=== PATIENT | female | born 1955 | race Caucasian/White ===

== ENCOUNTER 2021-06-30 18:59 | Inpatient (IN) | payer MEDICARE ==
--- NOTE | 2021-06-30 19:53 | ERPHSYRPT ---
- History of Present Illness Time Seen by Provider: 06/30/21 19:33 Source: patient Exam Limitations: no limitations Patient Subjective Stated Complaint: Patient states " The doctors's office called and told me I needed to come to ED because my HBG levels were to low." Triage Nursing Assessment: Patient arrived to ED and ambulated back to room wit hout difficulty with slow and steady gait. Patient A/O times 4. Patient able to follow instructions without difficulty. Patient stated she had just relocated in [place] and does not have a primary PCP. Patient however did see Dr. Frazier and had labs drawn this past Tuesday06/26/21. Patient stated they had called and left her a voice message that she didn't get until today that she needed to go to ED R/T abnormal HGB levels. Patient also stated that she wouldn't have been able to come in Tuesday because she had to wait on her daughter to be able to get a ride. Patient central color pale. Patient states she has been more tired than normal. Lungs very diminished throughout all lung lopes A/P. Physician History: 66 years old female with history of alcoholic cirrhosis, tobacco abuse, alcohol abuse, coronary artery disease status post stenting, hypertension, chronic pain, hypothyroidism is sent in ER by cardiology after routine work-up showed low hemoglobin. Patient reports feeling weak and tired but no more than normal shortness of breath or abdominal pain. Denies any dark-colored stool, hematochezia or hemoptysis/hematemesis. Has had similar episodes last year with hospitalization needing multiple transfusions. Denies being on any blood thinners. Timing/Duration: day(s), constant, gradual onset, worse Severity: moderate Associated Symptoms: malaise, weakness Allergies/Adverse Reactions: Penicillins Allergy (Intermediate, Verified 06/30/21 19:16) Hives Home Medications: Aspirin EC 81 mg [Ecotrin 81 mg] 81 mg PO DAILY 06/30/21 [History] Furosemide 20 mg [Lasix 20 mg] 20 mg PO DAILY 06/30/21 [History] Gabapentin 100 mg [Neurontin 100 MG] 100 mg PO TID 06/30/21 [History] Levothyroxine Sodium 25 mcg PO DAILY 06/30/21 [History] Potassium Chloride 10 Meq Tab* [Klor Con 10 MEQ] 20 meq PO DAILY 06/30/21 [History] Hx Tetanus, Diphtheria Vaccination/Date Given: Yes Hx Influenza Vaccination/Date Given: No Hx Pneumococcal Vaccination/Date Given: No Immunizations Up to Date: Yes Travel Risk - International Travel Have you traveled outside of the country in past 3 weeks: No - Coronavirus Screening Are you exhibiting any of the following symptoms?: No Close contact with a COVID-19 positive Pt in past 14-21 Days: No - Vaccine Status Have you recieved a Covid-19 vaccination: No - Review of Systems Constitutional: Fatigue, Weakness Eyes: No Symptoms Ears, Nose, & Throat: No Symptoms Respiratory: Dyspnea, Dyspnea on Exertion (PÉREZ), Wheezing Cardiac: No Symptoms Abdominal/Gastrointestinal: Abdominal Pain, No Hematochezia Genitourinary Symptoms: No Symptoms Musculoskeletal: Arthralgias Neurological: No Symptoms Psychological: No Symptoms Endocrine: No Symptoms Hematologic/Lymphatic: No Symptoms Immunological/Allergic: No Symptoms - Past Medical History Pertinent Past Medical History: Yes Neurological History: Seizures ENT History: No Pertinent History Cardiac History: Myocardial Infarction ([place]) Respiratory History: No Pertinent History Endocrine Medical History: Hypothyroidism Musculoskeletal History: Fractures, Osteoarthritis GI Medical History: Hernia, Pancreatitis History: No Pertinent History Psycho-Social History: Anxiety, Depression Female Reproductive Disorders: No Pertinent History Other Medical History: FX Bilateral Feet - Past Surgical History Past Surgical History: Yes Neuro Surgical History: No Pertinent History Cardiac: Cardiac Catheterization, Cardiac Stent Respiratory: No Pertinent History Gastrointestinal: No Pertinent History Genitourinary: No Pertinent History Musculoskeletal: Orthopedic Surgery Female Surgical History: Tubal Ligation Other Surgical History: HX Orthopedic Surgery on Bilateral arms from going through glass doors - Social History Smoking Status: Current every day smoker How long have you smoked: 40 years Exposure to second hand smoke: Yes Drug Use: none Patient Lives Alone: Yes - Female History Hx Last Menstrual Period: Tubal Hx Now: No - Nursing Vital Signs Nursing Vital Signs: Initial Vital Signs Temperature 98.8 F 06/30/21 19:01 Pulse Rate 106 H 06/30/21 19:01 Respiratory Rate 22 06/30/21 19:01 Blood Pressure 134/93 06/30/21 19:01 O2 Sat by Pulse Oximetry 98 06/30/21 19:01 Pain Scale Pain Intensity 0 - Physical Exam General Appearance: no apparent distress, alert Eye Exam: PERRL/EOMI, eyes nml inspection Ears, Nose, Throat Exam: normal ENT inspection, pharynx normal Neck Exam: normal inspection, supple, full range of motion Respiratory Exam: normal breath sounds, lungs clear Cardiovascular Exam: regular rate/rhythm, normal heart sounds Gastrointestinal/Abdomen Exam: soft, normal bowel sounds, tenderness (Minimal generalized. Distention), distention, No guarding Extremity Exam: normal inspection, pedal edema (Bilateral), swelling Neurologic Exam: alert, oriented x 3, cooperative Skin Exam: normal color SpO2 Interpretation: normal SpO2: 98 O2 Delivery: Room Air Ordered Tests: Active Orders 24 hr Category Date Time Status EKG-ER Only STAT Care 06/30/21 19:52 Active IV Insertion STAT Care 06/30/21 19:52 Active IV Insertion-2nd Peripheral STAT Care 06/30/21 20:39 Active CHEST 1 VIEW (PORTABLE) Stat Exams 06/30/21 20:32 Taken CBC W DIFF Stat Lab 06/30/21 19:54 Completed CMP Stat Lab 06/30/21 19:54 Completed ETHYL ALCOHOL Stat Lab 06/30/21 20:30 Completed FECAL OCCULT BLOOD - SCREENING Stat Lab 06/30/21 19:52 Ordered PROTIME WITH INR Stat Lab 06/30/21 20:08 Completed PTT Stat Lab 06/30/21 20:08 Completed UA W/RFX UR CULTURE Stat Lab 06/30/21 19:52 Ordered Transfer Order Routine Transfer 06/30/21 Ordered Medication Summary Discontinued Medications Generic Name Dose Route Start Last Admin Trade Name Sera PRN Reason Stop Dose Admin Lorazepam 1 mg 06/30/21 21:07 06/30/21 21:44 Lorazepam 2 Mg/1 Ml 2 Mg Vial IV 06/30/21 21:08 1 mg STAT ONE Administration Lorazepam Confirm 06/30/21 21:19 Lorazepam 2 Mg/1 Ml 2 Mg Vial Administered 06/30/21 21:20 Dose 2 mg .ROUTE .STK-MED ONE Pantoprazole Sodium 40 mg 06/30/21 20:02 06/30/21 20:07 Pantoprazole 40 Mg Vial IV 06/30/21 20:03 40 mg STAT ONE Administration Pantoprazole Sodium Confirm 06/30/21 20:05 Pantoprazole 40 Mg Vial Administered 06/30/21 20:06 Dose 40 mg IV .STK-MED ONE Lab/Rad Data: Laboratory Result Diagrams 06/30/21 19:54 06/30/21 19:54 Laboratory Results 06/30/21 06/30/21 06/30/21 Range/Units 20:40 20:30 20:08 WBC (4.0-10.5) K/mm3 RBC (4.1-5.4) M/mm3 Hgb (12.0-16.0) gm/dl Hct (35-47) % MCV (78-100) fl MCH (26-32) pg MCHC (32-36) g/dl RDW (11.5-14.0) % Plt Count (150-450) K/mm3 MPV (7.5-11.0) fl Gran % (36.0-66.0) % Eos # (Auto) (0-0.5) Absolute Lymphs (auto) (1.0-4.6) Absolute Monos (auto) (0.0-1.3) Lymphocytes % (24.0-44.0) % Monocytes % (0.0-12.0) % Eosinophils % (0.00-5.0) % Basophils % (0.0-0.4) % Absolute Granulocytes (1.4-6.9) Basophils # (0-0.4) PT 13.0 H (9.4-12.5) SECONDS INR 1.10 (0.8-3.0) APTT 29.7 (25.1-36.5) SECONDS Sodium (137-145) mmol/L Potassium (3.5-5.1) mmol/L Chloride (98-107) mmol/L Carbon Dioxide (22-30) mmol/L Anion Gap (5-15) MEQ/L BUN (7-17) mg/dL Creatinine (0.52-1.04) mg/dL Estimated GFR ML/MIN Glucose (74-106) mg/dL Calcium (8.4-10.2) mg/dL Total Bilirubin (0.2-1.3) mg/dL AST (14-36) U/L ALT (0-35) U/L Alkaline Phosphatase (38-126) U/L Serum Total Protein (6.3-8.2) g/dL Albumin (3.5-5.0) g/dL Ethyl Alcohol 44 H (0-10) mg/dL Slides for Path Review ABO Group Pending Rh Factor Pending Antibody Screen Pending 06/30/21 06/30/21 Range/Units 19:54 19:54 WBC 6.1 (4.0-10.5) K/mm3 RBC 4.04 L (4.1-5.4) M/mm3 Hgb 7.3 L (12.0-16.0) gm/dl Hct 26.4 L (35-47) % MCV 65.3 L (78-100) fl MCH 18.1 L (26-32) pg MCHC 27.7 L (32-36) g/dl RDW 20.7 H (11.5-14.0) % Plt Count 250 (150-450) K/mm3 MPV 9.5 (7.5-11.0) fl Gran % 46.4 (36.0-66.0) % Eos # (Auto) 0.13 (0-0.5) Absolute Lymphs (auto) 2.19 (1.0-4.6) Absolute Monos (auto) 0.92 (0.0-1.3) Lymphocytes % 35.9 (24.0-44.0) % Monocytes % 15.1 H (0.0-12.0) % Eosinophils % 2.1 (0.00-5.0) % Basophils % 0.5 (0.0-0.4) % Absolute Granulocytes 2.83 (1.4-6.9) Basophils # 0.03 (0-0.4) PT (9.4-12.5) SECONDS INR (0.8-3.0) APTT (25.1-36.5) SECONDS Sodium 142 (137-145) mmol/L Potassium 3.3 L (3.5-5.1) mmol/L Chloride 103 (98-107) mmol/L Carbon Dioxide 25 (22-30) mmol/L Anion Gap 18.0 H (5-15) MEQ/L BUN 10 (7-17) mg/dL Creatinine 0.59 (0.52-1.04) mg/dL Estimated GFR > 60.0 ML/MIN Glucose 93 (74-106) mg/dL Calcium 8.9 (8.4-10.2) mg/dL Total Bilirubin 0.60 (0.2-1.3) mg/dL AST 34 (14-36) U/L ALT 16 (0-35) U/L Alkaline Phosphatase 80 (38-126) U/L Serum Total Protein 7.4 (6.3-8.2) g/dL Albumin 4.0 (3.5-5.0) g/dL Ethyl Alcohol (0-10) mg/dL Slides for Path Review YES ABO Group Rh Factor Antibody Screen - Progress Progress: unchanged Progress Note: 06/30/21 21:16 66 years old is evaluated for symptomatic anemia with hemoglobin around 7.5 checked outpatient. Patient denies any history of hematochezia but does have history of transfusions and anemia in the past. Patient does drink heavily and was anxious, given Ativan. Work-up showed hemoglobin of 7.3 and hematocrit of 26 with normal platelets. Normal PT APTT/INR. Mildly low potassium. Went over risk and benefits of transfusion in detail with patient and she wants to proceed with transfusion. Ordered 2 units and will do 20 mg IV Lasix in between units. Will place patient on Ativan per protocol. Discussed with Dr. Truong, reviewed history, work-up and agreed with admission with above plan. Discussed with .: Anna Will see patient in: hospital (observation) Counseled pt/family regarding: lab results, diagnosis, rad results - Departure Departure Disposition: Observation Clinical Impression: Symptomatic anemia, Alcohol abuse Cirrhosis of liver with ascites Qualifiers: Hepatic cirrhosis type: alcoholic cirrhosis Qualified Code(s): K70.31 - Alcoholic cirrhosis of liver with ascites Condition: Stable Critical Care Time: No Referrals: DOCTOR,NO FAMILY [Primary Care Provider] -
[2021-06-30 19:59] LABS: Absolute Neutrophil Ct (ANC) 2.83 (1.4-6.9); BASOPHIL % 0.5 % (0.0-0.4); Basophil (Absolute #) 0.03 (0-0.4); Eosinophil % 2.1 % (0.00-5.0); Eosinophil (Absolute #) 0.13 (0-0.5); Hematocrit 26.4 % (35-47); Hemoglobin 7.3 gm/dl (12.0-16.0); Lymphocyte (Absolute #) 2.19 (1.0-4.6); Lymphocytes % 35.9 % (24.0-44.0); Mean Cell Volume 65.3 fl (78-100); Mean Corpuscular Hemoglobin 18.1 pg (26-32); Mean Corpuscular Hgb Concent. 27.7 g/dl (32-36); Mean Platelet Volume 9.5 fl (7.5-11.0); Monocyte (Absolute #) 0.92 (0.0-1.3); Monocytes % 15.1 % (0.0-12.0); Neutrophil % 46.4 % (36.0-66.0); Platelet Count 250 K/mm3 (150-450); Red Blood Count 4.04 M/mm3 (4.1-5.4); Red Cell Distribution Width 20.7 % (11.5-14.0); White Blood Count 6.1 K/mm3 (4.0-10.5)
[2021-06-30] MEDS ORDERED: PROTONIX 40 MG IV IV ONE ×2 (20:02→20:05)
[2021-06-30 20:13] LABS: ALKALINE PHOSPHATASE 80 U/L (38-126); BLOOD UREA NITROGEN 10 mg/dL (7-17); CHLORIDE 103 mmol/L (98-107); Calcium 8.9 mg/dL (8.4-10.2); Carbon Dioxide 25 mmol/L (22-30); Creatinine 1 0.59 mg/dL (0.52-1.04); EST GLOMERULAR FILTRATION RATE > 60.0 ML/MIN; Glucose 93 mg/dL (74-106); Potassium 3.3 mmol/L (3.5-5.1); SGOT/AST 34 U/L (14-36); SGPT/ALT 16 U/L (0-35); SODIUM 142 mmol/L (137-145); Total Protein 7.4 g/dL (6.3-8.2)
[2021-06-30 20:17] LABS: INR 1.1 (0.8-3.0)
[2021-06-30 20:20] LABS: PTT 29.7 SECONDS (25.1-36.5)
[2021-06-30] MEDS ORDERED: Ativan 2 MG/1 ML VIAL IV ONE (21:07)
[2021-06-30 21:18] LABS: Slide Review 1 YES
[2021-06-30] MEDS ORDERED: Ativan 2 MG/1 ML VIAL ONE (21:19)
[2021-06-30 23:31] LABS: ABO TYPING B; Antibody Screen NEGATIVE (NEGATIVE); RH TYPING POSITIVE
[2021-06-30] MEDS ORDERED: DUONEB 0.5-3 MG/3 ml Neb IH PRN (23:55)
[2021-07-01] MEDS ORDERED: Sodium Chloride 0.9% 1000 ML 1,000 ML ONE (00:01)
[2021-07-01] MEDS ORDERED: Sodium Chloride 0.9% 1000 ML 1,000 ML IV SCH (00:15)
[2021-07-01] MEDS: Sodium Chloride 0.9% W/ 20 mEq KCl/LITER 1,000 ML IV SCH ×2 (04:03→09:40)
[2021-07-01] MEDS: Ativan 2 MG/1 ML VIAL IV PRN ×6 (04:08→22:15)
[2021-07-01] MEDS ORDERED: TRANDATE 20 MG/4 ML SYRINGE IV ONE (07:30)
[2021-07-01 07:48] LABS: Hematocrit 31.5 % (35-47); Hemoglobin 9.4 gm/dl (12.0-16.0)
[2021-07-01] MEDS ORDERED: Lasix 20 MG/2 ML IV ONE ×2 (08:00→08:51)
--- NOTE | 2021-07-01 08:47 | XRAY ---
Indication: Weakness. Comparison: None Portable apical lordotic chest demonstrates borderline cardiomegaly, moderate left base pleural effusion with adjacent infiltrate/atelectasis, and mild right base infiltrate/atelectasis. Bony thorax intact with mild osteopenia and degenerative changes.
--- NOTE | 2021-07-01 08:52 | PCM.HP ---
History of Present Illness - Chief Complaint Chief Complaint: symptomatic anemia History of Present Illness: is a 66 year old female pt with no local MD who has alcoholic cirrhosis of the liver, CAD with stents, HTN, chronic abd pain, hypothyroidism, Hep C, alcohol use disorder, and tobacco use disorder who was admitted through ER with symptomatic anemia. She saw Dr. Frazier for the first time last week and had routine labs drawn; his office called and let her know her Hgb was low and she needed to come to ER. She had been feeling a little weak; hgb was 7.3 in ER. Two units of PRBC were ordered (last unit went in this morning). Her K was 3.3. EtOH 44. CXR read is pending. Pt has had anemia before; she was living in [place] in December 2020 and had an admission at [facility] near [place] in which she had an EGD and colonoscopy with no findings, per pt. She denies any history of esophageal varices. Pt drinks 1 L vodka daily. Apparently, per RN, she was off of alcohol entirely for 9 years, then when her passed this year she relapsed. She smoked 3/4 PPD and does not want a nicotine patch. Overnight, she had ativan at 4am as her BP and HR slowly increased. Then in the morning nanny she had a BP 156/97 and HR went to the 160s briefly (about 30 seconds) before returning to 113. She was asleep at the time. Later in the morning, approx 7-7:30, she was given ativan again and has been sleeping ever since. She was given 10mg Labetalol IV and her HR decreased to the 80s and BP decreased as well. She had not urinated since admission; was given 20 units of lasix with her last unit of blood. She did soak the bed then go to the restroom and urinate about 450 cc at that time. RN notes she has edema posteriorly to approx thoracic spine. - Review of Systems Constitutional: Fatigue Cardiac: Edema (LE chronic) Abdominal/Gastrointestinal: Abdominal Pain (chronic, pt states due to her liver) Psychological: Alcohol Abuse, Anxiety, No Suicidal Ideations, No Homicidal Ideations All Other Systems: Reviewed and Negative Medications & Allergies Home Medications: Home Medication List Aspirin EC 81 mg [Ecotrin 81 mg] 81 mg PO DAILY 06/30/21 [History Confirmed 07/01/21] Furosemide 20 mg [Lasix 20 mg] 20 mg PO DAILY 06/30/21 [History Confirmed 07/01/21] Gabapentin 100 mg [Neurontin 100 MG] 100 mg PO TID 06/30/21 [History Confirmed 07/01/21] Levothyroxine Sodium 25 mcg PO DAILY 06/30/21 [History Confirmed 07/01/21] Potassium Chloride 10 Meq Tab* [Klor Con 10 MEQ] 20 meq PO DAILY 06/30/21 [History Confirmed 07/01/21] Allergies/Adverse Reactions: Allergies Allergy/AdvReac Type Severity Reaction Status Date / Time Penicillins Allergy Intermediate Hives Verified 07/01/21 00:12 adhesive tape Allergy Mild Rash Verified 07/01/21 00:12 - Past Medical History Past Medical History: Yes Neurological History: Peripheral Neuropathy, Seizures ENT History: No Pertinent History Cardiac History: Coronary Artery Disease, High Cholesterol, Hypertension, Myocardial Infarction ([place]) Respiratory History: COPD Endocrine Medical History: Hypothyroidism, Liver Disease Musculoskelatal History: Osteoarthritis GI Medical History: Cirrhosis, Hernia, Pancreatitis History: No Pertinent History Pyscho-Social History: Anxiety, Bipolar, Depression, Panic Disorder Reproductive Disorders: No Pertinent History Comment: Hx of one seizure when not drinking alcohol. Patient reportedly drinks 0.75 of a one liter bottle of vodka daily. Hx of hepatitis C. - Female History Hx Last Menstrual Period: Tubal Are you now?: No - Past Surgical History Past Surgical History: Yes Neuro Surgical History: No Pertinent History Cardiac History: Cardiac Catheterization, Cardiac Stent Respiratory Surgery: No Pertinent History GI Surgical History: No Pertinent History Genitourinary Surgical Hx: No Pertinent History Musculskeletal Surgical Hx: Orthopedic Surgery Female Surgical History: Tubal Ligation Other Surgical History: HX Orthopedic Surgery on Bilateral arms from going through glass doors. - Social History Smoking Status: Current every day smoker How long have you smoked: 40 years Exposure to second hand smoke: Yes Alcohol: Heavy, Daily Drug Use: none - Physical Exam Vital Signs: Vital Signs - 24 hr Temp Pulse Resp BP BP Pulse Ox 07/01/21 08:00 83 125/79 07/01/21 07:49 107 H 18 100 07/01/21 07:37 156/97 105 H 07/01/21 07:19 98.2 F 107 H 18 156/97 100 07/01/21 04:08 112 H 22 07/01/21 04:00 98.6 F 112 H 22 138/79 98 07/01/21 01:26 99.5 F 104 H 18 148/70 99 07/01/21 00:29 101 H 18 96 06/30/21 23:00 104 H 16 149/98 93 L 06/30/21 22:00 100 H 16 142/108 92 L 06/30/21 21:50 98 06/30/21 21:00 96 H 24 134/79 94 L 06/30/21 20:00 100 H 20 141/68 97 06/30/21 19:01 98.8 F 106 H 22 134/93 98 General Appearance: no apparent distress, other (somnolent, but wakes to voice and/or touch and briefly answers questions.) Neurologic Exam: oriented x 3, cooperative Eye Exam: eyes nml inspection Ears, Nose, Throat Exam: moist mucous membranes Neck Exam: normal inspection, non-tender, No lymphadenopathy Respiratory Exam: normal breath sounds, chest tenderness, No lungs clear, No crackles/rales, No rhonchi, No wheezing Cardiovascular Exam: regular rate/rhythm, normal heart sounds, No murmur Gastrointestinal/Abdomen Exam: soft, normal bowel sounds, tenderness (RUQ; liver palpable), hepatomegaly, other (no ascites), No guarding, No rebound Back Exam: normal inspection, No rash Extremity Exam: normal inspection, No pedal edema, No swelling Skin Exam: normal color, warm, dry, No rash Results - Labs Lab/Micro Results: Lab Results-Last 24 Hours 06/30/21 06/30/21 06/30/21 Range/Units 19:54 19:54 20:08 WBC 6.1 (4.0-10.5) K/mm3 RBC 4.04 L (4.1-5.4) M/mm3 Hgb 7.3 L (12.0-16.0) gm/dl Hct 26.4 L (35-47) % MCV 65.3 L (78-100) fl MCH 18.1 L (26-32) pg MCHC 27.7 L (32-36) g/dl RDW 20.7 H (11.5-14.0) % Plt Count 250 (150-450) K/mm3 MPV 9.5 (7.5-11.0) fl Gran % 46.4 (36.0-66.0) % Eos # (Auto) 0.13 (0-0.5) Absolute Lymphs (auto) 2.19 (1.0-4.6) Absolute Monos (auto) 0.92 (0.0-1.3) Lymphocytes % 35.9 (24.0-44.0) % Monocytes % 15.1 H (0.0-12.0) % Eosinophils % 2.1 (0.00-5.0) % Basophils % 0.5 (0.0-0.4) % Absolute Granulocytes 2.83 (1.4-6.9) Basophils # 0.03 (0-0.4) PT 13.0 H (9.4-12.5) SECONDS INR 1.10 (0.8-3.0) APTT 29.7 (25.1-36.5) SECONDS Sodium 142 (137-145) mmol/L Potassium 3.3 L (3.5-5.1) mmol/L Chloride 103 (98-107) mmol/L Carbon Dioxide 25 (22-30) mmol/L Anion Gap 18.0 H (5-15) MEQ/L BUN 10 (7-17) mg/dL Creatinine 0.59 (0.52-1.04) mg/dL Estimated GFR > 60.0 ML/MIN Glucose 93 (74-106) mg/dL Calcium 8.9 (8.4-10.2) mg/dL Total Bilirubin 0.60 (0.2-1.3) mg/dL AST 34 (14-36) U/L ALT 16 (0-35) U/L Alkaline Phosphatase 80 (38-126) U/L Serum Total Protein 7.4 (6.3-8.2) g/dL Albumin 4.0 (3.5-5.0) g/dL Ethyl Alcohol (0-10) mg/dL SARS-CoV-2 (PCR) (NEGATIVE) Slides for Path Review YES ABO Group Rh Factor Antibody Screen (NEGATIVE) Crossmatch (COMPATIBLE) 06/30/21 06/30/21 06/30/21 Range/Units 20:30 20:40 21:09 WBC (4.0-10.5) K/mm3 RBC (4.1-5.4) M/mm3 Hgb (12.0-16.0) gm/dl Hct (35-47) % MCV (78-100) fl MCH (26-32) pg MCHC (32-36) g/dl RDW (11.5-14.0) % Plt Count (150-450) K/mm3 MPV (7.5-11.0) fl Gran % (36.0-66.0) % Eos # (Auto) (0-0.5) Absolute Lymphs (auto) (1.0-4.6) Absolute Monos (auto) (0.0-1.3) Lymphocytes % (24.0-44.0) % Monocytes % (0.0-12.0) % Eosinophils % (0.00-5.0) % Basophils % (0.0-0.4) % Absolute Granulocytes (1.4-6.9) Basophils # (0-0.4) PT (9.4-12.5) SECONDS INR (0.8-3.0) APTT (25.1-36.5) SECONDS Sodium (137-145) mmol/L Potassium (3.5-5.1) mmol/L Chloride (98-107) mmol/L Carbon Dioxide (22-30) mmol/L Anion Gap (5-15) MEQ/L BUN (7-17) mg/dL Creatinine (0.52-1.04) mg/dL Estimated GFR ML/MIN Glucose (74-106) mg/dL Calcium (8.4-10.2) mg/dL Total Bilirubin (0.2-1.3) mg/dL AST (14-36) U/L ALT (0-35) U/L Alkaline Phosphatase (38-126) U/L Serum Total Protein (6.3-8.2) g/dL Albumin (3.5-5.0) g/dL Ethyl Alcohol 44 H (0-10) mg/dL SARS-CoV-2 (PCR) (NEGATIVE) Slides for Path Review ABO Group B Rh Factor POSITIVE Antibody Screen NEGATIVE (NEGATIVE) Crossmatch COMPATIBLE (COMPATIBLE) 06/30/21 06/30/21 07/01/21 Range/Units 21:09 21:48 07:40 WBC (4.0-10.5) K/mm3 RBC (4.1-5.4) M/mm3 Hgb 9.4 L D (12.0-16.0) gm/dl Hct 31.5 L (35-47) % MCV (78-100) fl MCH (26-32) pg MCHC (32-36) g/dl RDW (11.5-14.0) % Plt Count (150-450) K/mm3 MPV (7.5-11.0) fl Gran % (36.0-66.0) % Eos # (Auto) (0-0.5) Absolute Lymphs (auto) (1.0-4.6) Absolute Monos (auto) (0.0-1.3) Lymphocytes % (24.0-44.0) % Monocytes % (0.0-12.0) % Eosinophils % (0.00-5.0) % Basophils % (0.0-0.4) % Absolute Granulocytes (1.4-6.9) Basophils # (0-0.4) PT (9.4-12.5) SECONDS INR (0.8-3.0) APTT (25.1-36.5) SECONDS Sodium (137-145) mmol/L Potassium (3.5-5.1) mmol/L Chloride (98-107) mmol/L Carbon Dioxide (22-30) mmol/L Anion Gap (5-15) MEQ/L BUN (7-17) mg/dL Creatinine (0.52-1.04) mg/dL Estimated GFR ML/MIN Glucose (74-106) mg/dL Calcium (8.4-10.2) mg/dL Total Bilirubin (0.2-1.3) mg/dL AST (14-36) U/L ALT (0-35) U/L Alkaline Phosphatase (38-126) U/L Serum Total Protein (6.3-8.2) g/dL Albumin (3.5-5.0) g/dL Ethyl Alcohol (0-10) mg/dL SARS-CoV-2 (PCR) NEGATIVE (NEGATIVE) Slides for Path Review ABO Group Rh Factor Antibody Screen (NEGATIVE) Crossmatch COMPATIBLE (COMPATIBLE) Accuchecks Date 07/01/21 Time 07:18 - Radiology Impressions Radiology Exams & Impressions: Radiology Procedures Category Date Time Status CHEST 1 VIEW (PORTABLE) Stat Exams 06/30/21 20:32 Taken Ultrasound Bladder [BLADDER] [US] Routine Exams 07/01/21 Ordered - Other Procedures and Tests Respiratory Therapy 07/01/21 00:29 Respiratory Therapy Assessment DAILY 07/01/21 01:43 Smoking Cessation Education ONCE Assessment/Plan (1) Symptomatic anemia Current Visit: Yes Status: Chronic Assessment & Plan: 2 units PRBC in, will check post CBC. WIll get records from [facility]. May need to consult surgery after that. Code(s): D64.9 - ANEMIA, UNSPECIFIED (2) HTN (hypertension) Current Visit: Yes Status: Acute Qualifiers: Hypertension type: primary hypertension Qualified Code(s): I10 - Essential (primary) hypertension Code(s): I10 - ESSENTIAL (PRIMARY) HYPERTENSION (3) Tachycardia Current Visit: Yes Status: Acute Assessment & Plan: Will consult Dr. Frazier as he recently saw the pt. Code(s): R00.0 - TACHYCARDIA, UNSPECIFIED (4) CAD (coronary artery disease) Current Visit: Yes Status: Chronic Qualifiers: Coronary Disease-Associated Artery/Lesion type: nikolai artery [place] vs. transplanted heart: n[place] heart Associated angina: without angina Qualified Code(s): I25.10 - Atherosclerotic heart disease of [place] coronary artery without angina pectoris Code(s): I25.10 - ATHSCL HEART DISEASE OF [place] CORONARY ARTERY W/O ANG PCTRS (5) Hepatitis C Current Visit: Yes Status: Acute Qualifiers: Viral hepatitis chronicity: chronic Hepatic coma status: without hepatic coma Qualified Code(s): B18.2 - Chronic viral hepatitis C (6) Hypothyroid Current Visit: Yes Status: Acute Qualifiers: Hypothyroidism type: unspecified Qualified Code(s): E03.9 - Hypothyroidism, unspecified Code(s): E03.9 - HYPOTHYROIDISM, UNSPECIFIED (7) Alcohol abuse Current Visit: Yes Status: Chronic Assessment & Plan: [facility] consult Code(s): F10.10 - ALCOHOL ABUSE, UNCOMPLICATED (8) Cirrhosis of liver with ascites Current Visit: Yes Status: Chronic Qualifiers: Hepatic cirrhosis type: alcoholic cirrhosis Qualified Code(s): K70.31 - Alcoholic cirrhosis of liver with ascites Code(s): K74.60 - UNSPECIFIED CIRRHOSIS OF LIVER; R18.8 - OTHER ASCITES
[2021-07-01 09:27] LABS: ANION GAP 14.3 MEQ/L (5-15); BLOOD UREA NITROGEN 12 mg/dL (7-17); CHLORIDE 105 mmol/L (98-107); Calcium 8.6 mg/dL (8.4-10.2); Carbon Dioxide 25 mmol/L (22-30); Creatinine 1 0.58 mg/dL (0.52-1.04); EST GLOMERULAR FILTRATION RATE > 60.0 ML/MIN; Glucose 90 mg/dL (74-106); MAGNESIUM 1.3 mg/dL (1.6-2.3); Potassium 3.7 mmol/L (3.5-5.1); SODIUM 141 mmol/L (137-145)
[2021-07-01] MEDS: VITAMIN B-1 100 MG PO SCH (09:39)
[2021-07-01] MEDS: PROTONIX 40 MG IV IV SCH (09:39)
[2021-07-01] MEDS: THERAGRAN MULTIVITAMIN PO SCH (09:39)
[2021-07-01] MEDS: FOLATE 1 MG PO SCH (09:39)
--- NOTE | 2021-07-01 10:29 | XRAY ---
Indication: Incontinence. Trouble urinating. Limited urinary bladder sonogram obtained post void demonstrates bladder volume 149 cc. No focal bladder mass/abnormality. Incidental small free fluid superior to bladder possibly ascites.
[2021-07-01 10:42] LABS: Hyaline Casts 0-2 /LPF (0-2)
[2021-07-01 10:45] LABS: Amphetamine,Urine POSITIVE (NEGATIVE); Barbiturate,Urine NEGATIVE (NEGATIVE); Benzodiazepine,Urine NEGATIVE (NEGATIVE); Cocaine,Urine NEGATIVE (NEGATIVE); Methadone,Urine NEGATIVE (NEGATIVE); Opiate,Urine NEGATIVE (NEGATIVE); PCP,Urine NEGATIVE (NEGATIVE); THC,Urine NEGATIVE (NEGATIVE)
[2021-07-01 10:54] LABS: Appearance CLEAR (CLEAR); Bilirubin NEGATIVE (NEGATIVE); Glucose NEGATIVE (NEGATIVE); Ketones NEGATIVE (NEGATIVE); Leukocyte Esterase NEGATIVE (NEGATIVE); Nitrite NEGATIVE (NEGATIVE); Ph 6.5 (5-6); Protein,Urine Dip NEGATIVE (Negative); Urobilinogen 0.2 mg/dL (0-1)
[2021-07-01 10:55] LABS: Blood NEGATIVE Ery/ul (0-5)
[2021-07-01] MEDS: TYLENOL 325 MG PO PRN (12:07)
[2021-07-01] MEDS: MAG-OX 400 PO SCH (12:07)
[2021-07-02] MEDS: Ativan 2 MG/1 ML VIAL IV PRN ×8 (01:33→19:45)
[2021-07-02] MEDS: Sodium Chloride 0.9% W/ 20 mEq KCl/LITER 1,000 ML IV SCH ×2 (01:36→19:47)
[2021-07-02 07:25] LABS: Hematocrit 31.7 % (35-47); Hemoglobin 9.4 gm/dl (12.0-16.0); Mean Cell Volume 69.2 fl (78-100); Mean Corpuscular Hemoglobin 20.5 pg (26-32); Mean Corpuscular Hgb Concent. 29.7 g/dl (32-36); Mean Platelet Volume 9.8 fl (7.5-11.0); Platelet Count 226 K/mm3 (150-450); Red Blood Count 4.58 M/mm3 (4.1-5.4); Red Cell Distribution Width 24.4 % (11.5-14.0); White Blood Count 5.8 K/mm3 (4.0-10.5)
[2021-07-02 07:34] LABS: ANION GAP 15.8 MEQ/L (5-15); BLOOD UREA NITROGEN 13 mg/dL (7-17); CHLORIDE 102 mmol/L (98-107); Calcium 8.2 mg/dL (8.4-10.2); Carbon Dioxide 25 mmol/L (22-30); Creatinine 1 0.62 mg/dL (0.52-1.04); EST GLOMERULAR FILTRATION RATE > 60.0 ML/MIN; Glucose 93 mg/dL (74-106); MAGNESIUM 1.3 mg/dL (1.6-2.3); Potassium 3.8 mmol/L (3.5-5.1); SODIUM 139 mmol/L (137-145)
[2021-07-02 08:16] LABS: Slide Review YES
--- NOTE | 2021-07-02 08:45 | PCM.NOTE ---
Date and Time: 07/02/21838 Subjective Assessment: Today pt tells me her legs hurt. Answers some questions briefly when I ask her multiple times. Yesterday pt was disoriented most of the day. Found by RN with her head at the foot of the bed. UDS + for amphetamines. Found mid day by RN with contents of her purse on her lap and on the floor; there was a pill bottle which appeared to have powder in it and was taken by RN. [facility] was called and tested the contents and they were + for methamphetamine. Pt thinks her daughter took her "dope" and is going to sell it. - Review of Systems Constitutional: No Fever Abdominal/Gastrointestinal: No Vomiting Objective Exam General Appearance: no apparent distress, other (wakes to touch. lying in the bed with sheets askew; her legs are partially off the bed) Neurologic Exam: other (pt sits up with minimal assistance. she says, "Who are you?" to me. oriented to place, "[facility] [place]" and knows it is Jun 2021.) OBJECTIVE DATA Vital Signs: Vital Signs - 24 hr Temp Pulse Resp BP Pulse Ox 07/02/21 08:00 97.8 F 97 H 18 135/81 90 L 07/02/21 07:31 79 16 07/02/21 04:00 20 07/02/21 00:10 97.9 F 07/01/21 20:00 97.8 F 84 18 135/86 93 L 07/01/21 17:06 83 07/01/21 16:00 97.8 F 07/01/21 12:07 85 07/01/21 11:32 98.0 F 83 16 146/74 92 L 07/01/21 10:00 83 16 Pain Assessment - Last Documented Pain Intensity 0 Pain Scale Used FLACC Intake and Output: Intake & Output 06/29/21 06/30/21 07/01/21 07/02/21 11:59 11:59 11:59 11:59 Intake Total 871 478 Balance 871 478 Weight 66.6 kg Lab Results: Lab Results-Last 24 Hours 06/30/21 07/01/21 07/01/21 Range/Units 10:54 05:00 06:34 WBC (4.0-10.5) K/mm3 RBC (4.1-5.4) M/mm3 Hgb (12.0-16.0) gm/dl Hct (35-47) % MCV (78-100) fl MCH (26-32) pg MCHC (32-36) g/dl RDW (11.5-14.0) % Plt Count (150-450) K/mm3 MPV (7.5-11.0) fl Sodium (137-145) mmol/L Potassium (3.5-5.1) mmol/L Chloride (98-107) mmol/L Carbon Dioxide (22-30) mmol/L Anion Gap (5-15) MEQ/L BUN (7-17) mg/dL Creatinine (0.52-1.04) mg/dL Estimated GFR ML/MIN Glucose (74-106) mg/dL POC Glucometer 99 (74 to 106) mg/dL Calcium (8.4-10.2) mg/dL Magnesium (1.6-2.3) mg/dL TSH 3rd Generation 7.710 H (0.47-4.68) mIU/L Urine Color YELLOW (YELLOW) Urine Appearance CLEAR (CLEAR) Urine pH 6.5 (5-6) Ur Specific [place] 1.020 (1.005-1.025) Urine Protein NEGATIVE (Negative) Urine Ketones NEGATIVE (NEGATIVE) Urine Blood NEGATIVE (0-5) Scott/ul Urine Nitrite NEGATIVE (NEGATIVE) Urine Bilirubin NEGATIVE (NEGATIVE) Urine Urobilinogen 0.2 (0-1) mg/dL Ur Leukocyte Esterase NEGATIVE (NEGATIVE) Urine WBC (Auto) NONE (0-5) /HPF Urine RBC (Auto) NONE (0-2) /HPF U Hyaline Cast (Auto) 0-2 (0-2) /LPF U Epithel Cells (Auto) NONE (FEW) /HPF Urine Bacteria (Auto) NONE (NEGATIVE) /HPF Urine Culture Reflexed NO (NO) Urine Glucose NEGATIVE (NEGATIVE) mg/dL Urine Opiates Level (NEGATIVE) Ur Methadone (NEGATIVE) Urine Barbiturates (NEGATIVE) Ur Phencyclidine (PCP) (NEGATIVE) Urine Amphetamine (NEGATIVE) U Benzodiazepine Level (NEGATIVE) Urine Cocaine (NEGATIVE) Urine Marijuana (THC) (NEGATIVE) Slides for Path Review 07/01/21 07/01/21 07/01/21 Range/Units 07:40 19:52 21:15 WBC (4.0-10.5) K/mm3 RBC (4.1-5.4) M/mm3 Hgb (12.0-16.0) gm/dl Hct (35-47) % MCV (78-100) fl MCH (26-32) pg MCHC (32-36) g/dl RDW (11.5-14.0) % Plt Count (150-450) K/mm3 MPV (7.5-11.0) fl Sodium 141 (137-145) mmol/L Potassium 3.7 (3.5-5.1) mmol/L Chloride 105 (98-107) mmol/L Carbon Dioxide 25 (22-30) mmol/L Anion Gap 14.3 (5-15) MEQ/L BUN 12 (7-17) mg/dL Creatinine 0.58 (0.52-1.04) mg/dL Estimated GFR > 60.0 ML/MIN Glucose 90 (74-106) mg/dL POC Glucometer 101 (74 to 106) mg/dL Calcium 8.6 (8.4-10.2) mg/dL Magnesium 1.3 L (1.6-2.3) mg/dL TSH 3rd Generation (0.47-4.68) mIU/L Urine Color (YELLOW) Urine Appearance (CLEAR) Urine pH (5-6) Ur Specific [place] (1.005-1.025) Urine Protein (Negative) Urine Ketones (NEGATIVE) Urine Blood (0-5) Scott/ul Urine Nitrite (NEGATIVE) Urine Bilirubin (NEGATIVE) Urine Urobilinogen (0-1) mg/dL Ur Leukocyte Esterase (NEGATIVE) Urine WBC (Auto) (0-5) /HPF Urine RBC (Auto) (0-2) /HPF U Hyaline Cast (Auto) (0-2) /LPF U Epithel Cells (Auto) (FEW) /HPF Urine Bacteria (Auto) (NEGATIVE) /HPF Urine Culture Reflexed (NO) Urine Glucose (NEGATIVE) mg/dL Urine Opiates Level NEGATIVE (NEGATIVE) Ur Methadone NEGATIVE (NEGATIVE) Urine Barbiturates NEGATIVE (NEGATIVE) Ur Phencyclidine (PCP) NEGATIVE (NEGATIVE) Urine Amphetamine POSITIVE (NEGATIVE) U Benzodiazepine Level NEGATIVE (NEGATIVE) Urine Cocaine NEGATIVE (NEGATIVE) Urine Marijuana (THC) NEGATIVE (NEGATIVE) Slides for Path Review 07/02/21 07/02/21 Range/Units 07:13 07:13 WBC 5.8 (4.0-10.5) K/mm3 RBC 4.58 (4.1-5.4) M/mm3 Hgb 9.4 L (12.0-16.0) gm/dl Hct 31.7 L (35-47) % MCV 69.2 L (78-100) fl MCH 20.5 L (26-32) pg MCHC 29.7 L (32-36) g/dl RDW 24.4 H (11.5-14.0) % Plt Count 226 (150-450) K/mm3 MPV 9.8 (7.5-11.0) fl Sodium 139 (137-145) mmol/L Potassium 3.8 (3.5-5.1) mmol/L Chloride 102 (98-107) mmol/L Carbon Dioxide 25 (22-30) mmol/L Anion Gap 15.8 H (5-15) MEQ/L BUN 13 (7-17) mg/dL Creatinine 0.62 (0.52-1.04) mg/dL Estimated GFR > 60.0 ML/MIN Glucose 93 (74-106) mg/dL POC Glucometer (74 to 106) mg/dL Calcium 8.2 L (8.4-10.2) mg/dL Magnesium 1.3 L (1.6-2.3) mg/dL TSH 3rd Generation (0.47-4.68) mIU/L Urine Color (YELLOW) Urine Appearance (CLEAR) Urine pH (5-6) Ur Specific [place] (1.005-1.025) Urine Protein (Negative) Urine Ketones (NEGATIVE) Urine Blood (0-5) Scott/ul Urine Nitrite (NEGATIVE) Urine Bilirubin (NEGATIVE) Urine Urobilinogen (0-1) mg/dL Ur Leukocyte Esterase (NEGATIVE) Urine WBC (Auto) (0-5) /HPF Urine RBC (Auto) (0-2) /HPF U Hyaline Cast (Auto) (0-2) /LPF U Epithel Cells (Auto) (FEW) /HPF Urine Bacteria (Auto) (NEGATIVE) /HPF Urine Culture Reflexed (NO) Urine Glucose (NEGATIVE) mg/dL Urine Opiates Level (NEGATIVE) Ur Methadone (NEGATIVE) Urine Barbiturates (NEGATIVE) Ur Phencyclidine (PCP) (NEGATIVE) Urine Amphetamine (NEGATIVE) U Benzodiazepine Level (NEGATIVE) Urine Cocaine (NEGATIVE) Urine Marijuana (THC) (NEGATIVE) Slides for Path Review YES Radiology Exams: Radiology Procedures Category Date Time Status CHEST 1 VIEW (PORTABLE) Stat Exams 06/30/21 20:32 Completed Ultrasound Bladder [BLADDER] [US] Routine Exams 07/01/21 Completed Assessment/Plan (1) Alcohol withdrawal delirium Current Visit: Yes Status: Acute Assessment & Plan: Pt is receiving ativan per [facility] protocol. Code(s): F10.231 - ALCOHOL DEPENDENCE WITH WITHDRAWAL DELIRIUM (2) Symptomatic anemia Current Visit: Yes Status: Chronic Assessment & Plan: hgb stable this morning at 9.4. I did ask surgery to consult; however I don't think we have records from her most recent EGD/colonoscopy which may have been in the spring in [place]. Code(s): D64.9 - ANEMIA, UNSPECIFIED (3) Methamphetamine abuse Current Visit: Yes Status: Chronic Assessment & Plan: Pt is not aware as yet that her drugs have been confiscated. Code(s): F15.10 - OTHER STIMULANT ABUSE, UNCOMPLICATED (4) HTN (hypertension) Current Visit: Yes Status: Chronic Qualifiers: Hypertension type: primary hypertension Qualified Code(s): I10 - Essential (primary) hypertension Code(s): I10 - ESSENTIAL (PRIMARY) HYPERTENSION (5) Tachycardia Current Visit: Yes Status: Resolved Code(s): R00.0 - TACHYCARDIA, UNSPECIFIED (6) CAD (coronary artery disease) Current Visit: Yes Status: Chronic Qualifiers: Coronary Disease-Associated Artery/Lesion type: [place] artery [place] vs. transplanted heart: [place] heart Associated angina: without angina Qualified Code(s): I25.10 - Atherosclerotic heart disease of [place] coronary artery without angina pectoris Code(s): I25.10 - ATHSCL HEART DISEASE OF [place] CORONARY ARTERY W/O ANG PCTRS (7) Hepatitis C Current Visit: Yes Status: Chronic Qualifiers: Viral hepatitis chronicity: chronic Hepatic coma status: without hepatic coma Qualified Code(s): B18.2 - Chronic viral hepatitis C (8) Hypothyroid Current Visit: Yes Status: Chronic Qualifiers: Hypothyroidism type: unspecified Qualified Code(s): E03.9 - Hypothyroidism, unspecified Code(s): E03.9 - HYPOTHYROIDISM, UNSPECIFIED (9) Alcohol abuse Current Visit: Yes Status: Chronic Code(s): F10.10 - ALCOHOL ABUSE, UNCOMPLICATED (10) Cirrhosis of liver with ascites Current Visit: Yes Status: Chronic Qualifiers: Hepatic cirrhosis type: alcoholic cirrhosis Qualified Code(s): K70.31 - Alcoholic cirrhosis of liver with ascites Code(s): K74.60 - UNSPECIFIED CIRRHOSIS OF LIVER; R18.8 - OTHER ASCITES
[2021-07-02] MEDS: VITAMIN B-1 100 MG PO SCH (09:28)
[2021-07-02] MEDS: MAG-OX 400 PO SCH (09:28)
[2021-07-02] MEDS: FOLATE 1 MG PO SCH (09:28)
[2021-07-02] MEDS: THERAGRAN MULTIVITAMIN PO SCH (09:28)
[2021-07-02] MEDS: PROTONIX 40 MG IV IV SCH (09:28)
[2021-07-02] MEDS ORDERED: Dextrose 5% -0.45 NaCl 1000 ML 1,000 ML IV SCH (21:15)
[2021-07-03] MEDS: Ativan 2 MG/1 ML VIAL IV PRN ×5 (00:23→23:40)
--- NOTE | 2021-07-03 08:37 | PCM.NOTE ---
Date and Time: 07/03/21833 Subjective Assessment: patient is very drowsy but receiving IV ativan every 3 hours per nursing for [facility] protocol, she does answer some questions, admits to drinking heavily and states she did use drugs. she is able to roll over in bed and moves all of her extremities. Objective Exam General Appearance: no apparent distress Neurologic Exam: No alert (drowsy), No cooperative Respiratory Exam: normal breath sounds, lungs clear, No respiratory distress Cardiovascular Exam: regular rate/rhythm, normal heart sounds Gastrointestinal/Abdomen Exam: soft, No tenderness, No mass Extremity Exam: normal inspection, normal range of motion OBJECTIVE DATA Vital Signs: Vital Signs - 24 hr Temp Pulse Resp BP Pulse Ox 07/03/21 07:34 97.0 F 93 H 18 141/106 96 07/03/21 06:58 20 07/02/21 16:00 97.7 F 80 18 159/89 94 L 07/02/21 15:12 95 H 20 07/02/21 12:23 84 14 07/02/21 12:00 98.2 F 07/02/21 10:22 84 16 Pain Assessment - Last Documented Pain Intensity 0 Pain Scale [facility] Intake and Output: Intake & Output 06/30/21 07/01/21 07/02/21 07/03/21 11:59 11:59 11:59 11:59 Intake Total 564 481 5911 Balance 863 808 3644 Weight 66.6 kg Lab Results: Lab Results-Last 24 Hours 07/01/21 Range/Units 05:00 Hepatitis C Antibody >11.0 H (0.0-0.9) s/co ratio Multi-Disciplinary Progress Notes: Multi-Disciplinary Progress Notes 07/02/21 11:33 Case Management Note by Lara Durant WILL DEFER ANY FURTHER CASE MANAGEMENT ASSESS UNTIL PATIENT MORE ALERT AND COOPERATIVE- ONCE PHYSICIAN HAS BETTER PLAN FOR DC Initialized on 07/02/21 11:33 - END OF NOTE Assessment/Plan (1) Symptomatic anemia Current Visit: Yes Status: Chronic Assessment & Plan: suspect alcoholic gastritis on IV protonix, will start regular diet as she has no current signs of bleeding, will monitor labs Code(s): D64.9 - ANEMIA, UNSPECIFIED (2) Alcohol withdrawal delirium Current Visit: Yes Status: Acute Assessment & Plan: ativan protocol continued Code(s): F10.231 - ALCOHOL DEPENDENCE WITH WITHDRAWAL DELIRIUM (3) CAD (coronary artery disease) Current Visit: Yes Status: Chronic Qualifiers: Coronary Disease-Associated Artery/Lesion type: [place] artery [place] vs. transplanted heart: [place] heart Associated angina: without angina Qualified Code(s): I25.10 - Atherosclerotic heart disease of [place] coronary artery without angina pectoris Code(s): I25.10 - ATHSCL HEART DISEASE OF [place] CORONARY ARTERY W/O ANG PCTRS (4) Cirrhosis of liver with ascites Current Visit: Yes Status: Chronic Qualifiers: Hepatic cirrhosis type: alcoholic cirrhosis Qualified Code(s): K70.31 - Alcoholic cirrhosis of liver with ascites Code(s): K74.60 - UNSPECIFIED CIRRHOSIS OF LIVER; R18.8 - OTHER ASCITES (5) Methamphetamine abuse Current Visit: Yes Status: Chronic Code(s): F15.10 - OTHER STIMULANT ABUSE, UNCOMPLICATED
[2021-07-03] MEDS: VITAMIN B-1 100 MG PO SCH (10:06)
[2021-07-03] MEDS: MAG-OX 400 PO SCH (10:06)
[2021-07-03] MEDS: THERAGRAN MULTIVITAMIN PO SCH (10:06)
[2021-07-03] MEDS: FOLATE 1 MG PO SCH (10:06)
[2021-07-03] MEDS: PROTONIX 40 MG IV IV SCH (10:08)
[2021-07-03] MEDS: Sodium Chloride 0.9% W/ 20 mEq KCl/LITER 1,000 ML IV SCH (15:54)
[2021-07-03] MEDS: TYLENOL 325 MG PO PRN (23:40)
[2021-07-04 06:56] LABS: Absolute Neutrophil Ct (ANC) 2.83 (1.4-6.9); BASOPHIL % 0.5 % (0.0-0.4); Basophil (Absolute #) 0.03 (0-0.4); Eosinophil % 2.7 % (0.00-5.0); Eosinophil (Absolute #) 0.15 (0-0.5); Hematocrit 33.3 % (35-47); Hemoglobin 9.6 gm/dl (12.0-16.0); Lymphocyte (Absolute #) 1.77 (1.0-4.6); Lymphocytes % 31.7 % (24.0-44.0); Mean Cell Volume 70.1 fl (78-100); Mean Corpuscular Hemoglobin 20.2 pg (26-32); Mean Corpuscular Hgb Concent. 28.8 g/dl (32-36); Mean Platelet Volume 9.5 fl (7.5-11.0); Monocytes % 14.3 % (0.0-12.0); Neutrophil % 50.8 % (36.0-66.0); Platelet Count 215 K/mm3 (150-450); Red Blood Count 4.75 M/mm3 (4.1-5.4); Red Cell Distribution Width 26.4 % (11.5-14.0); White Blood Count 5.6 K/mm3 (4.0-10.5)
[2021-07-04 07:08] VITALS: BP 167/96
[2021-07-04 07:17] LABS: ALBUMIN 3.6 g/dL (3.5-5.0); ALKALINE PHOSPHATASE 84 U/L (38-126); ANION GAP 14.8 MEQ/L (5-15); BLOOD UREA NITROGEN 12 mg/dL (7-17); CHLORIDE 105 mmol/L (98-107); Calcium 8.2 mg/dL (8.4-10.2); Carbon Dioxide 22 mmol/L (22-30); Creatinine 1 0.62 mg/dL (0.52-1.04); EST GLOMERULAR FILTRATION RATE > 60.0 ML/MIN; Glucose 77 mg/dL (74-106); MAGNESIUM 1.6 mg/dL (1.6-2.3); SGOT/AST 49 U/L (14-36); SGPT/ALT 14 U/L (0-35); SODIUM 138 mmol/L (137-145); Total Protein 6.9 g/dL (6.3-8.2)
--- NOTE | 2021-07-04 08:08 | PCM.DS ---
Discharge Summary Date of Admission: 07/02/21 08:39 Admitting Physician: RODRIGO RAZO Consults: Consults on Case 07/01/21 08:52 Consult Tele-Health [Tele-Health Consult] ROUTINE 07/02/21 06:35 Consult Surgery ROUTINE Primary Care Provider: NO FAMILY DOCTOR Allergies Allergies Penicillins Allergy (Intermediate, Verified 07/02/21 09:27) Hives adhesive tape Allergy (Mild, Verified 07/02/21 09:27) Rash Hospital Summary - Hospital Course Hospital Course: patient was admitted for altered mental status, alcohol abuse and meth abuse. she was treated with detox protocol, had [facility] consult and they r ecommend outpatient followup. patient is alert and able to make her own decisions and would like to go home. she understands the danger of alcohol use and states drug use is not a regular problem for her. in any event her h/h is stable, she is hemodynamically stable and tolerating regular po intake with no evidence of bleeding, can continue workup as an outpatient. - Vitals & Intake/Output Vital Signs: Vital Signs Temperature 97.3 F 07/04/21 07:07 Pulse Rate 89 07/04/21 07:07 Respiratory Rate 22 07/04/21 07:07 Blood Pressure 167/96 07/04/21 07:07 O2 Sat by Pulse Oximetry 91 L 07/04/21 07:07 Intake & Output: Intake & Output 07/01/21 07/02/21 07/03/21 07/04/21 11:59 11:59 11:59 11:59 Intake Total 028 733 9631 1407 Output Total 250 Balance 706 888 6250 1157 Weight 66.6 kg 66.9 kg - Lab Result Diagrams: 07/04/21 05:33 07/04/21 05:33 Lab Results-Last 24 Hrs: Lab Results-Last 24 Hours 07/04/21 07/04/21 Range/Units 05:33 05:33 WBC 5.6 (4.0-10.5) K/mm3 RBC 4.75 (4.1-5.4) M/mm3 Hgb 9.6 L (12.0-16.0) gm/dl Hct 33.3 L (35-47) % MCV 70.1 L (78-100) fl MCH 20.2 L (26-32) pg MCHC 28.8 L (32-36) g/dl RDW 26.4 H (11.5-14.0) % Plt Count 215 (150-450) K/mm3 MPV 9.5 (7.5-11.0) fl Gran % 50.8 (36.0-66.0) % Eos # (Auto) 0.15 (0-0.5) Absolute Lymphs (auto) 1.77 (1.0-4.6) Absolute Monos (auto) 0.80 (0.0-1.3) Lymphocytes % 31.7 (24.0-44.0) % Monocytes % 14.3 H (0.0-12.0) % Eosinophils % 2.7 (0.00-5.0) % Basophils % 0.5 (0.0-0.4) % Absolute Granulocytes 2.83 (1.4-6.9) Basophils # 0.03 (0-0.4) Sodium 138 (137-145) mmol/L Potassium 4.0 (3.5-5.1) mmol/L Chloride 105 (98-107) mmol/L Carbon Dioxide 22 (22-30) mmol/L Anion Gap 14.8 (5-15) MEQ/L BUN 12 (7-17) mg/dL Creatinine 0.62 (0.52-1.04) mg/dL Estimated GFR > 60.0 ML/MIN Glucose 77 (74-106) mg/dL Calcium 8.2 L (8.4-10.2) mg/dL Magnesium 1.6 (1.6-2.3) mg/dL Total Bilirubin 1.20 (0.2-1.3) mg/dL AST 49 H (14-36) U/L ALT 14 (0-35) U/L Alkaline Phosphatase 84 (38-126) U/L Serum Total Protein 6.9 (6.3-8.2) g/dL Albumin 3.6 (3.5-5.0) g/dL - Procedures and Test Procedures and Tests throughout Hospitalization: Therapy Orders & Screens 07/01/21 00:29 Respiratory Therapy Assessment DAILY Comment: Diagnosis: Symptomatic anemia 07/01/21 01:43 Smoking Cessation Education ONCE Comment: Diagnosis: symptomatic anemia Smoking Status: Current every day smoker How long have you smoked: 40 years Have you smoked in the past 12 months: Yes Approximately how many cigarettes per day: 10 Do you dip or chew tobacco: No 07/03/21 08:34 PT Eval & Treat ( Order) ONCE Reason for Eval:: weakness, alcohol withdrawal, fall risk Diagnosis: symptomatic anemia 07/04/21 04:19 Oxygen Nasal Cannula 2 lpm Comment: Diagnosis: ALCOHOL WITHDRAWAL DELERIUM, SYMPTOMATIC ANEMIA Discharge Exam General Appearance: no apparent distress, alert Neurologic Exam: alert, oriented x 3 Respiratory Exam: normal breath sounds, lungs clear, No respiratory distress Cardiovascular Exam: regular rate/rhythm, normal heart sounds Gastrointestinal/Abdomen Exam: soft, No tenderness, No mass Final Diagnosis/Problem List - Final Discharge Diagnosis/Problem (1) Alcohol withdrawal delirium Current Visit: Yes Status: Acute Assessment & Plan: resolved, outpatient f/u Code(s): F10.231 - ALCOHOL DEPENDENCE WITH WITHDRAWAL DELIRIUM (2) Methamphetamine abuse Current Visit: Yes Status: Chronic Code(s): F15.10 - OTHER STIMULANT ABUSE, UNCOMPLICATED (3) Symptomatic anemia Current Visit: Yes Status: Chronic Assessment & Plan: h/h stable, continue ppi at home, suspect alcoholic gastritis Code(s): D64.9 - ANEMIA, UNSPECIFIED (4) CAD (coronary artery disease) Current Visit: Yes Status: Chronic Code(s): I25.10 - ATHSCL HEART DISEASE OF [place] CORONARY ARTERY W/O ANG PCTRS (5) Cirrhosis of liver with ascites Current Visit: Yes Status: Chronic Code(s): K74.60 - UNSPECIFIED CIRRHOSIS OF LIVER; R18.8 - OTHER ASCITES - Discharge Disposition: Home, Self-Care Condition: Stable Prescriptions: New PANTOPRAZOLE 40 mg Tablet [Protonix 40MG Tablet] 40 mg PO QPM #30 tab Multivitamins,Therapeutic Tab* [Theragran Multivitamin] 1 tab PO QAM #30 tab Thiamine HCl 100 mg [Vitamin B-1 100 mg] 100 mg PO DAILY #30 tablet Continue Levothyroxine Sodium 25 mcg PO DAILY Gabapentin 100 mg [Neurontin 100 MG] 100 mg PO TID Furosemide 20 mg [Lasix 20 mg] 20 mg PO DAILY Potassium Chloride 10 Meq Tab* [Klor Con 10 MEQ] 20 meq PO DAILY Discontinued Aspirin EC 81 mg [Ecotrin 81 mg] 81 mg PO DAILY Additional Instructions: Call [facility] upon discharge to set up outpatient therapy. [phone] Ext #[phone] Follow up with: RODRIGO RAZO [ACTIVE STAFF] - 1 Week
[2021-07-04] MEDS: PROTONIX 40 MG IV IV SCH (08:39)
[2021-07-04] MEDS: VITAMIN B-1 100 MG PO SCH (08:44)
[2021-07-04] MEDS: THERAGRAN MULTIVITAMIN PO SCH (08:44)
[2021-07-04] MEDS: MAG-OX 400 PO SCH (08:44)
[2021-07-04] MEDS: FOLATE 1 MG PO SCH (08:44)
[2021-07-04 11:44] LABS: Slide Review 1 YES
[2021-07-04 12:01] VITALS: PULSE 90; O2SAT 93
== END 2021-07-04 12:09 | disposition home or self-care (01) | DRG 897 ==
LOC: ED 18:59 → MED SURG 23:45 → MERGE 23:45 → OBSVTOIN 07-02 08:39
PROVIDERS: ADMIT Family Medicine; ATTEND Family Medicine
DX: F10.231 Alcohol dependence with withdrawal delirium (principal); F15.10 Other stimulant abuse, uncomplicated; K70.31 Alcoholic cirrhosis of liver with ascites; D64.9 Anemia, unspecified; I10 Essential (primary) hypertension; E03.9 Hypothyroidism, unspecified; B18.2 Chronic viral hepatitis C; I25.10 Atherosclerotic heart disease of native coronary artery without angina pectoris; R10.9 Unspecified abdominal pain; R53.1 Weakness; R00.0 Tachycardia, unspecified; Z79.899 Other long term (current) drug therapy; Z20.822 Contact with and (suspected) exposure to COVID-19
CPT/HCPCS: 36000; 36415; 36430; 71045; 76705; 80048; 80053; 80307; 81001; 82947; 83735; 84443; 85014; 85018; 85025; 85027; 85610; 85730; 86803; 86850; 86900; 86901; 86922; 93005; 93268; 94760; 96374; 96375; 99285; G0378; G0480; P9016; U0003; 90791; J1940; J2060; Q3014; A9270-GY; G0472

== ENCOUNTER 2022-07-05 13:43 | Emergency (ER) | payer MEDICARE ==
--- NOTE | 2022-07-05 13:47 | ERPHSYRPT ---
- History of Present Illness Time Seen by Provider: 07/05/22 13:46 Source: patient Exam Limitations: no limitations Physician History: This is a 67-year-old white female patient of Dr. Ta He who has chronic neck pain and twisted her neck a few weeks ago and felt a popping cracking sensation and since that time her symptoms have been worsening. She did not fall. Patient is a current daily smoker of cigarettes. She has a history of gastroesophageal reflux disease and hypothyroidism. Patient was able to undress herself in the emergency department room. Occurred: other (Worsening symptoms over the last 3 weeks) Method of Injury: unknown Quality: constant, aching Severity of Pain-Max: mild (To moderate) Severity of Pain-Current: mild (To moderate) Extremities Pain Location: other: bilateral (Cervical spine) Modifying Factors: Improves With: movement (Of neck worsens) Associated Symptoms: neck pain Allergies/Adverse Reactions: Penicillins Allergy (Intermediate, Verified 07/05/22 13:50) Hives adhesive tape Allergy (Mild, Verified 07/05/22 13:50) Rash Home Medications: Furosemide 20 mg [Lasix 20 mg] 20 mg PO DAILY 06/30/21 [History] Gabapentin [Neurontin ] 100 mg PO TID 06/30/21 [History] Levothyroxine Sodium 25 mcg PO DAILY 06/30/21 [History] Potassium Chloride Tab* [Klor Con] 20 meq PO DAILY 06/30/21 [History] Hx Tetanus, Diphtheria Vaccination/Date Given: Yes Hx Influenza Vaccination/Date Given: No Hx Pneumococcal Vaccination/Date Given: No Travel Risk - International Travel Have you traveled outside of the country in past 3 weeks: No - Coronavirus Screening Are you exhibiting any of the following symptoms?: No Close contact with a COVID-19 positive Pt in past 14-21 Days: No - Vaccine Status Have you recieved a Covid-19 vaccination: No - Review of Systems Constitutional: No Symptoms Eyes: No Symptoms Ears, Nose, & Throat: No Symptoms Respiratory: No Symptoms Cardiac: No Symptoms Abdominal/Gastrointestinal: No Symptoms Genitourinary Symptoms: No Symptoms Musculoskeletal: Neck Pain (Cervical spine) Skin: No Symptoms Neurological: Irritability Psychological: No Symptoms Endocrine: No Symptoms Hematologic/Lymphatic: No Symptoms Immunological/Allergic: No Symptoms All Other Systems: Reviewed and Negative - Past Medical History Pertinent Past Medical History: Yes Neurological History: Seizures, Peripheral Neuropathy ENT History: No Pertinent History Cardiac History: Coronary Artery Disease, Myocardial Infarction (ME), High Cholesterol, Hypertension Respiratory History: COPD Endocrine Medical History: Hypothyroidism, Liver Disease Musculoskeletal History: Osteoarthritis GI Medical History: Hernia, Cirrhosis, Pancreatitis History: No Pertinent History Psycho-Social History: Bipolar, Depression, Anxiety, Panic Disorder Female Reproductive Disorders: No Pertinent History Other Medical History: Hx of one seizure when not drinking alcohol. Patient reportedly drinks 0.75 of a one liter bottle of vodka daily. Hx of hepatitis C. - Past Surgical History Past Surgical History: Yes Neuro Surgical History: No Pertinent History Cardiac: Cardiac Stent, Cardiac Catheterization Respiratory: No Pertinent History Gastrointestinal: No Pertinent History Genitourinary: No Pertinent History Musculoskeletal: Orthopedic Surgery Female Surgical History: Tubal Ligation Other Surgical History: HX Orthopedic Surgery on Bilateral arms from going through glass doors. - Social History Smoking Status: Current every day smoker How long have you smoked: 40 years Exposure to second hand smoke: Yes Drug Use: none Patient Lives Alone: Yes - Nursing Vital Signs Nursing Vital Signs: Initial Vital Signs Temperature 97.2 F 07/05/22 13:52 Pulse Rate 92 H 07/05/22 13:52 Respiratory Rate 18 07/05/22 13:52 Blood Pressure 122/94 07/05/22 13:52 O2 Sat by Pulse Oximetry 95 07/05/22 13:52 Pain Scale Pain Intensity 10 - Physical Exam General Appearance: no apparent distress, alert, anxiety, thin Eyes, Ears, Nose, Throat Exam: normal ENT inspection, moist mucous membranes Neck Exam: normal inspection, supple Cardiovascular/Respiratory Exam: chest non-tender, no respiratory distress Abdominal Exam: non-tender Back Exam: normal inspection, normal range of motion, No CVA tenderness, No vertebral tenderness Shoulder Exam: normal inspection, non-tender, no evidence of injury, normal ROM Elbow/Forearm Exam: normal inspection, non-tender, no evidence of injury, normal ROM Wrist Exam: normal inspection, non-tender, no evidence of injury, normal ROM Hand Exam: normal inspection, non-tender, no evidence of injury, normal ROM Neuro/Tendon Exam: normal sensation, normal motor functions, normal tendon functions, no evidence tendon injury Mental Status Exam: alert, oriented x 3, cooperative Skin Exam: normal color, warm, dry SpO2 Interpretation: normal O2 Delivery: Room Air - Course Nursing assessment & vital signs reviewed: Yes Ordered Tests: Active Orders 24 hr Category Date Time Status CERVICAL SPINE WO CONTRAST [CT] Stat Exams 07/05/22 13:58 Completed - Progress Progress: unchanged Progress Note: 07/05/22 14:44 CAT scan without contrast cervical spine shows bilateral carotid calcifications, multilevel degenerative changes in the cervical spine region as well as paraspinous muscle spasm Counseled pt/family regarding: diagnosis, need for follow-up, rad results - Departure Departure Disposition: Home Clinical Impression: Calcification of both carotid arteries, Cervical spine arthritis, Cervical paraspinous muscle spasm Condition: Stable Critical Care Time: No Referrals: RODRIGO RAZO [Primary Care Provider] - Follow up/PCP as directed Additional Instructions: Take your medication as prescribed. Follow-up with your primary care physician for further evaluation and management. Prescriptions: Prednisone 10 mg [Deltasone 10 mg] 10 mg PO TID #12 tablet Orphenadrine Citrate 100 mg [Norflex 100 MG Tablet] 100 mg PO BID #10 tab
[2022-07-05 13:55] VITALS: BP 122/94; PULSE 92; O2SAT 95
--- NOTE | 2022-07-05 14:29 | XRAY ---
Indication: Pain and "pop" 2.5 weeks. Multiple contiguous axial images obtained through the cervical spine. Sagittal and coronal reformatted images obtained. Comparison: None Osseous structures demineralized consistent with patient's age. No acute fracture or suspicious bony lesions. There is moderate/advanced C3-T1 degenerative endplate spurring. Greatest extent seen at C6-C7 level where there is spinal canal narrowing. Also mild/moderate multilevel bilateral degenerative facet hypertrophy and moderate atlantoaxial degenerative changes. Sagittal and coronal reformatted images demonstrates lordotic reversal centered at C4. 2-3 mm anterolisthesis of C2 on C3 on C4. C3-T1 degenerative disc space loss. No acute compression fracture or jumped facet. Normal appearing craniocervical junction. Visualized noncontrasted soft tissues demonstrates extensive bilateral carotid calcifications. Base of brain and lung apices unremarkable. Impression: 1. Cervical lordotic reversal, positional versus paraspinal spasm. 2. Osteopenia and multilevel degenerative changes greatest at C6-C7 level. 3. Extensive bilateral carotid calcifications.
== END 2022-07-05 15:32 | disposition home or self-care (01) ==
LOC: ED 13:43
DX: I65.23 Occlusion and stenosis of bilateral carotid arteries (principal); M47.812 Spondylosis without myelopathy or radiculopathy, cervical region; M62.838 Other muscle spasm; E78.5 Hyperlipidemia, unspecified; I10 Essential (primary) hypertension; J44.9 Chronic obstructive pulmonary disease, unspecified; Z72.0 Tobacco use; Z79.899 Other long term (current) drug therapy; Z79.52 Long term (current) use of systemic steroids
CPT/HCPCS: 72125; 99283

== ENCOUNTER 2023-11-08 16:30 | Emergency (ER) | payer MEDICARE ==
[2023-11-08 17:17] VITALS: RESP 18; TEMP 98.4
--- NOTE | 2023-11-08 17:24 | ERPHSYRPT ---
- History of Present Illness Time Seen by Provider: 11/08/23 17:20 Source: patient Exam Limitations: no limitations Patient Subjective Stated Complaint: pt states she has pain to her rt great toe Triage Nursing Assessment: pt came into the er via wheelchair; pt transferred to bed per self; c/o rt toe pain; pt states 9/10 pain to rt great toe; cyanotic to rt great toe; absent pedal pulse; rt great toe cool to the touch; no respiratory distress present; hypertensive Physician History: 68-year-old female presents to our ED for evaluation of pain to her right great toe. Symptoms started approximately 2 days ago. Patient describes progressive pain to her right great toe. No trauma no fever. Patient states that she has circulatory problems of both lower extremities. She is still a smoker. Patient symptoms are progressive. No other complaints. No chest pain or shortness of breath. No nausea vomiting diaphoresis. Patient voices no other complaints or concerns at this time. Portions of this note were created with voice recognition technology. There may be grammatical, spelling, punctuation or sound alike errors Timing/Duration: day(s) (2 days ago) Severity: moderate Modifying Factors: Improves With: nothing Associated Symptoms: denies symptoms Allergies/Adverse Reactions: Penicillins Allergy (Intermediate, Verified 07/05/22 13:50) Hives adhesive tape Allergy (Mild, Verified 07/05/22 13:50) Rash lorazepam [From Ativan] Allergy (Verified 11/08/23 16:57) Home Medications: Furosemide 20 mg [Lasix 20 mg] 20 mg PO DAILY 06/30/21 [History] Gabapentin [Neurontin ] 100 mg PO TID 06/30/21 [History] Levothyroxine Sodium 25 mcg PO DAILY 06/30/21 [History] Potassium Chloride Tab* [Klor Con] 20 meq PO DAILY 06/30/21 [History] Losartan Potassium [Cozaar] 25 mg PO DAILY 11/08/23 [History] Rosuvastatin Calcium 20 mg PO DAILY 11/08/23 [History] Hx Tetanus, Diphtheria Vaccination/Date Given: No Hx Influenza Vaccination/Date Given: No Hx Pneumococcal Vaccination/Date Given: No Travel Risk - International Travel Have you traveled outside of the country in past 3 weeks: No - Coronavirus Screening Are you exhibiting any of the following symptoms?: No Close contact with a COVID-19 positive Pt in past 14-21 Days: No - Vaccine Status Have you recieved a Covid-19 vaccination: No - Review of Systems Constitutional: No Symptoms, No Fever, No Chills Eyes: No Symptoms Ears, Nose, & Throat: No Symptoms Respiratory: No Symptoms, No Cough, No Dyspnea Cardiac: No Symptoms, No Chest Pain, No Edema, No Syncope Abdominal/Gastrointestinal: No Symptoms, No Abdominal Pain, No Nausea, No Vomiting, No Diarrhea Genitourinary Symptoms: No Symptoms, No Dysuria Musculoskeletal: No Symptoms, No Back Pain, No Neck Pain Skin: No Symptoms, No Rash Neurological: No Symptoms, No Dizziness, No Focal Weakness, No Sensory Changes Psychological: No Symptoms Endocrine: No Symptoms Hematologic/Lymphatic: No Symptoms Immunological/Allergic: No Symptoms All Other Systems: Reviewed and Negative - Past Medical History Pertinent Past Medical History: Yes Neurological History: Seizures, Peripheral Neuropathy ENT History: No Pertinent History Cardiac History: Coronary Artery Disease, Myocardial Infarction (SD), High Cholesterol, Hypertension Respiratory History: COPD Endocrine Medical History: Hypothyroidism, Liver Disease Musculoskeletal History: Osteoarthritis GI Medical History: Hernia, Cirrhosis, Pancreatitis History: No Pertinent History Psycho-Social History: Bipolar, Depression, Anxiety, Panic Disorder Female Reproductive Disorders: No Pertinent History Other Medical History: Hx of one seizure when not drinking alcohol. Patient reportedly drinks 0.75 of a one liter bottle of vodka daily. Hx of hepatitis C. - Past Surgical History Past Surgical History: Yes Neuro Surgical History: No Pertinent History Cardiac: Cardiac Stent, Cardiac Catheterization Respiratory: No Pertinent History Gastrointestinal: No Pertinent History Genitourinary: No Pertinent History Musculoskeletal: Orthopedic Surgery Female Surgical History: Tubal Ligation Other Surgical History: HX Orthopedic Surgery on Bilateral arms from going through glass doors. - Social History Smoking Status: Current every day smoker How long have you smoked: 40 years Exposure to second hand smoke: Yes Drug Use: none Patient Lives Alone: Yes - Nursing Vital Signs Nursing Vital Signs: Initial Vital Signs Temperature 98.4 F 11/08/23 17:02 Pulse Rate 86 11/08/23 17:02 Respiratory Rate 18 11/08/23 17:02 Blood Pressure 156/76 11/08/23 17:02 O2 Sat by Pulse Oximetry 97 11/08/23 17:02 Pain Scale Pain Intensity [Right Distal 9 Toe] Pain Intensity 9 - Physical Exam General Appearance: no apparent distress, alert Eye Exam: PERRL/EOMI, eyes nml inspection Ears, Nose, Throat Exam: normal ENT inspection, TMs normal, pharynx normal, moist mucous membranes Neck Exam: normal inspection, non-tender, supple, full range of motion Respiratory Exam: normal breath sounds, lungs clear, No respiratory distress Cardiovascular Exam: regular rate/rhythm, normal heart sounds, normal peripheral pulses Gastrointestinal/Abdomen Exam: soft, normal bowel sounds, No tenderness, No mass Back Exam: normal inspection, normal range of motion, No CVA tenderness, No vertebral tenderness Extremity Exam: normal inspection, normal range of motion, pelvis stable, other (Right foot cap refill 2 seconds. Diminished PT DP pulse. Right great toe ischemic) Neurologic Exam: alert, oriented x 3, cooperative, normal mood/affect, nml cerebellar function, nml station & gait, sensation nml, No motor deficits Skin Exam: normal color, warm, dry, No rash Lymphatic Exam: No adenopathy SpO2 Interpretation: normal SpO2: 97 O2 Delivery: Room Air - Course Nursing assessment & vital signs reviewed: Yes Ordered Tests: Active Orders 24 hr Category Date Time Status AMA [Release AMA] OM.NOW Care 11/08/23 18:53 Active Extractor Operator STAT Care 11/08/23 17:19 Active Pulse Oximetry (ED) STAT Care 11/08/23 17:18 Active CBC W DIFF Stat Lab 11/08/23 18:00 Completed CMP Stat Lab 11/08/23 18:00 Completed Lab/Rad Data: Laboratory Result Diagrams 11/08/23 18:00 11/08/23 18:00 Laboratory Results 11/08/23 11/08/23 Range/Units 18:00 18:00 WBC 6.2 (4.0-10.5) x10^3/uL RBC 4.59 (4.1-5.4) x10^6/uL Hgb 8.4 L (12.0-16.0) g/dL Hct 30.6 L (35-47) % MCV 66.7 L (78-100) fL MCH 18.3 L (26-32) pg MCHC 27.5 L (32-36) g/dL RDW 20.4 H (11.5-14.0) % Plt Count 270 (150-450) x10^3/uL MPV 9.7 (7.5-11.0) fL Gran % 57.0 (36.0-66.0) % Immature Gran % (Auto) 0.3 (0.00-0.4) % Nucleat RBC Rel Count 0.0 (0.00-0.1) % Eos # (Auto) 0.12 (0-0.5) x10^3/uL Immature Gran # (Auto) 0.02 (0.00-0.03) x10^3u/L Absolute Lymphs (auto) 1.70 (1.0-4.6) x10^3/uL Absolute Monos (auto) 0.82 (0.0-1.3) x10^3/uL Absolute Nucleated RBC 0.00 (0.00-0.01) x10^3u/L Lymphocytes % 27.2 (24.0-44.0) % Monocytes % 13.1 H (0.0-12.0) % Eosinophils % 1.9 (0.00-5.0) % Basophils % 0.5 (0.0-0.4) % Absolute Granulocytes 3.55 (1.4-6.9) x10^3/uL Basophils # 0.03 (0-0.4) x10^3/uL Sodium 139 (137-145) mmol/L Potassium 3.3 L (3.5-5.1) mmol/L Chloride 102 (98-107) mmol/L Carbon Dioxide 25 (22-30) mmol/L Anion Gap 14.9 (5-15) MEQ/L BUN 7 (7-17) mg/dL Creatinine 0.49 L (0.52-1.04) mg/dL Estimated GFR 103.2 ML/MIN Glucose 87 (74-106) mg/dL Calcium 9.0 (8.4-10.2) mg/dL Total Bilirubin 0.70 (0.2-1.3) mg/dL AST 26 (14-36) U/L ALT 14 (0-35) U/L Alkaline Phosphatase 79 (38-126) U/L Serum Total Protein 7.6 (6.3-8.2) g/dL Albumin 4.3 (3.5-5.0) g/dL - Progress Progress: unchanged Progress Note: 68-year-old female presents to our ED with pain and ischemia to the right great toe. Symptoms have been ongoing for 2 days. Patient has a vascular surgeon who we called. Patient did not want to wait for return call and left AGAINST MEDICAL ADVICE. Patient actually left the ER prior to speaking to Dr. Thomas. I was informed that patient had left after the fact. Patient reportedly had homework to complete. The RN informed patient of the significant irreversible injury that may occur to her lower extremity. In spite of patient decided to leave AGAINST MEDICAL ADVICE. Complexity of problem addressed is moderate acute complicated No critical care time Complexity of data reviewed and analyzed is moderate. Test ordered test reviewed. Results analyzed and correlated clinically with history and physical exam. Risk complication and or risk of morbidity/mortality of patient management is high. Patient requires transfer to higher level of care but decided to leave AGAINST MEDICAL ADVICE Vital stable. Patient absconded Portions of this note were created with voice recognition technology. There may be grammatical, spelling, punctuation or sound alike errors 11/08/23 18:59 Counseled pt/family regarding: lab results, diagnosis - Departure Departure Disposition: AMA Clinical Impression: Hypokalemia, Ischemic toe, Diminished pulses in lower extremity Condition: Stable Critical Care Time: No Referrals: SKY MATTHEW MD [Primary Care Provider] - Follow up/PCP as directed
[2023-11-08 18:21] LABS: Absolute Neutrophil Ct (ANC) 3.55 x10^3/uL (1.4-6.9); BASOPHIL % 0.5 % (0.0-0.4); Basophil (Absolute #) 0.03 x10^3/uL (0-0.4); Eosinophil % 1.9 % (0.00-5.0); Eosinophil (Absolute #) 0.12 x10^3/uL (0-0.5); Hematocrit 30.6 % (35-47); Hemoglobin 8.4 g/dL (12.0-16.0); IMMATURE GRAN # 0.02 x10^3u/L (0.00-0.03); IMMATURE GRAN % 0.3 % (0.00-0.4); Lymphocytes % 27.2 % (24.0-44.0); Mean Cell Volume 66.7 fL (78-100); Mean Corpuscular Hemoglobin 18.3 pg (26-32); Mean Corpuscular Hgb Concent. 27.5 g/dL (32-36); Mean Platelet Volume 9.7 fL (7.5-11.0); Monocyte (Absolute #) 0.82 x10^3/uL (0.0-1.3); Monocytes % 13.1 % (0.0-12.0); Platelet Count 270 x10^3/uL (150-450); Red Blood Count 4.59 x10^6/uL (4.1-5.4); Red Cell Distribution Width 20.4 % (11.5-14.0); White Blood Count 6.2 x10^3/uL (4.0-10.5)
[2023-11-08 18:37] LABS: ALBUMIN 4.3 g/dL (3.5-5.0); ANION GAP 14.9 MEQ/L (5-15); BILIRUBIN,TOTAL 0.7 mg/dL (0.2-1.3); Creatinine 1 0.49 mg/dL (0.52-1.04); EST GLOMERULAR FILTRATION RATE 103.2 ML/MIN; Potassium 3.3 mmol/L (3.5-5.1); Total Protein 7.6 g/dL (6.3-8.2)
[2023-11-08 18:53] VITALS: BP 150/106; PULSE 84
[2023-11-08 19:04] VITALS: O2SAT 97
[2023-11-09 01:03] LABS: Slide Review 1 YES
== END 2023-11-08 18:53 | disposition left against medical advice (07) ==
LOC: ED 16:30
DX: I70.228 Atherosclerosis of native arteries of extremities with rest pain, other extremity (principal); E87.6 Hypokalemia; R09.89 Other specified symptoms and signs involving the circulatory and respiratory systems; M79.674 Pain in right toe(s); E78.5 Hyperlipidemia, unspecified; I10 Essential (primary) hypertension; Z79.899 Other long term (current) drug therapy; Z28.310 Unvaccinated for COVID-19; Z72.0 Tobacco use
CPT/HCPCS: 36415; 80053; 85025; 93041; 94760; 99283

== ENCOUNTER 2023-11-16 23:23 | Emergency (ER) | payer MEDICARE ==
[2023-11-16 23:44] VITALS: TEMP 98.5
[2023-11-17 00:23] LABS: Absolute Neutrophil Ct (ANC) 6.83 x10^3/uL (1.4-6.9); BASOPHIL % 0.4 % (0.0-0.4); Basophil (Absolute #) 0.04 x10^3/uL (0-0.4); Eosinophil % 0.3 % (0.00-5.0); Eosinophil (Absolute #) 0.03 x10^3/uL (0-0.5); Hematocrit 26.8 % (35-47); Hemoglobin 7.4 g/dL (12.0-16.0); IMMATURE GRAN # 0.07 x10^3u/L (0.00-0.03); IMMATURE GRAN % 0.7 % (0.00-0.4); Lymphocyte (Absolute #) 1.52 x10^3/uL (1.0-4.6); Lymphocytes % 15.7 % (24.0-44.0); Mean Cell Volume 69.1 fL (78-100); Mean Corpuscular Hemoglobin 19.1 pg (26-32); Mean Corpuscular Hgb Concent. 27.6 g/dL (32-36); Mean Platelet Volume 9.7 fL (7.5-11.0); Monocytes % 12.4 % (0.0-12.0); Neutrophil % 70.5 % (36.0-66.0); Platelet Count 251 x10^3/uL (150-450); Red Blood Count 3.88 x10^6/uL (4.1-5.4); Red Cell Distribution Width 23.7 % (11.5-14.0); White Blood Count 9.7 x10^3/uL (4.0-10.5)
[2023-11-17 00:37] LABS: ALBUMIN 3.9 g/dL (3.5-5.0); ANION GAP 11.5 MEQ/L (5-15); BILIRUBIN,TOTAL 0.5 mg/dL (0.2-1.3); Calcium 8.7 mg/dL (8.4-10.2); Creatinine 1 0.72 mg/dL (0.52-1.04); EST GLOMERULAR FILTRATION RATE 91.6 ML/MIN; Potassium 3.8 mmol/L (3.5-5.1)
--- NOTE | 2023-11-17 00:37 | ERPHSYRPT ---
- History of Present Illness Time Seen by Provider: 11/16/23 23:40 Historian: patient Exam Limitations: no limitations Patient Subjective Stated Complaint: pt states she has been having abd pain since this morning. describes as pressure and cramping. states she has not hada bm in 3 days Triage Nursing Assessment: pt alert and oriented, answers questions approp. pt arrive per ambulance and transfers to stretcher per self. respirations nonlabore d. skin warm and dry. abd soft, bowel sounds hypo x4 quads. Physician History: 68-year-old female history of alcoholism, liver disease presents to our ED for evaluation of periumbilical abdominal pain that started today. Patient reports that she has not had a bowel movement in 3 days. Pain described pain as a crampy sensation with increased pressure at the suprapubic region.. No associated nausea vomiting or diaphoresis. No trauma. No fever. Symptoms are mild to moderate in intensity. No specific worsening or improving factors. Patient voices no other concerns at this time. Patient voices no other complaints or concerns at this time. Timing/Duration: today Activities at Onset: none Quality: aching Abdominal Pain Onset Location: epigastric Pain Radiation: no radiation Severity of Pain-Max: moderate Severity of Pain-Current: mild Modifying Factors: Improves With: nothing Associated Symptoms: denies symptoms Previous symptoms: no prior history Allergies/Adverse Reactions: Penicillins Allergy (Intermediate, Verified 11/16/23 23:30) Hives adhesive tape Allergy (Mild, Verified 11/16/23 23:30) Rash lorazepam [From Ativan] Adverse Reaction (Intermediate, Verified 11/16/23 23:30) "goes crazy" Home Medications: Furosemide 20 mg [Lasix 20 mg] 20 mg PO DAILY 06/30/21 [History] Gabapentin [Neurontin ] 100 mg PO TID 06/30/21 [History] Levothyroxine Sodium 25 mcg PO DAILY 06/30/21 [History] Potassium Chloride Tab* [Klor Con] 20 meq PO DAILY 06/30/21 [History] Losartan Potassium [Cozaar] 25 mg PO DAILY 11/08/23 [History] Rosuvastatin Calcium 20 mg PO DAILY 11/08/23 [History] Hx Tetanus, Diphtheria Vaccination/Date Given: No Hx Influenza Vaccination/Date Given: No Hx Pneumococcal Vaccination/Date Given: No Travel Risk - International Travel Have you traveled outside of the country in past 3 weeks: No - Coronavirus Screening Are you exhibiting any of the following symptoms?: No Close contact with a COVID-19 positive Pt in past 14-21 Days: No - Vaccine Status Have you recieved a Covid-19 vaccination: No - Review of Systems Constitutional: No Symptoms, No Fever, No Chills Eyes: No Symptoms Ears, Nose, & Throat: No Symptoms Respiratory: No Symptoms, No Cough, No Dyspnea Cardiac: No Symptoms, No Chest Pain, No Edema, No Syncope Abdominal/Gastrointestinal: No Symptoms, No Abdominal Pain, No Nausea, No Vomiting, No Diarrhea Genitourinary Symptoms: No Symptoms, No Dysuria Musculoskeletal: No Symptoms, No Back Pain, No Neck Pain Skin: No Symptoms, No Rash Neurological: No Symptoms, No Dizziness, No Focal Weakness, No Sensory Changes Psychological: No Symptoms Endocrine: No Symptoms Hematologic/Lymphatic: No Symptoms Immunological/Allergic: No Symptoms All Other Systems: Reviewed and Negative - Past Medical History Pertinent Past Medical History: Yes Neurological History: Seizures, Peripheral Neuropathy ENT History: No Pertinent History Cardiac History: Coronary Artery Disease, High Cholesterol, Hypertension, Myocardial Infarction (HI), Peripheral Vascular Disease Respiratory History: COPD Endocrine Medical History: Hypothyroidism, Liver Disease Musculoskeletal History: Osteoarthritis GI Medical History: Hernia, Cirrhosis, Pancreatitis History: No Pertinent History Psycho-Social History: Bipolar, Depression, Anxiety, Panic Disorder Female Reproductive Disorders: No Pertinent History Other Medical History: Hx of one seizure when not drinking alcohol. Patient reportedly hd been drinking 0.75 of a one liter bottle of vodka daily- no etoh since hospitalized 10 days ago. Hx of hepatitis C. - Past Surgical History Past Surgical History: Yes Neuro Surgical History: No Pertinent History Cardiac: Cardiac Stent, Cardiac Catheterization Respiratory: No Pertinent History Gastrointestinal: No Pertinent History Genitourinary: No Pertinent History Musculoskeletal: Orthopedic Surgery Female Surgical History: Tubal Ligation Other Surgical History: HX Orthopedic Surgery on Bilateral arms from going through glass doors. - Social History Smoking Status: Former smoker How long have you smoked: 50+ Exposure to second hand smoke: Yes Drug Use: none Patient Lives Alone: Yes - Nursing Vital Signs Nursing Vital Signs: Initial Vital Signs Temperature 98.5 F 11/16/23 23:30 Pulse Rate 71 11/16/23 23:30 Respiratory Rate 16 11/16/23 23:30 Blood Pressure 125/53 11/16/23 23:30 O2 Sat by Pulse Oximetry 100 11/16/23 23:30 Pain Scale Pain Intensity 3 - Physical Exam General Appearance: no apparent distress, alert Eye Exam: PERRL/EOMI, eyes nml inspection Ears, Nose, Throat Exam: normal ENT inspection, pharynx normal, moist mucous membranes Neck Exam: normal inspection, non-tender, supple, full range of motion Respiratory Exam: normal breath sounds, lungs clear, airway intact, No respiratory distress Cardiovascular Exam: regular rate/rhythm, normal heart sounds, normal peripheral pulses Gastrointestinal/Abdomen Exam: soft, No tenderness, No mass Back Exam: normal inspection, normal range of motion, No CVA tenderness, No vertebral tenderness Extremity Exam: normal inspection, normal range of motion, pelvis stable Neurologic Exam: alert, oriented x 3, cooperative, normal mood/affect, nml cerebellar function, sensation nml, No motor deficits Skin Exam: normal color, warm, dry Lymphatic Exam: No adenopathy SpO2 Interpretation: normal SpO2: 100 O2 Delivery: Room Air - Course Nursing assessment & vital signs reviewed: Yes - CT Exams Abdomen/Pelvis CT Interpretation: Tele-radiologist Report Ordered Tests: Active Orders 24 hr Category Date Time Status IV Insertion STAT Care 11/16/23 23:52 Active ABDOMEN AND PELVIS W CONTRAST [CT] Stat Exams 11/16/23 23:53 Completed CBC W DIFF Stat Lab 11/16/23 23:52 Completed CMP Stat Lab 11/16/23 23:52 Completed CULTURE,URINE Stat Lab 11/17/23 01:50 Received TROPONIN Q4H Lab 11/16/23 23:53 Completed TROPONIN Q4H Lab 11/17/23 03:53 Ordered TROPONIN Q4H Lab 11/17/23 07:53 Ordered UA W/RFX UR CULTURE Stat Lab 11/17/23 01:50 Completed Medication Summary Generic Name Dose Route Start Last Admin Trade Name Freq PRN Reason Stop Dose Admin Sodium Chloride 1,000 mls @ 100 mls/hr 11/16/23 23:45 11/17/23 01:51 Sodium Chloride 0.9% 1000 Ml IV 12/16/23 23:44 100 mls/hr .Q10H TERE Administration Discontinued Medications Generic Name Dose Route Start Last Admin Trade Name Freq PRN Reason Stop Dose Admin Morphine Sulfate 2 mg 11/17/23 00:38 11/17/23 01:50 Morphine Sulfate 2 Mg/Ml Inj IV 11/17/23 00:39 2 mg STAT ONE Administration Morphine Sulfate Confirm 11/17/23 01:44 Morphine Sulfate 2 Mg/Ml Inj Administered 11/17/23 01:45 Dose 2 mg .ROUTE .STK-MED ONE Nitrofurantoin Macrocrystals 100 mg 11/17/23 03:53 11/17/23 04:12 Nitrofurantoin Macro 100 Mg Capsule PO 11/17/23 03:54 100 mg STAT ONE Administration Nitrofurantoin Macrocrystals Confirm 11/17/23 04:12 Nitrofurantoin Macro 100 Mg Capsule Administered 11/17/23 04:13 Dose 100 mg .ROUTE .STK-MED ONE Lab/Rad Data: Laboratory Result Diagrams 11/17/23 00:01 11/17/23 00:01 Laboratory Results 11/17/23 11/17/23 11/17/23 Range/Units 01:50 00:01 00:01 WBC (4.0-10.5) x10^3/uL RBC (4.1-5.4) x10^6/uL Hgb (12.0-16.0) g/dL Hct (35-47) % MCV (78-100) fL MCH (26-32) pg MCHC (32-36) g/dL RDW (11.5-14.0) % Plt Count (150-450) x10^3/uL MPV (7.5-11.0) fL Gran % (36.0-66.0) % Immature Gran % (Auto) (0.00-0.4) % Nucleat RBC Rel Count (0.00-0.1) % Eos # (Auto) (0-0.5) x10^3/uL Immature Gran # (Auto) (0.00-0.03) x10^3u/L Absolute Lymphs (auto) (1.0-4.6) x10^3/uL Absolute Monos (auto) (0.0-1.3) x10^3/uL Absolute Nucleated RBC (0.00-0.01) x10^3u/L Lymphocytes % (24.0-44.0) % Monocytes % (0.0-12.0) % Eosinophils % (0.00-5.0) % Basophils % (0.0-0.4) % Absolute Granulocytes (1.4-6.9) x10^3/uL Basophils # (0-0.4) x10^3/uL Sodium 136 (135-145) mmol/L Potassium 3.8 (3.5-5.1) mmol/L Chloride 96 L (98-107) mmol/L Carbon Dioxide 32 H (22-30) mmol/L Anion Gap 11.5 (5-15) MEQ/L BUN 24 H (7-17) mg/dL Creatinine 0.72 (0.52-1.04) mg/dL Estimated GFR 91.6 ML/MIN Glucose 110 H (74-106) mg/dL Calcium 8.7 (8.4-10.2) mg/dL Total Bilirubin 0.50 (0.2-1.3) mg/dL AST 67 H (14-36) U/L ALT 19 (0-35) U/L Alkaline Phosphatase 57 (38-126) U/L Troponin I 0.032 (0.000-0.034) ng/mL Serum Total Protein 7.0 (6.3-8.2) g/dL Albumin 3.9 (3.5-5.0) g/dL Urine Color Yellow (Yellow) Urine Appearance Cloudy A (Clear) Urine pH 5.5 (4.6-8.0) Ur Specific [place] >=1.030 A (1.005-1.030) Urine Protein Negative (Negative) Urine Glucose (UA) Negative (Negative) mg/dL Urine Ketones Negative (Negative) Urine Blood Negative (Negative) Urine Nitrite Positive A (Negative) Urine Bilirubin Negative (Negative) Urine Urobilinogen 1.0 A (0.2) mg/dL Ur Leukocyte Esterase Moderate A (Negative) U Hyaline Cast (Auto) 0-2 (0-2) /LPF Urine Microscopic RBC 0-2 (0-5) /HPF Urine Microscopic WBC 51-100 A (0-5) /HPF Ur Epithelial Cells None Seen (None Seen) /HPF Urine Bacteria Many A (None Seen) /HPF Urine Culture Reflexed YES (NO) Slides for Path Review 11/17/23 Range/Units 00:01 WBC 9.7 (4.0-10.5) x10^3/uL RBC 3.88 L (4.1-5.4) x10^6/uL Hgb 7.4 L (12.0-16.0) g/dL Hct 26.8 L (35-47) % MCV 69.1 L (78-100) fL MCH 19.1 L (26-32) pg MCHC 27.6 L (32-36) g/dL RDW 23.7 H (11.5-14.0) % Plt Count 251 (150-450) x10^3/uL MPV 9.7 (7.5-11.0) fL Gran % 70.5 H (36.0-66.0) % Immature Gran % (Auto) 0.7 H (0.00-0.4) % Nucleat RBC Rel Count 0.0 (0.00-0.1) % Eos # (Auto) 0.03 (0-0.5) x10^3/uL Immature Gran # (Auto) 0.07 H (0.00-0.03) x10^3u/L Absolute Lymphs (auto) 1.52 (1.0-4.6) x10^3/uL Absolute Monos (auto) 1.20 (0.0-1.3) x10^3/uL Absolute Nucleated RBC 0.00 (0.00-0.01) x10^3u/L Lymphocytes % 15.7 L (24.0-44.0) % Monocytes % 12.4 H (0.0-12.0) % Eosinophils % 0.3 (0.00-5.0) % Basophils % 0.4 (0.0-0.4) % Absolute Granulocytes 6.83 (1.4-6.9) x10^3/uL Basophils # 0.04 (0-0.4) x10^3/uL Sodium (135-145) mmol/L Potassium (3.5-5.1) mmol/L Chloride (98-107) mmol/L Carbon Dioxide (22-30) mmol/L Anion Gap (5-15) MEQ/L BUN (7-17) mg/dL Creatinine (0.52-1.04) mg/dL Estimated GFR ML/MIN Glucose (74-106) mg/dL Calcium (8.4-10.2) mg/dL Total Bilirubin (0.2-1.3) mg/dL AST (14-36) U/L ALT (0-35) U/L Alkaline Phosphatase (38-126) U/L Troponin I (0.000-0.034) ng/mL Serum Total Protein (6.3-8.2) g/dL Albumin (3.5-5.0) g/dL Urine Color (Yellow) Urine Appearance (Clear) Urine pH (4.6-8.0) Ur Specific [place] (1.005-1.030) Urine Protein (Negative) Urine Glucose (UA) (Negative) mg/dL Urine Ketones (Negative) Urine Blood (Negative) Urine Nitrite (Negative) Urine Bilirubin (Negative) Urine Urobilinogen (0.2) mg/dL Ur Leukocyte Esterase (Negative) U Hyaline Cast (Auto) (0-2) /LPF Urine Microscopic RBC (0-5) /HPF Urine Microscopic WBC (0-5) /HPF Ur Epithelial Cells (None Seen) /HPF Urine Bacteria (None Seen) /HPF Urine Culture Reflexed (NO) Slides for Path Review YES - Progress Progress: improved Progress Note: 68-year-old female presents to our ED for evaluation of abdominal pain. Pain described as an ache that is mostly lower abdomen. Workup reveals dehydration. Patient received a liter of fluids. Patient is allergic to penicillin. A urinary tract infection was also identified. Patient received a dose of Macrobid. Prescription for the same forwarded to patient's pharmacy. Patient currently sleeping. She is pain-free. Patient is anemic at 7.4. I spoke to Dr. Chen time checker at [facility]. Patient was just discharged from [facility] 3 days ago. We compared our current laboratory values to discharge laboratory values. Patient's hemoglobin at that time was 7.9. It is currently 7.4. Per Dr. Chen there is no significant change in the imaging studies performed today versus the imaging studies performed at [facility]. He does not feel there is any indication for transfer. Patient reassessed. She feels well. Patient is ready for discharge. No indication for further workup at this time. Portions of this note were created with voice recognition technology. There may be grammatical, spelling, punctuation or sound alike errors Complexity problem addressed is moderate acute complicated No critical care time Complexity of data reviewed and analyzed is extensive. Test ordered test reviewed. Results analyzed and correlated clinically with history and physical exam. Has been discussed with Dr. Chen time checker from [facility] in [place]. I spoke to Dr. Chen at 3:50 AM Risk of complication and or risk of morbidity/mortality of patient management is moderate prescription for Macrobid forwarded to patient's pharmacy. Vital stable. Time spent to discharge patient is approximately 30 minutes. Plan of care established for shared decision making. No social determinants of health present impede follow-up. Portions of this note were created with voice recognition technology. There may be grammatical, spelling, punctuation or sound alike errors 11/17/23 04:30 Counseled pt/family regarding: lab results, diagnosis - Departure Departure Disposition: Observation Clinical Impression: Microcytic anemia, Generalized weakness, Bilateral pleural effusion, Dehydration Condition: Stable Critical Care Time: No Referrals: SKY MATTHEW MD [Primary Care Provider] - Follow up/PCP as directed Additional Instructions: Discharge/Care Plan RYLEESHADI BENAVIDES was seen on 11/17/23 in the Emergency Room. The patient was counseled regarding Diagnosis,Lab results, Imaging studies, need for follow up and when to return to the Emergency Room. Prescriptions given: Discharge Note I have spoken with the patient and/or caregivers. I have explained the patient's condition, diagnosis and treatment plan based on the information available to me at this time. I have answered the patient's and/or caregiver's questions and addressed any concerns. The patient and/or caregivers have as good understanding of the patient's diagnosis, condition and treatment plan as can be expected at this point. The vital signs have been stable. The patient's condition is stable and appropriate for discharge from the emergency department. The patient will pursue further outpatient evaluation with the primary care physician or other designated or consulting physician as outlined in the discharge instructions. The patient and/or caregivers are agreeable to this plan of care and follow-up instructions have been explained in detail. The patient and/or caregivers have received these instruction. The patient/and or caregivers are aware that any significant change in condition or worsening of symptoms should prompt an immediate return to this or the closest emergency department or call 911. Prescriptions: Nitrofurantoin Macro 100 mg [Macrobid 100MG Capsule] 100 mg PO BID 7 Days #14 cap
[2023-11-17 00:54] LABS: Slide Review 1 YES
[2023-11-17] MEDS ORDERED: Sodium Chloride 0.9% 1000 ML 1,000 ML ONE (00:55)
[2023-11-17] MEDS ORDERED: MORPHINE SULFATE 2 MG INJ ONE (01:44)
[2023-11-17] MEDS: MORPHINE SULFATE 2 MG INJ IV ONE (01:50)
[2023-11-17] MEDS: Sodium Chloride 0.9% 1000 ML 1,000 ML IV SCH (01:51)
[2023-11-17 02:11] LABS: Appearance Cloudy (Clear); Bacteria Many /HPF (None Seen); Bilirubin Negative (Negative); Blood Negative (Negative); Epithelial Cells None Seen /HPF (None Seen); Glucose, Urine Negative (Negative); Ketones Negative (Negative); Leukocyte Esterase Moderate (Negative); Nitrite Positive (Negative); Ph 5.5 (4.6-8.0); Protein,Urine Dip Negative (Negative); Specific Gravity >=1.030 (1.005-1.030); WBC 51-100 /HPF (0-5)
[2023-11-17 02:12] LABS: ADD URINE CULTURE? YES (NO); Hyaline Casts 0-2 /LPF (0-2); RBC 0-2 /HPF (0-5)
--- NOTE | 2023-11-17 02:25 | XRAY ---
CLINICAL HISTORY: pain TECHNIQUE: CT scan of the abdomen and pelvis was performed with IV contrast, 80 cc [id number]. Coronal and sagittal reconstructive images were also obtained. CTDI: 4.02 mGy, DLP: 430.41 mGy-cm. COMPARISON: None. FINDINGS: Extensive atherosclerotic disease and calcified plaques are seen in the abdominal aorta and its branches. There is almost complete occlusion of the superior mesenteric artery at its origin, however, the distal segments are opacified with contrast. There is no CT evidence of bowel wall ischemia currently, however, further evaluation with CT mesenteric angiogram is recommended following gastroenterology and VIR opinion. There is also complete occlusion of the left common iliac artery. Femoro-femoral bypass grafting is noted with opacification of the distal left femoral artery, however, the patency of the bypass graft is questionable with a filling defect completely filling it throughout its course. The liver has lobulated irregular margins. No suspicious focal hepatic lesion is identified. The portal vein, intrahepatic biliary radicals and the bile ducts are normal. The gallbladder is normal. No pericholecystic collection or radio dense calculi in the gall bladder. Unremarkable appearing pancreas. No pancreatic mass or ductal dilatation is seen. The spleen & adrenal glands are unremarkable. The kidneys are unremarkable. They are normal in size and shape. No calculi or hydronephrosis. Few calcifications in the renal sinus are probably vascular in origin. The stomach appears unremarkable. Unremarkable appearing duodenum. Unprepared small bowel and colon are non-distended with no gross abnormality. Appendix appears unremarkable. No ascites. No free intraperitoneal air is seen. There is no evidence of significant enlargement of the mesenteric or retroperitoneal lymph nodes. The urinary bladder is unremarkable. The pelvic viscerae are unremarkable. No evidence of pelvic lymphadenopathy. Scanned sections through the lower thorax demonstrate mild bilateral pleural effusions and enlarged cardiac size. Degenerative changes are seen in the spine. IMPRESSION: 1. Extensive atherosclerotic disease and calcified plaques are seen in the abdominal aorta and its branches. 2. There is almost complete occlusion of the superior mesenteric artery at its origin, however, the distal segments are opacified with contrast. There is no CT evidence of bowel wall ischemia currently, however, further evaluation with CT mesenteric angiogram is recommended following gastroenterology and VIR opinion. 3. There is also complete occlusion of the left common iliac artery. Femoro-femoral bypass grafting is noted with opacification of the distal left femoral artery, however, the patency of the bypass graft is questionable with a filling defect completely filling it throughout its course. 4. The liver has lobulated irregular margins (cirrhotic morphology). No suspicious focal hepatic lesion is identified. Needs further relevant workup [if not done already]. [facility] ER was called at [phone] at 2:18 AM EST, 11/17/2023 and results were verbally communicated to Aggie Electronically Signed by: Alee Cunningham MD. (11/17/2023 02:20:42 EST)
[2023-11-17] MEDS: Macrobid 100MG Capsule PO ONE (04:12)
[2023-11-17] MEDS ORDERED: Macrobid 100MG Capsule ONE (04:12)
[2023-11-17 05:46] LABS: ABO TYPING B; Antibody Screen NEGATIVE (NEGATIVE); RH TYPING POSITIVE
[2023-11-17 06:17] VITALS: O2SAT 97
[2023-11-17] MEDS ORDERED: BABY ASPIRIN 81 MG CHEW ONE (07:04)
[2023-11-17] MEDS: BABY ASPIRIN 81 MG CHEW PO ONE (07:05)
[2023-11-17 07:44] VITALS: BP 130/71; PULSE 88; RESP 16
== END 2023-11-17 08:10 | disposition critical access hospital (66) ==
LOC: ED 23:23
DX: D64.9 Anemia, unspecified (principal); I25.10 Atherosclerotic heart disease of native coronary artery without angina pectoris; E78.5 Hyperlipidemia, unspecified; I10 Essential (primary) hypertension; I25.2 Old myocardial infarction; R53.1 Weakness; J90 Pleural effusion, not elsewhere classified; E86.0 Dehydration; F10.21 Alcohol dependence, in remission; Z20.828 Contact with and (suspected) exposure to other viral communicable diseases; Z79.899 Other long term (current) drug therapy
CPT/HCPCS: 36000; 36415; 74177; 80053; 81001; 84484; 85025; 86850; 86900; 86901; 87077; 87086; 87186; 93005; 96374; 99285; J2270; A9270-GY

== ENCOUNTER 2023-12-08 18:56 | Emergency (ER) | payer MEDICARE ==
[2023-12-08] MEDS ORDERED: PROTONIX 40 MG IV IV ONE (19:33)
[2023-12-08] MEDS ORDERED: Sodium Chloride 0.9% 500 ML 500 ML IV ONE (19:34)
[2023-12-08] MEDS: PROTONIX 40 MG IV IV ONE (19:42)
[2023-12-08] MEDS: PROTONIX 40 MG IV*** 80 MG in Sodium Chloride 0.9% 500 ML 500 ML IV SCH (19:42)
[2023-12-08 19:46] LABS: Absolute Neutrophil Ct (ANC) 4.27 x10^3/uL (1.4-6.9); BASOPHIL % 0.4 % (0.0-0.4); Basophil (Absolute #) 0.03 x10^3/uL (0-0.4); Eosinophil % 1.8 % (0.00-5.0); Eosinophil (Absolute #) 0.13 x10^3/uL (0-0.5); Hematocrit 16.2 % (35-47); IMMATURE GRAN # 0.04 x10^3u/L (0.00-0.03); IMMATURE GRAN % 0.6 % (0.00-0.4); Lymphocyte (Absolute #) 1.75 x10^3/uL (1.0-4.6); Lymphocytes % 24.3 % (24.0-44.0); Mean Cell Volume 82.7 fL (78-100); Mean Corpuscular Hgb Concent. 27.8 g/dL (32-36); Mean Platelet Volume 9.9 fL (7.5-11.0); Monocyte (Absolute #) 0.97 x10^3/uL (0.0-1.3); Monocytes % 13.5 % (0.0-12.0); Neutrophil % 59.4 % (36.0-66.0); Platelet Count 299 x10^3/uL (150-450); Red Blood Count 1.96 x10^6/uL (4.1-5.4); Red Cell Distribution Width 26.9 % (11.5-14.0); White Blood Count 7.2 x10^3/uL (4.0-10.5)
[2023-12-08 19:58] LABS: Hemoglobin 4.5 g/dL (12.0-16.0)
[2023-12-08] MEDS ORDERED: Zofran 4 MG/2 ML VIAL ONE (20:00)
[2023-12-08] MEDS ORDERED: Sodium Chloride 0.9% 1000 ML 1,000 ML ONE ×2 (20:00→21:15)
[2023-12-08 20:03] LABS: ALBUMIN 3.2 g/dL (3.5-5.0); ANION GAP 11.1 MEQ/L (5-15); BILIRUBIN,TOTAL 0.2 mg/dL (0.2-1.3); Calcium 8.3 mg/dL (8.4-10.2); Creatinine 1 0.7 mg/dL (0.52-1.04); EST GLOMERULAR FILTRATION RATE 94.7 ML/MIN; MAGNESIUM 1.7 mg/dL (1.6-2.3); Potassium 4.3 mmol/L (3.5-5.1)
[2023-12-08] MEDS: Zofran 4 MG/2 ML VIAL IV ONE (20:08)
[2023-12-08] MEDS: Sodium Chloride 0.9% 1000 ML 1,000 ML IV SCH ×2 (20:09→21:45)
[2023-12-08] MEDS ORDERED: SUBLIMAZE 100 MCG/2 ML ONE (20:12)
[2023-12-08] MEDS: SUBLIMAZE 100 MCG/2 ML IV ONE (20:14)
[2023-12-08 21:08] LABS: ABO TYPING B; Antibody Screen NEGATIVE (NEGATIVE); RH TYPING POSITIVE
[2023-12-08 21:13] LABS: CROSS MATCH (PRBC) COMPATIBLE (COMPATIBLE)
[2023-12-08 21:54] LABS: INR 1.4 (0.8-3.0); PROTIME 14.9 SECONDS (9.4-12.5)
[2023-12-08 22:28] LABS: Slide Review 1 YES
--- NOTE | 2023-12-08 22:36 | ERPHSYRPT ---
- History of Present Illness Time Seen by Provider: 12/08/23 19:38 Source: patient, family, EMS Exam Limitations: no limitations Patient Subjective Stated Complaint: pt had been on the floor for the past 2 days until her daughter found her, pt is weak and states that she has black stools Triage Nursing Assessment: Pt was brought to the ER by EMS, vitals wnl, rates toe pain on her right foot as 8/10, pt has blood on her buttocks and states that her stools have been black, pt states taht she was on the floor for 2 days and was able to crawl to the restroom and had some bottled water by the couch, pt is pale and sallow in color, pulses normal, pt wears 2.5 L oxygen at home and was really short of breath and so we placed her on 5L NC, pt gets dizzy when she sits up Physician History: 68-year-old female with multiple medical problems including history of cirrhosis, alcohol abuse in the past, substance abuse in the past, sober for almost 1 month, pulmonary embolism on Xarelto, hypertension, coronary artery disease presented in the ER with complains of generalized weakness fatigue and tiredness. Patient reports she was feeling weak dizzy and lightheaded, slowly sat down on the floor and was not able to get up for almost 2 days. She was able to have some water during this 2 days. Today her daughter found her. Patient reports aches and pains all over with some abdominal pain and dark stool. Reports having shortness of breath at her baseline needing 2.5 L oxygen which is is a little worse than usual. No fever or chills reported. Patient on presentation wanted to have a bowel movement and dark tarry stool was noticed. Patient is not tachycardic or tachypneic and blood pressure in 120s. Allergies/Adverse Reactions: Penicillins Allergy (Intermediate, Verified 12/08/23 19:21) Hives adhesive tape Allergy (Mild, Verified 12/08/23 19:21) Rash lorazepam [From Ativan] Adverse Reaction (Intermediate, Verified 12/08/23 19:21) "goes crazy" Home Medications: Furosemide 20 mg [Lasix 20 mg] 40 mg PO DAILY 06/30/21 [History] Gabapentin [Neurontin ] 300 mg PO TID 06/30/21 [History] Potassium Chloride Tab* [Klor Con] 20 meq PO DAILY 06/30/21 [History] Losartan Potassium [Cozaar] 25 mg PO DAILY 11/08/23 [History] Rosuvastatin Calcium 20 mg PO DAILY 11/08/23 [History] Carvedilol 3.125 mg [Coreg 3.125 MG] 3.125 mg PO BID 11/17/23 [History] Oxycodone HCl 5 mg Ir [Oxy-IR 5 MG] 5 mg PO Q6H PRN PRN 11/17/23 [History] Rivaroxaban [Xarelto] 20 mg PO HS 11/17/23 [History] Hx Tetanus, Diphtheria Vaccination/Date Given: No Hx Influenza Vaccination/Date Given: No Hx Pneumococcal Vaccination/Date Given: No Travel Risk - International Travel Have you traveled outside of the country in past 3 weeks: No - Emerging Infectious Disease Are you exhibiting symptoms associated with any current EIDs: No - Review of Systems Constitutional: Fatigue, Weakness Eyes: No Symptoms Ears, Nose, & Throat: No Symptoms Respiratory: Dyspnea Cardiac: No Symptoms Abdominal/Gastrointestinal: Abdominal Pain, Nausea, Melena Genitourinary Symptoms: No Symptoms Musculoskeletal: Arthralgias, Back Pain Skin: No Symptoms Neurological: No Symptoms Hematologic/Lymphatic: Anemia Immunological/Allergic: No Symptoms - Past Medical History Pertinent Past Medical History: Yes Neurological History: Seizures, Peripheral Neuropathy ENT History: No Pertinent History Cardiac History: Coronary Artery Disease, High Cholesterol, Hypertension, Myocardial Infarction ([place]), Peripheral Vascular Disease Respiratory History: COPD Endocrine Medical History: Hypothyroidism, Liver Disease Musculoskeletal History: Osteoarthritis GI Medical History: Hernia, Cirrhosis, Pancreatitis History: No Pertinent History Psycho-Social History: Bipolar, Depression, Anxiety, Panic Disorder Female Reproductive Disorders: No Pertinent History Other Medical History: Hx of one seizure when not drinking alcohol. Patient reportedly hd been drinking 0.75 of a one liter bottle of vodka. pt has stopped drugs/drinking/and smoking recently, Hx of hepatitis C. - Past Surgical History Past Surgical History: Yes Neuro Surgical History: No Pertinent History Cardiac: Cardiac Stent, Cardiac Catheterization Respiratory: No Pertinent History Gastrointestinal: No Pertinent History Genitourinary: No Pertinent History Musculoskeletal: Orthopedic Surgery Female Surgical History: Tubal Ligation Other Surgical History: HX Orthopedic Surgery on Bilateral arms from going through glass doors. - Social History Smoking Status: Former smoker How long have you smoked: 50+ Exposure to second hand smoke: No Drug Use: none Patient Lives Alone: Yes - Nursing Vital Signs Nursing Vital Signs: Initial Vital Signs Temperature 98.3 F 12/08/23 19:00 Pulse Rate 73 12/08/23 19:00 Respiratory Rate 16 12/08/23 19:00 Blood Pressure 124/51 12/08/23 19:00 O2 Sat by Pulse Oximetry 100 12/08/23 19:00 Pain Scale Pain Intensity 8 - Physical Exam General Appearance: no apparent distress, alert Eye Exam: PERRL/EOMI Ears, Nose, Throat Exam: normal ENT inspection Neck Exam: normal inspection, supple, full range of motion Respiratory Exam: normal breath sounds, lungs clear Cardiovascular Exam: regular rate/rhythm, normal heart sounds Gastrointestinal/Abdomen Exam: soft, normal bowel sounds, tenderness (Mild generalized) Extremity Exam: normal inspection, normal range of motion Neurologic Exam: alert, oriented x 3, cooperative Skin Exam: pale SpO2 Interpretation: O2 applied SpO2: 99 O2 Delivery: Nasal Cannula (3) - Course EKG Interpreted by Me: RATE (67), Sinus Rhythm, NORMAL AXIS, NORMAL INTERVALS, Other (ST depression in lateral leads with some T wave inversions) Ordered Tests: Active Orders 24 hr Category Date Time Status EKG-ER Only STAT Care 12/08/23 19:38 Completed IV Insertion STAT Care 12/08/23 19:23 Completed IV Insertion-2nd Peripheral STAT Care 12/08/23 19:23 Completed NPO (ED) STAT Care 12/08/23 19:38 Completed ABDOMEN AND PELVIS W CONTRAST [CT] Stat Exams 12/08/23 20:50 Taken CHEST 1 VIEW (PORTABLE) Stat Exams 12/08/23 19:52 Taken CHEST WITH CONTRAST [CT] Stat Exams 12/08/23 20:50 Taken BLOOD CULTURE Stat Lab 12/08/23 19:57 Received CBC W DIFF Stat Lab 12/08/23 19:18 Completed CK-Creatinine Phosphokinase Stat Lab 12/08/23 19:18 Completed CMP Stat Lab 12/08/23 19:18 Completed LIPASE Stat Lab 12/08/23 19:18 Completed Lactic Acid Stat Lab 12/08/23 19:48 Completed MAGNESIUM Stat Lab 12/08/23 19:18 Completed NT PRO BNPII Stat Lab 12/08/23 19:18 Completed PROTIME WITH INR Stat Lab 12/08/23 19:18 Completed TROPONIN Q4H Lab 12/08/23 19:18 Completed TROPONIN Q4H Lab 12/08/23 23:45 Completed Medication Summary Discontinued Medications Generic Name Dose Route Start Last Admin Trade Name Victor Manuelq PRN Reason Stop Dose Admin Fentanyl Citrate 50 mcg 12/08/23 20:10 12/08/23 20:14 Fentanyl Citrate 100 Mcg/2 Ml* Vial IV 12/08/23 20:11 50 mcg STAT ONE Administration Fentanyl Citrate Confirm 12/08/23 20:12 Fentanyl Citrate 100 Mcg/2 Ml* Vial Administered 12/08/23 20:13 Dose 100 mcg .ROUTE .STK-MED ONE Fentanyl Citrate 50 mcg 12/09/23 01:39 12/09/23 01:55 Fentanyl Citrate 100 Mcg/2 Ml* Vial IV 12/09/23 01:40 50 mcg STAT ONE Administration Fentanyl Citrate Confirm 12/09/23 01:54 Fentanyl Citrate 100 Mcg/2 Ml* Vial Administered 12/09/23 01:55 Dose 100 mcg .ROUTE .STK-MED ONE Pantoprazole Sodium 80 mg/ 500 mls @ 50 mls/hr 12/08/23 19:45 12/08/23 19:42 Sodium Chloride IV 01/07/24 19:44 50 ml/hr .Q10H TERE 50 mls/hr Administration Sodium Chloride Confirm 12/08/23 19:34 Sodium Chloride 0.9% 500 Ml Administered 12/08/23 19:35 Dose 500 mls @ ud IV .STK-MED ONE Sodium Chloride 1,000 mls @ 125 mls/hr 12/08/23 19:45 12/08/23 21:44 Sodium Chloride 0.9% 1000 Ml IV 01/07/24 19:44 125 mls/hr .Q8H TERE Administration Sodium Chloride 1,000 mls @ 50 mls/hr 12/08/23 21:30 12/08/23 21:45 Sodium Chloride 0.9% 1000 Ml IV 01/07/24 21:29 50 mls/hr .Q20H TERE Administration Ceftriaxone Sodium/Dextrose 2 g in 50 mls @ 100 mls/hr 12/08/23 22:38 4 22:49 Rocephin 2 Gm-D5w 50ml Bag IV 12/08/23 23:07 100 ml/hr STAT STA 100 mls/hr Administration Ceftriaxone Sodium/Dextrose Confirm 12/08/23 22:46 Rocephin 2 Gm-D5w 50ml Bag Administered 12/08/23 22:47 Dose 2 g in 50 mls @ ud IV .STK-MED ONE Sodium Chloride Confirm 12/08/23 20:00 Sodium Chloride 0.9% 1000 Ml Administered 12/08/23 20:01 Dose 1,000 mls @ ud .ROUTE .STK-MED ONE Sodium Chloride Confirm 12/08/23 21:15 Sodium Chloride 0.9% 1000 Ml Administered 12/08/23 21:16 Dose 1,000 mls @ ud .ROUTE .STK-MED ONE Ondansetron HCl 4 mg 12/08/23 19:38 12/08/23 20:08 Ondansetron Hcl 4 Mg/2 Ml Vial IV 12/08/23 19:39 4 mg STAT ONE Administration Ondansetron HCl Confirm 12/08/23 20:00 Ondansetron Hcl 4 Mg/2 Ml Vial Administered 12/08/23 20:01 Dose 4 mg .ROUTE .STK-MED ONE Pantoprazole Sodium 80 mg 12/08/23 19:24 12/08/23 19:42 Pantoprazole 40 Mg Vial IV 12/08/23 19:25 80 mg STAT ONE Administration Pantoprazole Sodium Confirm 12/08/23 19:33 Pantoprazole 40 Mg Vial Administered 12/08/23 19:34 Dose 160 mg IV .STK-MED ONE Lab/Rad Data: Laboratory Result Diagrams 12/08/23 19:18 12/08/23 19:18 Laboratory Results 12/08/23 12/08/23 12/08/23 Range/Units 23:45 19:48 19:18 WBC (4.0-10.5) x10^3/uL RBC (4.1-5.4) x10^6/uL Hgb (12.0-16.0) g/dL Hct (35-47) % MCV (78-100) fL MCH (26-32) pg MCHC (32-36) g/dL RDW (11.5-14.0) % Plt Count (150-450) x10^3/uL MPV (7.5-11.0) fL Gran % (36.0-66.0) % Immature Gran % (Auto) (0.00-0.4) % Nucleat RBC Rel Count (0.00-0.1) % Eos # (Auto) (0-0.5) x10^3/uL Immature Gran # (Auto) (0.00-0.03) x10^3u/L Absolute Lymphs (auto) (1.0-4.6) x10^3/uL Absolute Monos (auto) (0.0-1.3) x10^3/uL Absolute Nucleated RBC (0.00-0.01) x10^3u/L Lymphocytes % (24.0-44.0) % Monocytes % (0.0-12.0) % Eosinophils % (0.00-5.0) % Basophils % (0.0-0.4) % Absolute Granulocytes (1.4-6.9) x10^3/uL Basophils # (0-0.4) x10^3/uL PT 14.9 H (9.4-12.5) SECONDS INR 1.40 (0.8-3.0) Sodium (135-145) mmol/L Potassium (3.5-5.1) mmol/L Chloride (98-107) mmol/L Carbon Dioxide (22-30) mmol/L Anion Gap (5-15) MEQ/L BUN (7-17) mg/dL Creatinine (0.52-1.04) mg/dL Estimated GFR ML/MIN Glucose (74-106) mg/dL Lactic Acid 2.0 (0.4-2.0) Calcium (8.4-10.2) mg/dL Magnesium (1.6-2.3) mg/dL Total Bilirubin (0.2-1.3) mg/dL AST (14-36) U/L ALT (0-35) U/L Alkaline Phosphatase (38-126) U/L Creatine Kinase (30-135) U/L Troponin I 0.015 (0.000-0.034) ng/mL NT-Pro-B Natriuret Pep (<300) pg/mL Serum Total Protein (6.3-8.2) g/dL Albumin (3.5-5.0) g/dL Lipase (23-300) U/L Slides for Path Review ABO Group Rh Factor Antibody Screen (NEGATIVE) Crossmatch (COMPATIBLE) 12/08/23 12/08/23 12/08/23 Range/Units 19:18 19:18 19:18 WBC (4.0-10.5) x10^3/uL RBC (4.1-5.4) x10^6/uL Hgb (12.0-16.0) g/dL Hct (35-47) % MCV (78-100) fL MCH (26-32) pg MCHC (32-36) g/dL RDW (11.5-14.0) % Plt Count (150-450) x10^3/uL MPV (7.5-11.0) fL Gran % (36.0-66.0) % Immature Gran % (Auto) (0.00-0.4) % Nucleat RBC Rel Count (0.00-0.1) % Eos # (Auto) (0-0.5) x10^3/uL Immature Gran # (Auto) (0.00-0.03) x10^3u/L Absolute Lymphs (auto) (1.0-4.6) x10^3/uL Absolute Monos (auto) (0.0-1.3) x10^3/uL Absolute Nucleated RBC (0.00-0.01) x10^3u/L Lymphocytes % (24.0-44.0) % Monocytes % (0.0-12.0) % Eosinophils % (0.00-5.0) % Basophils % (0.0-0.4) % Absolute Granulocytes (1.4-6.9) x10^3/uL Basophils # (0-0.4) x10^3/uL PT (9.4-12.5) SECONDS INR (0.8-3.0) Sodium (135-145) mmol/L Potassium (3.5-5.1) mmol/L Chloride (98-107) mmol/L Carbon Dioxide (22-30) mmol/L Anion Gap (5-15) MEQ/L BUN (7-17) mg/dL Creatinine (0.52-1.04) mg/dL Estimated GFR ML/MIN Glucose (74-106) mg/dL Lactic Acid (0.4-2.0) Calcium (8.4-10.2) mg/dL Magnesium (1.6-2.3) mg/dL Total Bilirubin (0.2-1.3) mg/dL AST (14-36) U/L ALT (0-35) U/L Alkaline Phosphatase (38-126) U/L Creatine Kinase (30-135) U/L Troponin I < 0.012 (0.000-0.034) ng/mL NT-Pro-B Natriuret Pep (<300) pg/mL Serum Total Protein (6.3-8.2) g/dL Albumin (3.5-5.0) g/dL Lipase (23-300) U/L Slides for Path Review ABO Group B Rh Factor POSITIVE Antibody Screen NEGATIVE (NEGATIVE) Crossmatch COMPATIBLE COMPATIBLE (COMPATIBLE) 12/08/23 12/08/23 Range/Units 19:18 19:18 WBC 7.2 (4.0-10.5) x10^3/uL RBC 1.96 L (4.1-5.4) x10^6/uL Hgb 4.5 L* (12.0-16.0) g/dL Hct 16.2 L (35-47) % MCV 82.7 (78-100) fL MCH 23.0 L (26-32) pg MCHC 27.8 L (32-36) g/dL RDW 26.9 H (11.5-14.0) % Plt Count 299 (150-450) x10^3/uL MPV 9.9 (7.5-11.0) fL Gran % 59.4 (36.0-66.0) % Immature Gran % (Auto) 0.6 H (0.00-0.4) % Nucleat RBC Rel Count 0.0 (0.00-0.1) % Eos # (Auto) 0.13 (0-0.5) x10^3/uL Immature Gran # (Auto) 0.04 H (0.00-0.03) x10^3u/L Absolute Lymphs (auto) 1.75 (1.0-4.6) x10^3/uL Absolute Monos (auto) 0.97 (0.0-1.3) x10^3/uL Absolute Nucleated RBC 0.00 (0.00-0.01) x10^3u/L Lymphocytes % 24.3 (24.0-44.0) % Monocytes % 13.5 H (0.0-12.0) % Eosinophils % 1.8 (0.00-5.0) % Basophils % 0.4 (0.0-0.4) % Absolute Granulocytes 4.27 (1.4-6.9) x10^3/uL Basophils # 0.03 (0-0.4) x10^3/uL PT (9.4-12.5) SECONDS INR (0.8-3.0) Sodium 137 (135-145) mmol/L Potassium 4.3 (3.5-5.1) mmol/L Chloride 104 (98-107) mmol/L Carbon Dioxide 25 (22-30) mmol/L Anion Gap 11.1 (5-15) MEQ/L BUN 23 H (7-17) mg/dL Creatinine 0.70 (0.52-1.04) mg/dL Estimated GFR 94.7 ML/MIN Glucose 91 (74-106) mg/dL Lactic Acid (0.4-2.0) Calcium 8.3 L (8.4-10.2) mg/dL Magnesium 1.7 (1.6-2.3) mg/dL Total Bilirubin 0.20 (0.2-1.3) mg/dL AST 41 H (14-36) U/L ALT 26 (0-35) U/L Alkaline Phosphatase 53 (38-126) U/L Creatine Kinase 50 (30-135) U/L Troponin I (0.000-0.034) ng/mL NT-Pro-B Natriuret Pep 401 (<300) pg/mL Serum Total Protein 6.0 L (6.3-8.2) g/dL Albumin 3.2 L (3.5-5.0) g/dL Lipase 129 (23-300) U/L Slides for Path Review YES ABO Group Rh Factor Antibody Screen (NEGATIVE) Crossmatch (COMPATIBLE) - Progress Progress: improved, re-examined Progress Note: 12/08/23 22:35 68-year-old is evaluated in the ER for generalized weakness fatigue and tiredness and inability to get up from lying position. Patient is feeling weak all over, no focal weakness. She is placed on 3 L oxygen with saturation in upper 90s. Mild generalized abdominal tenderness. Patient had a bowel movement with black tarry stool. She is given fluid bolus, also symptomatic treatment for pain and on reevaluation feeling much better. Patient workup showed drop in hemoglobin from 7.4-4.5, type crossmatch, went over risk and benefits and patient agrees to go ahead with transfusion. She is currently receiving first unit. Chemistries fairly unremarkable with normal CK level and troponins. EKG is normal sinus rhythm with no acute ST elevation but some mild depression in the lateral leads with T wave inversions which could be demand related ischemia. Lactate of 2.0. Patient is also given bolus of Protonix and is on Protonix d rip. Hemodynamically patient is stable. She is given a dose of Rocephin with her history of cirrhosis or SBP. Blood cultures are pending. X-ray chest is negative for any acute cardiopulmonary findings reviewed by me, official report is pending. CT abdomen pelvis with contrast and CTA chest are negative for any acute intra-abdominal/intrathoracic findings. I have discussed with Dr. Marychuy abdullahi, recommended general surgery/GI on board. Discussed with Dr. Kevin Lindsey and recommended transfer to facility for higher level of care. No GI services are available at [facility]. No availability in [facility], have called [facility]. 12/08/23 22:[address] Pete abdullahi at [facility], reviewed history, workup and agreed with transfer. I have shared the results of workup with patient and plan of care including transfer which she understands and agrees. 12/09/23 00:58 Patient and family later on decided not to go to [facility] but go to [facility]. We have called [facility], d/w DR. Memo abdullahi, reviewed history, workup and agreed with transfer. Discussed with DrRobb: Other Counseled pt/family regarding: lab results, diagnosis, rad results Medical Desision Making - Independent Historian Additional History obtained from: Molding Cutter/EMT - Discussion of managment Care discussed with:: hospitalist (Dr. Perrin at [facility], Dr. Kevin Lindsey general surgery at [facility], Dr. Pete abdullahi [facility]) Reviewed:: Test results Agreed on:: Treatment plan Will see patient: in hospital - Diagnostic Testing Diagnostic test were ordered, analyzed, and reviewed by me: Yes Radiological Interpretation: Interpreted by me, Reviewed by me, Teleradiologist Report - Risk of complications The pt has a high risk of morbidity or mortality based on: Decision regarding hospitilization or escalation of hosp level of care - Departure Departure Disposition: Transfer Clinical Impression: Symptomatic anemia, Generalized weakness, GI bleed Condition: Fair Critical Care Time: Yes Critical Care Time(excluding separately billable procedures): Critical 30-74 mins Referrals: SKY MATTHEW MD [Primary Care Provider] - Follow up/PCP as directed
[2023-12-08] MEDS ORDERED: ROCEPHIN 2 Gm-D5w 50ML BAG** 2 G/50 ML IVPB IV ONE (22:46)
[2023-12-08] MEDS: ROCEPHIN 2 Gm-D5w 50ML BAG** 2 G/50 ML IVPB IV STA (22:49)
[2023-12-09 01:17] VITALS: TEMP 98.9
[2023-12-09] MEDS ORDERED: SUBLIMAZE 100 MCG/2 ML ONE (01:54)
[2023-12-09] MEDS: SUBLIMAZE 100 MCG/2 ML IV ONE (01:55)
[2023-12-09 02:38] VITALS: BP 128/65; PULSE 70; RESP 20
[2023-12-09 05:46] VITALS: O2SAT 99
--- NOTE | 2023-12-09 09:10 | XRAY ---
Indication: Abdominal pain. Short of breath. Pulmonary embolus. Multiple contiguous axial images obtained through the chest using 80 cc Isovue 370 contrast and pulmonary embolus protocol. Comparison: None Good opacification of the pulmonary arteries including lobar and segmental branches. No pulmonary embolus. Heart enlarged with scattered coronary calcifications. Aorta moderately arteriosclerotic without aneurysm/dissection. No pathologic mediastinal/hilar lymphadenopathy. Lungs demonstrates mild bilateral dependent atelectasis and mild pulmonary emphysema. No suspicious pulmonary mass/nodule, infiltrate, effusion, or pneumothorax. Bony thorax intact with osteopenia and minimal/mild generative changes throughout spine. CT abdomen/pelvis reported separately. Impression: 1. Negative pulmonary embolus. No acute cardiopulmonary abnormalities. 2. Chronic findings including cardiomegaly without CHF, arteriosclerotic disease, pulmonary emphysema, and chronic bony findings.
--- NOTE | 2023-12-09 09:12 | XRAY ---
Indication: Abdominal pain and short of breath. Multiple contiguous axial images obtained through the abdomen and pelvis using 80 cc Isovue 370 contrast. Comparison: November 17, 2023 CT chest reported separately. Noncontrasted stomach and bowel loops nonobstructed. Again cirrhotic appearing liver without ascites. No free air. Remaining liver, gallbladder, pancreas, spleen, adrenal glands, kidneys, ureters, bladder, and uterus are unremarkable. Grossly stable extensive scattered arteriosclerotic disease including both intrarenal arteries and incidental femoral-femoral bypass stent graft. Impression: No change. Again chronic findings including cirrhotic liver and extensive arteriosclerotic disease. No new/acute findings.
--- NOTE | 2023-12-09 09:25 | XRAY ---
Indication: Weakness and short of breath. Comparison: None Portable apical lordotic chest demonstrates borderline cardiomegaly. Lungs inflated and clear. Bony thorax intact with osteopenia and minimal degenerative changes. Impression: Borderline cardiomegaly. No acute cardiopulmonary abnormalities.
== END 2023-12-09 02:32 | disposition short-term general hospital (02) ==
LOC: ED 18:56
DX: K92.2 Gastrointestinal hemorrhage, unspecified (principal); D64.9 Anemia, unspecified; R53.1 Weakness; R53.83 Other fatigue; R10.9 Unspecified abdominal pain; K92.1 Melena; I10 Essential (primary) hypertension; E78.5 Hyperlipidemia, unspecified; Z79.01 Long term (current) use of anticoagulants; Z79.899 Other long term (current) drug therapy
CPT/HCPCS: 36000; 36415; 36430; 71045; 71260; 74177; 80053; 82550; 83605; 83690; 83735; 83880; 84484; 85025; 85610; 86850; 86900; 86901; 86922; 87040; 93005; 96374; 96375; 99285; 99291; P9016; J0696; J2405; J3010

== ENCOUNTER 2024-09-10 14:03 | Emergency (ER) | payer MEDICARE ==
[2024-09-10 15:37] VITALS: TEMP 98.1
--- NOTE | 2024-09-10 15:53 | ERPHSYRPT ---
- History of Present Illness Time Seen by Provider: 09/10/24 15:53 Source: patient Exam Limitations: no limitations Patient Subjective Stated Complaint: pt had a femoral bypass 2 weeks ago and has severe swelling to her right foot and upper leg Triage Nursing Assessment: Pt brought to the ER by her daughter, sharron shah, rates pain as 8/10, has a wound drain from the right thigh, right foot swollen, no pulse felt or heard with the doppler, incision to the right groin that is red and inflamed Physician History: This is a 69-year-old white female patient who presents with right lower extremity swelling. Patient was discharged from [facility] 3 days ago. According to the patient, patient underwent a right femoral the popliteal bypass graft 2 months ago. She returned to that facility for a r evision 1 month ago and again 2 weeks ago. Patient was told to stop her Xarelto but she continues the Plavix. Patient states that she was discharged to home approximately 3 days ago. The subcutaneous bulb suction drain is in place and draining thin serosanguineous fluid. She is concerned that there may not be flow through that graft again. She has no chest pain. She has no shortness of breath. Patient is on 3 times a day intravenous antibiotics as an outpatient at her home. She does not recall the name of them. Method of Injury: other (No new injury but has right lower extremity swelling) Occurred: other (Swelling over the last few days) Quality: aching Severity of Pain-Max: moderate Severity of Pain-Current: moderate Lower Extremities Pain: leg: right, thigh: right, foot: right, ankle: right Associated Symptoms: none Allergies/Adverse Reactions: Penicillins Allergy (Intermediate, Verified 09/10/24 15:36) Hives adhesive tape Allergy (Mild, Verified 09/10/24 15:36) Rash lorazepam [From Ativan] Adverse Reaction (Intermediate, Verified 09/10/24 15:36) "goes crazy" Home Medications: Gabapentin [Neurontin ] 300 mg PO TID 06/30/21 [History] Losartan Potassium [Cozaar] 25 mg PO DAILY 11/08/23 [History] Rosuvastatin Calcium 20 mg PO DAILY 11/08/23 [History] Carvedilol 3.125 mg [Coreg 3.125 MG] 3.125 mg PO BID 11/17/23 [History] Rivaroxaban [Xarelto] 20 mg PO HS 11/17/23 [History] Acetaminophen 325 mg [Tylenol 325 mg] 650 mg PO Q4H 09/10/24 [History] Aspirin 81 mg PO DAILY 09/10/24 [History] Clopidogrel Bisulfate [Clopidogrel] 75 mg PO DAILY 09/10/24 [History] Empagliflozin [Jardiance] 10 mg PO DAILY 09/10/24 [History] Hydroxyzine HCl 25 mg [Atarax 25 mg] 25 mg PO QID 09/10/24 [History] Levothyroxine Sodium 25 mcg PO DAILY 09/10/24 [History] PANTOPRAZOLE 40 mg Tablet [Protonix 40MG Tablet] 40 mg PO BID 09/10/24 [History] Sacubitril/Valsartan [Entresto 24 mg-26 mg Tablet] 1 each PO BID 09/10/24 [Hist ory] Spironolactone 25 mg [Aldactone 25 MG] 25 mg PO DAILY 09/10/24 [History] Tizanidine HCl 4 mg [Zanaflex 4 MG] 4 mg PO TID 09/10/24 [History] Hx Tetanus, Diphtheria Vaccination/Date Given: No Hx Influenza Vaccination/Date Given: No Hx Pneumococcal Vaccination/Date Given: No Travel Risk - International Travel Have you traveled outside of the country in past 3 weeks: No - Emerging Infectious Disease Are you exhibiting symptoms associated with any current EIDs: No - Review of Systems Constitutional: No Symptoms Eyes: No Symptoms Ears, Nose, & Throat: No Symptoms Respiratory: No Symptoms Cardiac: No Symptoms Abdominal/Gastrointestinal: No Symptoms Genitourinary Symptoms: No Symptoms Musculoskeletal: No Symptoms Skin: Other (Significant swelling right lower extremity including foot and ankle) Neurological: No Symptoms Psychological: No Symptoms Endocrine: No Symptoms Hematologic/Lymphatic: No Symptoms Immunological/Allergic: No Symptoms All Other Systems: Reviewed and Negative - Past Medical History Pertinent Past Medical History: Yes Neurological History: Seizures, Peripheral Neuropathy ENT History: No Pertinent History Cardiac History: Coronary Artery Disease, High Cholesterol, Hypertension, Myocardial Infarction ([place]), Peripheral Vascular Disease Respiratory History: COPD Endocrine Medical History: Hypothyroidism, Liver Disease Musculoskeletal History: Osteoarthritis GI Medical History: Hernia, Cirrhosis, Pancreatitis History: No Pertinent History Psycho-Social History: Bipolar, Depression, Anxiety, Panic Disorder Female Reproductive Disorders: No Pertinent History Other Medical History: Hx of one seizure when not drinking alcohol. pt has stopped drugs/drinking/and smoking recently, Hx of hepatitis C. - Past Surgical History Past Surgical History: Yes Neuro Surgical History: No Pertinent History Cardiac: Cardiac Stent, Cardiac Catheterization Respiratory: No Pertinent History Gastrointestinal: No Pertinent History Genitourinary: No Pertinent History Musculoskeletal: Orthopedic Surgery Female Surgical History: Tubal Ligation Other Surgical History: HX Orthopedic Surgery on Bilateral arms from going through glass doors. - Social History Smoking Status: Former smoker How long have you smoked: 50+ Exposure to second hand smoke: No Drug Use: none Patient Lives Alone: Yes - Social Determinants of Health Will the patient participate in the screening: Yes Do you worry about a steady place to live?: No Do you have any problems with any of the following?: No known problems In the past 12 months,have you had to go without utilities?: No Transportation Issues: No Has anyone in your support network made you feel unsafe?: No Have you or anyone in your house had to go without enough: No - Nursing Vital Signs Nursing Vital Signs: Initial Vital Signs Temperature 98.1 F 09/10/24 15:19 Pulse Rate 84 09/10/24 15:19 Blood Pressure 134/61 09/10/24 15:19 O2 Sat by Pulse Oximetry 97 09/10/24 15:19 Pain Scale Pain Intensity 5 - Physical Exam General Appearance: no apparent distress, alert, anxiety, cachetic Eyes, Ears, Nose, Throat Exam: normal ENT inspection, moist mucous membranes Neck Exam: normal inspection, non-tender, supple, full range of motion Cardiovascular/Respiratory Exam: chest non-tender, normal breath sounds, regular rate/rhythm, no respiratory distress Gastrointestinal/Abdominal Exam: non-tender Back Exam: normal inspection, normal range of motion, No CVA tenderness, No vertebral tenderness Hips Exam: bilateral: non-tender, normal inspection, normal range of motion, no evidence of injury Legs Exam: right leg: soft tissue tenderness, swelling, other (Subcutaneous bulb suction drain in place with slight serosanguineous tissue fluid present in it) Knees Exam: right knee: swelling Ankle Exam: right ankle: soft tissue tenderness, swelling Foot Exam: right foot: soft tissue tenderness, swelling, other (Difficult to assess pedal pulses secondary to significant swelling.) Neuro/Tendon Exam: normal sensation, normal motor functions, normal tendon functions Mental Status Exam: alert, oriented x 3, cooperative Skin Exam: other (Right lower extremity swelling and edema with dry skin of the right foot) SpO2 Interpretation: normal SpO2: 97 - Course Nursing assessment & vital signs reviewed: Yes Ordered Tests: Active Orders 24 hr Category Date Time Status IV Insertion STAT Care 09/10/24 19:01 Active ARTERIAL UNILAT/LTD LOWER EXT [US] Stat Exams 09/10/24 15:57 Taken LOWER EXTREMITY WO CONTRAST [CT] Stat Exams 09/10/24 19:36 Taken BLOOD CULTURE Stat Lab 09/10/24 19:21 Received CBC W DIFF Stat Lab 09/10/24 19:15 Completed CMP Stat Lab 09/10/24 19:15 Completed Lactic Acid Stat Lab 09/10/24 19:20 Completed Lab/Rad Data: Laboratory Result Diagrams 09/10/24 19:15 09/10/24 19:15 Laboratory Results 09/10/24 09/10/24 09/10/24 Range/Units 19:20 19:15 19:15 WBC 8.3 (3.98-10.04) x10^3/uL RBC 3.42 L (3.93-5.22) x10^6/uL Hgb 8.1 L (11.2-15.7) g/dL Hct 27.6 L (34.1-44.9) % MCV 80.7 (79.4-94.8) fL MCH 23.7 L (25.6-32.2) pg MCHC 29.3 L (32.2-35.5) g/dL RDW 22.3 H (11.7-14.4) % Plt Count 317 (182-369) x10^3/uL MPV 9.3 L (9.4-12.3) fL Gran % 71.4 H (34.0-71.1) % Immature Gran % (Auto) 0.6 H (0.001-0.429) % Nucleat RBC Rel Count 0.0 (0.00-0.2) % Eos # (Auto) 0.19 (0.04-0.36) x10^3/uL Immature Gran # (Auto) 0.05 H (0.001-0.031) x10^3u/L Absolute Lymphs (auto) 1.16 L (1.18-3.74) x10^3/uL Absolute Monos (auto) 0.95 H (0.24-0.86) x10^3/uL Absolute Nucleated RBC 0.00 (0.00-0.012) x10^3u/L Lymphocytes % 13.9 L (19.3-51.7) % Monocytes % 11.4 (4.7-12.5) % Eosinophils % 2.3 (0.7-5.8) % Basophils % 0.4 (0.1-1.2) % Absolute Granulocytes 5.95 (1.56-6.13) x10^3/uL Basophils # 0.03 (0.01-0.08) x10^3/uL Sodium 133 L (135-145) mmol/L Potassium 3.9 (3.5-5.1) mmol/L Chloride 101 (98-107) mmol/L Carbon Dioxide 24 (22-30) mmol/L Anion Gap 11.7 (5-15) MEQ/L BUN 13 (7-17) mg/dL Creatinine 0.56 (0.52-1.04) mg/dL Estimated GFR 99.4 ML/MIN Glucose 90 (74-106) mg/dL Lactic Acid 0.7 (0.4-2.0) Calcium 8.4 (8.4-10.2) mg/dL Total Bilirubin 0.60 (0.2-1.3) mg/dL AST 69 H (14-36) U/L ALT 12 (0-35) U/L Alkaline Phosphatase 124 (38-126) U/L Serum Total Protein 7.5 (6.3-8.2) g/dL Albumin 3.7 (3.5-5.0) g/dL Slides for Path Review YES - Progress Progress: unchanged Progress Note: 09/10/24 16:40 My medical decision making and the assignment of low to moderate complexity of this patient's medical issue today is based on review of the patient's past medical history, review the patient's medication list, reviewed patient drug allergy list, history present illness and physical findings on examination. The workup in this patient includes a arterial Doppler of the right lower extremity. Differential diagnosis includes but is not limited to postoperative swelling and edema, occluded right femoral to popliteal bypass graft 09/10/24 21:29 I interpreted the patient's laboratory data results. Patient does have chronic anemia and her hemoglobin is in similar range over the last several readings in the past. Her lactic acid is normal. Patient is afebrile. Patient is wanting to leave AGAINST MEDICAL ADVICE. We do not have the radiologist reports of the CT scan and final arterial ultrasound vascular study results. She is aware that there is risks of worsening infection, as well as possible decrease or loss of blood flow through the currently patent grafts as reported to me by the trasound technologist/investment representative. She provided me with the preliminary result. The patient is aware I am not yet got a hold of her vascular surgeon at [facility]. She understands the benefits of being transferred to her place of surgery and to her vascular surgeons and [facility] in [place]. She wants to sign out AGAINST MEDICAL ADVICE. Counseled pt/family regarding: diagnosis Medical Desision Making - Independent Historian Additional History obtained from: Family - Diagnostic Testing Diagnostic test were ordered, analyzed, and reviewed by me: Yes - Risk of complications The pt has a high risk of morbidity or mortality based on: Decision regarding hospitilization or escalation of hosp level of care - Departure Departure Disposition: AMA Clinical Impression: Right leg swelling, Cellulitis of right groin Condition: Fair Critical Care Time: No Referrals: SKY MATTHEW MD [Primary Care Provider] - Follow up/PCP as directed Additional Instructions: Return to the emergency department if symptoms worsen. Call your primary vascular surgeon for further instructions and management.
[2024-09-10 19:34] LABS: Absolute Neutrophil Ct (ANC) 5.95 x10^3/uL (1.56-6.13); BASOPHIL % 0.4 % (0.1-1.2); Basophil (Absolute #) 0.03 x10^3/uL (0.01-0.08); Eosinophil % 2.3 % (0.7-5.8); Eosinophil (Absolute #) 0.19 x10^3/uL (0.04-0.36); Hematocrit 27.6 % (34.1-44.9); Hemoglobin 8.1 g/dL (11.2-15.7); IMMATURE GRAN # 0.05 x10^3u/L (0.001-0.031); IMMATURE GRAN % 0.6 % (0.001-0.429); Lymphocyte (Absolute #) 1.16 x10^3/uL (1.18-3.74); Lymphocytes % 13.9 % (19.3-51.7); Mean Cell Volume 80.7 fL (79.4-94.8); Mean Corpuscular Hemoglobin 23.7 pg (25.6-32.2); Mean Corpuscular Hgb Concent. 29.3 g/dL (32.2-35.5); Mean Platelet Volume 9.3 fL (9.4-12.3); Monocyte (Absolute #) 0.95 x10^3/uL (0.24-0.86); Monocytes % 11.4 % (4.7-12.5); Neutrophil % 71.4 % (34.0-71.1); Platelet Count 317 x10^3/uL (182-369); Red Blood Count 3.42 x10^6/uL (3.93-5.22); Red Cell Distribution Width 22.3 % (11.7-14.4); White Blood Count 8.3 x10^3/uL (3.98-10.04)
[2024-09-10 19:51] LABS: ALBUMIN 3.7 g/dL (3.5-5.0); ANION GAP 11.7 MEQ/L (5-15); BILIRUBIN,TOTAL 0.6 mg/dL (0.2-1.3); Calcium 8.4 mg/dL (8.4-10.2); Creatinine 1 0.56 mg/dL (0.52-1.04); EST GLOMERULAR FILTRATION RATE 99.4 ML/MIN; Potassium 3.9 mmol/L (3.5-5.1); Total Protein 7.5 g/dL (6.3-8.2)
[2024-09-10 20:02] LABS: Slide Review 1 YES
[2024-09-10 20:18] VITALS: RESP 16
[2024-09-10 21:02] VITALS: O2SAT 97
[2024-09-10 21:52] VITALS: BP 137/97; PULSE 82
--- NOTE | 2024-09-11 08:45 | XRAY ---
Indication: Right leg pain and swelling. Status post femoral popliteal bypass. Two-dimensional sonogram and color Doppler imaging right leg femoral popliteal bypass graft performed. Bypass graft including proximal/distal anastomosis appears patent throughout. Comment: Preliminary report was given.
--- NOTE | 2024-09-11 08:59 | XRAY ---
Indication: Right inguinal fluid collection. Status post right femoral popliteal bypass. Multiple contiguous axial images obtained through the pelvis and both femurs without contrast as ordered. Comparison: CT abdomen/pelvis December 08, 2023. Right lateral abdominal wall demonstrates new incompletely visualized bypass stent graft with anastomosis of previous femoral-femoral bypass graft. Right groin demonstrates new subcutaneous fluid collection measuring at least 3.2 x 8.3 x 11.0 cm. Lack of IV contrast precludes further characterization of above stent grafts and fluid collection. Visualized right upper leg also demonstrates new diffuse cutaneous and subcutaneous soft tissue swelling/edema with smaller pockets of subcutaneous fluid collection throughout. Medial leg also demonstrates new vascular clips with percutaneous drainage tubing in situ. Visualized pelvis again demonstrates cirrhotic appearing liver, nonobstructing right renal punctate calculus, and extensive scattered arteriosclerotic disease. Visualized bowel loops appear nonobstructed. Urinary bladder is distended and grossly unremarkable. Visualized osseous structures intact again with osteopenia, lower lumbar degenerative spondylosis with grade 1 L4 listhesis, and mild degenerative changes both hips. Impression: 1. New incompletely visualized right abdominal wall bypass stent. Stent patency cannot be evaluated on this noncontrast exam. 2. New right groin subcutaneous fluid collection, adjacent to new bypass stent anastomosis. Lack of IV contrast precludes further characterization. Findings may represent postoperative hematoma/seroma. Hemorrhage or inflammatory/infectious process not completely excluded in right clinical setting. 3. New right upper leg soft tissue swelling/edema with small pockets of subcutaneous fluid collection and percutaneous drainage tubing in situ. Findings presumed postoperative. 4. Chronic findings including cirrhotic liver, nonobstructing right renal punctate calculus, extensive arteriosclerotic disease, and chronic bony findings.
== END 2024-09-10 21:35 | disposition left against medical advice (07) ==
LOC: ED 14:03
DX: M79.89 Other specified soft tissue disorders (principal); L03.314 Cellulitis of groin; E78.5 Hyperlipidemia, unspecified; I10 Essential (primary) hypertension; I73.9 Peripheral vascular disease, unspecified; Z79.01 Long term (current) use of anticoagulants; Z79.02 Long term (current) use of antithrombotics/antiplatelets; Z79.84 Long term (current) use of oral hypoglycemic drugs; Z79.899 Other long term (current) drug therapy
CPT/HCPCS: 36415; 73700; 80053; 83605; 85025; 87040; 93926; 99284; 99285

== ENCOUNTER 2025-08-26 19:31 | Inpatient (IN) | payer MEDICARE ==
[2025-08-26] MEDS: Cardizem IV 50 MG/10 ML IV ONE (19:52)
[2025-08-26] MEDS ORDERED: Cardizem IV 50 MG/10 ML IV ONE (19:52)
--- NOTE | 2025-08-26 20:00 | ERPHSYRPT ---
- History of Present Illness Time Seen by Provider: 08/26/25 19:35 Source: patient, EMS Exam Limitations: clinical condition Patient Subjective Stated Complaint: C/O shortness of breath Triage Nursing Assessment: patient brought to ED witg c/o SOB. patient has a history of COPD, states she has had a dry cough for the past 2 days, rates chest pain 8/10 upon arrivsl, tachycardic, skin w/n/d, wheezeing heard throughout, afebrile, patient states she is a some day smoker, wears 1 liter NC occasionally Physician History: This is a 70-year-old white female patient who arrives to the emergency department byparamedic service with the complaint of worsening shortness of breath for 2 days. She has not used nebulizer treatments. She does not have access to them. She has some mild substernal central nonradiating chest discomfort because of the shortness of breath. She has not had a fever. She does have a mild cough. Patient unable to provide much information at this time as she is extremely shortness of breath. She normally wears oxygen at home. She arrives to the emergency department with a room air oxygen saturation level of. 86% on room air. This has increased to 92% with oxygen. Respiratory therapy is in the emergency department room on arrival. Activities at Onset: none Severity of Dyspnea-Max: moderate Severity of Dyspnea-Current: moderate Possible Cause: frequent episodes Modifying Factors: Improves With: activity, coughing Associated Symptoms: cough, chest pain/discomfort (Mild), weakness Allergies/Adverse Reactions: Penicillins Allergy (Intermediate, Verified 02/28/25 08:17) Hives adhesive tape Allergy (Mild, Verified 02/28/25 08:17) Rash lorazepam [From Ativan] Adverse Reaction (Intermediate, Verified 02/28/25 08:17) "goes crazy" Home Medications: Gabapentin [Neurontin ] 300 mg PO TID 06/30/21 [History] Losartan Potassium [Cozaar] 25 mg PO DAILY 11/08/23 [History] Rosuvastatin Calcium 20 mg PO DAILY 11/08/23 [History] Carvedilol 3.125 mg [Coreg 3.125 MG] 3.125 mg PO BID 11/17/23 [History] Rivaroxaban [Xarelto] 20 mg PO HS 11/17/23 [History] Acetaminophen 325 mg [Tylenol 325 mg] 650 mg PO Q4H 09/10/24 [History] Hydroxyzine HCl 25 mg [Atarax 25 mg] 25 mg PO QID 09/10/24 [History] Levothyroxine Sodium 25 mcg PO DAILY 09/10/24 [History] PANTOPRAZOLE 40 mg Tablet [Protonix 40MG Tablet] 40 mg PO BID 09/10/24 [History] Sacubitril/Valsartan [Entresto 24 mg-26 mg Tablet] 1 each PO BID 09/10/24 [History] Tizanidine HCl 4 mg [Zanaflex 4 MG] 4 mg PO TID 09/10/24 [History] Hx Tetanus, Diphtheria Vaccination/Date Given: No Hx Influenza Vaccination/Date Given: No Hx Pneumococcal Vaccination/Date Given: No Travel Risk - International Travel Have you traveled outside of the country in past 3 weeks: No - Emerging Infectious Disease Are you exhibiting symptoms associated with any current EIDs: Yes Symptoms: Shortness of Breath - Review of Systems Constitutional: No Symptoms Eyes: No Symptoms Ears, Nose, & Throat: No Symptoms Respiratory: Cough, Dyspnea, Wheezing Cardiac: Chest Pain (Mild secondary to shortness of breath and rapid breathing) Abdominal/Gastrointestinal: No Symptoms Genitourinary Symptoms: No Symptoms Musculoskeletal: No Symptoms Skin: No Symptoms Neurological: No Symptoms Psychological: No Symptoms Endocrine: No Symptoms Hematologic/Lymphatic: No Symptoms Immunological/Allergic: No Symptoms All Other Systems: Reviewed and Negative - Past Medical History Pertinent Past Medical History: Yes Neurological History: Seizures, Peripheral Neuropathy ENT History: No Pertinent History Cardiac History: Coronary Artery Disease, High Cholesterol, Hypertension, Myocardial Infarction (MA), Peripheral Vascular Disease Respiratory History: COPD Endocrine Medical History: Hypothyroidism, Liver Disease Musculoskeletal History: Osteoarthritis GI Medical History: Hernia, Cirrhosis, Pancreatitis History: No Pertinent History Psycho-Social History: Bipolar, Depression, Anxiety, Panic Disorder Female Reproductive Disorders: No Pertinent History Other Medical History: Hx of one seizure when not drinking alcohol. pt has stopped drugs/drinking/and smoking recently, Hx of hepatitis C. - Past Surgical History Past Surgical History: Yes Neuro Surgical History: No Pertinent History Cardiac: Cardiac Stent, Cardiac Catheterization Respiratory: No Pertinent History Gastrointestinal: No Pertinent History Genitourinary: No Pertinent History Musculoskeletal: Orthopedic Surgery Female Surgical History: Tubal Ligation Other Surgical History: HX Orthopedic Surgery on Bilateral arms from going through glass doors. - Social History Smoking Status: Current some day smoker Exposure to second hand smoke: No Drug Use: none - Social Determinants of Health Will the patient participate in the screening: Declined to provide - Nursing Vital Signs Nursing Vital Signs: Initial Vital Signs Pulse Rate 155 H 08/26/25 19:33 Respiratory Rate 21 08/26/25 19:33 Blood Pressure 137/80 08/26/25 19:33 O2 Sat by Pulse Oximetry 91 L 08/26/25 19:33 Pain Scale Pain Intensity 10 - Physical Exam General Appearance: no apparent distress, alert, anxiety, thin Eye Exam: PERRL/EOMI, eyes nml inspection Ears, Nose, Throat Exam: hearing grossly normal, normal ENT inspection, normal pharynx Neck Exam: normal inspection, non-tender, supple, full range of motion Respiratory Exam: chest tenderness, respiratory distress, airway intact, wheezing (Right side) Cardiovascular/Chest Exam: tachycardia, irregular Abdominal/Gastrointestinal Exam: soft, normal bowel sounds, No tenderness Rectal Exam: not done Extremity Exam: non-tender, normal range of motion, normal inspection Neurologic Exam: alert, oriented x 3, cooperative, 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 No acute ischemia) Ordered Tests: Active Orders 24 hr Category Date Time Status Cath for Specimen-Straight STAT Care 08/26/25 19:50 Active EKG-ER Only STAT Care 08/26/25 19:50 Completed EKG-ER Only STAT Care 08/26/25 20:03 Completed IV Insertion STAT Care 08/26/25 19:50 Active Pulse Oximetry (ED) STAT Care 08/26/25 19:50 Active CHEST WITH CONTRAST [CT] Stat Exams 08/26/25 20:40 Completed ABG [ARTERIAL BLOOD GASES] Stat Lab 08/26/25 20:04 Completed ABG [ARTERIAL BLOOD GASES] Stat Lab 08/26/25 21:57 Results BLOOD CULTURE Stat Lab 08/26/25 20:11 Received CBC W DIFF Stat Lab 08/26/25 20:04 Completed CMP Stat Lab 08/26/25 20:04 Completed CULTURE,URINE Stat Lab 08/26/25 20:00 Received D-DIMER QUANTITATIVE Stat Lab 08/26/25 20:04 Completed Lactic Acid Stat Lab 08/26/25 19:50 Completed MAGNESIUM Stat Lab 08/26/25 20:04 Completed NT PRO BNPII Stat Lab 08/26/25 20:04 Completed PROTIME WITH INR Stat Lab 08/26/25 20:04 Completed TROPONIN Q4H Lab 08/26/25 20:04 Completed TROPONIN Q4H Lab 08/27/25 00:00 Ordered TROPONIN Q4H Lab 08/27/25 04:00 Ordered TSH [TSH, 3RD Generation] Stat Lab 08/26/25 20:04 Completed UA W/RFX UR CULTURE Stat Lab 08/26/25 20:00 Completed BiPap/CPAP STAT RT 08/26/25 21:02 Active Medication Summary Generic Name Dose Route Start Last Admin Trade Name Freq PRN Reason Stop Dose Admin Sodium Chloride 1,000 mls @ 100 mls/hr 08/26/25 20:00 08/26/25 19:54 Sodium Chloride 0.9% 1000 Ml IV 09/25/25 19:59 100 mls/hr .Q10H TERE Administration Diltiazem HCl 100 mls @ 5 mls/hr 08/26/25 20:03 08/26/25 20:53 Cardizem Drip 100 Mg/100 Ml D5w IV 09/25/25 20:02 5 mg/hr .Q20H PRN 5 mls/hr HEART RATE/ A-FIB Administration Protocol 5 MG/HR Discontinued Medications Generic Name Dose Route Start Last Admin Trade Name Freq PRN Reason Stop Dose Admin Diltiazem HCl 25 mg 08/26/25 19:51 08/26/25 19:52 Diltiazem Hcl Iv 5 Mg/Ml Vial IV 08/26/25 19:52 25 mg STAT ONE Administration Diltiazem HCl Confirm 08/26/25 19:52 Diltiazem Hcl Iv 5 Mg/Ml Vial Administered 08/26/25 19:53 Dose 50 mg IV .STK-MED ONE Enoxaparin Sodium 60 mg 08/26/25 23:18 08/26/25 23:33 Enoxaparin Sodium 80 Mg/0.8 Ml Syringe SQ 08/26/25 23:19 60 mg STAT ONE Administration Enoxaparin Sodium Confirm 08/26/25 23:32 Enoxaparin Sodium 80 Mg/0.8 Ml Syringe Administered 08/26/25 23:33 Dose 80 mg SQ .STK-MED ONE Furosemide 40 mg 08/26/25 23:17 08/26/25 23:33 Furosemide 40 Mg/4 Ml Vial IV 08/26/25 23:18 40 mg STAT ONE Administration Furosemide Confirm 08/26/25 23:32 Furosemide 40 Mg/4 Ml Vial Administered 08/26/25 23:33 Dose 40 mg .ROUTE .STK-MED ONE Magnesium Sulfate/Dextrose 100 mls @ 200 mls/hr 08/26/25 20:32 08/26/25 21:41 Magnesium 1 Gm / 100 Ml D5w IV 08/26/25 21:01 Infused STAT ONE Infusion Magnesium Sulfate/Dextrose Confirm 08/26/25 20:55 Magnesium 1 Gm / 100 Ml D5w Administered 08/26/25 20:56 Dose 100 mls @ ud IV .STK-MED ONE Ceftriaxone Sodium 1 gm in 100 mls @ 200 mls/hr 08/26/25 22:24 08/26/25 23:12 Rocephin 1 Gm / 100 Ml Nacl IV 08/26/25 22:53 Infused STAT ONE Infusion Ceftriaxone Sodium Confirm 08/26/25 22:36 Rocephin 1 Gm / 100 Ml Nacl Administered 08/26/25 22:37 Dose 1 gm in 100 mls @ ud IV .STK-MED ONE Metoprolol Tartrate 5 mg 08/26/25 21:54 08/26/25 22:41 Metoprolol Tartrate 5 Mg/5 Ml Vial IV 08/26/25 21:55 5 mg STAT ONE Administration Metoprolol Tartrate Confirm 08/26/25 22:36 Metoprolol Tartrate 5 Mg/5 Ml Vial Administered 08/26/25 22:37 Dose 5 mg IV .STK-MED ONE Morphine Sulfate 4 mg 08/26/25 22:56 08/26/25 23:10 Morphine Sulfate 4 Mg/Ml Injection IV 08/26/25 22:57 4 mg STAT ONE Administration Morphine Sulfate Confirm 08/26/25 23:09 Morphine Sulfate 4 Mg/Ml Injection Administered 08/26/25 23:10 Dose 4 mg .ROUTE .STK-MED ONE Ondansetron HCl 4 mg 08/26/25 22:56 08/26/25 23:10 Ondansetron Hcl 4 Mg/2 Ml Vial IV 08/26/25 22:57 4 mg STAT ONE Administration Ondansetron HCl Confirm 08/26/25 23:09 Ondansetron Hcl 4 Mg/2 Ml Vial Administered 08/26/25 23:10 Dose 4 mg .ROUTE .STK-MED ONE Lab/Rad Data: Laboratory Result Diagrams 08/26/25 20:04 08/26/25 20:04 Laboratory Results 08/26/25 08/26/25 08/26/25 Range/Units 21:57 20:09 20:04 WBC (3.98-10.04) x10^3/uL RBC (3.93-5.22) x10^6/uL Hgb (11.2-15.7) g/dL Hct (34.1-44.9) % MCV (79.4-94.8) fL MCH (25.6-32.2) pg MCHC (32.2-35.5) g/dL RDW (11.7-14.4) % Plt Count (182-369) x10^3/uL Gran % (34.0-71.1) % Immature Gran % (Auto) (0.001-0.429) % Nucleat RBC Rel Count (0.00-0.2) % Eos # (Auto) (0.04-0.36) x10^3/uL Immature Gran # (Auto) (0.001-0.031) x10^3u/L Absolute Lymphs (auto) (1.18-3.74) x10^3/uL Absolute Monos (auto) (0.24-0.86) x10^3/uL Absolute Nucleated RBC (0.00-0.012) x10^3u/L Lymphocytes % (19.3-51.7) % Monocytes % (4.7-12.5) % Eosinophils % (0.7-5.8) % Basophils % (0.1-1.2) % Absolute Granulocytes (1.56-6.13) x10^3/uL Basophils # (0.01-0.08) x10^3/uL PT (9.4-12.5) SECONDS INR (0.8-3.0) D-Dimer (0.0-0.50) mg/L Puncture Site Pending pCO2 31 L (35-45) mmHg pO2 296 H* (75-100) mmHg Base Excess -6.1 L (-2.0-2.0) O2 Saturation 97.6 (94-100) g/dF ABG pH 7.38 (7.35-7.45) ABG HCO3 18.3 L (22-28) ABG O2 Sat (Measured) 99.7 (95-100) % [place] Test Pending A-a Gradient 378 a/A Ratio 0.44 Hemoglobin 8.0 Carboxyhemoglobin 0.9 (0.0-6.9) % THgb Methemoglobin 1.2 L (1.4-1.5) % Potassium 4.4 (3.5-5.1) Temperature 37.0 C POC O2 Flow Rate 100 % Sodium (135-145) mmol/L Chloride (98-107) mmol/L Carbon Dioxide (22-30) mmol/L Anion Gap (5-15) MEQ/L BUN (7-17) mg/dL Creatinine (0.52-1.04) mg/dL Estimated GFR ML/MIN Glucose (74-106) mg/dL Lactic Acid (0.4-2.0) Calcium (8.4-10.2) mg/dL Magnesium (1.6-2.3) mg/dL Total Bilirubin (0.2-1.3) mg/dL AST (14-36) U/L ALT (0-35) U/L Alkaline Phosphatase (38-126) U/L Troponin I (0.000-0.033) ng/mL NT-Pro-B Natriuret Pep (<300) pg/mL Serum Total Protein (6.3-8.2) g/dL Albumin (3.5-5.0) g/dL Free T4 1.58 (0.78-2.19) ng/dL TSH 3rd Generation (0.470-4.680) mIU/L Urine Color (Yellow) Urine Appearance (Clear) Urine pH (4.6-8.0) Ur Specific [place] (1.005-1.030) Urine Protein (Negative) Urine Glucose (UA) (Negative) mg/dL Urine Ketones (Negative) Urine Blood (Negative) Urine Nitrite (Negative) Urine Bilirubin (Negative) Urine Urobilinogen (0.2) mg/dL Ur Leukocyte Esterase (Negative) U Hyaline Cast (Auto) (0-2) /LPF Urine Microscopic RBC (0-5) /HPF Urine Microscopic WBC (0-5) /HPF Ur Epithelial Cells (None Seen) /HPF Urine Bacteria (None Seen) /HPF Urine Culture Reflexed (NO) Influenza Type A Ag NEGATIVE (NEGATIVE) Influenza Type B Ag NEGATIVE (NEGATIVE) RSV (PCR) NEGATIVE (NEGATIVE) SARS-CoV-2 (PCR) NEGATIVE (NEGATIVE) Slides for Path Review 08/26/25 08/26/25 08/26/25 Range/Units 20:04 20:04 20:04 WBC (3.98-10.04) x10^3/uL RBC (3.93-5.22) x10^6/uL Hgb (11.2-15.7) g/dL Hct (34.1-44.9) % MCV (79.4-94.8) fL MCH (25.6-32.2) pg MCHC (32.2-35.5) g/dL RDW (11.7-14.4) % Plt Count (182-369) x10^3/uL Gran % (34.0-71.1) % Immature Gran % (Auto) (0.001-0.429) % Nucleat RBC Rel Count (0.00-0.2) % Eos # (Auto) (0.04-0.36) x10^3/uL Immature Gran # (Auto) (0.001-0.031) x10^3u/L Absolute Lymphs (auto) (1.18-3.74) x10^3/uL Absolute Monos (auto) (0.24-0.86) x10^3/uL Absolute Nucleated RBC (0.00-0.012) x10^3u/L Lymphocytes % (19.3-51.7) % Monocytes % (4.7-12.5) % Eosinophils % (0.7-5.8) % Basophils % (0.1-1.2) % Absolute Granulocytes (1.56-6.13) x10^3/uL Basophils # (0.01-0.08) x10^3/uL PT (9.4-12.5) SECONDS INR (0.8-3.0) D-Dimer (0.0-0.50) mg/L Puncture Site LEFT RADIAL pCO2 30 L (35-45) mmHg pO2 164 H* (75-100) mmHg Base Excess -4.9 L (-2.0-2.0) O2 Saturation 97.2 (94-100) g/dF ABG pH 7.41 (7.35-7.45) ABG HCO3 19.0 L (22-28) ABG O2 Sat (Measured) 99.8 (95-100) % [place] Test yes A-a Gradient 512 a/A Ratio 0.24 Hemoglobin 8.6 Carboxyhemoglobin 1.6 (0.0-6.9) % THgb Methemoglobin 0.9 L (1.4-1.5) % Potassium 4.5 (3.5-5.1) Temperature 37.0 C POC O2 Flow Rate 100 % Sodium (135-145) mmol/L Chloride (98-107) mmol/L Carbon Dioxide (22-30) mmol/L Anion Gap (5-15) MEQ/L BUN (7-17) mg/dL Creatinine (0.52-1.04) mg/dL Estimated GFR ML/MIN Glucose (74-106) mg/dL Lactic Acid (0.4-2.0) Calcium (8.4-10.2) mg/dL Magnesium (1.6-2.3) mg/dL Total Bilirubin (0.2-1.3) mg/dL AST (14-36) U/L ALT (0-35) U/L Alkaline Phosphatase (38-126) U/L Troponin I 0.033 (0.000-0.033) ng/mL NT-Pro-B Natriuret Pep 5010 (<300) pg/mL Serum Total Protein (6.3-8.2) g/dL Albumin (3.5-5.0) g/dL Free T4 (0.78-2.19) ng/dL TSH 3rd Generation 8.674 H (0.470-4.680) mIU/L Urine Color (Yellow) Urine Appearance (Clear) Urine pH (4.6-8.0) Ur Specific [place] (1.005-1.030) Urine Protein (Negative) Urine Glucose (UA) (Negative) mg/dL Urine Ketones (Negative) Urine Blood (Negative) Urine Nitrite (Negative) Urine Bilirubin (Negative) Urine Urobilinogen (0.2) mg/dL Ur Leukocyte Esterase (Negative) U Hyaline Cast (Auto) (0-2) /LPF Urine Microscopic RBC (0-5) /HPF Urine Microscopic WBC (0-5) /HPF Ur Epithelial Cells (None Seen) /HPF Urine Bacteria (None Seen) /HPF Urine Culture Reflexed (NO) Influenza Type A Ag (NEGATIVE) Influenza Type B Ag (NEGATIVE) RSV (PCR) (NEGATIVE) SARS-CoV-2 (PCR) (NEGATIVE) Slides for Path Review 08/26/25 08/26/25 08/26/25 Range/Units 20:04 20:04 20:04 WBC 10.7 H (3.98-10.04) x10^3/uL RBC 4.21 (3.93-5.22) x10^6/uL Hgb 8.3 L (11.2-15.7) g/dL Hct 29.0 L (34.1-44.9) % MCV 68.9 L (79.4-94.8) fL MCH 19.7 L (25.6-32.2) pg MCHC 28.6 L (32.2-35.5) g/dL RDW 20.4 H (11.7-14.4) % Plt Count 255 (182-369) x10^3/uL Gran % 59.2 (34.0-71.1) % Immature Gran % (Auto) 0.5 H (0.001-0.429) % Nucleat RBC Rel Count 0.8 H (0.00-0.2) % Eos # (Auto) 0.09 (0.04-0.36) x10^3/uL Immature Gran # (Auto) 0.05 H (0.001-0.031) x10^3u/L Absolute Lymphs (auto) 2.41 (1.18-3.74) x10^3/uL Absolute Monos (auto) 1.74 H (0.24-0.86) x10^3/uL Absolute Nucleated RBC 0.09 H (0.00-0.012) x10^3u/L Lymphocytes % 22.6 (19.3-51.7) % Monocytes % 16.3 H (4.7-12.5) % Eosinophils % 0.8 (0.7-5.8) % Basophils % 0.6 (0.1-1.2) % Absolute Granulocytes 6.32 H (1.56-6.13) x10^3/uL Basophils # 0.06 (0.01-0.08) x10^3/uL PT 13.4 H (9.4-12.5) SECONDS INR 1.21 (0.8-3.0) D-Dimer 4.94 H* (0.0-0.50) mg/L Puncture Site pCO2 (35-45) mmHg pO2 (75-100) mmHg Base Excess (-2.0-2.0) O2 Saturation (94-100) g/dF ABG pH (7.35-7.45) ABG HCO3 (22-28) ABG O2 Sat (Measured) (95-100) % [place] Test A-a Gradient a/A Ratio Hemoglobin Carboxyhemoglobin (0.0-6.9) % THgb Methemoglobin (1.4-1.5) % Potassium 4.4 (3.5-5.1) Temperature C POC O2 Flow Rate % Sodium 138 (135-145) mmol/L Chloride 106 (98-107) mmol/L Carbon Dioxide 19 L (22-30) mmol/L Anion Gap 16.8 H (5-15) MEQ/L BUN 24 H (7-17) mg/dL Creatinine 1.10 H (0.52-1.04) mg/dL Estimated GFR 54.4 ML/MIN Glucose 115 H (74-106) mg/dL Lactic Acid (0.4-2.0) Calcium 9.0 (8.4-10.2) mg/dL Magnesium 1.5 L (1.6-2.3) mg/dL Total Bilirubin 1.20 (0.2-1.3) mg/dL AST 262 H (14-36) U/L ALT 200 H (0-35) U/L Alkaline Phosphatase 105 (38-126) U/L Troponin I (0.000-0.033) ng/mL NT-Pro-B Natriuret Pep (<300) pg/mL Serum Total Protein 7.5 (6.3-8.2) g/dL Albumin 4.1 (3.5-5.0) g/dL Free T4 (0.78-2.19) ng/dL TSH 3rd Generation (0.470-4.680) mIU/L Urine Color (Yellow) Urine Appearance (Clear) Urine pH (4.6-8.0) Ur Specific [place] (1.005-1.030) Urine Protein (Negative) Urine Glucose (UA) (Negative) mg/dL Urine Ketones (Negative) Urine Blood (Negative) Urine Nitrite (Negative) Urine Bilirubin (Negative) Urine Urobilinogen (0.2) mg/dL Ur Leukocyte Esterase (Negative) U Hyaline Cast (Auto) (0-2) /LPF Urine Microscopic RBC (0-5) /HPF Urine Microscopic WBC (0-5) /HPF Ur Epithelial Cells (None Seen) /HPF Urine Bacteria (None Seen) /HPF Urine Culture Reflexed (NO) Influenza Type A Ag (NEGATIVE) Influenza Type B Ag (NEGATIVE) RSV (PCR) (NEGATIVE) SARS-CoV-2 (PCR) (NEGATIVE) Slides for Path Review YES 08/26/25 08/26/25 Range/Units 20:00 19:50 WBC (3.98-10.04) x10^3/uL RBC (3.93-5.22) x10^6/uL Hgb (11.2-15.7) g/dL Hct (34.1-44.9) % MCV (79.4-94.8) fL MCH (25.6-32.2) pg MCHC (32.2-35.5) g/dL RDW (11.7-14.4) % Plt Count (182-369) x10^3/uL Gran % (34.0-71.1) % Immature Gran % (Auto) (0.001-0.429) % Nucleat RBC Rel Count (0.00-0.2) % Eos # (Auto) (0.04-0.36) x10^3/uL Immature Gran # (Auto) (0.001-0.031) x10^3u/L Absolute Lymphs (auto) (1.18-3.74) x10^3/uL Absolute Monos (auto) (0.24-0.86) x10^3/uL Absolute Nucleated RBC (0.00-0.012) x10^3u/L Lymphocytes % (19.3-51.7) % Monocytes % (4.7-12.5) % Eosinophils % (0.7-5.8) % Basophils % (0.1-1.2) % Absolute Granulocytes (1.56-6.13) x10^3/uL Basophils # (0.01-0.08) x10^3/uL PT (9.4-12.5) SECONDS INR (0.8-3.0) D-Dimer (0.0-0.50) mg/L Puncture Site pCO2 (35-45) mmHg pO2 (75-100) mmHg Base Excess (-2.0-2.0) O2 Saturation (94-100) g/dF ABG pH (7.35-7.45) ABG HCO3 (22-28) ABG O2 Sat (Measured) (95-100) % [place] Test A-a Gradient a/A Ratio Hemoglobin Carboxyhemoglobin (0.0-6.9) % THgb Methemoglobin (1.4-1.5) % Potassium (3.5-5.1) Temperature C POC O2 Flow Rate % Sodium (135-145) mmol/L Chloride (98-107) mmol/L Carbon Dioxide (22-30) mmol/L Anion Gap (5-15) MEQ/L BUN (7-17) mg/dL Creatinine (0.52-1.04) mg/dL Estimated GFR ML/MIN Glucose (74-106) mg/dL Lactic Acid 1.6 (0.4-2.0) Calcium (8.4-10.2) mg/dL Magnesium (1.6-2.3) mg/dL Total Bilirubin (0.2-1.3) mg/dL AST (14-36) U/L ALT (0-35) U/L Alkaline Phosphatase (38-126) U/L Troponin I (0.000-0.033) ng/mL NT-Pro-B Natriuret Pep (<300) pg/mL Serum Total Protein (6.3-8.2) g/dL Albumin (3.5-5.0) g/dL Free T4 (0.78-2.19) ng/dL TSH 3rd Generation (0.470-4.680) mIU/L Urine Color Dark Yellow A (Yellow) Urine Appearance Cloudy A (Clear) Urine pH 5.5 (4.6-8.0) Ur Specific [place] 1.025 (1.005-1.030) Urine Protein 100 A (Negative) Urine Glucose (UA) Negative (Negative) mg/dL Urine Ketones Negative (Negative) Urine Blood Negative (Negative) Urine Nitrite Positive A (Negative) Urine Bilirubin Small A (Negative) Urine Urobilinogen 1.0 A (0.2) mg/dL Ur Leukocyte Esterase Trace A (Negative) U Hyaline Cast (Auto) 11-20 (0-2) /LPF Urine Microscopic RBC 0-2 (0-5) /HPF Urine Microscopic WBC 21-50 A (0-5) /HPF Ur Epithelial Cells Few (None Seen) /HPF Urine Bacteria Many A (None Seen) /HPF Urine Culture Reflexed ORDERED SEPARATELY (NO) Influenza Type A Ag (NEGATIVE) Influenza Type B Ag (NEGATIVE) RSV (PCR) (NEGATIVE) SARS-CoV-2 (PCR) (NEGATIVE) Slides for Path Review - Progress Progress: improved Air Movement: fair Progress Note: 08/26/25 20:00 Medical decision making and assignment of high complexity of this patient's medical issue today is based on review of the patient's past medical history, reviewed patient medication list, reviewed patient drug allergy list, history present illness and physical findings on examination. The workup in this patient includes placement of intravenous line, respiratory therapy evaluation and treatment with nebulizer albuterol medication, placement of oxygen on this patient, twelve-lead EKG, troponin level, magnesium level, BNP, D-dimer level, intravenous Cardizem bolus followed by Cardizem drip, blood culture, PT/INR Differential diagnosis includes was not limited to atrial fibrillation with RVR, arrhythmia, electrolyte abnormalities, myocardial infarction, CHF, pulmonary embolus, pulmonary infiltrate 08/26/25 23:41 I interpreted the patient's laboratory data results. Based on laboratory data results, the patient's troponin is in the normal range. Patient's BNP is elevated at 5010. Patient has evidence of a urinary tract infection. Her magnesium is slightly low at 1.5. Hemoglobin is 8.3 which is within the range she usually runs. She has a D-dimer of 4.94. The CT scan of the chest with contrast was interpreted by the radiologist and I reviewed the impression the impression states no convincing evidence of pulmonary embolus. Mildly dilated pulmonary trunk suggestive of pulmonary arterial hypertension. Moderate cardiomegaly with right side severe pleural effusion and left side moderate pleural effusion 08/26/25 23:[address] Levin, the telehospitalist on at this time. I reviewed the patient's presenting complaint, physical findings on examination and workup results with him. We will place her in the ICU setting as she will need to be on a Cardizem drip. We will also be providing her with supplemental oxygen and diuresis while in the hospital setting. Blood Culture(s) Obtained: Yes Antibiotics given: Yes Counseled pt/family regarding: lab results, diagnosis, rad results Medical Desision Making - Independent Historian Additional History obtained from: Production Generalist/EMT - Discussion of managment Care discussed with:: hospitalist Reviewed:: Test results, Need for additional workup Agreed on:: place in obs Will see patient: in hospital - Diagnostic Testing Diagnostic test were ordered, analyzed, and reviewed by me: Yes Radiological Interpretation: Reviewed by me, Teleradiologist Report - Risk of complications The pt has a high risk of morbidity or mortality based on: Decision regarding hospitilization or escalation of hosp level of care - Departure Departure Disposition: Observation Clinical Impression: Chronic anemia, Hypoxia, Atrial fibrillation with RVR, Hypomagnesemia, CHF (congestive heart failure), Bilateral pleural effusion, UTI (urinary tract infection) Condition: Fair Critical Care Time: Yes Critical Care Time(excluding separately billable procedures): Critical 30-74 mins (60) Referrals: SKY MATTHEW MD [Primary Care Provider, [facility]] - Follow up/PCP as directed Instructions: Heart Failure
[2025-08-26 20:05] LABS: A-aADO2 512; ABG HEMOGLOBIN 8.6; ABG POTASSIUM 4.5 (3.5-5.1); ARTERIAL BLD GAS O2 SATURATION 99.8 % (95-100); ARTERIAL BLOOD GAS BASE EXCESS -4.9 (-2.0-2.0); ARTERIAL BLOOD GAS FIO2 100 %; ARTERIAL BLOOD GAS PCO2 30 mmHg (35-45); ARTERIAL BLOOD GAS PO2 164 mmHg (75-100); ARTERIAL BLOOD GAS TEMPERATURE 37.0 C; HCO3- 19.0 (22-28); HGB O2 SAT 97.2 g/dF (94-100); Methhemoglobin 0.9 % (1.4-1.5); paO2 pAO1 0.24
[2025-08-26 20:06] LABS: ABG SITE LEFT RADIAL; ALLEN TEST OK? yes
[2025-08-26 20:17] LABS: BASOPHIL % 0.6 % (0.1-1.2); Basophil (Absolute #) 0.06 x10^3/uL (0.01-0.08); Eosinophil (Absolute #) 0.09 x10^3/uL (0.04-0.36); Hematocrit 29.0 % (34.1-44.9); Hemoglobin 8.3 g/dL (11.2-15.7); IMMATURE GRAN # 0.05 x10^3u/L (0.001-0.031); IMMATURE GRAN % 0.5 % (0.001-0.429); Lymphocyte (Absolute #) 2.41 x10^3/uL (1.18-3.74); Mean Corpuscular Hemoglobin 19.7 pg (25.6-32.2); Mean Corpuscular Hgb Concent. 28.6 g/dL (32.2-35.5); Monocyte (Absolute #) 1.74 x10^3/uL (0.24-0.86); NUCLEATED RBC # 0.09 x10^3u/L (0.00-0.012); NUCLEATED RBC % 0.8 % (0.00-0.2); Platelet Count 255 x10^3/uL (182-369); Red Blood Count 4.21 x10^6/uL (3.93-5.22); White Blood Count 10.7 x10^3/uL (3.98-10.04)
[2025-08-26 20:29] LABS: Calcium 9.0 mg/dL (8.4-10.2); Carbon Dioxide 19.0 mmol/L (22-30); Creatinine 1 1.1 mg/dL (0.52-1.04); EST GLOMERULAR FILTRATION RATE 54.4 ML/MIN; Glucose 115.0 mg/dL (74-106); Potassium 4.4 mmol/L (3.5-5.1); SGOT/AST 262.0 U/L (14-36); SGPT/ALT 200.0 U/L (0-35); Total Protein 7.5 g/dL (6.3-8.2)
[2025-08-26 20:37] LABS: INR 1.21 (0.8-3.0); PROTIME 13.4 SECONDS (9.4-12.5)
[2025-08-26] MEDS: CARDIZEM DRIP 100 MG/100 ML D5W 100 ML IV PRN (20:53)
[2025-08-26 20:55] LABS: INFLUENZA A NEGATIVE (NEGATIVE); INFLUENZA B NEGATIVE (NEGATIVE); RESPIRATORY SYNCTIAL VIRUS NEGATIVE (NEGATIVE); SARS-CoV-2 Xpert Express NEGATIVE (NEGATIVE)
[2025-08-26] MEDS ORDERED: Magnesium 1 Gm / 100 Ml D5W*** 100 ML IV ONE (20:55)
[2025-08-26 20:59] LABS: TROPONIN 0.033 ng/mL (0.000-0.033)
[2025-08-26] MEDS: Magnesium 1 Gm / 100 Ml D5W*** 100 ML IV ONE (21:11)
[2025-08-26 21:31] LABS: Glucose, Urine Negative (Negative); Protein,Urine Dip 100 (Negative); RBC 0-2 /HPF (0-5); WBC 21-50 /HPF (0-5)
[2025-08-26 21:58] LABS: A-aADO2 378; ABG HEMOGLOBIN 8.0; ABG POTASSIUM 4.4 (3.5-5.1); ARTERIAL BLD GAS O2 SATURATION 99.7 % (95-100); ARTERIAL BLOOD GAS BASE EXCESS -6.1 (-2.0-2.0); ARTERIAL BLOOD GAS FIO2 100 %; ARTERIAL BLOOD GAS PCO2 31 mmHg (35-45); ARTERIAL BLOOD GAS PO2 296 mmHg (75-100); ARTERIAL BLOOD GAS TEMPERATURE 37.0 C; HCO3- 18.3 (22-28); HGB O2 SAT 97.6 g/dF (94-100); Methhemoglobin 1.2 % (1.4-1.5); paO2 pAO1 0.44
[2025-08-26] MEDS ORDERED: ROCEPHIN 1 GM / 100 ML NaCl 1 GM/100 ML IVPB IV ONE (22:36)
[2025-08-26] MEDS ORDERED: LOPRESSOR INJECTION IV ONE (22:36)
[2025-08-26] MEDS: LOPRESSOR INJECTION IV ONE (22:41)
[2025-08-26] MEDS: ROCEPHIN 1 GM / 100 ML NaCl 1 GM/100 ML IVPB IV ONE (22:42)
[2025-08-26] MEDS ORDERED: MORPHINE SULFATE 4 MG INJ ONE (23:09)
[2025-08-26] MEDS ORDERED: Zofran 4 MG/2 ML VIAL ONE (23:09)
[2025-08-26] MEDS: MORPHINE SULFATE 4 MG INJ IV ONE (23:10)
[2025-08-26] MEDS: Zofran 4 MG/2 ML VIAL IV ONE (23:10)
--- NOTE | 2025-08-26 23:19 | XRAY ---
CLINICAL HISTORY: hypoxia; elevated d-dimer COMPARISON: 12/08/2023 CT TECHNIQUE: Contiguous axial CT angiographic images of the chest were acquired with the administration of intravenous contrast. Coronal and sagittal reconstructions were obtained. One of these 3D techniques was utilized: Maximum Intensity Pixel (MIP), 3D Reconstructed Images, Volume Rendered Images, Surface Shaded Rendering. One of the following dose reduction techniques were utilized for this exam: Automated exposure control, adjustment of the mA and/or kV according to patient size, and use of iterative reconstruction. FINDINGS: Aorta: The thoracic aorta is normal in caliber. Atherosclerotic calcifications are identified in the visualized aorta. No evidence of aneurysm or dissection. Calcified and mixed plaques are identified in the descending thoracic aorta, with an eccentric partially visualized mixed plaque in the distal thoracic aort, resulting in mi,ld approximately 30% luminal stenosis. Calcifications are noted in the coronary arteries. Pulmonary Arteries: Pulmonary trunk appears dilated, measuring 35 mm in diameter on axial section. It otherwise shows normal opacification. No evidence of pulmonary embolism. No stenosis or filling defects. Superior Vena Cava (SVC) and Inferior Vena Cava (IVC): Normal opacification and caliber. No evidence of thrombus or obstruction. A vascular bypass is noted with its proximal and along the right subclavian artery, traversing along the right lateral chest wall. It is distal end not visualized. New finding. Mediastinum: Few prominent mediastinal lymph nodes are identified. One of the subcarinal lymph node measures 14 mm in short axis. Heart: Normal size appears moderately enlarged. Trace pericardial effusion is noted. Lungs: Severe right-sided and moderate left-sided pleural effusion is identified with underlying consolidation/collapse. Patchy ground glass opacification is identified in the right middle lung lobe. Bilateral hilar vascular congestion is noted Bones: Mild degenerative changes are identified in the visualized spine. Soft Tissues: Generalized body wall edema is noted. Subcentimeteric axillary lymph nodes are identified bilaterally. Upper abdomen: Redemonstration of the lobulated contour of the liver, suggestive of chronic liver parenchymal disease. Recanalization of the periumbilical vein is noted. IMPRESSION: 1. No convincing evidence of pulmonary embolism on current examination. 2. Mildly dilated pulmonary trunk measuring 35 mm in diameter, suggestive of pulmonary arterial hypertension. New finding. 3. Moderate cardiomegaly with interval increase in cardiac size. 4. Interval evidence of severe right-sided and moderate left-sided pleural effusion with underlying consolidation/collapse. Appearances are likely secondary to congestive changes with possibility of superadded pulmonary infection. Clinical and laboratory correlation is advised. 5. Generalized body wall edema. New finding. 6. The rest of the findings are as stated above. Electronically Signed by: Sunil Alicia MD. (08/26/2025 23:18:20 EST)
[2025-08-26 23:20] LABS: Slide Review 1 YES
[2025-08-26] MEDS ORDERED: Lasix 40 MG/4 ML ONE (23:32)
[2025-08-26] MEDS ORDERED: ENOXAPARIN SODIUM SQ ONE (23:32)
[2025-08-26] MEDS: ENOXAPARIN SODIUM SQ ONE (23:33)
[2025-08-26] MEDS: Lasix 40 MG/4 ML IV ONE (23:33)
[2025-08-27] MEDS ORDERED: DUONEB 0.5-3 MG/3 ml Neb IH ONE (00:25)
[2025-08-27] MEDS: DUONEB 0.5-3 MG/3 ml Neb IH ONE (00:29)
[2025-08-27] MEDS: Lasix 40 MG/4 ML IV SCH ×2 (02:47→08:04)
--- NOTE | 2025-08-27 03:17 | PCM.HP ---
History of Present Illness - Chief Complaint Chief Complaint: afib RVR, bilateral pleural effusion, UTI Date: 08/26/25 History of Present Illness: is a 70 year old female with a history of multiple conditions including COPD (had been on 1-2 LPM O2 at home), atrial fibrillation on Xarelto (previously seen by Dr. Frazier about 6 months ago), HTN, hyperlipidemia, neuropathy, hypothyroidism, anemia, hepatitis C, methamphetamine abuse, and alcohol dependence (with a history of withdrawals) who presented to the ED with dyspnea, dry cough, wheezing, and chest discomfort. The patient lives alone in an apartment. She states that due to difficulty managing her medications at home, she completely stopped all of her home medications and home oxygen about 2 months ago. The patient was noted to be in atrial fibrillation with RVR. The patient initially received IV diltiazem push, and then had to be placed on a diltiazem infusion. In the ED, the patient was also noted to have a positive D dimer but no evidence of PE. However, the patient had significant volume overload with bilateral pleural effusions. Additionally the patient had elevated LFTs and evidence of a UTI. The patient received IV Lasix and IV Rocephin in the ED. Initially the patient required BIPAP but then was placed on O2 by [place]. The patient is DNR. The patient typically drinks 4 liquor servings daily and her last drink was yesterday. - Review of Systems Constitutional: Fatigue, Malaise, Weakness, No Fever, No Chills, No Lethargy, No Night Sweats, No Weight Loss Eyes: No Symptoms Ears, Nose, & Throat: No Symptoms Respiratory: Cough, Short Of Breath, Wheezing, No Orthopnea, No Stridor Cardiac: Chest Pain, Palpitations, No Edema, No Syncope, No Orthopnea, No PND Abdominal/Gastrointestinal: No Symptoms Genitourinary Symptoms: No Symptoms Musculoskeletal: No Symptoms Skin: No Symptoms Neurological: No Symptoms Psychological: Alcohol Abuse, No Drug Abuse, No Anxiety, No Depression, No Suici shruti Ideations, No Homicidal Ideations, No Emotional Lability, No Hallucinations, No Memory Loss, No Mood Changes Endocrine: No Symptoms Hematologic/Lymphatic: No Symptoms Immunological/Allergic: No Symptoms All Other Systems: Reviewed and Negative Medications & Allergies Home Medications: Home Medication List Albuterol Sulfate [Proair Respiclick] 1 puff IH DAILY PRN PRN 08/27/25 [History Confirmed 08/27/25] Allergies/Adverse Reactions: Allergies Allergy/AdvReac Type Severity Reaction Status Date / Time Penicillins Allergy Intermediate Hives Verified 02/28/25 08:17 adhesive tape Allergy Mild Rash Verified 02/28/25 08:17 lorazepam [From Ativan] AdvReac Intermediate Verified 02/28/25 08:17 - Past Medical History Past Medical History: Yes Neurological History: Seizures, Peripheral Neuropathy ENT History: No Pertinent History Cardiac History: Coronary Artery Disease, High Cholesterol, Hypertension, Myocardial Infarction (AR), Peripheral Vascular Disease Respiratory History: COPD Endocrine Medical History: Hypothyroidism, Liver Disease Musculoskelatal History: Osteoarthritis GI Medical History: Hernia, Cirrhosis, Pancreatitis History: No Pertinent History Pyscho-Social History: Bipolar, Depression, Anxiety, Panic Disorder Reproductive Disorders: No Pertinent History Comment: Hx of one seizure when not drinking alcohol. pt has stopped drugs/drinking/and smoking recently, Hx of hepatitis C. - Past Surgical History Past Surgical History: Yes Neuro Surgical History: No Pertinent History Cardiac History: Cardiac Stent, Cardiac Catheterization Respiratory Surgery: No Pertinent History GI Surgical History: No Pertinent History Genitourinary Surgical Hx: No Pertinent History Musculskeletal Surgical Hx: Orthopedic Surgery Female Surgical History: Tubal Ligation Other Surgical History: HX Orthopedic Surgery on Bilateral arms from going through glass doors. Significant Family History: no pertinent family hx - Social History Smoking Status: Current some day smoker How long have you smoked: 50+ Exposure to second hand smoke: No Alcohol: Daily Drug Use: none - Social Determinants of Health Will the patient participate in the screening: Yes Do you worry about a steady place to live?: No Do you have any problems with any of the following?: No known problems In the past 12 months,have you had to go without utilities?: No Have you or anyone in your house had to go without enough: Yes Transportation Issues: Yes Has anyone in your support network made you feel unsafe?: No Does the patient want assistance with any of the above?: No Comment: not enough money for food, no reliable car - Physical Exam Vital Signs: Vital Signs - 24 hr Temp Pulse Resp BP BP Pulse Ox 08/27/25 02:15 103 H 12 123/83 08/27/25 02:00 113 H 16 117/92 08/27/25 01:42 97.2 F 122 H 22 121/89 97 08/27/25 01:39 97 08/27/25 01:03 115/72 08/27/25 01:01 119 H 24 115/72 98 08/27/25 00:31 120 H 14 141/93 97 08/27/25 00:30 123 H 20 95 08/27/25 00:01 108 H 15 103/74 96 08/27/25 00:00 121 H 25 H 97 08/26/25 23:52 91 L 08/26/25 23:50 102 H 24 96 08/26/25 23:40 109 H 17 98 08/26/25 23:33 112 H 18 96 08/26/25 23:01 130 H 18 126/81 96 08/26/25 22:45 97 H 21 147/78 96 08/26/25 22:44 136 H 13 87 L 08/26/25 22:41 94 L 08/26/25 22:00 142/93 08/26/25 21:31 119 H 31 H 141/75 100 08/26/25 21:02 120 H 22 146/102 100 08/26/25 20:53 142 H 24 125/103 08/26/25 20:31 116 H 23 125/103 100 08/26/25 20:04 122 H 31 H 129/79 91 L 08/26/25 20:00 98 08/26/25 19:37 106 H 32 H 137/80 89 L 08/26/25 19:33 155 H 21 137/80 91 L General Appearance: no apparent distress, alert Neurologic Exam: alert, oriented x 3, cooperative, rn hyperbaric II-XII nml as tested, normal mood/affect, nml cerebellar function, sensation nml, No motor deficits, No sensory deficit, No disoriented, No confusion, No agitation Eye Exam: PERRL/EOMI, eyes nml inspection, No scleral icterus Ears, Nose, Throat Exam: normal ENT inspection Neck Exam: normal inspection, non-tender, supple, full range of motion, No meningismus, No mass Respiratory Exam: diminished breath sounds (bilateral bases), prolonged expirations, crackles/rales, wheezing, No accessory muscle use, No rhonchi Cardiovascular Exam: tachycardia, irregular, No murmur, No friction rub, No gallop Gastrointestinal/Abdomen Exam: soft, normal bowel sounds, No tenderness, No distention, No mass, No guarding Back Exam: normal range of motion Extremity Exam: normal range of motion, No limited range of motion, No pedal edema, No swelling Skin Exam: normal color, No rash, No petechiae, No jaundice, No abrasion, No cyanosis Results - Labs Lab/Micro Results: Lab Results-Last 24 Hours 08/26/25 08/26/25 08/26/25 Range/Units 19:50 20:00 20:04 WBC 10.7 H (3.98-10.04) x10^3/uL RBC 4.21 (3.93-5.22) x10^6/uL Hgb 8.3 L (11.2-15.7) g/dL Hct 29.0 L (34.1-44.9) % MCV 68.9 L (79.4-94.8) fL MCH 19.7 L (25.6-32.2) pg MCHC 28.6 L (32.2-35.5) g/dL RDW 20.4 H (11.7-14.4) % Plt Count 255 (182-369) x10^3/uL Gran % 59.2 (34.0-71.1) % Immature Gran % (Auto) 0.5 H (0.001-0.429) % Nucleat RBC Rel Count 0.8 H (0.00-0.2) % Eos # (Auto) 0.09 (0.04-0.36) x10^3/uL Immature Gran # (Auto) 0.05 H (0.001-0.031) x10^3u/L Absolute Lymphs (auto) 2.41 (1.18-3.74) x10^3/uL Absolute Monos (auto) 1.74 H (0.24-0.86) x10^3/uL Absolute Nucleated RBC 0.09 H (0.00-0.012) x10^3u/L Lymphocytes % 22.6 (19.3-51.7) % Monocytes % 16.3 H (4.7-12.5) % Eosinophils % 0.8 (0.7-5.8) % Basophils % 0.6 (0.1-1.2) % Absolute Granulocytes 6.32 H (1.56-6.13) x10^3/uL Basophils # 0.06 (0.01-0.08) x10^3/uL PT (9.4-12.5) SECONDS INR (0.8-3.0) D-Dimer (0.0-0.50) mg/L Puncture Site pCO2 (35-45) mmHg pO2 (75-100) mmHg Base Excess (-2.0-2.0) O2 Saturation (94-100) g/dF ABG pH (7.35-7.45) ABG HCO3 (22-28) ABG O2 Sat (Measured) (95-100) % [place] Test A-a Gradient a/A Ratio Hemoglobin Carboxyhemoglobin (0.0-6.9) % THgb Methemoglobin (1.4-1.5) % Potassium (3.5-5.1) Temperature C POC O2 Flow Rate % Sodium (135-145) mmol/L Chloride (98-107) mmol/L Carbon Dioxide (22-30) mmol/L Anion Gap (5-15) MEQ/L BUN (7-17) mg/dL Creatinine (0.52-1.04) mg/dL Estimated GFR ML/MIN Glucose (74-106) mg/dL Lactic Acid 1.6 (0.4-2.0) Calcium (8.4-10.2) mg/dL Magnesium (1.6-2.3) mg/dL Total Bilirubin (0.2-1.3) mg/dL AST (14-36) U/L ALT (0-35) U/L Alkaline Phosphatase (38-126) U/L Troponin I (0.000-0.033) ng/mL NT-Pro-B Natriuret Pep (<300) pg/mL Serum Total Protein (6.3-8.2) g/dL Albumin (3.5-5.0) g/dL Free T4 (0.78-2.19) ng/dL TSH 3rd Generation (0.470-4.680) mIU/L Urine Color Dark Yellow A (Yellow) Urine Appearance Cloudy A (Clear) Urine pH 5.5 (4.6-8.0) Ur Specific [place] 1.025 (1.005-1.030) Urine Protein 100 A (Negative) Urine Glucose (UA) Negative (Negative) mg/dL Urine Ketones Negative (Negative) Urine Blood Negative (Negative) Urine Nitrite Positive A (Negative) Urine Bilirubin Small A (Negative) Urine Urobilinogen 1.0 A (0.2) mg/dL Ur Leukocyte Esterase Trace A (Negative) U Hyaline Cast (Auto) 11-20 (0-2) /LPF Urine Microscopic RBC 0-2 (0-5) /HPF Urine Microscopic WBC 21-50 A (0-5) /HPF Ur Epithelial Cells Few (None Seen) /HPF Urine Bacteria Many A (None Seen) /HPF Urine Culture Reflexed ORDERED SEPARATELY (NO) Influenza Type A Ag (NEGATIVE) Influenza Type B Ag (NEGATIVE) RSV (PCR) (NEGATIVE) SARS-CoV-2 (PCR) (NEGATIVE) Slides for Path Review YES 08/26/25 08/26/25 08/26/25 Range/Units 20:04 20:04 20:04 WBC (3.98-10.04) x10^3/uL RBC (3.93-5.22) x10^6/uL Hgb (11.2-15.7) g/dL Hct (34.1-44.9) % MCV (79.4-94.8) fL MCH (25.6-32.2) pg MCHC (32.2-35.5) g/dL RDW (11.7-14.4) % Plt Count (182-369) x10^3/uL Gran % (34.0-71.1) % Immature Gran % (Auto) (0.001-0.429) % Nucleat RBC Rel Count (0.00-0.2) % Eos # (Auto) (0.04-0.36) x10^3/uL Immature Gran # (Auto) (0.001-0.031) x10^3u/L Absolute Lymphs (auto) (1.18-3.74) x10^3/uL Absolute Monos (auto) (0.24-0.86) x10^3/uL Absolute Nucleated RBC (0.00-0.012) x10^3u/L Lymphocytes % (19.3-51.7) % Monocytes % (4.7-12.5) % Eosinophils % (0.7-5.8) % Basophils % (0.1-1.2) % Absolute Granulocytes (1.56-6.13) x10^3/uL Basophils # (0.01-0.08) x10^3/uL PT 13.4 H (9.4-12.5) SECONDS INR 1.21 (0.8-3.0) D-Dimer 4.94 H* (0.0-0.50) mg/L Puncture Site pCO2 (35-45) mmHg pO2 (75-100) mmHg Base Excess (-2.0-2.0) O2 Saturation (94-100) g/dF ABG pH (7.35-7.45) ABG HCO3 (22-28) ABG O2 Sat (Measured) (95-100) % [place] Test A-a Gradient a/A Ratio Hemoglobin Carboxyhemoglobin (0.0-6.9) % THgb Methemoglobin (1.4-1.5) % Potassium 4.4 (3.5-5.1) Temperature C POC O2 Flow Rate % Sodium 138 (135-145) mmol/L Chloride 106 (98-107) mmol/L Carbon Dioxide 19 L (22-30) mmol/L Anion Gap 16.8 H (5-15) MEQ/L BUN 24 H (7-17) mg/dL Creatinine 1.10 H (0.52-1.04) mg/dL Estimated GFR 54.4 ML/MIN Glucose 115 H (74-106) mg/dL Lactic Acid (0.4-2.0) Calcium 9.0 (8.4-10.2) mg/dL Magnesium 1.5 L (1.6-2.3) mg/dL Total Bilirubin 1.20 (0.2-1.3) mg/dL AST 262 H (14-36) U/L ALT 200 H (0-35) U/L Alkaline Phosphatase 105 (38-126) U/L Troponin I 0.033 (0.000-0.033) ng/mL NT-Pro-B Natriuret Pep 5010 (<300) pg/mL Serum Total Protein 7.5 (6.3-8.2) g/dL Albumin 4.1 (3.5-5.0) g/dL Free T4 (0.78-2.19) ng/dL TSH 3rd Generation (0.470-4.680) mIU/L Urine Color (Yellow) Urine Appearance (Clear) Urine pH (4.6-8.0) Ur Specific [place] (1.005-1.030) Urine Protein (Negative) Urine Glucose (UA) (Negative) mg/dL Urine Ketones (Negative) Urine Blood (Negative) Urine Nitrite (Negative) Urine Bilirubin (Negative) Urine Urobilinogen (0.2) mg/dL Ur Leukocyte Esterase (Negative) U Hyaline Cast (Auto) (0-2) /LPF Urine Microscopic RBC (0-5) /HPF Urine Microscopic WBC (0-5) /HPF Ur Epithelial Cells (None Seen) /HPF Urine Bacteria (None Seen) /HPF Urine Culture Reflexed (NO) Influenza Type A Ag (NEGATIVE) Influenza Type B Ag (NEGATIVE) RSV (PCR) (NEGATIVE) SARS-CoV-2 (PCR) (NEGATIVE) Slides for Path Review 08/26/25 08/26/25 08/26/25 Range/Units 20:04 20:04 20:04 WBC (3.98-10.04) x10^3/uL RBC (3.93-5.22) x10^6/uL Hgb (11.2-15.7) g/dL Hct (34.1-44.9) % MCV (79.4-94.8) fL MCH (25.6-32.2) pg MCHC (32.2-35.5) g/dL RDW (11.7-14.4) % Plt Count (182-369) x10^3/uL Gran % (34.0-71.1) % Immature Gran % (Auto) (0.001-0.429) % Nucleat RBC Rel Count (0.00-0.2) % Eos # (Auto) (0.04-0.36) x10^3/uL Immature Gran # (Auto) (0.001-0.031) x10^3u/L Absolute Lymphs (auto) (1.18-3.74) x10^3/uL Absolute Monos (auto) (0.24-0.86) x10^3/uL Absolute Nucleated RBC (0.00-0.012) x10^3u/L Lymphocytes % (19.3-51.7) % Monocytes % (4.7-12.5) % Eosinophils % (0.7-5.8) % Basophils % (0.1-1.2) % Absolute Granulocytes (1.56-6.13) x10^3/uL Basophils # (0.01-0.08) x10^3/uL PT (9.4-12.5) SECONDS INR (0.8-3.0) D-Dimer (0.0-0.50) mg/L Puncture Site LEFT RADIAL pCO2 30 L (35-45) mmHg pO2 164 H* (75-100) mmHg Base Excess -4.9 L (-2.0-2.0) O2 Saturation 97.2 (94-100) g/dF ABG pH 7.41 (7.35-7.45) ABG HCO3 19.0 L (22-28) ABG O2 Sat (Measured) 99.8 (95-100) % [place] Test yes A-a Gradient 512 a/A Ratio 0.24 Hemoglobin 8.6 Carboxyhemoglobin 1.6 (0.0-6.9) % THgb Methemoglobin 0.9 L (1.4-1.5) % Potassium 4.5 (3.5-5.1) Temperature 37.0 C POC O2 Flow Rate 100 % Sodium (135-145) mmol/L Chloride (98-107) mmol/L Carbon Dioxide (22-30) mmol/L Anion Gap (5-15) MEQ/L BUN (7-17) mg/dL Creatinine (0.52-1.04) mg/dL Estimated GFR ML/MIN Glucose (74-106) mg/dL Lactic Acid (0.4-2.0) Calcium (8.4-10.2) mg/dL Magnesium (1.6-2.3) mg/dL Total Bilirubin (0.2-1.3) mg/dL AST (14-36) U/L ALT (0-35) U/L Alkaline Phosphatase (38-126) U/L Troponin I (0.000-0.033) ng/mL NT-Pro-B Natriuret Pep (<300) pg/mL Serum Total Protein (6.3-8.2) g/dL Albumin (3.5-5.0) g/dL Free T4 1.58 (0.78-2.19) ng/dL TSH 3rd Generation 8.674 H (0.470-4.680) mIU/L Urine Color (Yellow) Urine Appearance (Clear) Urine pH (4.6-8.0) Ur Specific [place] (1.005-1.030) Urine Protein (Negative) Urine Glucose (UA) (Negative) mg/dL Urine Ketones (Negative) Urine Blood (Negative) Urine Nitrite (Negative) Urine Bilirubin (Negative) Urine Urobilinogen (0.2) mg/dL Ur Leukocyte Esterase (Negative) U Hyaline Cast (Auto) (0-2) /LPF Urine Microscopic RBC (0-5) /HPF Urine Microscopic WBC (0-5) /HPF Ur Epithelial Cells (None Seen) /HPF Urine Bacteria (None Seen) /HPF Urine Culture Reflexed (NO) Influenza Type A Ag (NEGATIVE) Influenza Type B Ag (NEGATIVE) RSV (PCR) (NEGATIVE) SARS-CoV-2 (PCR) (NEGATIVE) Slides for Path Review 08/26/25 08/26/25 08/27/25 Range/Units 20:09 21:57 00:25 WBC (3.98-10.04) x10^3/uL RBC (3.93-5.22) x10^6/uL Hgb (11.2-15.7) g/dL Hct (34.1-44.9) % MCV (79.4-94.8) fL MCH (25.6-32.2) pg MCHC (32.2-35.5) g/dL RDW (11.7-14.4) % Plt Count (182-369) x10^3/uL Gran % (34.0-71.1) % Immature Gran % (Auto) (0.001-0.429) % Nucleat RBC Rel Count (0.00-0.2) % Eos # (Auto) (0.04-0.36) x10^3/uL Immature Gran # (Auto) (0.001-0.031) x10^3u/L Absolute Lymphs (auto) (1.18-3.74) x10^3/uL Absolute Monos (auto) (0.24-0.86) x10^3/uL Absolute Nucleated RBC (0.00-0.012) x10^3u/L Lymphocytes % (19.3-51.7) % Monocytes % (4.7-12.5) % Eosinophils % (0.7-5.8) % Basophils % (0.1-1.2) % Absolute Granulocytes (1.56-6.13) x10^3/uL Basophils # (0.01-0.08) x10^3/uL PT (9.4-12.5) SECONDS INR (0.8-3.0) D-Dimer (0.0-0.50) mg/L Puncture Site Pending pCO2 31 L (35-45) mmHg pO2 296 H* (75-100) mmHg Base Excess -6.1 L (-2.0-2.0) O2 Saturation 97.6 (94-100) g/dF ABG pH 7.38 (7.35-7.45) ABG HCO3 18.3 L (22-28) ABG O2 Sat (Measured) 99.7 (95-100) % [place] Test Pending A-a Gradient 378 a/A Ratio 0.44 Hemoglobin 8.0 Carboxyhemoglobin 0.9 (0.0-6.9) % THgb Methemoglobin 1.2 L (1.4-1.5) % Potassium 4.4 (3.5-5.1) Temperature 37.0 C POC O2 Flow Rate 100 % Sodium (135-145) mmol/L Chloride (98-107) mmol/L Carbon Dioxide (22-30) mmol/L Anion Gap (5-15) MEQ/L BUN (7-17) mg/dL Creatinine (0.52-1.04) mg/dL Estimated GFR ML/MIN Glucose (74-106) mg/dL Lactic Acid (0.4-2.0) Calcium (8.4-10.2) mg/dL Magnesium (1.6-2.3) mg/dL Total Bilirubin (0.2-1.3) mg/dL AST (14-36) U/L ALT (0-35) U/L Alkaline Phosphatase (38-126) U/L Troponin I 0.028 (0.000-0.033) ng/mL NT-Pro-B Natriuret Pep (<300) pg/mL Serum Total Protein (6.3-8.2) g/dL Albumin (3.5-5.0) g/dL Free T4 (0.78-2.19) ng/dL TSH 3rd Generation (0.470-4.680) mIU/L Urine Color (Yellow) Urine Appearance (Clear) Urine pH (4.6-8.0) Ur Specific [place] (1.005-1.030) Urine Protein (Negative) Urine Glucose (UA) (Negative) mg/dL Urine Ketones (Negative) Urine Blood (Negative) Urine Nitrite (Negative) Urine Bilirubin (Negative) Urine Urobilinogen (0.2) mg/dL Ur Leukocyte Esterase (Negative) U Hyaline Cast (Auto) (0-2) /LPF Urine Microscopic RBC (0-5) /HPF Urine Microscopic WBC (0-5) /HPF Ur Epithelial Cells (None Seen) /HPF Urine Bacteria (None Seen) /HPF Urine Culture Reflexed (NO) Influenza Type A Ag NEGATIVE (NEGATIVE) Influenza Type B Ag NEGATIVE (NEGATIVE) RSV (PCR) NEGATIVE (NEGATIVE) SARS-CoV-2 (PCR) NEGATIVE (NEGATIVE) Slides for Path Review - Radiology Impressions Radiology Exams & Impressions: Radiology Procedures Category Date Time Status CHEST WITH CONTRAST [CT] Stat Exams 08/26/25 20:40 Completed ECHO W/2D AND DOPPLER [US] Routine Exams 08/27/25 02:44 Ordered US ABDOMEN LIMITED [ABDOMINAL-LIMITED] [US] Routine Exams 08/27/25 03:09 Ordered - Other Procedures and Tests Respiratory Therapy 08/27/25 01:39 EKG REPEAT IN AM Oxygen Nasal Cannula 2 lpm Respiratory Therapy Consult ONCE 08/27/25 09:00 Smoking Cessation Education ONCE Assessment/Plan (1) Atrial fibrillation with RVR Current Visit: Yes Status: Acute Assessment & Plan: Wean off IV diltiazem. Telemetry. AM EKG. Replete magnesium. Restart Coreg. ECHO ordered. Cardiology consult in AM. Lovenox for now but may need to resume Xarelto after consideration of thoracentesis, if needed. Monitor in ICU. Code(s): I48.91 - UNSPECIFIED ATRIAL FIBRILLATION (2) UTI (urinary tract infection) Current Visit: Yes Status: Acute Assessment & Plan: IV antibiotics. Follow up culture. Code(s): N39.0 - URINARY TRACT INFECTION, SITE NOT SPECIFIED (3) CHF exacerbation Current Visit: Yes Status: Acute Assessment & Plan: IV Lasix. Trend BNP. May need thoracentesis by IR (would require suspension of Lovenox). Cardiology consult in AM. ECHO ordered. Code(s): I50.9 - HEART FAILURE, UNSPECIFIED (4) Pleural effusion Current Visit: Yes Status: Acute Assessment & Plan: As above, may need to consider thoracentesis with interruption of Lovenox. IV Lasix for now. Code(s): J90 - PLEURAL EFFUSION, NOT ELSEWHERE CLASSIFIED (5) Alcohol abuse Current Visit: Yes Status: Acute Assessment & Plan: Folate, thiamine and multivitamin. CIWA protocol with prn Valium (cannot tolerate Ativan). Code(s): F10.10 - ALCOHOL ABUSE, UNCOMPLICATED (6) Hypoxia Current Visit: Yes Status: Acute Assessment & Plan: Resume O2. Xopenex prn. Code(s): R09.02 - HYPOXEMIA (7) Hypomagnesemia Current Visit: Yes Status: Acute Assessment & Plan: Replete and monitor level. Code(s): E83.42 - HYPOMAGNESEMIA (8) Cirrhosis of liver with ascites Current Visit: No Status: Chronic Qualifiers: Hepatic cirrhosis type: alcoholic cirrhosis Qualified Code(s): K70.31 - Alcoholic cirrhosis of liver with ascites Assessment & Plan: US abdomen ordered. Could also require paracentesis. Trend LFTs. Likely component of hepatic congestion from CHF. Code(s): K74.60 - UNSPECIFIED CIRRHOSIS OF LIVER; R18.8 - OTHER ASCITES (9) HTN (hypertension) Current Visit: No Status: Chronic Qualifiers: Hypertension type: primary hypertension Qualified Code(s): I10 - Essential (primary) hypertension Assessment & Plan: Resume Coreg and losartan. Monitor BP. Code(s): I10 - ESSENTIAL (PRIMARY) HYPERTENSION (10) Hypothyroid Current Visit: No Status: Chronic Qualifiers: Hypothyroidism type: unspecified Qualified Code(s): E03.9 - Hypothyroidism, unspecified Assessment & Plan: Resume Synthroid. Code(s): E03.9 - HYPOTHYROIDISM, UNSPECIFIED Telemedicine Encounter - Telemedicine Encounter Telemedicine Encounter: "The entirety of this encounter was performed via Telemedicine" This visit was performed using real-time audio and video connection between my location and thepatients locationwith the assistance of a surrogateat the patients location. Written or verbal consent was obtained from the patient/guardian to perform this visit using[employer] technology. Any patient questions regarding the telemedicine interaction were answered. Please note that this critical care admission required 52 minutes to complete.
[2025-08-27 05:05] LABS: ABG SITE LEFT RADIAL; ALLEN TEST OK? YES
[2025-08-27] MEDS: SYNTHROID 25 MCG PO SCH (05:06)
[2025-08-27 05:39] LABS: A-aADO2 371; ABG HEMOGLOBIN 9.0; ABG POTASSIUM 4.7 (3.5-5.1); ARTERIAL BLD GAS O2 SATURATION 98.9 % (95-100); ARTERIAL BLOOD GAS BASE EXCESS -7.7 (-2.0-2.0); ARTERIAL BLOOD GAS FIO2 80 %; ARTERIAL BLOOD GAS PO2 174 mmHg (75-100); ARTERIAL BLOOD GAS TEMPERATURE 37.0 C; HCO3- 14.6 (22-28); HGB O2 SAT 87.3 g/dF (94-100); Methhemoglobin 1.1 % (1.4-1.5); paO2 pAO1 0.32
[2025-08-27 05:40] LABS: ABG SITE LEFT RADIAL; ALLEN TEST OK? YES; ARTERIAL BLOOD GAS PCO2 20 mmHg (35-45)
[2025-08-27 05:46] LABS: BASOPHIL % 0.1 % (0.1-1.2); Basophil (Absolute #) 0.01 x10^3/uL (0.01-0.08); Eosinophil (Absolute #) 0 x10^3/uL (0.04-0.36); Hematocrit 29.9 % (34.1-44.9); Hemoglobin 8.1 g/dL (11.2-15.7); IMMATURE GRAN # 0.06 x10^3u/L (0.001-0.031); IMMATURE GRAN % 0.7 % (0.001-0.429); Lymphocyte (Absolute #) 0.48 x10^3/uL (1.18-3.74); Mean Corpuscular Hemoglobin 19.4 pg (25.6-32.2); Mean Corpuscular Hgb Concent. 27.1 g/dL (32.2-35.5); Monocyte (Absolute #) 0.31 x10^3/uL (0.24-0.86); NUCLEATED RBC # 0.02 x10^3u/L (0.00-0.012); NUCLEATED RBC % 0.2 % (0.00-0.2); Platelet Count 242 x10^3/uL (182-369); Red Blood Count 4.18 x10^6/uL (3.93-5.22); White Blood Count 9.2 x10^3/uL (3.98-10.04)
[2025-08-27 06:09] LABS: Calcium 8.7 mg/dL (8.4-10.2); Creatinine 1 0.99 mg/dL (0.52-1.04); EST GLOMERULAR FILTRATION RATE 61.7 ML/MIN; Glucose 142.0 mg/dL (74-106); Potassium 4.9 mmol/L (3.5-5.1); SGOT/AST 227.0 U/L (14-36); SGPT/ALT 185.0 U/L (0-35); Total Protein 7.3 g/dL (6.3-8.2)
[2025-08-27 06:16] LABS: Carbon Dioxide 15.0 mmol/L (22-30)
[2025-08-27] MEDS: SODIUM BICARBONATE 50 MEQ/50 ML ABBOJECT IV ONE (06:30)
[2025-08-27] MEDS ORDERED: Sodium Chloride 3 ML UD NEBULES IH ONE (07:15)
[2025-08-27] MEDS: Xopenex 1.25 MG/0.5 ML UD NEBULE IH PRN (07:17)
[2025-08-27 07:20] LABS: Slide Review 1 YES
[2025-08-27] MEDS ORDERED: Sodium Chloride 3 ML UD NEBULES IH PRN (07:24)
[2025-08-27] MEDS: Valium 5 MG PO PRN (09:29)
[2025-08-27] MEDS ORDERED: ENOXAPARIN SODIUM SQ SCH (10:00)
--- NOTE | 2025-08-27 11:56 | PCM.NOTE ---
Date and Time: 08/27/25 1149 Subjective Assessment: is a 70-year-old female with a complex medical history including COPD (previously on 12 L home oxygen), atrial fibrillation on Xarelto, hypertension, hyperlipidemia, neuropathy, hypothyroidism, anemia, hepatitis C, methamphetamine abuse, and alcohol dependence with prior withdrawals, who presented on 08/26/25 with dyspnea, dry cough, wheezing, and chest discomfort. She reported discontinuing all home medications and oxygen approximately two months ago due to difficulty managing them. In the ED, she was found to be in atrial fibrillation with RVR, requiring IV diltiazem push followed by continuous infusion. Workup revealed a positive D-dimer but CTA was negative for PE, significant volume overload with bilateral pleural effusions, elevated liver enzymes, and evidence of UTI. She received IV Lasix and IV Rocephin, initially required BiPAP, and was transitioned to nasal cannula oxygen. On 08/27, she remained on Cardizem drip and was very short of breath, requiring 8 L Oxymizer with saturations at 95%. Abdominal ultrasound was ordered to evaluate for ascites given her history of cirrhosis and distended abdomen. LFTs remained elevated but improved (AST 227, ALT 185). Synthroid was initiated for elevated TSH (8.674). Ceftriaxone was continued for UTI, with urine culture showing gram-negative organisms and sensitivities pending. CO? was 15, and oral sodium bicarbonate was continued due to inability to provide IV fluids in the setting of pleural effusions. Lasix 40 mg IV every 8 hours was maintained. Magnesium was 1.6 and replaced to keep >2 given atrial fibrillation. Cardiology consult and echocardiogram were pending. Thoracentesis was ordered for the right lung but deferred until the following day due to recent Lovenox administration, which was subsequently held. The patient reported symptoms of alcohol withdrawal, including shakes and anxiety, and was placed on withdrawal protocol. She admitted to drinking four vodka drinks daily, with last use the day prior. Urine drug screen was ordered given her history of methamphetamine use. She expressed difficulty managing medications at home and will require outpatient support. Amylase and lipase were checked due to history of pancreatitis and were normal. She reaffirmed her DNR status. SCDs were ordered while anticoagulation was held. Labs showed hemoglobin 8.1, WBC within normal limits, and negative troponins. She denied chest pain. NAKUL noted previously had resolved. She remained clinically stable but continued to require high-flow oxygen and close monitoring. - Review of Systems Constitutional: Fatigue, Weakness, No Fever, No Chills Eyes: No Symptoms Ears, Nose, & Throat: No Symptoms Respiratory: Short Of Breath, No Cough Cardiac: No Chest Pain, No Edema, No Syncope Abdominal/Gastrointestinal: Abdominal Pain, No Nausea, No Vomiting, No Diarrhea Genitourinary Symptoms: No Dysuria Musculoskeletal: No Back Pain, No Neck Pain Skin: No Rash Neurological: Tremors, No Dizziness, No Focal Weakness, No Sensory Changes Psychological: No Symptoms, Anxiety, Emotional Lability, Mood Changes Endocrine: No Symptoms Hematologic/Lymphatic: No Symptoms Immunological/Allergic: No Symptoms Objective Exam General Appearance: no apparent distress, alert, thin Neurologic Exam: alert, oriented x 3, cooperative, normal mood/affect, nml cerebellar function, sensation nml, motor weakness, No motor deficits Skin Exam: normal color, warm, dry Eye Exam: PERRL, EOMI, eyes nml inspection Ears, Nose, Throat Exam: normal ENT inspection, pharynx normal, moist mucous membranes Neck Exam: normal inspection, non-tender, supple, full range of motion Respiratory Exam: normal breath sounds, lungs clear, No respiratory distress Cardiovascular Exam: normal heart sounds, irregular Gastrointestinal/Abdomen Exam: soft, tenderness, distention, No mass Extremity Exam: normal inspection, normal range of motion Back Exam: normal inspection, normal range of motion, No CVA tenderness, No vertebral tenderness Pelvic Exam: deferred Rectal Exam: deferred Objective Data Vital Signs: Vital Signs - 24 hr Temp Pulse Resp BP BP Pulse Ox 08/27/25 10:23 60 14 140/71 08/27/25 10:00 96.8 F 61 16 140/71 98 08/27/25 09:42 62 13 121/88 08/27/25 09:30 68 20 121/88 08/27/25 09:02 75 21 112/66 08/27/25 08:30 85 123/77 08/27/25 08:00 77 122/72 08/27/25 07:30 78 10 L 136/93 08/27/25 07:18 85 17 95 08/27/25 07:00 81 11 L 126/82 08/27/25 06:30 117 H 18 162/88 08/27/25 06:02 118 H 132/97 08/27/25 06:00 123 H 14 132/97 08/27/25 05:30 122 H 11 L 130/106 08/27/25 05:07 115 H 15 116/99 08/27/25 04:04 103 H 22 133/83 08/27/25 03:53 117 H 08/27/25 03:52 97.7 F 128 H 20 135/95 98 08/27/25 03:31 124 H 19 115/85 08/27/25 03:16 112 H 12 126/82 08/27/25 03:00 117 H 16 121/95 08/27/25 02:45 110 H 30 H 136/103 08/27/25 02:30 109 H 19 134/83 08/27/25 02:15 103 H 12 123/83 08/27/25 02:00 113 H 16 117/92 08/27/25 01:42 97.2 F 122 H 22 121/89 97 08/27/25 01:39 97 08/27/25 01:03 115/72 08/27/25 01:01 119 H 24 115/72 98 08/27/25 00:31 120 H 14 141/93 97 08/27/25 00:30 123 H 20 95 08/27/25 00:01 108 H 15 103/74 96 08/27/25 00:00 121 H 25 H 97 08/26/25 23:52 91 L 08/26/25 23:50 102 H 24 96 08/26/25 23:40 109 H 17 98 08/26/25 23:33 112 H 18 96 08/26/25 23:01 130 H 18 126/81 96 08/26/25 22:45 97 H 21 147/78 96 08/26/25 22:44 136 H 13 87 L 08/26/25 22:41 94 L 08/26/25 22:00 142/93 08/26/25 21:31 119 H 31 H 141/75 100 08/26/25 21:02 120 H 22 146/102 100 08/26/25 20:53 142 H 24 125/103 08/26/25 20:31 116 H 23 125/103 100 08/26/25 20:04 122 H 31 H 129/79 91 L 08/26/25 20:00 98 08/26/25 19:37 106 H 32 H 137/80 89 L 08/26/25 19:33 155 H 21 137/80 91 L Pain Assessment - Last Documented Pain Intensity 9 Pain Scale Used 0-10 Pain Scale Intake and Output: Intake & Output 08/24/25 08/25/25 08/26/25 08/27/25 11:59 11:59 11:59 11:59 Intake Total 1002 Output Total 300 Balance 702 Weight 63.2 kg Lab Results: Lab Results-Last 24 Hours 08/26/25 08/26/25 08/26/25 Range/Units 19:50 20:00 20:04 WBC 10.7 H (3.98-10.04) x10^3/uL RBC 4.21 (3.93-5.22) x10^6/uL Hgb 8.3 L (11.2-15.7) g/dL Hct 29.0 L (34.1-44.9) % MCV 68.9 L (79.4-94.8) fL MCH 19.7 L (25.6-32.2) pg MCHC 28.6 L (32.2-35.5) g/dL RDW 20.4 H (11.7-14.4) % Plt Count 255 (182-369) x10^3/uL Gran % 59.2 (34.0-71.1) % Immature Gran % (Auto) 0.5 H (0.001-0.429) % Nucleat RBC Rel Count 0.8 H (0.00-0.2) % Eos # (Auto) 0.09 (0.04-0.36) x10^3/uL Immature Gran # (Auto) 0.05 H (0.001-0.031) x10^3u/L Absolute Lymphs (auto) 2.41 (1.18-3.74) x10^3/uL Absolute Monos (auto) 1.74 H (0.24-0.86) x10^3/uL Absolute Nucleated RBC 0.09 H (0.00-0.012) x10^3u/L Lymphocytes % 22.6 (19.3-51.7) % Monocytes % 16.3 H (4.7-12.5) % Eosinophils % 0.8 (0.7-5.8) % Basophils % 0.6 (0.1-1.2) % Absolute Granulocytes 6.32 H (1.56-6.13) x10^3/uL Basophils # 0.06 (0.01-0.08) x10^3/uL PT (9.4-12.5) SECONDS INR (0.8-3.0) D-Dimer (0.0-0.50) mg/L Puncture Site pCO2 (35-45) mmHg pO2 (75-100) mmHg Base Excess (-2.0-2.0) O2 Saturation (94-100) g/dF ABG pH (7.35-7.45) ABG HCO3 (22-28) ABG O2 Sat (Measured) (95-100) % [place] Test A-a Gradient a/A Ratio Hemoglobin Carboxyhemoglobin (0.0-6.9) % THgb Methemoglobin (1.4-1.5) % Potassium (3.5-5.1) Temperature C POC O2 Flow Rate % Sodium (135-145) mmol/L Chloride (98-107) mmol/L Carbon Dioxide (22-30) mmol/L Anion Gap (5-15) MEQ/L BUN (7-17) mg/dL Creatinine (0.52-1.04) mg/dL Estimated GFR ML/MIN Glucose (74-106) mg/dL Lactic Acid 1.6 (0.4-2.0) Calcium (8.4-10.2) mg/dL Magnesium (1.6-2.3) mg/dL Total Bilirubin (0.2-1.3) mg/dL AST (14-36) U/L ALT (0-35) U/L Alkaline Phosphatase (38-126) U/L Troponin I (0.000-0.033) ng/mL NT-Pro-B Natriuret Pep (<300) pg/mL Serum Total Protein (6.3-8.2) g/dL Albumin (3.5-5.0) g/dL Amylase (30-110) U/L Lipase (23-300) U/L Free T4 (0.78-2.19) ng/dL TSH 3rd Generation (0.470-4.680) mIU/L Urine Color Dark Yellow A (Yellow) Urine Appearance Cloudy A (Clear) Urine pH 5.5 (4.6-8.0) Ur Specific [place] 1.025 (1.005-1.030) Urine Protein 100 A (Negative) Urine Glucose (UA) Negative (Negative) mg/dL Urine Ketones Negative (Negative) Urine Blood Negative (Negative) Urine Nitrite Positive A (Negative) Urine Bilirubin Small A (Negative) Urine Urobilinogen 1.0 A (0.2) mg/dL Ur Leukocyte Esterase Trace A (Negative) U Hyaline Cast (Auto) 11-20 (0-2) /LPF Urine Microscopic RBC 0-2 (0-5) /HPF Urine Microscopic WBC 21-50 A (0-5) /HPF Ur Epithelial Cells Few (None Seen) /HPF Urine Bacteria Many A (None Seen) /HPF Urine Culture Reflexed ORDERED SEPARATELY (NO) Influenza Type A Ag (NEGATIVE) Influenza Type B Ag (NEGATIVE) RSV (PCR) (NEGATIVE) SARS-CoV-2 (PCR) (NEGATIVE) Slides for Path Review YES 08/26/25 08/26/25 08/26/25 Range/Units 20:04 20:04 20:04 WBC (3.98-10.04) x10^3/uL RBC (3.93-5.22) x10^6/uL Hgb (11.2-15.7) g/dL Hct (34.1-44.9) % MCV (79.4-94.8) fL MCH (25.6-32.2) pg MCHC (32.2-35.5) g/dL RDW (11.7-14.4) % Plt Count (182-369) x10^3/uL Gran % (34.0-71.1) % Immature Gran % (Auto) (0.001-0.429) % Nucleat RBC Rel Count (0.00-0.2) % Eos # (Auto) (0.04-0.36) x10^3/uL Immature Gran # (Auto) (0.001-0.031) x10^3u/L Absolute Lymphs (auto) (1.18-3.74) x10^3/uL Absolute Monos (auto) (0.24-0.86) x10^3/uL Absolute Nucleated RBC (0.00-0.012) x10^3u/L Lymphocytes % (19.3-51.7) % Monocytes % (4.7-12.5) % Eosinophils % (0.7-5.8) % Basophils % (0.1-1.2) % Absolute Granulocytes (1.56-6.13) x10^3/uL Basophils # (0.01-0.08) x10^3/uL PT 13.4 H (9.4-12.5) SECONDS INR 1.21 (0.8-3.0) D-Dimer 4.94 H* (0.0-0.50) mg/L Puncture Site pCO2 (35-45) mmHg pO2 (75-100) mmHg Base Excess (-2.0-2.0) O2 Saturation (94-100) g/dF ABG pH (7.35-7.45) ABG HCO3 (22-28) ABG O2 Sat (Measured) (95-100) % [place] Test A-a Gradient a/A Ratio Hemoglobin Carboxyhemoglobin (0.0-6.9) % THgb Methemoglobin (1.4-1.5) % Potassium 4.4 (3.5-5.1) Temperature C POC O2 Flow Rate % Sodium 138 (135-145) mmol/L Chloride 106 (98-107) mmol/L Carbon Dioxide 19 L (22-30) mmol/L Anion Gap 16.8 H (5-15) MEQ/L BUN 24 H (7-17) mg/dL Creatinine 1.10 H (0.52-1.04) mg/dL Estimated GFR 54.4 ML/MIN Glucose 115 H (74-106) mg/dL Lactic Acid (0.4-2.0) Calcium 9.0 (8.4-10.2) mg/dL Magnesium 1.5 L (1.6-2.3) mg/dL Total Bilirubin 1.20 (0.2-1.3) mg/dL AST 262 H (14-36) U/L ALT 200 H (0-35) U/L Alkaline Phosphatase 105 (38-126) U/L Troponin I 0.033 (0.000-0.033) ng/mL NT-Pro-B Natriuret Pep 5010 (<300) pg/mL Serum Total Protein 7.5 (6.3-8.2) g/dL Albumin 4.1 (3.5-5.0) g/dL Amylase (30-110) U/L Lipase (23-300) U/L Free T4 (0.78-2.19) ng/dL TSH 3rd Generation (0.470-4.680) mIU/L Urine Color (Yellow) Urine Appearance (Clear) Urine pH (4.6-8.0) Ur Specific [place] (1.005-1.030) Urine Protein (Negative) Urine Glucose (UA) (Negative) mg/dL Urine Ketones (Negative) Urine Blood (Negative) Urine Nitrite (Negative) Urine Bilirubin (Negative) Urine Urobilinogen (0.2) mg/dL Ur Leukocyte Esterase (Negative) U Hyaline Cast (Auto) (0-2) /LPF Urine Microscopic RBC (0-5) /HPF Urine Microscopic WBC (0-5) /HPF Ur Epithelial Cells (None Seen) /HPF Urine Bacteria (None Seen) /HPF Urine Culture Reflexed (NO) Influenza Type A Ag (NEGATIVE) Influenza Type B Ag (NEGATIVE) RSV (PCR) (NEGATIVE) SARS-CoV-2 (PCR) (NEGATIVE) Slides for Path Review 08/26/25 08/26/25 08/26/25 Range/Units 20:04 20:04 20:04 WBC (3.98-10.04) x10^3/uL RBC (3.93-5.22) x10^6/uL Hgb (11.2-15.7) g/dL Hct (34.1-44.9) % MCV (79.4-94.8) fL MCH (25.6-32.2) pg MCHC (32.2-35.5) g/dL RDW (11.7-14.4) % Plt Count (182-369) x10^3/uL Gran % (34.0-71.1) % Immature Gran % (Auto) (0.001-0.429) % Nucleat RBC Rel Count (0.00-0.2) % Eos # (Auto) (0.04-0.36) x10^3/uL Immature Gran # (Auto) (0.001-0.031) x10^3u/L Absolute Lymphs (auto) (1.18-3.74) x10^3/uL Absolute Monos (auto) (0.24-0.86) x10^3/uL Absolute Nucleated RBC (0.00-0.012) x10^3u/L Lymphocytes % (19.3-51.7) % Monocytes % (4.7-12.5) % Eosinophils % (0.7-5.8) % Basophils % (0.1-1.2) % Absolute Granulocytes (1.56-6.13) x10^3/uL Basophils # (0.01-0.08) x10^3/uL PT (9.4-12.5) SECONDS INR (0.8-3.0) D-Dimer (0.0-0.50) mg/L Puncture Site LEFT RADIAL pCO2 30 L (35-45) mmHg pO2 164 H* (75-100) mmHg Base Excess -4.9 L (-2.0-2.0) O2 Saturation 97.2 (94-100) g/dF ABG pH 7.41 (7.35-7.45) ABG HCO3 19.0 L (22-28) ABG O2 Sat (Measured) 99.8 (95-100) % [place] Test yes A-a Gradient 512 a/A Ratio 0.24 Hemoglobin 8.6 Carboxyhemoglobin 1.6 (0.0-6.9) % THgb Methemoglobin 0.9 L (1.4-1.5) % Potassium 4.5 (3.5-5.1) Temperature 37.0 C POC O2 Flow Rate 100 % Sodium (135-145) mmol/L Chloride (98-107) mmol/L Carbon Dioxide (22-30) mmol/L Anion Gap (5-15) MEQ/L BUN (7-17) mg/dL Creatinine (0.52-1.04) mg/dL Estimated GFR ML/MIN Glucose (74-106) mg/dL Lactic Acid (0.4-2.0) Calcium (8.4-10.2) mg/dL Magnesium (1.6-2.3) mg/dL Total Bilirubin (0.2-1.3) mg/dL AST (14-36) U/L ALT (0-35) U/L Alkaline Phosphatase (38-126) U/L Troponin I (0.000-0.033) ng/mL NT-Pro-B Natriuret Pep (<300) pg/mL Serum Total Protein (6.3-8.2) g/dL Albumin (3.5-5.0) g/dL Amylase (30-110) U/L Lipase (23-300) U/L Free T4 1.58 (0.78-2.19) ng/dL TSH 3rd Generation 8.674 H (0.470-4.680) mIU/L Urine Color (Yellow) Urine Appearance (Clear) Urine pH (4.6-8.0) Ur Specific [place] (1.005-1.030) Urine Protein (Negative) Urine Glucose (UA) (Negative) mg/dL Urine Ketones (Negative) Urine Blood (Negative) Urine Nitrite (Negative) Urine Bilirubin (Negative) Urine Urobilinogen (0.2) mg/dL Ur Leukocyte Esterase (Negative) U Hyaline Cast (Auto) (0-2) /LPF Urine Microscopic RBC (0-5) /HPF Urine Microscopic WBC (0-5) /HPF Ur Epithelial Cells (None Seen) /HPF Urine Bacteria (None Seen) /HPF Urine Culture Reflexed (NO) Influenza Type A Ag (NEGATIVE) Influenza Type B Ag (NEGATIVE) RSV (PCR) (NEGATIVE) SARS-CoV-2 (PCR) (NEGATIVE) Slides for Path Review 08/26/25 08/26/25 08/27/25 Range/Units 20:09 21:57 00:25 WBC (3.98-10.04) x10^3/uL RBC (3.93-5.22) x10^6/uL Hgb (11.2-15.7) g/dL Hct (34.1-44.9) % MCV (79.4-94.8) fL MCH (25.6-32.2) pg MCHC (32.2-35.5) g/dL RDW (11.7-14.4) % Plt Count (182-369) x10^3/uL Gran % (34.0-71.1) % Immature Gran % (Auto) (0.001-0.429) % Nucleat RBC Rel Count (0.00-0.2) % Eos # (Auto) (0.04-0.36) x10^3/uL Immature Gran # (Auto) (0.001-0.031) x10^3u/L Absolute Lymphs (auto) (1.18-3.74) x10^3/uL Absolute Monos (auto) (0.24-0.86) x10^3/uL Absolute Nucleated RBC (0.00-0.012) x10^3u/L Lymphocytes % (19.3-51.7) % Monocytes % (4.7-12.5) % Eosinophils % (0.7-5.8) % Basophils % (0.1-1.2) % Absolute Granulocytes (1.56-6.13) x10^3/uL Basophils # (0.01-0.08) x10^3/uL PT (9.4-12.5) SECONDS INR (0.8-3.0) D-Dimer (0.0-0.50) mg/L Puncture Site LEFT RADIAL pCO2 31 L (35-45) mmHg pO2 296 H* (75-100) mmHg Base Excess -6.1 L (-2.0-2.0) O2 Saturation 97.6 (94-100) g/dF ABG pH 7.38 (7.35-7.45) ABG HCO3 18.3 L (22-28) ABG O2 Sat (Measured) 99.7 (95-100) % [place] Test YES A-a Gradient 378 a/A Ratio 0.44 Hemoglobin 8.0 Carboxyhemoglobin 0.9 (0.0-6.9) % THgb Methemoglobin 1.2 L (1.4-1.5) % Potassium 4.4 (3.5-5.1) Temperature 37.0 C POC O2 Flow Rate 100 % Sodium (135-145) mmol/L Chloride (98-107) mmol/L Carbon Dioxide (22-30) mmol/L Anion Gap (5-15) MEQ/L BUN (7-17) mg/dL Creatinine (0.52-1.04) mg/dL Estimated GFR ML/MIN Glucose (74-106) mg/dL Lactic Acid (0.4-2.0) Calcium (8.4-10.2) mg/dL Magnesium (1.6-2.3) mg/dL Total Bilirubin (0.2-1.3) mg/dL AST (14-36) U/L ALT (0-35) U/L Alkaline Phosphatase (38-126) U/L Troponin I 0.028 (0.000-0.033) ng/mL NT-Pro-B Natriuret Pep (<300) pg/mL Serum Total Protein (6.3-8.2) g/dL Albumin (3.5-5.0) g/dL Amylase (30-110) U/L Lipase (23-300) U/L Free T4 (0.78-2.19) ng/dL TSH 3rd Generation (0.470-4.680) mIU/L Urine Color (Yellow) Urine Appearance (Clear) Urine pH (4.6-8.0) Ur Specific [place] (1.005-1.030) Urine Protein (Negative) Urine Glucose (UA) (Negative) mg/dL Urine Ketones (Negative) Urine Blood (Negative) Urine Nitrite (Negative) Urine Bilirubin (Negative) Urine Urobilinogen (0.2) mg/dL Ur Leukocyte Esterase (Negative) U Hyaline Cast (Auto) (0-2) /LPF Urine Microscopic RBC (0-5) /HPF Urine Microscopic WBC (0-5) /HPF Ur Epithelial Cells (None Seen) /HPF Urine Bacteria (None Seen) /HPF Urine Culture Reflexed (NO) Influenza Type A Ag NEGATIVE (NEGATIVE) Influenza Type B Ag NEGATIVE (NEGATIVE) RSV (PCR) NEGATIVE (NEGATIVE) SARS-CoV-2 (PCR) NEGATIVE (NEGATIVE) Slides for Path Review 08/27/25 08/27/25 08/27/25 Range/Units 00:25 05:35 05:40 WBC (3.98-10.04) x10^3/uL RBC (3.93-5.22) x10^6/uL Hgb (11.2-15.7) g/dL Hct (34.1-44.9) % MCV (79.4-94.8) fL MCH (25.6-32.2) pg MCHC (32.2-35.5) g/dL RDW (11.7-14.4) % Plt Count (182-369) x10^3/uL Gran % (34.0-71.1) % Immature Gran % (Auto) (0.001-0.429) % Nucleat RBC Rel Count (0.00-0.2) % Eos # (Auto) (0.04-0.36) x10^3/uL Immature Gran # (Auto) (0.001-0.031) x10^3u/L Absolute Lymphs (auto) (1.18-3.74) x10^3/uL Absolute Monos (auto) (0.24-0.86) x10^3/uL Absolute Nucleated RBC (0.00-0.012) x10^3u/L Lymphocytes % (19.3-51.7) % Monocytes % (4.7-12.5) % Eosinophils % (0.7-5.8) % Basophils % (0.1-1.2) % Absolute Granulocytes (1.56-6.13) x10^3/uL Basophils # (0.01-0.08) x10^3/uL PT (9.4-12.5) SECONDS INR (0.8-3.0) D-Dimer (0.0-0.50) mg/L Puncture Site LEFT RADIAL pCO2 20 L* (35-45) mmHg pO2 174 H* (75-100) mmHg Base Excess -7.7 L (-2.0-2.0) O2 Saturation 87.3 L (94-100) g/dF ABG pH 7.47 H (7.35-7.45) ABG HCO3 14.6 L* (22-28) ABG O2 Sat (Measured) 98.9 (95-100) % [place] Test YES A-a Gradient 371 a/A Ratio 0.32 Hemoglobin 9.0 Carboxyhemoglobin 10.6 H* (0.0-6.9) % THgb Methemoglobin 1.1 L (1.4-1.5) % Potassium 4.7 (3.5-5.1) Temperature 37.0 C POC O2 Flow Rate 80 % Sodium (135-145) mmol/L Chloride (98-107) mmol/L Carbon Dioxide (22-30) mmol/L Anion Gap (5-15) MEQ/L BUN (7-17) mg/dL Creatinine (0.52-1.04) mg/dL Estimated GFR ML/MIN Glucose (74-106) mg/dL Lactic Acid (0.4-2.0) Calcium (8.4-10.2) mg/dL Magnesium (1.6-2.3) mg/dL Total Bilirubin (0.2-1.3) mg/dL AST (14-36) U/L ALT (0-35) U/L Alkaline Phosphatase (38-126) U/L Troponin I 0.021 (0.000-0.033) ng/mL NT-Pro-B Natriuret Pep (<300) pg/mL Serum Total Protein (6.3-8.2) g/dL Albumin (3.5-5.0) g/dL Amylase 46 (30-110) U/L Lipase 63 (23-300) U/L Free T4 (0.78-2.19) ng/dL TSH 3rd Generation (0.470-4.680) mIU/L Urine Color (Yellow) Urine Appearance (Clear) Urine pH (4.6-8.0) Ur Specific [place] (1.005-1.030) Urine Protein (Negative) Urine Glucose (UA) (Negative) mg/dL Urine Ketones (Negative) Urine Blood (Negative) Urine Nitrite (Negative) Urine Bilirubin (Negative) Urine Urobilinogen (0.2) mg/dL Ur Leukocyte Esterase (Negative) U Hyaline Cast (Auto) (0-2) /LPF Urine Microscopic RBC (0-5) /HPF Urine Microscopic WBC (0-5) /HPF Ur Epithelial Cells (None Seen) /HPF Urine Bacteria (None Seen) /HPF Urine Culture Reflexed (NO) Influenza Type A Ag (NEGATIVE) Influenza Type B Ag (NEGATIVE) RSV (PCR) (NEGATIVE) SARS-CoV-2 (PCR) (NEGATIVE) Slides for Path Review 08/27/25 08/27/25 08/27/25 Range/Units 05:40 05:40 05:40 WBC 9.2 (3.98-10.04) x10^3/uL RBC 4.18 (3.93-5.22) x10^6/uL Hgb 8.1 L (11.2-15.7) g/dL Hct 29.9 L (34.1-44.9) % MCV 71.5 L (79.4-94.8) fL MCH 19.4 L (25.6-32.2) pg MCHC 27.1 L (32.2-35.5) g/dL RDW 20.9 H (11.7-14.4) % Plt Count 242 (182-369) x10^3/uL Gran % 90.6 H (34.0-71.1) % Immature Gran % (Auto) 0.7 H (0.001-0.429) % Nucleat RBC Rel Count 0.2 (0.00-0.2) % Eos # (Auto) 0 L (0.04-0.36) x10^3/uL Immature Gran # (Auto) 0.06 H (0.001-0.031) x10^3u/L Absolute Lymphs (auto) 0.48 L (1.18-3.74) x10^3/uL Absolute Monos (auto) 0.31 (0.24-0.86) x10^3/uL Absolute Nucleated RBC 0.02 H (0.00-0.012) x10^3u/L Lymphocytes % 5.2 L (19.3-51.7) % Monocytes % 3.4 L (4.7-12.5) % Eosinophils % 0.0 L (0.7-5.8) % Basophils % 0.1 (0.1-1.2) % Absolute Granulocytes 8.34 H (1.56-6.13) x10^3/uL Basophils # 0.01 (0.01-0.08) x10^3/uL PT (9.4-12.5) SECONDS INR (0.8-3.0) D-Dimer (0.0-0.50) mg/L Puncture Site pCO2 (35-45) mmHg pO2 (75-100) mmHg Base Excess (-2.0-2.0) O2 Saturation (94-100) g/dF ABG pH (7.35-7.45) ABG HCO3 (22-28) ABG O2 Sat (Measured) (95-100) % [place] Test A-a Gradient a/A Ratio Hemoglobin Carboxyhemoglobin (0.0-6.9) % THgb Methemoglobin (1.4-1.5) % Potassium 4.9 (3.5-5.1) Temperature C POC O2 Flow Rate % Sodium 137 (135-145) mmol/L Chloride 106 (98-107) mmol/L Carbon Dioxide 15 L* (22-30) mmol/L Anion Gap 20.4 H (5-15) MEQ/L BUN 23 H (7-17) mg/dL Creatinine 0.99 (0.52-1.04) mg/dL Estimated GFR 61.7 ML/MIN Glucose 142 H (74-106) mg/dL Lactic Acid (0.4-2.0) Calcium 8.7 (8.4-10.2) mg/dL Magnesium 1.6 (1.6-2.3) mg/dL Total Bilirubin 0.90 (0.2-1.3) mg/dL AST 227 H (14-36) U/L ALT 185 H (0-35) U/L Alkaline Phosphatase 93 (38-126) U/L Troponin I (0.000-0.033) ng/mL NT-Pro-B Natriuret Pep 5340 (<300) pg/mL Serum Total Protein 7.3 (6.3-8.2) g/dL Albumin 3.9 (3.5-5.0) g/dL Amylase (30-110) U/L Lipase (23-300) U/L Free T4 (0.78-2.19) ng/dL TSH 3rd Generation (0.470-4.680) mIU/L Urine Color (Yellow) Urine Appearance (Clear) Urine pH (4.6-8.0) Ur Specific [place] (1.005-1.030) Urine Protein (Negative) Urine Glucose (UA) (Negative) mg/dL Urine Ketones (Negative) Urine Blood (Negative) Urine Nitrite (Negative) Urine Bilirubin (Negative) Urine Urobilinogen (0.2) mg/dL Ur Leukocyte Esterase (Negative) U Hyaline Cast (Auto) (0-2) /LPF Urine Microscopic RBC (0-5) /HPF Urine Microscopic WBC (0-5) /HPF Ur Epithelial Cells (None Seen) /HPF Urine Bacteria (None Seen) /HPF Urine Culture Reflexed (NO) Influenza Type A Ag (NEGATIVE) Influenza Type B Ag (NEGATIVE) RSV (PCR) (NEGATIVE) SARS-CoV-2 (PCR) (NEGATIVE) Slides for Path Review YES Radiology Exams: Radiology Procedures Category Date Time Status CHEST WITH CONTRAST [CT] Stat Exams 08/26/25 20:40 Completed ECHO W/2D AND DOPPLER [US] Routine Exams 08/27/25 02:44 Ordered THORACENTESIS [US] Routine Exams 08/28/25 09:00 Ordered US ABDOMEN LIMITED [ABDOMINAL-LIMITED] [US] Routine Exams 08/27/25 03:09 Ordered Medications: Medications Generic Name Dose Route Start Last Admin Trade Name Freq PRN Reason Stop Dose Admin Acetaminophen 650 mg 08/27/25 01:39 Acetaminophen 325 Mg Tablet PO 09/26/25 01:38 Q4H PRN PRN PAIN, FEVER, HEADACHE Carvedilol 3.125 mg 08/27/25 10:00 Carvedilol 3.125 Mg Tablet PO 09/26/25 09:59 BID TERE Diazepam 0 mg 08/27/25 03:03 08/27/25 09:29 Diazepam 5 Mg Tablet PO 09/26/25 03:02 2.5 mg Q2H PRN PRN Administration CIWA SCORE Protocol Enoxaparin Sodium 60 mg 08/27/25 10:00 Enoxaparin Sodium 60 Mg/0.6 Ml Syringe SQ 09/26/25 09:59 BID TERE Folic Acid 1 mg 08/27/25 10:00 Folic Acid 1 Mg Tablet PO 09/26/25 09:59 DAILY [facility] Furosemide 40 mg 08/27/25 07:30 08/27/25 08:04 Furosemide 40 Mg/4 Ml Vial IV 09/26/25 02:44 40 mg Q8HT TERE Administration Gabapentin 300 mg 08/27/25 10:00 Gabapentin 300 Mg Capsule PO 09/26/25 09:59 TID TERE Diltiazem HCl 100 mls @ 5 mls/hr 08/26/25 20:03 08/27/25 10:23 Cardizem Drip 100 Mg/100 Ml D5w IV 09/25/25 20:02 5 mg/hr .Q20H PRN 5 mls/hr HEART RATE/ A-FIB Titration Protocol 5 MG/HR Ceftriaxone Sodium 1 gm in 100 mls @ 200 mls/hr 08/27/25 22:00 Rocephin 1 Gm / 100 Ml Nacl IV 09/26/25 21:59 [id number] TERE Lactobacillus Acidophilus 1 tab 08/27/25 10:00 Lactobacillus Acidophilus 1 Tab Tablet PO 09/26/25 09:59 DAILY [facility] Levalbuterol HCl 1.25 mg 08/27/25 02:40 08/27/25 07:17 Levalbuterol Hcl 1.25 Mg/0.5 Ml Neb 09/26/25 02:39 1.25 mg Q4H PRN PRN Administration SHORTNESS OF BREATH Levothyroxine Sodium 25 mcg 08/27/25 07:00 08/27/25 05:06 Levothyroxine Sodium 25 Mcg Tablet PO 09/26/25 06:59 25 mcg QAM@0700 TERE Administration Losartan Potassium 25 mg 08/27/25 10:00 Losartan Potassium 50 Mg Tablet PO 09/26/25 09:59 DAILY TERE Multivitamins Therapeutic 1 tab 08/27/25 10:00 Multivitamins,Therapeutic 1 Tab Tab PO 09/26/25 09:59 QAM TERE Ondansetron HCl 4 mg 08/27/25 01:39 Ondansetron Hcl 4 Mg/2 Ml Vial IV 09/26/25 01:38 Q6H PRN PRN NAUSEA/VOMITING Sodium Bicarbonate 650 mg 08/27/25 10:00 Sodium Bicarbonate 650 Mg Tablet PO 09/26/25 09:59 DAILY [facility] Sodium Chloride 3 ml 08/27/25 07:24 Sodium Cl For Inhalation 3 Ml Ud Nebule 09/26/25 07:23 PRN PRN Thiamine HCl 100 mg 08/27/25 10:00 Thiamine Hcl 100 Mg Tablet PO 09/26/25 09:59 DAILY TERE Discontinued Medications Generic Name Dose Route Start Last Admin Trade Name Freq PRN Reason Stop Dose Admin Albuterol/Ipratropium Confirm 08/27/25 00:25 Ipratropium/Albuterol Sulfate 3 Ml Ampul.Neb Administered 08/27/25 00:26 Dose 3 ml IH .STK-MED ONE Albuterol/Ipratropium 3 ml 08/27/25 00:29 08/27/25 00:29 Ipratropium/Albuterol Sulfate 3 Ml Ampul.Neb IH 08/27/25 00:30 3 ml STAT ONE Administration Diltiazem HCl 25 mg 08/26/25 19:51 08/26/25 19:52 Diltiazem Hcl Iv 5 Mg/Ml Vial IV 08/26/25 19:52 25 mg STAT ONE Administration Diltiazem HCl Confirm 08/26/25 19:52 Diltiazem Hcl Iv 5 Mg/Ml Vial Administered 08/26/25 19:53 Dose 50 mg IV .STK-MED ONE Enoxaparin Sodium 60 mg 08/26/25 23:18 08/26/25 23:33 Enoxaparin Sodium 80 Mg/0.8 Ml Syringe SQ 08/26/25 23:19 60 mg STAT ONE Administration Enoxaparin Sodium Confirm 08/26/25 23:32 Enoxaparin Sodium 80 Mg/0.8 Ml Syringe Administered 08/26/25 23:33 Dose 80 mg SQ .STK-MED ONE Furosemide 40 mg 08/26/25 23:17 08/26/25 23:33 Furosemide 40 Mg/4 Ml Vial IV 08/26/25 23:18 40 mg STAT ONE Administration Furosemide Confirm 08/26/25 23:32 Furosemide 40 Mg/4 Ml Vial Administered 08/26/25 23:33 Dose 40 mg .ROUTE .STK-MED ONE Furosemide 40 mg 08/27/25 02:45 08/27/25 02:47 Furosemide 40 Mg/4 Ml Vial IV 09/26/25 02:44 Not Given Q8H TERE Sodium Chloride 1,000 mls @ 100 mls/hr 08/26/25 20:00 08/26/25 19:54 Sodium Chloride 0.9% 1000 Ml IV 09/25/25 19:59 100 mls/hr .Q10H TERE Administration Magnesium Sulfate/Dextrose 100 mls @ 200 mls/hr 08/26/25 20:32 08/26/25 21:41 Magnesium 1 Gm / 100 Ml D5w IV 08/26/25 21:01 Infused STAT ONE Infusion Magnesium Sulfate/Dextrose Confirm 08/26/25 20:55 Magnesium 1 Gm / 100 Ml D5w Administered 08/26/25 20:56 Dose 100 mls @ ud IV .STK-MED ONE Ceftriaxone Sodium 1 gm in 100 mls @ 200 mls/hr 08/26/25 22:24 08/26/25 23:12 Rocephin 1 Gm / 100 Ml Nacl IV 08/26/25 22:53 Infused STAT ONE Infusion Ceftriaxone Sodium Confirm 08/26/25 22:36 Rocephin 1 Gm / 100 Ml Nacl Administered 08/26/25 22:37 Dose 1 gm in 100 mls @ ud IV .STK-MED ONE Sodium Chloride Confirm 08/26/25 19:52 Sodium Chloride 0.9% 1000 Ml Administered 08/26/25 19:53 Dose 1,000 mls @ ud .ROUTE .STK-MED ONE Sodium Chloride 1,000 mls @ 50 mls/hr 08/27/25 01:39 08/27/25 02:32 Sodium Chloride 0.9% 1000 Ml IV 09/26/25 01:38 50 mls/hr .Q20H TERE Administration Metoprolol Tartrate 5 mg 08/26/25 21:54 08/26/25 22:41 Metoprolol Tartrate 5 Mg/5 Ml Vial IV 08/26/25 21:55 5 mg STAT ONE Administration Metoprolol Tartrate Confirm 08/26/25 22:36 Metoprolol Tartrate 5 Mg/5 Ml Vial Administered 08/26/25 22:37 Dose 5 mg IV .STK-MED ONE Morphine Sulfate 4 mg 08/26/25 22:56 08/26/25 23:10 Morphine Sulfate 4 Mg/Ml Injection IV 08/26/25 22:57 4 mg STAT ONE Administration Morphine Sulfate Confirm 08/26/25 23:09 Morphine Sulfate 4 Mg/Ml Injection Administered 08/26/25 23:10 Dose 4 mg .ROUTE .STK-MED ONE Ondansetron HCl 4 mg 08/26/25 22:56 08/26/25 23:10 Ondansetron Hcl 4 Mg/2 Ml Vial IV 08/26/25 22:57 4 mg STAT ONE Administration Ondansetron HCl Confirm 08/26/25 23:09 Ondansetron Hcl 4 Mg/2 Ml Vial Administered 08/26/25 23:10 Dose 4 mg .ROUTE .STK-MED ONE Sodium Bicarbonate 50 meq 08/27/25 06:26 08/27/25 06:30 Sodium Bicarbonate 1 Meq/Ml 50ml Syringe IV 08/27/25 06:27 50 meq ONCE ONE Administration Sodium Chloride Confirm 08/27/25 07:15 Sodium Cl For Inhalation 3 Ml Ud Nebule Administered 08/27/25 07:16 Dose 3 ml IH .STK-MED ONE Assessment/Plan (1) Atrial fibrillation with RVR Current Visit: Yes Status: Acute Assessment & Plan: - Cardizem gtt - Cardiology consult - ICU - Tele - CBC, CMP reviewed - Keep K+ > 4 and Mg+ > 2 - Replaced Mg+ today - EKG - Lovenox held for now for thoracentesis, SCD's - Will start xarelto when able Code(s): I48.91 - UNSPECIFIED ATRIAL FIBRILLATION (2) Transaminitis Current Visit: Yes Status: Acute Assessment & Plan: - AST 227, ALT 185- trend- improving - Pt reports hx liver cirrhosis - Hepatitis panel - Will need OP f/u with specialist Code(s): R74.01 - ELEVATION OF LEVELS OF LIVER TRANSAMINASE LEVELS (3) D-dimer, elevated Current Visit: Yes Status: Acute Assessment & Plan: - D-Dimer 4.94 - CTA negative for PE Code(s): R79.89 - OTHER SPECIFIED ABNORMAL FINDINGS OF BLOOD CHEMISTRY (4) Metabolic acidosis Current Visit: Yes Status: Acute Assessment & Plan: - Co2 15- trend - PO sodium bicarb BID - 1 amp bolus gave of sodium bicarb last night Code(s): E87.20 - ACIDOSIS, UNSPECIFIED (5) Non-compliance Current Visit: Yes Status: Acute Assessment & Plan: - Patient states that she has not been taking her medications for over 2 months now and states that she does not know how to take them appropriately and needs assistance as to when to take them. She states that she knows that she has hepatitis C however she has not followed up for any treatment as she does not know where to go and would like treatment if someone can lead her in the right direction. - Drug and alcohol abuse may be contributing to her noncompliance. - Case management to assist with support OP - Consider rehab at d/c Code(s): Z91.199 - PT NONCOMPL WITH OTHER MED TRTMT AND REGIMEN D/T UNSP REASON (6) Hypothyroidism Current Visit: Yes Status: Acute Assessment & Plan: - TSH 8.674 - Restarted Synthroid - Will need OP f/u Code(s): E03.9 - HYPOTHYROIDISM, UNSPECIFIED (7) Anxiety Current Visit: Yes Status: Acute Assessment & Plan: - About health concerns - Alcohol withdrawal sx- follow protocol for medication Code(s): F41.9 - ANXIETY DISORDER, UNSPECIFIED (8) Elevated fasting glucose Current Visit: Yes Status: Acute Assessment & Plan: - A1C pending - Fasting glucose 142 this AM Code(s): R73.01 - IMPAIRED FASTING GLUCOSE (9) Bilateral pleural effusion Current Visit: Yes Status: Acute Assessment & Plan: - As seen on Chest CTA - Right sided thoracentesis ordered today however cannot be done as Lovenox was given in the ER yesterday. This will be held today and thoracentesis to be done with labs in the morning. - Left side to be completed on - LASIX Q 8 hours Code(s): J90 - PLEURAL EFFUSION, NOT ELSEWHERE CLASSIFIED (10) CHF (congestive heart failure) Current Visit: Yes Status: Acute Assessment & Plan: - Echo - Lasix 40mg IV Q8 hr - I&O's, daily weight - Tele - BNP 5340 - Cardiology consult - 8L Oxymask 95% - Keep HOB > 30-45 degrees - 2 L fluid restriction - Heart healthy diet when not NPO - Chest CTA shows: IMPRESSION: 1. No convincing evidence of pulmonary embolism on current examination. 2. Mildly dilated pulmonary trunk measuring 35 mm in diameter, suggestive of pulmonary arterial hypertension. New finding. 3. Moderate cardiomegaly with interval increase in cardiac size. 4. Interval evidence of severe right-sided and moderate left-sided pleural effusion with underlying consolidation/collapse. Appearances are likely secondary to congestive changes with possibility of superadded pulmonary infection. Clinical and laboratory correlation is advised. 5. Generalized body wall edema. New finding. 6. The rest of the findings are as stated above. Code(s): I50.9 - HEART FAILURE, UNSPECIFIED (11) Chronic anemia Current Visit: Yes Status: Acute Assessment & Plan: - Hgb 8.1- trend- appears to be at baseline per old labs reviewed - Iron profile ordered - Occult stool Code(s): D64.9 - ANEMIA, UNSPECIFIED (12) Hypomagnesemia Current Visit: Yes Status: Acute Assessment & Plan: - MG+ 1.5 on admission, 1.6 today- replace to keep > 2 d/t A-fib RVR Code(s): E83.42 - HYPOMAGNESEMIA (13) Hypoxia Current Visit: Yes Status: Acute Assessment & Plan: - 8L oxymask-95%- wean as tolerated- BL 1-2 Liters - BL 1-2 liters but will not wear at home and noncompliant. - CTA chest reviewed - 2:2 BL pleural effusions- see plan above Code(s): R09.02 - HYPOXEMIA (14) UTI (urinary tract infection) Current Visit: Yes Status: Acute Assessment & Plan: - UA gram negative - Ceftriaxone IV - CBC, CMP reviewed - BC x2 pending - LA negative Code(s): N39.0 - URINARY TRACT INFECTION, SITE NOT SPECIFIED (15) Alcohol withdrawal delirium Current Visit: No Status: Acute Assessment & Plan: - Alcohol withdrawal protocol - Alcohol level Code(s): F10.231 - ALCOHOL DEPENDENCE WITH WITHDRAWAL DELIRIUM (16) Hepatitis C Current Visit: No Status: Chronic Qualifiers: Viral hepatitis chronicity: chronic Hepatic coma status: without hepatic coma Qualified Code(s): B18.2 - Chronic viral hepatitis C Assessment & Plan: - Chronic per patient. Patient states that she has not got any treatment for this as she does not know how to follow-up or receive treatment for this will need referral outpatient at D/C. - Hepatitis profile ordered - Liver enzymes AST 227/ALT 185 - US abd for eval of ascites (17) Cirrhosis of liver with ascites Current Visit: No Status: Chronic Qualifiers: Hepatic cirrhosis type: alcoholic cirrhosis Qualified Code(s): K70.31 - Alcoholic cirrhosis of liver with ascites Assessment & Plan: - US of abd today for further eval - Amylase/Lipase WNL Code(s): K74.60 - UNSPECIFIED CIRRHOSIS OF LIVER; R18.8 - OTHER ASCITES (18) HTN (hypertension) Current Visit: No Status: Chronic Qualifiers: Hypertension type: primary hypertension Qualified Code(s): I10 - Essential (primary) hypertension Assessment & Plan: - BP stable - Hold bp meds while on cardizem gtt- Discussed with nursing Code(s): I10 - ESSENTIAL (PRIMARY) HYPERTENSION (19) Methamphetamine abuse Current Visit: No Status: Chronic Assessment & Plan: - UDS pending - Advised cessation Code(s): F15.10 - OTHER STIMULANT ABUSE, UNCOMPLICATED (20) Alcohol abuse Current Visit: Yes Status: Chronic Assessment & Plan: - Alcohol level pending - Advised cessation - CM to discuss rehab - Admits to drinking 4 glasses of vodka daily - Alcohol withdrawal protocol in place Code(s): F10.10 - ALCOHOL ABUSE, UNCOMPLICATED (21) NAKUL (acute kidney injury) Current Visit: Yes Status: Resolved Assessment & Plan: - Resolved - Stop IVF VTE: SCD's PPI: Protonix Next of KIN: Daughter D/C plan: 3-4 days Code status: SCO/DNR Plan of care/ Critical care time > 60 minutes Code(s): N17.9 - ACUTE KIDNEY FAILURE, UNSPECIFIED
[2025-08-27] MEDS: FOLATE 1 MG PO SCH (12:01)
[2025-08-27] MEDS: VITAMIN B-1 100 MG PO SCH (12:01)
[2025-08-27] MEDS: Acidophilus TABLET PO SCH (12:01)
[2025-08-27] MEDS: NEURONTIN PO SCH (12:01)
[2025-08-27] MEDS: THERAGRAN MULTIVITAMIN PO SCH (12:01)
[2025-08-27] MEDS: SODIUM BICARBONATE PO SCH (12:02)
[2025-08-27] MEDS: Cozaar 50 MG PO SCH (12:02)
[2025-08-27] MEDS: Coreg 3.125 MG PO SCH (12:02)
[2025-08-27] MEDS: TYLENOL 325 MG PO PRN (12:22)
[2025-08-27] MEDS: MAG-OX 400 PO ONE (12:22)
[2025-08-27 12:54] LABS: Iron 22 ug/dL (37-170); TIBC 386 ug/dL (265-462)
--- NOTE | 2025-08-27 13:05 | XRAY ---
Indication: Cirrhosis. Two-dimensional right upper quadrant abdominal sonogram performed. Comparison: None Pancreas not well seen due to overlying bowel gas. Visualized liver mildly fatty and homogeneous in echogenicity without hepatomegaly or ascites. Partially contracted gallbladder negative for cholelithiasis. Gallbladder wall thickening 3.7 mm presumed from partial contraction. No pericholecystic fluid. Common bile duct measures 5 mm. No intrahepatic biliary distention. Right kidney measures 9.4 x 4.2 x 4.9 cm and sonographically unremarkable. Impression: Nonvisualization pancreas. Gallbladder wall thickening presumed from partial contraction. Fatty liver. Remaining right upper quadrant sonogram negative.
[2025-08-27 13:59] LABS: Ferritin 7.01 ng/mL (11.1-264)
[2025-08-27 14:14] LABS: Amphetamine,Urine POSITIVE (NEGATIVE); Barbiturate,Urine NEGATIVE (NEGATIVE); Benzodiazepine,Urine NEGATIVE (NEGATIVE); Cocaine,Urine NEGATIVE (NEGATIVE); Methadone,Urine NEGATIVE (NEGATIVE); Opiate,Urine POSITIVE (NEGATIVE); PCP,Urine NEGATIVE (NEGATIVE); THC,Urine NEGATIVE (NEGATIVE)
[2025-08-27] MEDS: Protonix 20MG Tablet PO SCH (14:37)
--- NOTE | 2025-08-27 15:14 | PCM.CONS ---
History of Present Illness - Date of Consult Date of Encounter: 08/27/25 Consulting Software Support Technician: JORGE HAIDER MD Requesting Provider: Attending Provider: EDDIE GARNICA MD Primary Care Provider: PCP: SKY MATTHEW Consent was: Given for this tele-med encounter - Consult Narrative Reason for Consult: CHF HPI: Patient is a 70-year-old female with history of HFrEF (EF 20--25%), atrial fibrillation, PAD, methamphetamine abuse, and alcohol abuse who presented with congestive heart failure and atrial fibrillation with a rapid ventricular response. She last saw her PCP approximately 2-3 months ago. She told her PCP that she was confused on how to take her medications. A [employer] health company went to her home and set up her medications in a weekly pill box. The [employer] health company never returned because the patient would not pick answer the phone or open the front door. As a result, she has not taken any of her medications for the past 2 months. She has continued to have 4 drinks of alcoholic beverages on a daily basis. She last abused methamphetamine one week ago. She has been bothered by increasing shortness of breath, orthopnea, and PND over the 4 days prior to admission. She denied any edema, palpitations, or chest pain. 911 was called last night. Upon arrival to our ER, she was tachycardic in the 150s with a BP 131/80 and room air O2 sat of 86%. D-dimer was elevated. O2 was placed. ECG confirmed that she was in atrial fibrillation with a rapid VR. She does not know if her atrial fibrillation is permanent. Chest CT showed no evidence for a pulmonary embolism but was consistent with congestive heart failure with bilateral pleural effusions. She was started on furosemide 40 mg IVP for her CHF. She was started on a diltiazem infusion which was titrated up to 20 mg/hr. ln the ICU her diltiazem was weaned down to 5 mg/hr. Echocardiogram today revealed a mildly dilated LV, mild to moderate LVH, and severely depressed LVSF with an estimated EF 20-25%. Serial troponins were unremarkable. She has an anion gap metabolic acidosis and was given an amp of sodium bicarbonate. cc:: The requesting physician will be sent a copy of the consult. Review of Systems - Review of Systems All systems: reviewed and no additional remarkable complaints except as noted below (Intermittent right shoulder discomfort related to osteoarthritis. Denies melena, hematochezia, or hematemesis. Has had multiple transfusions. Apparent workup in the past revealed no source for bleeding.) - Past Medical History Past Medical History: Yes Neurological History: Seizures, Peripheral Neuropathy ENT History: No Pertinent History Cardiac History: Coronary Artery Disease, High Cholesterol, Hypertension, Myocardial Infarction ([place]), Peripheral Vascular Disease Respiratory History: COPD Endocrine Medical History: Hypothyroidism, Liver Disease Musculoskelatal History: Osteoarthritis GI Medical History: Hernia, Cirrhosis, Pancreatitis History: No Pertinent History Pyscho-Social History: Bipolar, Depression, Anxiety, Panic Disorder Reproductive Disorders: No Pertinent History Comment: Hx of one seizure when not drinking alcohol. pt has stopped drugs/drinking/and smoking recently, Hx of hepatitis C. - Past Surgical History Past Surgical History: Yes Neuro Surgical History: No Pertinent History Cardiac History: Cardiac Stent, Cardiac Catheterization Respiratory Surgery: No Pertinent History GI Surgical History: No Pertinent History Genitourinary Surgical Hx: No Pertinent History Musculskeletal Surgical Hx: Orthopedic Surgery Female Surgical History: Tubal Ligation Other Surgical History: HX Orthopedic Surgery on Bilateral arms from going through glass doors. Significant Family History: no pertinent family hx - Social History Smoking Status: Current some day smoker How long have you smoked: 50+ Exposure to second hand smoke: No Alcohol: Daily Drug Use: none - Social Determinants of Health Will the patient participate in the screening: Yes Do you worry about a steady place to live?: No Do you have any problems with any of the following?: No known problems In the past 12 months,have you had to go without utilities?: No Have you or anyone in your house had to go without enough: Yes Transportation Issues: Yes Has anyone in your support network made you feel unsafe?: No Does the patient want assistance with any of the above?: No Comment: not enough money for food, no reliable car Medications & Allergies Home Medications: Home Medication List Albuterol Sulfate [Proair Respiclick] 1 puff IH DAILY PRN PRN 08/27/25 [History Confirmed 08/27/25] Allergies/Adverse Reactions: Allergies Allergy/AdvReac Type Severity Reaction Status Date / Time Penicillins Allergy Intermediate Hives Verified 02/28/25 08:17 adhesive tape Allergy Mild Rash Verified 02/28/25 08:17 lorazepam [From Ativan] AdvReac Intermediate Verified 02/28/25 08:17 Exam - Vitals Vital Signs: Vital Signs - 24 hr Temp Pulse Resp BP BP Pulse Ox 08/27/25 14:00 75 13 113/78 93 L 08/27/25 13:30 71 12 111/78 08/27/25 13:00 71 14 111/70 08/27/25 12:30 72 14 123/75 100 08/27/25 12:20 76 20 133/70 08/27/25 12:01 64 15 133/70 08/27/25 12:00 74 08/27/25 11:30 96.8 F 75 22 118/91 95 08/27/25 11:00 118/77 08/27/25 10:30 72 20 128/110 08/27/25 10:23 60 14 140/71 08/27/25 10:00 96.8 F 61 16 140/71 98 08/27/25 09:42 62 13 121/88 08/27/25 09:30 68 20 121/88 08/27/25 09:02 75 21 112/66 08/27/25 08:30 85 123/77 08/27/25 08:00 77 122/72 08/27/25 07:30 78 10 L 136/93 08/27/25 07:18 85 17 95 08/27/25 07:00 81 11 L 126/82 08/27/25 06:30 117 H 18 162/88 08/27/25 06:02 118 H 132/97 08/27/25 06:00 123 H 14 132/97 08/27/25 05:30 122 H 11 L 130/106 08/27/25 05:07 115 H 15 116/99 08/27/25 04:04 103 H 22 133/83 08/27/25 03:53 117 H 08/27/25 03:52 97.7 F 128 H 20 135/95 98 08/27/25 03:31 124 H 19 115/85 08/27/25 03:16 112 H 12 126/82 08/27/25 03:00 117 H 16 121/95 08/27/25 02:45 110 H 30 H 136/103 08/27/25 02:30 109 H 19 134/83 08/27/25 02:15 103 H 12 123/83 08/27/25 02:00 113 H 16 117/92 08/27/25 01:42 97.2 F 122 H 22 121/89 97 08/27/25 01:39 97 08/27/25 01:03 115/72 08/27/25 01:01 119 H 24 115/72 98 08/27/25 00:31 120 H 14 141/93 97 08/27/25 00:30 123 H 20 95 08/27/25 00:01 108 H 15 103/74 96 08/27/25 00:00 121 H 25 H 97 08/26/25 23:52 91 L 08/26/25 23:50 102 H 24 96 08/26/25 23:40 109 H 17 98 08/26/25 23:33 112 H 18 96 08/26/25 23:01 130 H 18 126/81 96 08/26/25 22:45 97 H 21 147/78 96 08/26/25 22:44 136 H 13 87 L 08/26/25 22:41 94 L 08/26/25 22:00 142/93 08/26/25 21:31 119 H 31 H 141/75 100 08/26/25 21:02 120 H 22 146/102 100 08/26/25 20:53 142 H 24 125/103 08/26/25 20:31 116 H 23 125/103 100 08/26/25 20:04 122 H 31 H 129/79 91 L 08/26/25 20:00 98 08/26/25 19:37 106 H 32 H 137/80 89 L 08/26/25 19:33 155 H 21 137/80 91 L General:: no acute distress HEENT: EOMI, JVD (to jaw with head of bed elevated 30 degrees) Cardiovascular Exam: normal heart sounds (Normal S1 and S2), irregular, No murmur, No friction rub, No gallop Respiratory Exam: diminished breath sounds (at bases), wheezing (Mild, diffuse.) SpO2: 93 Oxygen Delivery: Nasal Cannula Gastrointestinal/Abdomen Exam: normal bowel sounds Extremity Exam: other (trace pedal pulses bilaterally), No edema Neurologic: car varnisher II-XII grossly intact, No motor deficits Results Vital Signs: Vital Signs - 24 hr Temp Pulse Resp BP BP Pulse Ox 08/27/25 14:00 75 13 113/78 93 L 08/27/25 13:30 71 12 111/78 08/27/25 13:00 71 14 111/70 08/27/25 12:30 72 14 123/75 100 08/27/25 12:20 76 20 133/70 08/27/25 12:01 64 15 133/70 08/27/25 12:00 74 08/27/25 11:30 96.8 F 75 22 118/91 95 08/27/25 11:00 118/77 08/27/25 10:30 72 20 128/110 08/27/25 10:23 60 14 140/71 08/27/25 10:00 96.8 F 61 16 140/71 98 08/27/25 09:42 62 13 121/88 08/27/25 09:30 68 20 121/88 08/27/25 09:02 75 21 112/66 08/27/25 08:30 85 123/77 08/27/25 08:00 77 122/72 08/27/25 07:30 78 10 L 136/93 08/27/25 07:18 85 17 95 08/27/25 07:00 81 11 L 126/82 08/27/25 06:30 117 H 18 162/88 08/27/25 06:02 118 H 132/97 08/27/25 06:00 123 H 14 132/97 08/27/25 05:30 122 H 11 L 130/106 08/27/25 05:07 115 H 15 116/99 08/27/25 04:04 103 H 22 133/83 08/27/25 03:53 117 H 08/27/25 03:52 97.7 F 128 H 20 135/95 98 08/27/25 03:31 124 H 19 115/85 08/27/25 03:16 112 H 12 126/82 08/27/25 03:00 117 H 16 121/95 08/27/25 02:45 110 H 30 H 136/103 08/27/25 02:30 109 H 19 134/83 08/27/25 02:15 103 H 12 123/83 08/27/25 02:00 113 H 16 117/92 08/27/25 01:42 97.2 F 122 H 22 121/89 97 08/27/25 01:39 97 08/27/25 01:03 115/72 08/27/25 01:01 119 H 24 115/72 98 08/27/25 00:31 120 H 14 141/93 97 08/27/25 00:30 123 H 20 95 08/27/25 00:01 108 H 15 103/74 96 08/27/25 00:00 121 H 25 H 97 08/26/25 23:52 91 L 08/26/25 23:50 102 H 24 96 08/26/25 23:40 109 H 17 98 08/26/25 23:33 112 H 18 96 08/26/25 23:01 130 H 18 126/81 96 08/26/25 22:45 97 H 21 147/78 96 08/26/25 22:44 136 H 13 87 L 08/26/25 22:41 94 L 08/26/25 22:00 142/93 08/26/25 21:31 119 H 31 H 141/75 100 08/26/25 21:02 120 H 22 146/102 100 08/26/25 20:53 142 H 24 125/103 08/26/25 20:31 116 H 23 125/103 100 08/26/25 20:04 122 H 31 H 129/79 91 L 08/26/25 20:00 98 08/26/25 19:37 106 H 32 H 137/80 89 L 08/26/25 19:33 155 H 21 137/80 91 L Pain Assessment - Last Documented Pain Intensity 10 Pain Scale Used 0-10 Pain Scale Intake and Output: Intake & Output 08/25/25 08/26/25 08/27/25 08/28/25 11:59 11:59 11:59 11:59 Intake Total 1242 Output Total 300 925 Balance 942 -925 Weight 63.2 kg LAB: I have reviewed the Labs in [facility]. Radiology Exams: Radiology Procedures Category Date Time Status CHEST WITH CONTRAST [CT] Stat Exams 08/26/25 20:40 Completed ECHO W/2D AND DOPPLER [US] Routine Exams 08/27/25 02:44 Taken THORACENTESIS [US] Routine Exams 08/28/25 09:00 Ordered US ABDOMEN LIMITED [ABDOMINAL-LIMITED] [US] Routine Exams 08/27/25 03:09 Completed TTE 08/27/2025: 1. Moderately dilated left atrium. Mildly dilated left ventricle and right atrium. Normal right ventricular chamber size. 2. Mild to moderate concentric left ventricular hypertrophy. 3. Severely depressed left ventricular systolic function due to severe global hypokinesis. Estimated EF 20-25%. 4. Unable to assess grade of diastolic dysfunction due to the patient's underlying atrial fibrillation. 5. Normal right ventricular systolic function. 6. Structurally normal valves. 7. Doppler: Mild to moderate mitral regurgitation, mild tricuspid and pulmonic regurgitation. 8. Normal estimated PA systolic pressure (29 mmHg). 9. Mildly elevated right atrial pressure (8 mmHg). 10. No pericardial effusion. Chest CT with contrast 08/26/2025: 1. No convincing evidence of pulmonary embolism on current examination. 2. Mildly dilated pulmonary trunk measuring 35 mm in diameter, suggestive of pulmonary arterial hypertension. New finding. 3. Moderate cardiomegaly with interval increase in cardiac size. 4. Interval evidence of severe right-sided and moderate left-sided pleural effusion with underlying consolidation/collapse. Appearances are likely secondary to congestive changes with possibility of superadded pulmonary infection. Clinical and laboratory correlation is advised. 5. Generalized body wall edema. New finding. 6. Calcifications are noted in the coronary arteries. 7. The rest of the findings are as stated above. RUQ Ultrasound 08/27/2025: Nonvisualization pancreas. Gallbladder wall thickening presumed from partial contraction. Fatty liver. Remaining right upper quadrant sonogram negative. Tracing 1 Attestation: I have reviewed this EKG and interpreted as documented below. EKG Narrative: ECGs: 08/27/2025 at 0521: Atrial fibrillation with rapid ventricular response at 116 bpm. Possible old inferior infarct. ST and T wave changes, consider lateral ischemia. 08/26/2025 at 1938: Atrial fibrillation with rapid ventricular response at 148 bpm. Old inferior infarct. ST and T wave changes, consider lateral ischemia. Telemetry 08/27/2025 at approximately 1830: 7 beat run of NSVT at 158 bpm. Assessment & Plan (1) Acute on chronic combined systolic (congestive) and diastolic (congestive) heart failure Current Visit: Yes Status: Acute Assessment & Plan: Secondary to her medications running out two months ago + her alcohol/methamphetamine abuse. Continue furosemide 40 mg IV push every 8 hours. Will replace carvedilol with metoprolol succinate 25 mg daily due to her underlying COPD. Start losartan 25 mg daily. Discontinue diltiazem infusion in the setting of her severe cardiomyopathy. Will discontinue daily dosing of sodium bicarbonate to avoid a sodium load. Code(s): I50.43 - ACUTE ON CHRONIC COMBINED SYSTOLIC AND DIASTOLIC HRT FAIL (2) Atrial fibrillation Current Visit: Yes Status: Acute Assessment & Plan: Unclear duration. Has not taken Xarelto over the past 2 months. [id number] Score = 5 which places her at a high risk for an embolic embolic event. Right thoracentesis is scheduled for tomorrow. Will consider starting systemic anticoagulation afterwards. Will replace diltiazem with metoprolol. In the setting of her HFrEF and atrial fibrillation, she would benefit from rhythm control after appropriate anticoagulation. Will request records from her naphthalene still operator, Dr. Frazier. Code(s): I48.91 - UNSPECIFIED ATRIAL FIBRILLATION (3) Atherosclerosis of coronary artery without angina pectoris Current Visit: Yes Status: Acute Assessment & Plan: S/P PCIx2 in 2020. Metoprolol is being initiated. Will hold off on aspirin for now with her history of anemia and blood transfusions. Code(s): I25.10 - ATHSCL HEART DISEASE OF [place] CORONARY ARTERY W/O ANG PCTRS (4) Polysubstance abuse Current Visit: Yes Status: Acute Assessment & Plan: Both alcohol and methamphetamine. Do not see patient's condition improving if she continues this abusive behavior. Code(s): F19.10 - OTHER PSYCHOACTIVE SUBSTANCE ABUSE, UNCOMPLICATED (5) PAD (peripheral artery disease) Current Visit: Yes Status: Acute Assessment & Plan: Has had an unknown bypass procedure involving her LEs. Will try to obtain old records from her naphthalene still operator. Code(s): I73.9 - PERIPHERAL VASCULAR DISEASE, UNSPECIFIED - Encounter Encounter: The entirety of this encounter was performed via Telemedicine using audio and visual. Permission granted by patient for this type of encounter. Case discussed with Cindy Wright NP. We will follow with you. Jorge Haider MD [facility] [phone]
[2025-08-27] MEDS: Lopressor 25MG Tab PO ONE (19:51)
[2025-08-27] MEDS: Cozaar 50 MG PO ONE (19:51)
[2025-08-27] MEDS: ROCEPHIN 1 GM / 100 ML NaCl 1 GM/100 ML IVPB IV SCH (22:26)
[2025-08-28 04:56] LABS: Hematocrit 26.5 % (34.1-44.9); Hemoglobin 7.3 g/dL (11.2-15.7); Mean Corpuscular Hemoglobin 19.1 pg (25.6-32.2); Mean Corpuscular Hgb Concent. 27.5 g/dL (32.2-35.5); Platelet Count 248 x10^3/uL (182-369); Red Blood Count 3.82 x10^6/uL (3.93-5.22); White Blood Count 13.9 x10^3/uL (3.98-10.04)
[2025-08-28 05:32] LABS: Calcium 8.3 mg/dL (8.4-10.2); Carbon Dioxide 21.0 mmol/L (22-30); Creatinine 1 1.19 mg/dL (0.52-1.04); EST GLOMERULAR FILTRATION RATE 49.5 ML/MIN; Glucose 113.0 mg/dL (74-106); Potassium 4.3 mmol/L (3.5-5.1); SGOT/AST 122.0 U/L (14-36); SGPT/ALT 150.0 U/L (0-35); Total Protein 6.6 g/dL (6.3-8.2)
[2025-08-28 05:37] LABS: Slide Review YES
[2025-08-28 05:41] LABS: INR 1.11 (0.8-3.0); PROTIME 12.4 SECONDS (9.4-12.5)
[2025-08-28] MEDS: Zofran 4 MG/2 ML VIAL IV PRN (06:51)
[2025-08-28] MEDS: Paxil 20 MG PO SCH (09:52)
[2025-08-28] MEDS: Toprol-Xl 25MG Tablets PO SCH (09:52)
[2025-08-28 09:58] LABS: BODY FLUID CLARITY CLEAR (CLEAR); BODY FLUID COLOR COLORLESS (COLORLESS)
--- NOTE | 2025-08-28 11:28 | PCM.NOTE ---
Date and Time: 08/28/25 1122 Subjective Assessment: 08/27/25 is a 70-year-old female with a complex medical history including COPD (previously on 12 L home oxygen), atrial fibrillation on Xarelto, hypertension, hyperlipidemia, neuropathy, hypothyroidism, anemia, hepatitis C, methamphetamine abuse, and alcohol dependence with prior withdrawals, who presented on 08/26/25 with dyspnea, dry cough, wheezing, and chest discomfort. She reported discontinuing all home medications and oxygen approximately two months ago due to difficulty managing them. In the ED, she was found to be in atrial fibrillation with RVR, requiring IV diltiazem push followed by continuous infusion. Workup revealed a positive D-dimer but CTA was negative for PE, significant volume overload with bilateral pleural effusions, elevated liver enzymes, and evidence of UTI. She received IV Lasix and IV Rocephin, initially required BiPAP, and was transitioned to nasal cannula oxygen. On 08/27, she remained on Cardizem drip and was very short of breath, requiring 8 L Oxymizer with saturations at 95%. Abdominal ultrasound was ordered to evaluate for ascites given her history of cirrhosis and distended abdomen. LFTs remained elevated but improved (AST 227, ALT 185). Synthroid was initiated for elevated TSH (8.674). Ceftriaxone was continued for UTI, with urine culture showing gram-negative organisms and sensitivities pending. CO? was 15, and oral sodium bicarbonate was continued due to inability to provide IV fluids in the setting of pleural effusions. Lasix 40 mg IV every 8 hours was maintained. Magnesium was 1.6 and replaced to keep >2 given atrial fibrillation. Cardiology consult and echocardiogram were pending. Thoracentesis was ordered for the right lung but deferred until the following day due to recent Lovenox administration, which was subsequently held. The patient reported symptoms of alcohol withdrawal, including shakes and anxiety, and was placed on withdrawal protocol. She admitted to drinking four vodka drinks daily, with last use the day prior. Urine drug screen was ordered given her history of methamphetamine use. She expressed difficulty managing medications at home and will require outpatient support. Amylase and lipase were checked due to history of pancreatitis and were normal. She reaffirmed her DNR status. SCDs were ordered while anticoagulation was held. Labs showed hemoglobin 8.1, WBC within normal limits, and negative troponins. She denied chest pain. NAKUL noted previously had resolved. She remained clinically stable but continued to require high-flow oxygen and close monitoring. 08/28/25 The patient is resting in bed and reports feeling better today. Nursing staff noted that she experienced hallucinations the previous night and was treated with Valium for alcohol withdrawal symptoms. She underwent a right thoracentesis with 1 L output. A urine drug screen from yesterday was positive for methamphetamines and opiates. On exam, she continues to have coarse lung sounds. Liver enzymes have improved, with AST at 122 and ALT at 150, and ultrasound showed no ascites. Urine culture grew gram-negative organisms, and ceftriaxone is being continued pending sensitivities; blood cultures remain preliminarily negative. Paxil was initiated this morning for depression and anxiety given an elevated PHQ-9 score. CO2 has improved to 21, leading cardiology to discontinue oral sodium bicarbonate due to sodium content. Creatinine is elevated at 1.19, likely secondary to Lasix. Iron studies revealed iron saturation of 6 and ferritin of 7, so IV Venofer was started for iron replacement. Cardiology adjusted medications last night, and her atrial fibrillation with RVR has resolved; she has been off the Cardizem drip since yesterday evening and her rhythm is currently stable. She remains on 3 L oxygen with saturation of 95%. Laboratory values show WBC at 13.9 and hemoglobin at 7.3, with repeat H&H planned this afternoon. The patient reports a history of repeated blood transfusions and recent EGD and colonoscopy that did not identify the source of her chronic anemia and blood loss, raising concern that she may not be a candidate for anticoagulation. At present, she denies further concerns. - Review of Systems Constitutional: Fatigue, Weakness, No Fever, No Chills Eyes: No Symptoms Ears, Nose, & Throat: No Symptoms Respiratory: Short Of Breath, No Cough Cardiac: No Chest Pain, No Edema, No Syncope Abdominal/Gastrointestinal: No Abdominal Pain, No Nausea, No Vomiting, No Diarrhea Genitourinary Symptoms: No Dysuria Musculoskeletal: Joint Pain (right shoulder and neck pain that is chronic per pt), No Back Pain, No Neck Pain Skin: No Rash Neurological: No Dizziness, No Focal Weakness, No Sensory Changes Psychological: No Symptoms, Alcohol Abuse, Anxiety, Depression, Emotional Lability, Hallucinations, Mood Changes Endocrine: No Symptoms Hematologic/Lymphatic: No Symptoms Immunological/Allergic: No Symptoms Objective Exam General Appearance: no apparent distress, alert, anxiety, thin Neurologic Exam: alert, oriented x 3, cooperative, normal mood/affect, nml cerebellar function, sensation nml, motor weakness, No motor deficits Skin Exam: normal color, warm, dry Eye Exam: PERRL, EOMI, eyes nml inspection Ears, Nose, Throat Exam: normal ENT inspection, pharynx normal, moist mucous membranes Neck Exam: normal inspection, non-tender, supple, full range of motion Respiratory Exam: crackles/rales, No respiratory distress Cardiovascular Exam: regular rate/rhythm, normal heart sounds Gastrointestinal/Abdomen Exam: soft, No tenderness, No mass Extremity Exam: normal inspection, normal range of motion, tenderness (right shoulder) Back Exam: normal inspection, normal range of motion, No CVA tenderness, No vertebral tenderness Pelvic Exam: deferred Rectal Exam: deferred Objective Data Vital Signs: Vital Signs - 24 hr Temp Pulse Resp BP Pulse Ox 08/28/25 10:01 102 H 26 H 101/80 92 L 08/28/25 09:30 122 H 21 111/60 87 L 08/28/25 09:00 110 H 23 126/77 08/28/25 08:31 108 H 17 111/69 94 L 08/28/25 08:01 90 21 130/59 87 L 08/28/25 08:00 99 H 08/28/25 07:30 86 18 107/69 86 L 08/28/25 07:20 90 20 100 08/28/25 07:00 98.1 F 98 H 24 117/69 98 08/28/25 06:30 84 28 H 109/72 91 L 08/28/25 06:00 85 15 115/85 95 08/28/25 05:30 90 14 106/76 98 08/28/25 05:01 91 H 22 114/73 98 08/28/25 04:36 94 H 20 132/66 99 08/28/25 04:00 98.5 F 84 17 100/65 96 08/28/25 03:47 73 13 95/60 89 L 08/28/25 03:35 79 14 92/47 89 L 08/28/25 03:31 93 L 08/28/25 03:11 84 16 88/59 97 08/28/25 02:30 77 15 104/64 94 L 08/28/25 02:00 91 H 21 109/81 99 08/28/25 01:36 79 18 100 08/28/25 01:30 92 H 15 111/68 97 08/28/25 01:00 72 15 111/67 99 08/28/25 00:30 74 20 101/71 99 08/28/25 00:01 71 08/28/25 00:00 98.9 F 71 16 120/70 99 08/27/25 23:30 79 15 110/72 98 08/27/25 23:00 73 15 110/68 99 08/27/25 22:30 83 15 100/65 99 08/27/25 22:00 83 13 104/60 99 08/27/25 21:30 89 14 111/68 98 08/27/25 21:00 79 13 122/77 98 08/27/25 20:30 87 17 115/69 99 08/27/25 20:00 98.0 F 96 H 20 108/80 98 08/27/25 19:30 84 19 121/63 98 08/27/25 19:00 84 13 119/78 08/27/25 18:30 97.8 F 91 H 18 109/69 96 08/27/25 18:14 91 H 20 124/66 94 L 08/27/25 18:00 93 H 19 95 08/27/25 17:50 81 18 93 L 08/27/25 17:40 81 18 99 08/27/25 17:32 87 19 95 08/27/25 17:00 101 H 21 114/72 96 08/27/25 16:30 67 24 121/88 08/27/25 16:23 67 16 119/77 08/27/25 16:01 72 23 119/77 95 08/27/25 16:00 68 08/27/25 15:30 70 24 117/85 96 08/27/25 15:00 73 14 122/85 08/27/25 14:31 65 16 111/57 08/27/25 14:00 75 13 113/78 93 L 08/27/25 13:30 71 12 111/78 08/27/25 13:00 71 14 111/70 08/27/25 12:30 72 14 123/75 100 08/27/25 12:20 76 20 133/70 08/27/25 12:01 64 15 133/70 08/27/25 12:00 74 08/27/25 11:30 96.8 F 75 22 118/91 95 Pain Assessment - Last Documented Pain Intensity 0 Pain Scale Used 0-10 Pain Scale Intake and Output: Intake & Output 08/25/25 08/26/25 08/27/25 08/28/25 11:59 11:59 11:59 11:59 Intake Total 1242 1497 Output Total 300 1550 Balance 942 -53 Weight 63.2 kg Lab Results: Lab Results-Last 24 Hours 08/27/25 08/27/25 08/27/25 Range/Units 05:35 12:15 12:15 WBC (3.98-10.04) x10^3/uL RBC (3.93-5.22) x10^6/uL Hgb (11.2-15.7) g/dL Hct (34.1-44.9) % MCV (79.4-94.8) fL MCH (25.6-32.2) pg MCHC (32.2-35.5) g/dL RDW (11.7-14.4) % Plt Count (182-369) x10^3/uL PT (9.4-12.5) SECONDS INR (0.8-3.0) Sodium (135-145) mmol/L Potassium (3.5-5.1) mmol/L Chloride (98-107) mmol/L Carbon Dioxide (22-30) mmol/L Anion Gap (5-15) MEQ/L BUN (7-17) mg/dL Creatinine (0.52-1.04) mg/dL Estimated GFR ML/MIN Glucose (74-106) mg/dL Hemoglobin A1c 4.95 (4.5-6.0) % Calcium (8.4-10.2) mg/dL Magnesium (1.6-2.3) mg/dL Iron (37-170) ug/dL TIBC (265-462) ug/dL Iron Saturation (20-39) % Ferritin 7.01 L (11.1-264) ng/mL Total Bilirubin (0.2-1.3) mg/dL AST (14-36) U/L ALT (0-35) U/L Alkaline Phosphatase (38-126) U/L Serum Total Protein (6.3-8.2) g/dL Albumin (3.5-5.0) g/dL Vitamin B12 > 1000 H (239-931) pg/mL Folic Acid 5.05 (2.76 - >20) ng/mL Fluid Color (COLORLESS) Fluid Clarity (CLEAR) Fluid RBC (0) x10^6/uL Fld Polynuclear WBCs # (0) /uL Fld Polynuclear WBCs % (0) % Fld Mononuclear WBCs % (0) % Urine Opiates Level (NEGATIVE) Ur Methadone (NEGATIVE) Urine Barbiturates (NEGATIVE) Ur Phencyclidine (PCP) (NEGATIVE) Urine Amphetamine (NEGATIVE) U Benzodiazepine Level (NEGATIVE) Urine Cocaine (NEGATIVE) Urine Marijuana (THC) (NEGATIVE) Ethyl Alcohol < 10 (0-10) mg/dL Slides for Path Review 08/27/25 08/27/25 08/28/25 Range/Units 12:15 13:56 04:21 WBC (3.98-10.04) x10^3/uL RBC (3.93-5.22) x10^6/uL Hgb (11.2-15.7) g/dL Hct (34.1-44.9) % MCV (79.4-94.8) fL MCH (25.6-32.2) pg MCHC (32.2-35.5) g/dL RDW (11.7-14.4) % Plt Count (182-369) x10^3/uL PT 12.4 (9.4-12.5) SECONDS INR 1.11 (0.8-3.0) Sodium (135-145) mmol/L Potassium (3.5-5.1) mmol/L Chloride (98-107) mmol/L Carbon Dioxide (22-30) mmol/L Anion Gap (5-15) MEQ/L BUN (7-17) mg/dL Creatinine (0.52-1.04) mg/dL Estimated GFR ML/MIN Glucose (74-106) mg/dL Hemoglobin A1c (4.5-6.0) % Calcium (8.4-10.2) mg/dL Magnesium (1.6-2.3) mg/dL Iron 22 L (37-170) ug/dL TIBC 386 (265-462) ug/dL Iron Saturation 6 L (20-39) % Ferritin (11.1-264) ng/mL Total Bilirubin (0.2-1.3) mg/dL AST (14-36) U/L ALT (0-35) U/L Alkaline Phosphatase (38-126) U/L Serum Total Protein (6.3-8.2) g/dL Albumin (3.5-5.0) g/dL Vitamin B12 (239-931) pg/mL Folic Acid (2.76 - >20) ng/mL Fluid Color (COLORLESS) Fluid Clarity (CLEAR) Fluid RBC (0) x10^6/uL Fld Polynuclear WBCs # (0) /uL Fld Polynuclear WBCs % (0) % Fld Mononuclear WBCs % (0) % Urine Opiates Level POSITIVE A (NEGATIVE) Ur Methadone NEGATIVE (NEGATIVE) Urine Barbiturates NEGATIVE (NEGATIVE) Ur Phencyclidine (PCP) NEGATIVE (NEGATIVE) Urine Amphetamine POSITIVE A (NEGATIVE) U Benzodiazepine Level NEGATIVE (NEGATIVE) Urine Cocaine NEGATIVE (NEGATIVE) Urine Marijuana (THC) NEGATIVE (NEGATIVE) Ethyl Alcohol (0-10) mg/dL Slides for Path Review 08/28/25 08/28/25 08/28/25 Range/Units 04:21 04:21 04:21 WBC 13.9 H (3.98-10.04) x10^3/uL RBC 3.82 L (3.93-5.22) x10^6/uL Hgb 7.3 L (11.2-15.7) g/dL Hct 26.5 L (34.1-44.9) % MCV 69.4 L (79.4-94.8) fL MCH 19.1 L (25.6-32.2) pg MCHC 27.5 L (32.2-35.5) g/dL RDW 20.6 H (11.7-14.4) % Plt Count 248 (182-369) x10^3/uL PT (9.4-12.5) SECONDS INR (0.8-3.0) Sodium 134 L (135-145) mmol/L Potassium 4.3 (3.5-5.1) mmol/L Chloride 102 (98-107) mmol/L Carbon Dioxide 21 L (22-30) mmol/L Anion Gap 16.0 H (5-15) MEQ/L BUN 33 H (7-17) mg/dL Creatinine 1.19 H (0.52-1.04) mg/dL Estimated GFR 49.5 ML/MIN Glucose 113 H (74-106) mg/dL Hemoglobin A1c (4.5-6.0) % Calcium 8.3 L (8.4-10.2) mg/dL Magnesium 1.6 (1.6-2.3) mg/dL Iron (37-170) ug/dL TIBC (265-462) ug/dL Iron Saturation (20-39) % Ferritin (11.1-264) ng/mL Total Bilirubin 0.40 (0.2-1.3) mg/dL AST 122 H (14-36) U/L ALT 150 H (0-35) U/L Alkaline Phosphatase 80 (38-126) U/L Serum Total Protein 6.6 (6.3-8.2) g/dL Albumin 3.5 (3.5-5.0) g/dL Vitamin B12 (239-931) pg/mL Folic Acid (2.76 - >20) ng/mL Fluid Color (COLORLESS) Fluid Clarity (CLEAR) Fluid RBC (0) x10^6/uL Fld Polynuclear WBCs # (0) /uL Fld Polynuclear WBCs % (0) % Fld Mononuclear WBCs % (0) % Urine Opiates Level (NEGATIVE) Ur Methadone (NEGATIVE) Urine Barbiturates (NEGATIVE) Ur Phencyclidine (PCP) (NEGATIVE) Urine Amphetamine (NEGATIVE) U Benzodiazepine Level (NEGATIVE) Urine Cocaine (NEGATIVE) Urine Marijuana (THC) (NEGATIVE) Ethyl Alcohol < 10 (0-10) mg/dL Slides for Path Review YES 08/28/25 Range/Units 09:44 WBC (3.98-10.04) x10^3/uL RBC (3.93-5.22) x10^6/uL Hgb (11.2-15.7) g/dL Hct (34.1-44.9) % MCV (79.4-94.8) fL MCH (25.6-32.2) pg MCHC (32.2-35.5) g/dL RDW (11.7-14.4) % Plt Count (182-369) x10^3/uL PT (9.4-12.5) SECONDS INR (0.8-3.0) Sodium (135-145) mmol/L Potassium (3.5-5.1) mmol/L Chloride (98-107) mmol/L Carbon Dioxide (22-30) mmol/L Anion Gap (5-15) MEQ/L BUN (7-17) mg/dL Creatinine (0.52-1.04) mg/dL Estimated GFR ML/MIN Glucose (74-106) mg/dL Hemoglobin A1c (4.5-6.0) % Calcium (8.4-10.2) mg/dL Magnesium (1.6-2.3) mg/dL Iron (37-170) ug/dL TIBC (265-462) ug/dL Iron Saturation (20-39) % Ferritin (11.1-264) ng/mL Total Bilirubin (0.2-1.3) mg/dL AST (14-36) U/L ALT (0-35) U/L Alkaline Phosphatase (38-126) U/L Serum Total Protein (6.3-8.2) g/dL Albumin (3.5-5.0) g/dL Vitamin B12 (239-931) pg/mL Folic Acid (2.76 - >20) ng/mL Fluid Color COLORLESS (COLORLESS) Fluid Clarity CLEAR (CLEAR) Fluid RBC < 0.002 (0) x10^6/uL Fld Polynuclear WBCs # 277 H (0) /uL Fld Polynuclear WBCs % 48.800 H (0) % Fld Mononuclear WBCs % 51.200 H (0) % Urine Opiates Level (NEGATIVE) Ur Methadone (NEGATIVE) Urine Barbiturates (NEGATIVE) Ur Phencyclidine (PCP) (NEGATIVE) Urine Amphetamine (NEGATIVE) U Benzodiazepine Level (NEGATIVE) Urine Cocaine (NEGATIVE) Urine Marijuana (THC) (NEGATIVE) Ethyl Alcohol (0-10) mg/dL Slides for Path Review Radiology Exams: Radiology Procedures Category Date Time Status CHEST 1 VIEW (PORTABLE) Stat Exams 08/28/25 11:19 Ordered CHEST WITH CONTRAST [CT] Stat Exams 08/26/25 20:40 Completed ECHO W/2D AND DOPPLER [US] Routine Exams 08/27/25 02:44 Taken THORACENTESIS [US] Routine Exams 08/28/25 09:00 Ordered US ABDOMEN LIMITED [ABDOMINAL-LIMITED] [US] Routine Exams 08/27/25 03:09 Completed Medications: Medications Generic Name Dose Route Start Last Admin Trade Name Freq PRN Reason Stop Dose Admin Acetaminophen 650 mg 08/27/25 01:39 08/27/25 12:22 Acetaminophen 325 Mg Tablet PO 09/26/25 01:38 650 mg Q4H PRN PRN Administration PAIN, FEVER, HEADACHE Diazepam 0 mg 08/27/25 03:03 08/28/25 08:32 Diazepam 5 Mg Tablet PO 09/26/25 03:02 2.5 mg Q2H PRN PRN Administration CIWA SCORE Protocol Enoxaparin Sodium 60 mg 08/27/25 10:00 Enoxaparin Sodium 60 Mg/0.6 Ml Syringe SQ 09/26/25 09:59 BID TERE Folic Acid 1 mg 08/27/25 10:00 08/28/25 09:52 Folic Acid 1 Mg Tablet PO 09/26/25 09:59 1 mg DAILY TERE Administration Furosemide 40 mg 08/27/25 07:30 08/28/25 06:04 Furosemide 40 Mg/4 Ml Vial IV 09/26/25 02:44 40 mg Q8HT TERE Administration Gabapentin 300 mg 08/27/25 10:00 08/28/25 09:52 Gabapentin 300 Mg Capsule PO 09/26/25 09:59 300 mg TID TERE Administration Ceftriaxone Sodium 1 gm in 100 mls @ 200 mls/hr 08/27/25 22:00 08/27/25 22:26 Rocephin 1 Gm / 100 Ml Nacl IV 09/26/25 21:59 200 mls/hr Q24H22 TERE Administration Iron Sucrose 200 mg/ Sodium 110 mls @ 220 mls/hr 08/28/25 10:00 08/28/25 09:53 Chloride IV 09/05/25 10:29 220 mls/hr Q48H TERE Administration Lactobacillus Acidophilus 1 tab 08/27/25 10:00 08/28/25 09:51 Lactobacillus Acidophilus 1 Tab Tablet PO 09/26/25 09:59 1 tab DAILY TERE Administration Levalbuterol HCl 1.25 mg 08/27/25 02:40 08/28/25 01:35 Levalbuterol Hcl 1.25 Mg/0.5 Ml Neb IH 09/26/25 02:39 1.25 mg Q4H PRN PRN Administration SHORTNESS OF BREATH Levothyroxine Sodium 25 mcg 08/27/25 07:00 08/28/25 06:47 Levothyroxine Sodium 25 Mcg Tablet PO 09/26/25 06:59 25 mcg QAM@0700 TERE Administration Losartan Potassium 25 mg 08/27/25 10:00 08/28/25 09:52 Losartan Potassium 50 Mg Tablet PO 09/26/25 09:59 25 mg DAILY TERE Administration Metoprolol Succinate 25 mg 08/28/25 10:00 08/28/25 09:52 Metoprolol Succinate 25 Mg Xl Tab PO 09/27/25 09:59 25 mg DAILY TERE Administration Multivitamins Therapeutic 1 tab 08/27/25 10:00 08/28/25 09:52 Multivitamins,Therapeutic 1 Tab Tab PO 09/26/25 09:59 1 tab QAM TERE Administration Ondansetron HCl 4 mg 08/27/25 01:39 08/28/25 06:51 Ondansetron Hcl 4 Mg/2 Ml Vial IV 09/26/25 01:38 4 mg Q6H PRN PRN Administration NAUSEA/VOMITING Pantoprazole Sodium 20 mg 08/27/25 10:00 08/28/25 09:52 Pantoprazole 20 Mg Tab PO 09/26/25 09:59 20 mg DAILY TERE Administration Paroxetine HCl 20 mg 08/28/25 10:00 08/28/25 09:52 Paroxetine Hcl 20 Mg Tablet PO 09/27/25 09:59 20 mg DAILY TERE Administration Sodium Chloride 3 ml 08/27/25 07:24 Sodium Cl For Inhalation 3 Ml Ud Nebule 09/26/25 07:23 PRN PRN Thiamine HCl 100 mg 08/27/25 10:00 08/28/25 09:52 Thiamine Hcl 100 Mg Tablet PO 09/26/25 09:59 100 mg DAILY TERE Administration Discontinued Medications Generic Name Dose Route Start Last Admin Trade Name Freq PRN Reason Stop Dose Admin Albuterol/Ipratropium Confirm 08/27/25 00:25 Ipratropium/Albuterol Sulfate 3 Ml Ampul.Neb Administered 08/27/25 00:26 Dose 3 ml IH .STK-MED ONE Albuterol/Ipratropium 3 ml 08/27/25 00:29 08/27/25 00:29 Ipratropium/Albuterol Sulfate 3 Ml Ampul.Neb IH 08/27/25 00:30 3 ml STAT ONE Administration Carvedilol 3.125 mg 08/27/25 10:00 08/27/25 12:02 Carvedilol 3.125 Mg Tablet PO 09/26/25 09:59 Not Given BID TERE Diltiazem HCl 25 mg 08/26/25 19:51 08/26/25 19:52 Diltiazem Hcl Iv 5 Mg/Ml Vial IV 08/26/25 19:52 25 mg STAT ONE Administration Diltiazem HCl Confirm 08/26/25 19:52 Diltiazem Hcl Iv 5 Mg/Ml Vial Administered 08/26/25 19:53 Dose 50 mg IV .STK-MED ONE Enoxaparin Sodium 60 mg 08/26/25 23:18 08/26/25 23:33 Enoxaparin Sodium 80 Mg/0.8 Ml Syringe SQ 08/26/25 23:19 60 mg STAT ONE Administration Enoxaparin Sodium Confirm 08/26/25 23:32 Enoxaparin Sodium 80 Mg/0.8 Ml Syringe Administered 08/26/25 23:33 Dose 80 mg SQ .STK-MED ONE Furosemide 40 mg 08/26/25 23:17 08/26/25 23:33 Furosemide 40 Mg/4 Ml Vial IV 08/26/25 23:18 40 mg STAT ONE Administration Furosemide Confirm 08/26/25 23:32 Furosemide 40 Mg/4 Ml Vial Administered 08/26/25 23:33 Dose 40 mg .ROUTE .STK-MED ONE Furosemide 40 mg 08/27/25 02:45 08/27/25 02:47 Furosemide 40 Mg/4 Ml Vial IV 09/26/25 02:44 Not Given Q8H TERE Sodium Chloride 1,000 mls @ 100 mls/hr 08/26/25 20:00 08/26/25 19:54 Sodium Chloride 0.9% 1000 Ml IV 09/25/25 19:59 100 mls/hr .Q10H TERE Administration Diltiazem HCl 100 mls @ 5 mls/hr 08/26/25 20:03 08/27/25 18:23 Cardizem Drip 100 Mg/100 Ml D5w IV 09/25/25 20:02 0 mg/hr .Q20H PRN 0 mls/hr HEART RATE/ A-FIB Titration Protocol 5 MG/HR Magnesium Sulfate/Dextrose 100 mls @ 200 mls/hr 08/26/25 20:32 08/26/25 21:41 Magnesium 1 Gm / 100 Ml D5w IV 08/26/25 21:01 Infused STAT ONE Infusion Magnesium Sulfate/Dextrose Confirm 08/26/25 20:55 Magnesium 1 Gm / 100 Ml D5w Administered 08/26/25 20:56 Dose 100 mls @ ud IV .STK-MED ONE Ceftriaxone Sodium 1 gm in 100 mls @ 200 mls/hr 08/26/25 22:24 08/26/25 23:12 Rocephin 1 Gm / 100 Ml Nacl IV 08/26/25 22:53 Infused STAT ONE Infusion Ceftriaxone Sodium Confirm 08/26/25 22:36 Rocephin 1 Gm / 100 Ml Nacl Administered 08/26/25 22:37 Dose 1 gm in 100 mls @ ud IV .STK-MED ONE Sodium Chloride Confirm 08/26/25 19:52 Sodium Chloride 0.9% 1000 Ml Administered 08/26/25 19:53 Dose 1,000 mls @ ud .ROUTE .STK-MED ONE Sodium Chloride 1,000 mls @ 50 mls/hr 08/27/25 01:39 08/27/25 02:32 Sodium Chloride 0.9% 1000 Ml IV 09/26/25 01:38 50 mls/hr .Q20H TERE Administration Losartan Potassium 25 mg 08/27/25 20:00 08/27/25 19:51 Losartan Potassium 50 Mg Tablet PO 08/27/25 20:01 25 mg NOW ONE Administration Magnesium Oxide 400 mg 08/27/25 12:00 08/27/25 12:22 Magnesium Oxide 400 Mg Tablet PO 08/27/25 12:01 400 mg ONCE ONE Administration Metoprolol Tartrate 5 mg 08/26/25 21:54 08/26/25 22:41 Metoprolol Tartrate 5 Mg/5 Ml Vial IV 08/26/25 21:55 5 mg STAT ONE Administration Metoprolol Tartrate Confirm 08/26/25 22:36 Metoprolol Tartrate 5 Mg/5 Ml Vial Administered 08/26/25 22:37 Dose 5 mg IV .STK-MED ONE Metoprolol Tartrate 25 mg 08/27/25 19:45 08/27/25 19:51 Metoprolol Tartrate 25 Mg Tab PO 08/27/25 19:46 25 mg NOW ONE Administration Morphine Sulfate 4 mg 08/26/25 22:56 08/26/25 23:10 Morphine Sulfate 4 Mg/Ml Injection IV 08/26/25 22:57 4 mg STAT ONE Administration Morphine Sulfate Confirm 08/26/25 23:09 Morphine Sulfate 4 Mg/Ml Injection Administered 08/26/25 23:10 Dose 4 mg .ROUTE .STK-MED ONE Ondansetron HCl 4 mg 08/26/25 22:56 08/26/25 23:10 Ondansetron Hcl 4 Mg/2 Ml Vial IV 08/26/25 22:57 4 mg STAT ONE Administration Ondansetron HCl Confirm 08/26/25 23:09 Ondansetron Hcl 4 Mg/2 Ml Vial Administered 08/26/25 23:10 Dose 4 mg .ROUTE .STK-MED ONE Sodium Bicarbonate 50 meq 08/27/25 06:26 08/27/25 06:30 Sodium Bicarbonate 1 Meq/Ml 50ml Syringe IV 08/27/25 06:27 50 meq ONCE ONE Administration Sodium Bicarbonate 650 mg 08/27/25 10:00 08/27/25 12:02 Sodium Bicarbonate 650 Mg Tablet PO 09/26/25 09:59 650 mg DAILY TERE Administration Sodium Chloride Confirm 08/27/25 07:15 Sodium Cl For Inhalation 3 Ml Ud Nebule Administered 08/27/25 07:16 Dose 3 ml IH .STK-MED ONE Multi-Disciplinary Progress Notes: Multi-Disciplinary Progress Notes 08/28/25 10:07 Case Management Note by Lara Durant NO CHANGE IN DC PLANS AT THIS TIME- WILL ENCOURAGE PATIENT TO CONSIDER A REHAB STAY FOR MEDICATION COMPLIANCE Initialized on 08/28/25 10:07 - END OF NOTE 08/27/25 15:13 Radiology Note by JORGE HAIDER TRANSTHORACIC ECHOCARDIOGRAM 08/27/2025: 1. Moderately dilated left atrium. Mildly dilated left ventricle and right atrium. Normal right ventricular chamber size. 2. Mild to moderate concentric left ventricular hypertrophy. 3. Severely depressed left ventricular systolic function due to severe global hypokinesis. Estimated EF 20-25%. 4. Unable to access grade of diastolic dysfunction due to the patient's underlying atrial fibrillation. 5. Normal right ventricular systolic function. 6. Structurally normal valves. 7. Doppler: Mild to moderate mitral regurgitation, mild tricuspid and pulmonic regurgitation. 8. Normal estimated PA systolic pressure (29 mmHg). 9. Mildly elevated right atrial pressure (8 mmHg). 10. No pericardial effusion. Jorge Haider MD [facility] Initialized on 08/27/25 15:13 - END OF NOTE Assessment/Plan (1) Atrial fibrillation with RVR Current Visit: Yes Status: Acute Code(s): I48.91 - UNSPECIFIED ATRIAL FIBRILLATION (2) Transaminitis Current Visit: Yes Status: Acute Code(s): R74.01 - ELEVATION OF LEVELS OF LIVER TRANSAMINASE LEVELS (3) D-dimer, elevated Current Visit: Yes Status: Acute Code(s): R79.89 - OTHER SPECIFIED ABNORMAL FINDINGS OF BLOOD CHEMISTRY (4) Metabolic acidosis Current Visit: Yes Status: Acute Code(s): E87.20 - ACIDOSIS, UNSPECIFIED (5) Non-compliance Current Visit: Yes Status: Acute Code(s): Z91.199 - PT NONCOMPL WITH OTHER MED TRTMT AND REGIMEN D/T UNSP REASON (6) Hypothyroidism Current Visit: Yes Status: Acute Code(s): E03.9 - HYPOTHYROIDISM, UNSPECIFIED (7) Anxiety Current Visit: Yes Status: Acute Code(s): F41.9 - ANXIETY DISORDER, UNSPECIFIED (8) Elevated fasting glucose Current Visit: Yes Status: Acute Code(s): R73.01 - IMPAIRED FASTING GLUCOSE (9) Bilateral pleural effusion Current Visit: Yes Status: Acute Code(s): J90 - PLEURAL EFFUSION, NOT ELSEWHERE CLASSIFIED (10) CHF (congestive heart failure) Current Visit: Yes Status: Acute Code(s): I50.9 - HEART FAILURE, UNSPECIFIED (11) Chronic anemia Current Visit: Yes Status: Acute Code(s): D64.9 - ANEMIA, UNSPECIFIED (12) Hypomagnesemia Current Visit: Yes Status: Acute Code(s): E83.42 - HYPOMAGNESEMIA (13) Hypoxia Current Visit: Yes Status: Acute Code(s): R09.02 - HYPOXEMIA (14) UTI (urinary tract infection) Current Visit: Yes Status: Acute Code(s): N39.0 - URINARY TRACT INFECTION, SITE NOT SPECIFIED (15) Alcohol withdrawal delirium Current Visit: No Status: Acute Code(s): F10.231 - ALCOHOL DEPENDENCE WITH WITHDRAWAL DELIRIUM (16) Hepatitis C Current Visit: No Status: Chronic Qualifiers: Viral hepatitis chronicity: chronic Hepatic coma status: without hepatic coma Qualified Code(s): B18.2 - Chronic viral hepatitis C (17) Cirrhosis of liver with ascites Current Visit: No Status: Chronic Qualifiers: Hepatic cirrhosis type: alcoholic cirrhosis Qualified Code(s): K70.31 - Alcoholic cirrhosis of liver with ascites Code(s): K74.60 - UNSPECIFIED CIRRHOSIS OF LIVER; R18.8 - OTHER ASCITES (18) HTN (hypertension) Current Visit: No Status: Chronic Qualifiers: Hypertension type: primary hypertension Qualified Code(s): I10 - Essential (primary) hypertension Code(s): I10 - ESSENTIAL (PRIMARY) HYPERTENSION (19) Methamphetamine abuse Current Visit: No Status: Chronic Code(s): F15.10 - OTHER STIMULANT ABUSE, UNCOMPLICATED (20) Alcohol abuse Current Visit: Yes Status: Chronic Code(s): F10.10 - ALCOHOL ABUSE, UNCOMPLICATED (21) NAKUL (acute kidney injury) Current Visit: Yes Status: Resolved Assessment & Plan: (1) Atrial fibrillation with RVR Current Visit: Yes Status: Acute Assessment & Plan: - Cardizem gtt - Cardiology consult - ICU - Tele - CBC, CMP reviewed - Keep K+ > 4 and Mg+ > 2 - Replaced Mg+ today - EKG - Lovenox held for now for thoracentesis, SCD's - Will start xarelto when able 08/28 - Hold anticoagulation Hgb 7.3 and to have left thoracentesis in AM - Cardiology note reviewed and agree with plan of care - Echo reviewed - Mg+ 1.6- replaced - Metoprolol Succinate 25mg daily - ICU-Tele - Cardizem gtt stopped last night - HR controlled A-fib - CBC, CMP reviewed - [id number] Score = 5 - F/U with Dr. Frazier OP Code(s): I48.91 - UNSPECIFIED ATRIAL FIBRILLATION (2) Transaminitis Current Visit: Yes Status: Acute Assessment & Plan: - AST 227, ALT 185- trend- improving - Pt reports hx liver cirrhosis - Hepatitis panel - Will need OP f/u with specialist 08/28 - AST 122, ALT 150- improving - US abd reviewed Code(s): R74.01 - ELEVATION OF LEVELS OF LIVER TRANSAMINASE LEVELS (3) D-dimer, elevated Current Visit: Yes Status: Acute Assessment & Plan: - D-Dimer 4.94 - CTA negative for PE Code(s): R79.89 - OTHER SPECIFIED ABNORMAL FINDINGS OF BLOOD CHEMISTRY (4) Metabolic acidosis Current Visit: Yes Status: Acute Assessment & Plan: - Co2 15- trend - PO sodium bicarb BID - 1 amp bolus gave of sodium bicarb last night 08/28 - Cardiology stopped Sodium bicarb last night - Co2 21- improved- trend Code(s): E87.20 - ACIDOSIS, UNSPECIFIED (5) Non-compliance Current Visit: Yes Status: Acute Assessment & Plan: - Patient states that she has not been taking her medications for over 2 months now and states that she does not know how to take them appropriately and needs assistance as to when to take them. She states that she knows that she has hep atitis C however she has not followed up for any treatment as she does not know where to go and would like treatment if someone can lead her in the right direction. - Drug and alcohol abuse may be contributing to her noncompliance. - Case management to assist with support OP - Consider rehab at d/c Code(s): Z91.199 - PT NONCOMPL WITH OTHER MED TRTMT AND REGIMEN D/T UNSP REASON (6) Hypothyroidism Current Visit: Yes Status: Acute Assessment & Plan: - TSH 8.674 - Restarted Synthroid - Will need OP f/u Code(s): E03.9 - HYPOTHYROIDISM, UNSPECIFIED (7) Anxiety Current Visit: Yes Status: Acute Assessment & Plan: - About health concerns - Alcohol withdrawal sx- follow protocol for medication 08/28 - Started Paxil Code(s): F41.9 - ANXIETY DISORDER, UNSPECIFIED (8) Elevated fasting glucose Current Visit: Yes Status: Acute Assessment & Plan: - A1C 4.95 - Fasting glucose 142 08/27, Code(s): R73.01 - IMPAIRED FASTING GLUCOSE (9) Bilateral pleural effusion Current Visit: Yes Status: Acute Assessment & Plan: - As seen on Chest CTA - Right sided thoracentesis ordered today however cannot be done as Lovenox was given in the ER yesterday. This will be held today and thoracentesis to be done with labs in the morning. - Left side to be completed on - LASIX Q 8 hours 08/28 - PT/INR today - Right thoracentesis with 1 Liter output- labs pending - Post op CXR: Portable chest moderately diminished right effusion/atelectasis consistent with recent thoracentesis. No pneumothorax. Remaining chest again demonstrates cardiomegaly and moderate left lung base effusion/atelectasis grossly unchanged. - Left side thorcentesis to be completed on - PT/INR in AM Code(s): J90 - PLEURAL EFFUSION, NOT ELSEWHERE CLASSIFIED (10) CHF (congestive heart failure) Current Visit: Yes Status: Acute Assessment & Plan: - Echo - Lasix 40mg IV Q8 hr - I&O's, daily weight - Tele - BNP 5340 - Cardiology consult - 8L Oxymask 95% - Keep HOB > 30-45 degrees - 2 L fluid restriction - Heart healthy diet when not NPO - Chest CTA shows: IMPRESSION: 1. No convincing evidence of pulmonary embolism on current examination. 2. Mildly dilated pulmonary trunk measuring 35 mm in diameter, suggestive of pulmonary arterial hypertension. New finding. 3. Moderate cardiomegaly with interval increase in cardiac size. 4. Interval evidence of severe right-sided and moderate left-sided pleural effusion with underlying consolidation/collapse. Appearances are likely secondary to congestive changes with possibility of superadded pulmonary infection. Clinical and laboratory correlation is advised. 5. Generalized body wall edema. New finding. 6. The rest of the findings are as stated above. 08/28 - Combined systolic (congestive) and diastolic (congestive) heart failure - Echo EF 20-25%- TRANSTHORACIC ECHOCARDIOGRAM 08/27/2025: 1. Moderately dilated left atrium. Mildly dilated left ventricle and right atrium. Normal right ventricular chamber size. 2. Mild to moderate concentric left ventricular hypertrophy. 3. Severely depressed left ventricular systolic function due to severe global hypokinesis. Estimated EF 20-25%. 4. Unable to access grade of diastolic dysfunction due to the patient's underlying atrial fibrillation. 5. Normal right ventricular systolic function. 6. Structurally normal valves. 7. Doppler: Mild to moderate mitral regurgitation, mild tricuspid and pulmonic regurgitation. 8. Normal estimated PA systolic pressure (29 mmHg). 9. Mildly elevated right atrial pressure (8 mmHg). 10. No pericardial effusion. - 3lNC 95% - Daily weight pending - Continue lasix - Purewick in place - Losartan 25 mg daily - Replace carvedilol with metoprolol succinate 25 mg daily due to her underlying COPD. Code(s): I50.9 - HEART FAILURE, UNSPECIFIED (11) Chronic anemia Current Visit: Yes Status: Acute Assessment & Plan: - Hgb 8.1- trend- appears to be at baseline per old labs reviewed - Iron profile ordered - Occult stool 08/28 - Iron profile reviewed- + Fe+ def. anemia - Started Venofer IV - Occult stool pending - Hgb 7.3- Recheck H& H at 1400 Code(s): D64.9 - ANEMIA, UNSPECIFIED (12) Hypomagnesemia Current Visit: Yes Status: Acute Assessment & Plan: - MG+ 1.5 on admission, 1.6 today- replace to keep > 2 d/t A-fib RVR 08/28 - Mg+ 1.6- replaced- trend Code(s): E83.42 - HYPOMAGNESEMIA (13) Hypoxia Current Visit: Yes Status: Acute Assessment & Plan: - 8L oxymask-95%- wean as tolerated- BL 1-2 Liters - BL 1-2 liters but will not wear at home and noncompliant. - CTA chest reviewed - 2:2 BL pleural effusions- see plan above 08/28 - 3L NC 95% - Right thoracentesis today Code(s): R09.02 - HYPOXEMIA (14) UTI (urinary tract infection) Current Visit: Yes Status: Acute Assessment & Plan: - UA gram negative - Ceftriaxone IV - CBC, CMP reviewed - BC x2 pending - LA negative 08/28 - BC x2 negative - CBC, CMP reviewed Code(s): N39.0 - URINARY TRACT INFECTION, SITE NOT SPECIFIED (15) Alcohol withdrawal delirium Current Visit: No Status: Acute Assessment & Plan: - Alcohol withdrawal protocol - Alcohol level <10 Code(s): F10.231 - ALCOHOL DEPENDENCE WITH WITHDRAWAL DELIRIUM (16) Hepatitis C Current Visit: No Status: Chronic Qualifiers: Viral hepatitis chronicity: chronic Hepatic coma status: without hepatic coma Qualified Code(s): B18.2 - Chronic viral hepatitis C Assessment & Plan: - Chronic per patient. Patient states that she has not got any treatment for this as she does not know how to follow-up or receive treatment for this will need referral outpatient at D/C. - Hepatitis profile ordered- pending - Liver enzymes AST 227/ALT 185 - US abd for eval of ascites 08/28 - AST 122, ALT 150- improved - No ascites per US results (17) Cirrhosis of liver with ascites Current Visit: No Status: Chronic Qualifiers: Hepatic cirrhosis type: alcoholic cirrhosis Qualified Code(s): K70.31 - Alcoholic cirrhosis of liver with ascites Assessment & Plan: - US of abd today for further eval - Amylase/Lipase WNL 08/28 - US abd: Pancreas not well seen due to overlying bowel gas. Visualized liver mildly fatty and homogeneous in echogenicity without hepatomegaly or ascites. Partially contracted gallbladder negative for cholelithiasis. Gallbladder wall thickening 3.7 mm presumed from partial contraction. No pericholecystic fluid. Common bile duct measures 5 mm. No intrahepatic biliary distention. Right kidney measures 9.4 x 4.2 x 4.9 cm and sonographically unremarkable. Impression: Nonvisualization pancreas. Gallbladder wall thickening presumed from partial contraction. Fatty liver. Remaining right upper quadrant sonogram negative. - No ascities Code(s): K74.60 - UNSPECIFIED CIRRHOSIS OF LIVER; R18.8 - OTHER ASCITES (18) HTN (hypertension) Current Visit: No Status: Chronic Qualifiers: Hypertension type: primary hypertension Qualified Code(s): I10 - Essential (primary) hypertension Assessment & Plan: - BP stable - Hold bp meds while on cardizem gtt- Discussed with nursing 08/28 - Cardiology started metoprolol, Losartan - Coreg stopped last night by cardiology - BP stable Code(s): I10 - ESSENTIAL (PRIMARY) HYPERTENSION (19) Methamphetamine abuse Current Visit: No Status: Chronic Assessment & Plan: - UDS + for meth and opiates - Advised cessation Code(s): F15.10 - OTHER STIMULANT ABUSE, UNCOMPLICATED (20) Alcohol abuse Current Visit: Yes Status: Chronic Assessment & Plan: - Alcohol level pending - Advised cessation - CM to discuss rehab - Admits to drinking 4 glasses of vodka daily - Alcohol withdrawal protocol in place 08/28 - + Alcohol withdrawals with hallucinations Code(s): F10.10 - ALCOHOL ABUSE, UNCOMPLICATED (21) NAKUL (acute kidney injury) Current Visit: Yes Status: Resolved Assessment & Plan: - Resolved - Stop IVF 08/28 - Creat. 1.19- trend - Likely 2:2 Lasix Code(s): N17.9 - ACUTE KIDNEY FAILURE, UNSPECIFIED (22) Hallucinations Current Visit: Yes Status: Acute Assessment & Plan: - From alcohol withdrawl - Continue alcohol withdrawl protocol Code(s): R44.3 - HALLUCINATIONS, UNSPECIFIED (23) Chronic right shoulder pain Current Visit: Yes Status: Chronic Assessment & Plan: - T-Pump heating pad - Tylenol for pain PRN - Right shoulder XR Code(s): M25.511 - PAIN IN RIGHT SHOULDER; G89.29 - OTHER CHRONIC PAIN (24) Chronic neck pain Current Visit: Yes Status: Chronic Assessment & Plan: - T-Pump heating pad - Tylenol for pain PRN - Cervical spine CT 07/05/22: Impression: 1. Cervical lordotic reversal, positional versus paraspinal spasm. 2. Osteopenia and multilevel degenerative changes greatest at C6-C7 level. 3. Extensive bilateral carotid calcifications - Cervical spine MRI: Impression: 1. Multilevel degenerative disc disease detailed level by level including T2-T3 level. Greatest extent is C3-C4 where there is spinal canal narrowing and bilateral foraminal stenosis compounded by minimal grade 1 anterolisthesis. 2. Cervical lordotic straightening, positional versus paraspinal spasm. Code(s): M54.2 - CERVICALGIA; G89.29 - OTHER CHRONIC PAIN (25) Iron deficiency anemia Current Visit: Yes Status: Chronic Assessment & Plan: - Iron panel reviewed - Iron sat 6, Ferritin 7 - Venofer IV started - Hgb 7.3- trend - Pt reports OP EGD and colonosocpy OP with no abnormal findings. Code(s): D50.9 - IRON DEFICIENCY ANEMIA, UNSPECIFIED (26) Opiate abuse, episodic Current Visit: Yes Status: Acute Assessment & Plan: - UDS + for opiates - She did not receive opiates while hospitalized - Per [facility] report she last received opiates 10/06- no recent RX filled - Will need to d/c with narcan Code(s): F11.10 - OPIOID ABUSE, UNCOMPLICATED (27) Depression Current Visit: Yes Status: Acute Qualifiers: Depression Type: major depressive disorder Active/Remission status: currently active Assessment & Plan: - PHQ9 score elevated fro depression per community health worker - Started Paxil daily for anxiety and depression - Will need OP f/u VTE: SCD's PPI: Protonix Next of KIN: Daughter D/C plan: 3-4 days Code status: SCO/DNR Plan of care/ Critical care time > 60 minutes Code(s): F32.A - DEPRESSION, UNSPECIFIED
--- NOTE | 2025-08-28 11:42 | XRAY ---
Indication: Status post right thoracentesis. Comparison: CT chest pulmonary embolus exam August 26, 2025. Portable chest moderately diminished right effusion/atelectasis consistent with recent thoracentesis. No pneumothorax. Remaining chest again demonstrates cardiomegaly and moderate left lung base effusion/atelectasis grossly unchanged.
[2025-08-28] MEDS: MAG-OX 400 PO ONE (11:59)
--- NOTE | 2025-08-28 12:12 | XRAY ---
Indication: Right effusion. Informed consent obtained. Initial ultrasound of the right lower back performed for localization. The back was prepped and draped in sterile fashion. 1% lidocaine plain was used for local anesthesia. Tiny skin incision made. 5 [place] [employer] paracentesis needle/catheter was then percutaneously inserted. Once fluid was aspirating, the outer catheter was then advanced with the inner needle removed. Catheter was connected to a Vacutainer. Approximately 1 L of clear idania colored fluid aspirated and was disposed of properly. Approximately 50 cc was collected and sent to laboratory for analysis as ordered by the clinician. Repeat sonogram demonstrates improvement with small residual. Catheter removed. Hemostasis achieved using digital pressure over the puncture site. Band-Aid applied over the puncture site. Postthoracentesis chest radiograph pending. Impression: Technically successful ultrasound guided right thoracentesis for both diagnostic and therapeutic purpose. No immediate complications or blood loss.
--- NOTE | 2025-08-28 12:21 | XRAY ---
Indication: Pain. Comparison: None 3 view right shoulder demonstrates osteopenia, mild AC degenerative changes, 1.5 cm humeral head bone cyst, mild lower cervical degenerative spondylosis, and mild left carotid calcifications. No other bony, articular, or soft tissue abnormalities.
[2025-08-28 14:08] LABS: Hematocrit 27.4 % (34.1-44.9); Hemoglobin 7.6 g/dL (11.2-15.7)
--- NOTE | 2025-08-28 18:10 | PCM.NOTE ---
Date and Time: 08/28/251805 Subjective Assessment: Overall breathing much better after R sided thoracentesis with removal of 1 L of fluid. No new complaints. Rate remains controlled in afib. Objective Exam General Appearance: no apparent distress Neurologic Exam: alert, oriented x 3 Eye Exam: PERRL, EOMI Ears, Nose, Throat Exam: moist mucous membranes Neck Exam: supple Respiratory Exam: diminished breath sounds, wheezing Cardiovascular Exam: tachycardia, irregular Gastrointestinal/Abdomen Exam: soft Extremity Exam: other (no edema in lower extremities) Pelvic Exam: deferred Rectal Exam: deferred Objective Data Vital Signs: Vital Signs - 24 hr Temp Pulse Resp BP Pulse Ox 08/28/25 17:00 108 H 16 109/80 98 08/28/25 16:31 102 H 14 100/76 99 08/28/25 16:00 94 H 15 91/76 97 08/28/25 15:30 114 H 16 118/81 88 L 08/28/25 15:08 104 H 18 118/75 81 L 08/28/25 15:02 115 H 16 08/28/25 15:00 113 H 21 91 L 08/28/25 14:50 100 H 17 100 08/28/25 14:40 105 H 18 08/28/25 14:30 101 H 17 98 08/28/25 14:22 109 H 11 L 08/28/25 13:30 122/84 08/28/25 13:01 93 H 14 132/61 97 08/28/25 12:30 105 H 22 111/66 89 L 08/28/25 12:01 96 H 18 100/66 98 08/28/25 11:43 95 H 08/28/25 11:31 100 H 22 104/71 95 08/28/25 11:00 84 16 127/82 89 L 08/28/25 10:30 97 H 20 111/62 91 L 08/28/25 10:01 102 H 26 H 101/80 92 L 08/28/25 09:30 122 H 21 111/60 87 L 08/28/25 09:00 110 H 23 126/77 08/28/25 08:31 108 H 17 111/69 94 L 08/28/25 08:01 90 21 130/59 87 L 08/28/25 08:00 99 H 08/28/25 07:30 86 18 107/69 86 L 08/28/25 07:20 90 20 100 08/28/25 07:00 98.1 F 98 H 24 117/69 98 08/28/25 06:30 84 28 H 109/72 91 L 08/28/25 06:00 85 15 115/85 95 08/28/25 05:30 90 14 106/76 98 08/28/25 05:01 91 H 22 114/73 98 08/28/25 04:36 94 H 20 132/66 99 08/28/25 04:00 98.5 F 84 17 100/65 96 08/28/25 03:47 73 13 95/60 89 L 08/28/25 03:35 79 14 92/47 89 L 08/28/25 03:31 93 L 08/28/25 03:11 84 16 88/59 97 08/28/25 02:30 77 15 104/64 94 L 08/28/25 02:00 91 H 21 109/81 99 08/28/25 01:36 79 18 100 08/28/25 01:30 92 H 15 111/68 97 08/28/25 01:00 72 15 111/67 99 08/28/25 00:30 74 20 101/71 99 08/28/25 00:01 71 08/28/25 00:00 98.9 F 71 16 120/70 99 08/27/25 23:30 79 15 110/72 98 08/27/25 23:00 73 15 110/68 99 08/27/25 22:30 83 15 100/65 99 08/27/25 22:00 83 13 104/60 99 08/27/25 21:30 89 14 111/68 98 08/27/25 21:00 79 13 122/77 98 08/27/25 20:30 87 17 115/69 99 08/27/25 20:00 98.0 F 96 H 20 108/80 98 08/27/25 19:30 84 19 121/63 98 08/27/25 19:00 84 13 119/78 08/27/25 18:30 97.8 F 91 H 18 109/69 96 08/27/25 18:14 91 H 20 124/66 94 L Pain Assessment - Last Documented Pain Intensity 0 Pain Scale Used 0-10 Pain Scale Intake and Output: Intake & Output 08/26/25 08/27/25 08/28/2518/25 11:59 11:59 11:59 11:59 Intake Total 5612 1497 Output Total 300 1550 100 Balance 942 -53 -100 Weight 63.2 kg Lab Results: Lab Results-Last 24 Hours 08/28/25 08/28/25 08/28/25 Range/Units 04:21 04:21 04:21 WBC 13.9 H (3.98-10.04) x10^3/uL RBC 3.82 L (3.93-5.22) x10^6/uL Hgb 7.3 L (11.2-15.7) g/dL Hct 26.5 L (34.1-44.9) % MCV 69.4 L (79.4-94.8) fL MCH 19.1 L (25.6-32.2) pg MCHC 27.5 L (32.2-35.5) g/dL RDW 20.6 H (11.7-14.4) % Plt Count 248 (182-369) x10^3/uL PT 12.4 (9.4-12.5) SECONDS INR 1.11 (0.8-3.0) Sodium (135-145) mmol/L Potassium (3.5-5.1) mmol/L Chloride (98-107) mmol/L Carbon Dioxide (22-30) mmol/L Anion Gap (5-15) MEQ/L BUN (7-17) mg/dL Creatinine (0.52-1.04) mg/dL Estimated GFR ML/MIN Glucose (74-106) mg/dL Calcium (8.4-10.2) mg/dL Magnesium (1.6-2.3) mg/dL Total Bilirubin (0.2-1.3) mg/dL AST (14-36) U/L ALT (0-35) U/L Alkaline Phosphatase (38-126) U/L Serum Total Protein (6.3-8.2) g/dL Albumin (3.5-5.0) g/dL Fluid Color (COLORLESS) Fluid Clarity (CLEAR) Fluid RBC (0) x10^6/uL Fld Polynuclear WBCs # (0) /uL Fld Polynuclear WBCs % (0) % Fld Mononuclear WBCs % (0) % Ethyl Alcohol < 10 (0-10) mg/dL Slides for Path Review YES 08/28/25 08/28/25 08/28/25 Range/Units 04:21 09:44 14:05 WBC (3.98-10.04) x10^3/uL RBC (3.93-5.22) x10^6/uL Hgb 7.6 L (11.2-15.7) g/dL Hct 27.4 L (34.1-44.9) % MCV (79.4-94.8) fL MCH (25.6-32.2) pg MCHC (32.2-35.5) g/dL RDW (11.7-14.4) % Plt Count (182-369) x10^3/uL PT (9.4-12.5) SECONDS INR (0.8-3.0) Sodium 134 L (135-145) mmol/L Potassium 4.3 (3.5-5.1) mmol/L Chloride 102 (98-107) mmol/L Carbon Dioxide 21 L (22-30) mmol/L Anion Gap 16.0 H (5-15) MEQ/L BUN 33 H (7-17) mg/dL Creatinine 1.19 H (0.52-1.04) mg/dL Estimated GFR 49.5 ML/MIN Glucose 113 H (74-106) mg/dL Calcium 8.3 L (8.4-10.2) mg/dL Magnesium 1.6 (1.6-2.3) mg/dL Total Bilirubin 0.40 (0.2-1.3) mg/dL AST 122 H (14-36) U/L ALT 150 H (0-35) U/L Alkaline Phosphatase 80 (38-126) U/L Serum Total Protein 6.6 (6.3-8.2) g/dL Albumin 3.5 (3.5-5.0) g/dL Fluid Color COLORLESS (COLORLESS) Fluid Clarity CLEAR (CLEAR) Fluid RBC < 0.002 (0) x10^6/uL Fld Polynuclear WBCs # 277 H (0) /uL Fld Polynuclear WBCs % 48.800 H (0) % Fld Mononuclear WBCs % 51.200 H (0) % Ethyl Alcohol (0-10) mg/dL Slides for Path Review Radiology Exams: Radiology Procedures Category Date Time Status CHEST 1 VIEW (PORTABLE) Stat Exams 08/28/25 11:19 Completed CHEST WITH CONTRAST [CT] Stat Exams 08/26/25 20:40 Completed ECHO W/2D AND DOPPLER [US] Routine Exams 08/27/25 02:44 Taken SHOULDER Routine Exams 08/28/25 11:36 Completed THORACENTESIS [US] Routine Exams 08/28/25 09:00 Completed US ABDOMEN LIMITED [ABDOMINAL-LIMITED] [US] Routine Exams 08/27/25 03:09 Completed Medications: Medications Generic Name Dose Route Start Last Admin Trade Name Freq PRN Reason Stop Dose Admin Acetaminophen 650 mg 08/27/25 01:39 08/27/25 12:22 Acetaminophen 325 Mg Tablet PO 09/26/25 01:38 650 mg Q4H PRN PRN Administration PAIN, FEVER, HEADACHE Diazepam 0 mg 08/27/25 03:03 08/28/25 14:04 Diazepam 5 Mg Tablet PO 09/26/25 03:02 2.5 mg Q2H PRN PRN Administration CIWA SCORE Protocol Empagliflozin 10 mg 08/29/25 10:00 Empagliflozin 10 Mg Tablet PO 09/28/25 09:59 DAILY TERE Enoxaparin Sodium 60 mg 08/27/25 10:00 Enoxaparin Sodium 60 Mg/0.6 Ml Syringe SQ 09/26/25 09:59 BID TERE Folic Acid 1 mg 08/27/25 10:00 08/28/25 09:52 Folic Acid 1 Mg Tablet PO 09/26/25 09:59 1 mg DAILY TERE Administration Furosemide 40 mg 08/27/25 07:30 08/28/25 14:04 Furosemide 40 Mg/4 Ml Vial IV 09/26/25 02:44 40 mg Q8HT TERE Administration Gabapentin 300 mg 08/27/25 10:00 08/28/25 15:22 Gabapentin 300 Mg Capsule PO 09/26/25 09:59 300 mg TID TERE Administration Ceftriaxone Sodium 1 gm in 100 mls @ 200 mls/hr 08/27/25 22:00 08/27/25 22:26 Rocephin 1 Gm / 100 Ml Nacl IV 09/26/25 21:59 200 mls/hr Q24H22 TERE Administration Iron Sucrose 200 mg/ Sodium 110 mls @ 220 mls/hr 08/28/25 10:00 08/28/25 09:53 Chloride IV 09/05/25 10:29 220 mls/hr Q48H TERE Administration Lactobacillus Acidophilus 1 tab 08/27/25 10:00 08/28/25 09:51 Lactobacillus Acidophilus 1 Tab Tablet PO 09/26/25 09:59 1 tab DAILY TERE Administration Levalbuterol HCl 1.25 mg 08/27/25 02:40 08/28/25 01:35 Levalbuterol Hcl 1.25 Mg/0.5 Ml Neb 09/26/25 02:39 1.25 mg Q4H PRN PRN Administration SHORTNESS OF BREATH Levothyroxine Sodium 25 mcg 08/27/25 07:00 08/28/25 06:47 Levothyroxine Sodium 25 Mcg Tablet PO 09/26/25 06:59 25 mcg QAM@0700 TERE Administration Metoprolol Succinate 25 mg 08/28/25 10:00 08/28/25 09:52 Metoprolol Succinate 25 Mg Xl Tab PO 09/27/25 09:59 25 mg DAILY TERE Administration Multivitamins Therapeutic 1 tab 08/27/25 10:00 08/28/25 09:52 Multivitamins,Therapeutic 1 Tab Tab PO 09/26/25 09:59 1 tab QAM TERE Administration Ondansetron HCl 4 mg 08/27/25 01:39 08/28/25 06:51 Ondansetron Hcl 4 Mg/2 Ml Vial IV 09/26/25 01:38 4 mg Q6H PRN PRN Administration NAUSEA/VOMITING Pantoprazole Sodium 20 mg 08/27/25 10:00 08/28/25 09:52 Pantoprazole 20 Mg Tab PO 09/26/25 09:59 20 mg DAILY TERE Administration Paroxetine HCl 20 mg 08/28/25 10:00 08/28/25 09:52 Paroxetine Hcl 20 Mg Tablet PO 09/27/25 09:59 20 mg DAILY TERE Administration Sacubitril/Valsartan 0.5 tablet 08/28/25 22:00 Sacubitril/Valsartan 1 Tablet Tablet PO 09/27/25 21:59 BID TERE Sodium Chloride 3 ml 08/27/25 07:24 Sodium Cl For Inhalation 3 Ml Ud Nebule 09/26/25 07:23 PRN PRN Thiamine HCl 100 mg 08/27/25 10:00 08/28/25 09:52 Thiamine Hcl 100 Mg Tablet PO 09/26/25 09:59 100 mg DAILY TERE Administration Discontinued Medications Generic Name Dose Route Start Last Admin Trade Name Sera PRN Reason Stop Dose Admin Albuterol/Ipratropium Confirm 08/27/25 00:25 Ipratropium/Albuterol Sulfate 3 Ml Ampul.Neb Administered 08/27/25 00:26 Dose 3 ml IH .STK-MED ONE Albuterol/Ipratropium 3 ml 08/27/25 00:29 08/27/25 00:29 Ipratropium/Albuterol Sulfate 3 Ml Ampul.Neb IH 08/27/25 00:30 3 ml STAT ONE Administration Carvedilol 3.125 mg 08/27/25 10:00 08/27/25 12:02 Carvedilol 3.125 Mg Tablet PO 09/26/25 09:59 Not Given BID TERE Diltiazem HCl 25 mg 08/26/25 19:51 08/26/25 19:52 Diltiazem Hcl Iv 5 Mg/Ml Vial IV 08/26/25 19:52 25 mg STAT ONE Administration Diltiazem HCl Confirm 08/26/25 19:52 Diltiazem Hcl Iv 5 Mg/Ml Vial Administered 08/26/25 19:53 Dose 50 mg IV .STK-MED ONE Enoxaparin Sodium 60 mg 08/26/25 23:18 08/26/25 23:33 Enoxaparin Sodium 80 Mg/0.8 Ml Syringe SQ 08/26/25 23:19 60 mg STAT ONE Administration Enoxaparin Sodium Confirm 08/26/25 23:32 Enoxaparin Sodium 80 Mg/0.8 Ml Syringe Administered 08/26/25 23:33 Dose 80 mg SQ .STK-MED ONE Furosemide 40 mg 08/26/25 23:17 08/26/25 23:33 Furosemide 40 Mg/4 Ml Vial IV 08/26/25 23:18 40 mg STAT ONE Administration Furosemide Confirm 08/26/25 23:32 Furosemide 40 Mg/4 Ml Vial Administered 08/26/25 23:33 Dose 40 mg .ROUTE .STK-MED ONE Furosemide 40 mg 08/27/25 02:45 08/27/25 02:47 Furosemide 40 Mg/4 Ml Vial IV 09/26/25 02:44 Not Given Q8H TERE Sodium Chloride 1,000 mls @ 100 mls/hr 08/26/25 20:00 08/26/25 19:54 Sodium Chloride 0.9% 1000 Ml IV 09/25/25 19:59 100 mls/hr .Q10H TERE Administration Diltiazem HCl 100 mls @ 5 mls/hr 08/26/25 20:03 08/27/25 18:23 Cardizem Drip 100 Mg/100 Ml D5w IV 09/25/25 20:02 0 mg/hr .Q20H PRN 0 mls/hr HEART RATE/ A-FIB Titration Protocol 5 MG/HR Magnesium Sulfate/Dextrose 100 mls @ 200 mls/hr 08/26/25 20:32 08/26/25 21:41 Magnesium 1 Gm / 100 Ml D5w IV 08/26/25 21:01 Infused STAT ONE Infusion Magnesium Sulfate/Dextrose Confirm 08/26/25 20:55 Magnesium 1 Gm / 100 Ml D5w Administered 08/26/25 20:56 Dose 100 mls @ ud IV .STK-MED ONE Ceftriaxone Sodium 1 gm in 100 mls @ 200 mls/hr 08/26/25 22:24 08/26/25 23:12 Rocephin 1 Gm / 100 Ml Nacl IV 08/26/25 22:53 Infused STAT ONE Infusion Ceftriaxone Sodium Confirm 08/26/25 22:36 Rocephin 1 Gm / 100 Ml Nacl Administered 08/26/25 22:37 Dose 1 gm in 100 mls @ ud IV .STK-MED ONE Sodium Chloride Confirm 08/26/25 19:52 Sodium Chloride 0.9% 1000 Ml Administered 08/26/25 19:53 Dose 1,000 mls @ ud .ROUTE .STK-MED ONE Sodium Chloride 1,000 mls @ 50 mls/hr 08/27/25 01:39 08/27/25 02:32 Sodium Chloride 0.9% 1000 Ml IV 09/26/25 01:38 50 mls/hr .Q20H TERE Administration Losartan Potassium 25 mg 08/27/25 10:00 08/28/25 09:52 Losartan Potassium 50 Mg Tablet PO 09/26/25 09:59 25 mg DAILY TERE Administration Losartan Potassium 25 mg 08/27/25 20:00 08/27/25 19:51 Losartan Potassium 50 Mg Tablet PO 08/27/25 20:01 25 mg NOW ONE Administration Magnesium Oxide 400 mg 08/27/25 12:00 08/27/25 12:22 Magnesium Oxide 400 Mg Tablet PO 08/27/25 12:01 400 mg ONCE ONE Administration Magnesium Oxide 400 mg 08/28/25 11:50 08/28/25 11:59 Magnesium Oxide 400 Mg Tablet PO 08/28/25 11:51 400 mg STAT ONE Administration Metoprolol Tartrate 5 mg 08/26/25 21:54 08/26/25 22:41 Metoprolol Tartrate 5 Mg/5 Ml Vial IV 08/26/25 21:55 5 mg STAT ONE Administration Metoprolol Tartrate Confirm 08/26/25 22:36 Metoprolol Tartrate 5 Mg/5 Ml Vial Administered 08/26/25 22:37 Dose 5 mg IV .STK-MED ONE Metoprolol Tartrate 25 mg 08/27/25 19:45 08/27/25 19:51 Metoprolol Tartrate 25 Mg Tab PO 08/27/25 19:46 25 mg NOW ONE Administration Morphine Sulfate 4 mg 08/26/25 22:56 08/26/25 23:10 Morphine Sulfate 4 Mg/Ml Injection IV 08/26/25 22:57 4 mg STAT ONE Administration Morphine Sulfate Confirm 08/26/25 23:09 Morphine Sulfate 4 Mg/Ml Injection Administered 08/26/25 23:10 Dose 4 mg .ROUTE .STK-MED ONE Ondansetron HCl 4 mg 08/26/25 22:56 08/26/25 23:10 Ondansetron Hcl 4 Mg/2 Ml Vial IV 08/26/25 22:57 4 mg STAT ONE Administration Ondansetron HCl Confirm 08/26/25 23:09 Ondansetron Hcl 4 Mg/2 Ml Vial Administered 08/26/25 23:10 Dose 4 mg .ROUTE .STK-MED ONE Sodium Bicarbonate 50 meq 08/27/25 06:26 08/27/25 06:30 Sodium Bicarbonate 1 Meq/Ml 50ml Syringe IV 08/27/25 06:27 50 meq ONCE ONE Administration Sodium Bicarbonate 650 mg 08/27/25 10:00 08/27/25 12:02 Sodium Bicarbonate 650 Mg Tablet PO 09/26/25 09:59 650 mg DAILY TERE Administration Sodium Chloride Confirm 08/27/25 07:15 Sodium Cl For Inhalation 3 Ml Ud Nebule Administered 08/27/25 07:16 Dose 3 ml IH .STK-MED ONE Multi-Disciplinary Progress Notes: Multi-Disciplinary Progress Notes 08/28/25 10:07 Case Management Note by Lara Durant NO CHANGE IN DC PLANS AT THIS TIME- WILL ENCOURAGE PATIENT TO CONSIDER A REHAB STAY FOR MEDICATION COMPLIANCE Initialized on 08/28/25 10:07 - END OF NOTE Assessment/Plan (1) Acute on chronic combined systolic (congestive) and diastolic (congestive) heart failure Current Visit: Yes Status: Acute Assessment & Plan: Overall improving. She is lying flat comfortably when I went to see her. Stressed importance about maintaining adherence to her medical regimen to prevent these episodes in the future. will also add empagliflozin 10mg daily to her regimen. Will stop losartan and add low dose entresto which can be uptitrated as tolerated. Code(s): I50.43 - ACUTE ON CHRONIC COMBINED SYSTOLIC AND DIASTOLIC HRT FAIL (2) Atrial fibrillation Current Visit: Yes Status: Acute Assessment & Plan: Rate controlled on current regimen. would start NOAC once finished with procedures for CVA protection. Code(s): I48.91 - UNSPECIFIED ATRIAL FIBRILLATION Telemedicine Encounter - Telemedicine Encounter Telemedicine Encounter: "The entirety of this encounter was performed via Telemedicine" This visit was performed using real-time audio and video connection between my location and thepatients locationwith the assistance of a surrogateat the patients location. Written or verbal consent was obtained from the patient/guardian to perform this visit usings[facility]art[facility]. Any patient questions regarding the telemedicine interaction were answered.
[2025-08-28] MEDS: ENTRESTO 49 MG-51 MG TABLET PO SCH (22:40)
[2025-08-29 05:05] LABS: Hematocrit 27.4 % (34.1-44.9); Hemoglobin 7.7 g/dL (11.2-15.7); Mean Corpuscular Hemoglobin 19.6 pg (25.6-32.2); Mean Corpuscular Hgb Concent. 28.1 g/dL (32.2-35.5); Platelet Count 212 x10^3/uL (182-369); Red Blood Count 3.92 x10^6/uL (3.93-5.22); White Blood Count 9.1 x10^3/uL (3.98-10.04)
[2025-08-29 05:28] LABS: INR 1.06 (0.8-3.0); PROTIME 11.8 SECONDS (9.4-12.5)
[2025-08-29 07:04] LABS: Calcium 8.0 mg/dL (8.4-10.2); Carbon Dioxide 25.0 mmol/L (22-30); Creatinine 1 1.21 mg/dL (0.52-1.04); EST GLOMERULAR FILTRATION RATE 48.5 ML/MIN; Glucose 97.0 mg/dL (74-106); Potassium 3.4 mmol/L (3.5-5.1); SGOT/AST 82.0 U/L (14-36); SGPT/ALT 118.0 U/L (0-35); Total Protein 6.8 g/dL (6.3-8.2)
[2025-08-29 07:48] LABS: Slide Review YES
[2025-08-29] MEDS: K-LYTE PO SCH (08:24)
[2025-08-29] MEDS: MAGNESIUM SULF 2 G/50 ML BAG 2 GM/50 ML PIGGYBACK IV ONE (08:25)
--- NOTE | 2025-08-29 10:35 | PCM.NOTE ---
Date and Time: 08/29/25 1029 Subjective Assessment: 08/27/25 is a 70-year-old female with a complex medical history including COPD (previously on 12 L home oxygen), atrial fibrillation on Xarelto, hypertension, hyperlipidemia, neuropathy, hypothyroidism, anemia, hepatitis C, methamphetamine abuse, and alcohol dependence with prior withdrawals, who presented on 08/26/25 with dyspnea, dry cough, wheezing, and chest discomfort. She reported discontinuing all home medications and oxygen approximately two months ago due to difficulty managing them. In the ED, she was found to be in atrial fibrillation with RVR, requiring IV diltiazem push followed by continuous infusion. Workup revealed a positive D-dimer but CTA was negative for PE, signif icant volume overload with bilateral pleural effusions, elevated liver enzymes, and evidence of UTI. She received IV Lasix and IV Rocephin, initially required BiPAP, and was transitioned to nasal cannula oxygen. On 08/27, she remained on Cardizem drip and was very short of breath, requiring 8 L Oxymizer with saturations at 95%. Abdominal ultrasound was ordered to evaluate for ascites given her history of cirrhosis and distended abdomen. LFTs remained elevated but improved (AST 227, ALT 185). Synthroid was initiated for elevated TSH (8.674). Ceftriaxone was continued for UTI, with urine culture showing gram-negative organisms and sensitivities pending. CO? was 15, and oral sodium bicarbonate was continued due to inability to provide IV fluids in the setting of pleural effusions. Lasix 40 mg IV every 8 hours was maintained. Magnesium was 1.6 and replaced to keep >2 given atrial fibrillation. Cardiology consult and echocardiogram were pending. Thoracentesis was ordered for the right lung but deferred until the following day due to recent Lovenox administration, which was subsequently held. The patient reported symptoms of alcohol withdrawal, including shakes and anxiety, and was placed on withdrawal protocol. She admitted to drinking four vodka drinks daily, with last use the day prior. Urine drug screen was ordered given her history of methamphetamine use. She expressed difficulty managing medications at home and will require outpatient support. Amylase and lipase were checked due to history of pancreatitis and were normal. She reaffirmed her DNR status. SCDs were ordered while anticoagulation was held. Labs showed hemoglobin 8.1, WBC within normal limits, and negative troponins. She denied chest pain. NAKUL noted previously had resolved. She remained clinically stable but continued to require high-flow oxygen and close monitoring. 08/28/25 The patient is resting in bed and reports feeling better today. Nursing staff noted that she experienced hallucinations the previous night and was treated with Valium for alcohol withdrawal symptoms. She underwent a right thoracentesis with 1 L output. A urine drug screen from yesterday was positive for methamphetamines and opiates. On exam, she continues to have coarse lung sounds. Liver enzymes have improved, with AST at 122 and ALT at 150, and ultrasound showed no ascites. Urine culture grew gram-negative organisms, and ceftriaxone is being continued pending sensitivities; blood cultures remain preliminarily negative. Paxil was initiated this morning for depression and anxiety given an elevated PHQ-9 score. CO2 has improved to 21, leading cardiology to discontinue oral sodium bicarbonate due to sodium content. Creatinine is elevated at 1.19, likely secondary to Lasix. Iron studies revealed iron saturation of 6 and ferritin of 7, so IV Venofer was started for iron replacement. Cardiology adjusted medications last night, and her atrial fibrillation with RVR has resolved; she has been off the Cardizem drip since yesterday evening and her rhythm is currently stable. She remains on 3 L oxygen with saturation of 95%. Laboratory values show WBC at 13.9 and hemoglobin at 7.3, with repeat H&H planned this afternoon. The patient reports a history of repeated blood transfusions and recent EGD and colonoscopy that did not identify the source of her chronic anemia and blood loss, raising concern that she may not be a candidate for anticoagulation. At present, she denies further concerns. 08/29/25 The patient is resting in bed today and reports feeling better. She is currently on 3 L nasal cannula with oxygen saturation at 97%. She underwent a right thoracentesis yesterday and is scheduled for a left thoracentesis today.Cardiology adjusted her medications yesterday, discontinuing losartan and initiating Entresto and Jardiance in addition to metoprolol, which had already been ordered two days prior. Entresto was held last night due to hypotension, and the overnight provider was notified. This morning, the patient remains in atrial fibrillation with rapid ventricular response, with heart rates ranging from 99 to 117. Lasix was held due to acute kidney injury, with creatinine at 1.21. Liver enzymes are improving, with AST at 82 and ALT at 118. Urine culture is positive for E. coli, and she remains on ceftriaxone, which is appropriate based on sensitivities; blood cultures 2 are negative. The patient continues to experience alcohol withdrawal symptoms and reported hallucinations last night, for which she was treated with medication. Electrolytes revealed potassium at 3.4 and magnesium at 1.5, both of which were replaced today. ECHO EF 20- 25%. Plan is to resume Lasix 40 mg every 8 hours if renal function improves. She continues Paxil for anxiety and depression. - Review of Systems Constitutional: Weakness, No Fever, No Chills Eyes: No Symptoms Ears, Nose, & Throat: No Symptoms Respiratory: Short Of Breath, No Cough Cardiac: No Chest Pain, No Edema, No Syncope Abdominal/Gastrointestinal: No Abdominal Pain, No Nausea, No Vomiting, No Diarrhea Genitourinary Symptoms: No Dysuria Musculoskeletal: Joint Pain (Right shoulder), No Back Pain, No Neck Pain Skin: No Rash Neurological: No Dizziness, No Focal Weakness, No Sensory Changes Psychological: No Symptoms Endocrine: No Symptoms Hematologic/Lymphatic: No Symptoms Immunological/Allergic: No Symptoms Objective Exam General Appearance: no apparent distress, alert, thin Neurologic Exam: alert, oriented x 3, cooperative, normal mood/affect, nml cerebellar function, sensation nml, motor weakness, No motor deficits Skin Exam: normal color, warm, dry Eye Exam: PERRL, EOMI, eyes nml inspection Ears, Nose, Throat Exam: normal ENT inspection, pharynx normal, moist mucous membranes Neck Exam: normal inspection, non-tender, supple, full range of motion Respiratory Exam: normal breath sounds, lungs clear, diminished breath sounds (BLLL), No respiratory distress Cardiovascular Exam: regular rate/rhythm, normal heart sounds Gastrointestinal/Abdomen Exam: soft, No tenderness, No mass Extremity Exam: normal inspection, normal range of motion, limited range of motion (right shoulder) Back Exam: normal inspection, normal range of motion, No CVA tenderness, No vertebral tenderness Pelvic Exam: deferred Rectal Exam: deferred Objective Data Vital Signs: Vital Signs - 24 hr Temp Pulse Resp BP Pulse Ox 08/29/25 09:31 115 H 19 132/75 08/29/25 09:00 100 H 16 123/85 97 08/29/25 08:32 99 H 26 H 92 L 08/29/25 08:00 97.3 F 117 H 23 135/70 08/29/25 07:30 102 H 24 119/82 97 08/29/25 07:00 98 H 16 114/77 99 08/29/25 06:30 113 H 16 100/60 96 08/29/25 06:00 91 H 14 97/66 90 L 08/29/25 05:30 92 H 12 90/54 100 08/29/25 05:01 98 H 12 88/57 96 08/29/25 04:30 103 H 16 109/70 99 08/29/25 04:00 97.3 F 118 H 15 123/73 96 08/29/25 03:30 106 H 18 109/72 98 08/29/25 03:00 93 H 13 122/79 96 08/29/25 02:31 111 H 14 128/61 92 L 08/29/25 02:00 107 H 16 83/57 95 08/29/25 01:30 80 21 89/62 93 L 08/29/25 01:01 87 23 113/63 92 L 08/29/25 00:30 100 H 24 97/67 92 L 08/29/25 00:01 86 08/29/25 00:00 97.7 F 86 12 97/58 95 08/28/25 23:45 84 18 89/54 93 L 08/28/25 23:00 79 13 114/84 94 L 08/28/25 22:30 104 H 24 112/87 97 08/28/25 22:00 100 H 19 104/66 97 08/28/25 21:30 98 H 13 93/63 96 08/28/25 21:17 96 H 15 87/52 94 L 08/28/25 21:01 96 H 16 86/51 93 L 08/28/25 20:30 89 16 108/80 08/28/25 20:00 97.4 F 94 H 11 L 95/61 92 L 08/28/25 19:41 98 H 13 85/54 90 L 08/28/25 19:30 87 13 81/60 90 L 08/28/25 19:00 99 H 14 114/64 90 L 08/28/25 18:01 105 H 14 110/66 96 08/28/25 17:30 100 H 20 113/84 97 08/28/25 17:00 108 H 16 109/80 98 08/28/25 16:31 102 H 14 100/76 99 08/28/25 16:00 94 H 15 91/76 97 08/28/25 15:30 114 H 16 118/81 88 L 08/28/25 15:08 104 H 18 118/75 81 L 08/28/25 15:02 115 H 16 08/28/25 15:00 113 H 21 91 L 08/28/25 14:50 100 H 17 100 08/28/25 14:40 105 H 18 08/28/25 14:30 101 H 17 98 08/28/25 14:22 109 H 11 L 08/28/25 13:30 122/84 08/28/25 13:01 93 H 14 132/61 97 08/28/25 12:30 105 H 22 111/66 89 L 08/28/25 12:01 96 H 18 100/66 98 08/28/25 11:43 95 H 08/28/25 11:31 100 H 22 104/71 95 08/28/25 11:00 84 16 127/82 89 L 08/28/25 10:30 97 H 20 111/62 91 L Pain Assessment - Last Documented Pain Intensity 7 Pain Scale Used 0-10 Pain Scale Intake and Output: Intake & Output 08/26/25 08/27/25 08/28/25 08/29/25 11:59 11:59 11:59 11:59 Intake Total 1242 1497 806 Output Total 300 1550 1050 Balance 942 -53 -244 Weight 63.2 kg 63.1 kg Lab Results: Lab Results-Last 24 Hours 08/28/25 08/29/25 08/29/25 Range/Units 14:05 04:18 04:18 WBC 9.1 (3.98-10.04) x10^3/uL RBC 3.92 L (3.93-5.22) x10^6/uL Hgb 7.6 L 7.7 L (11.2-15.7) g/dL Hct 27.4 L 27.4 L (34.1-44.9) % MCV 69.9 L (79.4-94.8) fL MCH 19.6 L (25.6-32.2) pg MCHC 28.1 L (32.2-35.5) g/dL RDW 20.5 H (11.7-14.4) % Plt Count 212 (182-369) x10^3/uL MPV 10.3 (9.4-12.3) fL PT 11.8 (9.4-12.5) SECONDS INR 1.06 (0.8-3.0) Sodium (135-145) mmol/L Potassium (3.5-5.1) mmol/L Chloride (98-107) mmol/L Carbon Dioxide (22-30) mmol/L Anion Gap (5-15) MEQ/L BUN (7-17) mg/dL Creatinine (0.52-1.04) mg/dL Estimated GFR ML/MIN Glucose (74-106) mg/dL Calcium (8.4-10.2) mg/dL Magnesium (1.6-2.3) mg/dL Total Bilirubin (0.2-1.3) mg/dL AST (14-36) U/L ALT (0-35) U/L Alkaline Phosphatase (38-126) U/L Serum Total Protein (6.3-8.2) g/dL Albumin (3.5-5.0) g/dL Slides for Path Review YES 08/29/25 08/29/25 Range/Units 04:18 04:18 WBC (3.98-10.04) x10^3/uL RBC (3.93-5.22) x10^6/uL Hgb (11.2-15.7) g/dL Hct (34.1-44.9) % MCV (79.4-94.8) fL MCH (25.6-32.2) pg MCHC (32.2-35.5) g/dL RDW (11.7-14.4) % Plt Count (182-369) x10^3/uL MPV (9.4-12.3) fL PT (9.4-12.5) SECONDS INR (0.8-3.0) Sodium 138 (135-145) mmol/L Potassium 3.4 L D (3.5-5.1) mmol/L Chloride 101 (98-107) mmol/L Carbon Dioxide 25 (22-30) mmol/L Anion Gap 16.0 H (5-15) MEQ/L BUN 37 H (7-17) mg/dL Creatinine 1.21 H (0.52-1.04) mg/dL Estimated GFR 48.5 ML/MIN Glucose 97 (74-106) mg/dL Calcium 8.0 L (8.4-10.2) mg/dL Magnesium 1.5 L (1.6-2.3) mg/dL Total Bilirubin 0.40 (0.2-1.3) mg/dL AST 82 H (14-36) U/L ALT 118 H (0-35) U/L Alkaline Phosphatase 85 (38-126) U/L Serum Total Protein 6.8 (6.3-8.2) g/dL Albumin 3.7 (3.5-5.0) g/dL Slides for Path Review Radiology Exams: Radiology Procedures Category Date Time Status CHEST 1 VIEW (PORTABLE) Stat Exams 08/28/25 11:19 Completed CHEST 1 VIEW (PORTABLE) Urgent Exams 08/29/25 10:25 Ordered SHOULDER Routine Exams 08/28/25 11:36 Completed THORACENTESIS [US] Routine Exams 08/28/25 09:00 Completed THORACENTESIS [US] Routine Exams 08/29/25 07:28 Taken Medications: Medications Generic Name Dose Route Start Last Admin Trade Name Freq PRN Reason Stop Dose Admin Acetaminophen 650 mg 08/27/25 01:39 08/28/25 21:28 Acetaminophen 325 Mg Tablet PO 09/26/25 01:38 650 mg Q4H PRN PRN Administration PAIN, FEVER, HEADACHE Diazepam 0 mg 08/27/25 03:03 08/28/25 14:04 Diazepam 5 Mg Tablet PO 09/26/25 03:02 2.5 mg Q2H PRN PRN Administration CIWA SCORE Protocol Empagliflozin 10 mg 08/29/25 10:00 Empagliflozin 10 Mg Tablet PO 09/28/25 09:59 DAILY TERE Folic Acid 1 mg 08/27/25 10:00 08/28/25 09:52 Folic Acid 1 Mg Tablet PO 09/26/25 09:59 1 mg DAILY TERE Administration Furosemide 40 mg 08/27/25 07:30 08/29/25 06:32 Furosemide 40 Mg/4 Ml Vial IV 09/26/25 02:44 40 mg Q8HT TERE Administration Gabapentin 300 mg 08/27/25 10:00 08/28/25 21:15 Gabapentin 300 Mg Capsule PO 09/26/25 09:59 300 mg TID TERE Administration Ceftriaxone Sodium 1 gm in 100 mls @ 200 mls/hr 08/27/25 22:00 08/28/25 21:16 Rocephin 1 Gm / 100 Ml Nacl IV 09/26/25 21:59 200 mls/hr Q24H22 TERE Administration Iron Sucrose 200 mg/ Sodium 110 mls @ 220 mls/hr 08/28/25 10:00 08/28/25 09:53 Chloride IV 09/05/25 10:29 220 mls/hr Q48H TERE Administration Lactobacillus Acidophilus 1 tab 08/27/25 10:00 08/28/25 09:51 Lactobacillus Acidophilus 1 Tab Tablet PO 09/26/25 09:59 1 tab DAILY TERE Administration Levalbuterol HCl 1.25 mg 08/27/25 02:40 08/28/25 01:35 Levalbuterol Hcl 1.25 Mg/0.5 Ml Neb IH 09/26/25 02:39 1.25 mg Q4H PRN PRN Administration SHORTNESS OF BREATH Levothyroxine Sodium 25 mcg 08/27/25 07:00 08/29/25 06:32 Levothyroxine Sodium 25 Mcg Tablet PO 09/26/25 06:59 25 mcg QAM@0700 TERE Administration Metoprolol Succinate 25 mg 08/28/25 10:00 08/28/25 09:52 Metoprolol Succinate 25 Mg Xl Tab PO 09/27/25 09:59 25 mg DAILY TERE Administration Multivitamins Therapeutic 1 tab 08/27/25 10:00 08/28/25 09:52 Multivitamins,Therapeutic 1 Tab Tab PO 09/26/25 09:59 1 tab QAM TERE Administration Ondansetron HCl 4 mg 08/27/25 01:39 08/28/25 06:51 Ondansetron Hcl 4 Mg/2 Ml Vial IV 09/26/25 01:38 4 mg Q6H PRN PRN Administration NAUSEA/VOMITING Pantoprazole Sodium 20 mg 08/27/25 10:00 08/28/25 09:52 Pantoprazole 20 Mg Tab PO 09/26/25 09:59 20 mg DAILY TERE Administration Paroxetine HCl 20 mg 08/28/25 10:00 08/28/25 09:52 Paroxetine Hcl 20 Mg Tablet PO 09/27/25 09:59 20 mg DAILY TERE Administration Potassium Bicarbonate 25 meq 08/29/25 07:45 08/29/25 08:24 Potassium Bicarbonate 25 Meq Tab PO 08/29/25 11:46 25 meq Q2H TERE Administration Sacubitril/Valsartan 0.5 tablet 08/28/25 22:00 08/28/25 22:40 Sacubitril/Valsartan 1 Tablet Tablet PO 09/27/25 21:59 Not Given BID TERE Sodium Chloride 3 ml 08/27/25 07:24 Sodium Cl For Inhalation 3 Ml Ud Nebule 09/26/25 07:23 PRN PRN Thiamine HCl 100 mg 08/27/25 10:00 08/28/25 09:52 Thiamine Hcl 100 Mg Tablet PO 09/26/25 09:59 100 mg DAILY TERE Administration Discontinued Medications Generic Name Dose Route Start Last Admin Trade Name Freq PRN Reason Stop Dose Admin Albuterol/Ipratropium Confirm 08/27/25 00:25 Ipratropium/Albuterol Sulfate 3 Ml Ampul.Neb Administered 08/27/25 00:26 Dose 3 ml IH .STK-MED ONE Albuterol/Ipratropium 3 ml 08/27/25 00:29 08/27/25 00:29 Ipratropium/Albuterol Sulfate 3 Ml Ampul.Neb IH 08/27/25 00:30 3 ml STAT ONE Administration Carvedilol 3.125 mg 08/27/25 10:00 08/27/25 12:02 Carvedilol 3.125 Mg Tablet PO 09/26/25 09:59 Not Given BID TERE Diltiazem HCl 25 mg 08/26/25 19:51 08/26/25 19:52 Diltiazem Hcl Iv 5 Mg/Ml Vial IV 08/26/25 19:52 25 mg STAT ONE Administration Diltiazem HCl Confirm 08/26/25 19:52 Diltiazem Hcl Iv 5 Mg/Ml Vial Administered 08/26/25 19:53 Dose 50 mg IV .STK-MED ONE Enoxaparin Sodium 60 mg 08/26/25 23:18 08/26/25 23:33 Enoxaparin Sodium 80 Mg/0.8 Ml Syringe SQ 08/26/25 23:19 60 mg STAT ONE Administration Enoxaparin Sodium Confirm 08/26/25 23:32 Enoxaparin Sodium 80 Mg/0.8 Ml Syringe Administered 08/26/25 23:33 Dose 80 mg SQ .STK-MED ONE Enoxaparin Sodium 60 mg 08/27/25 10:00 Enoxaparin Sodium 60 Mg/0.6 Ml Syringe SQ 09/26/25 09:59 BID TERE Furosemide 40 mg 08/26/25 23:17 08/26/25 23:33 Furosemide 40 Mg/4 Ml Vial IV 08/26/25 23:18 40 mg STAT ONE Administration Furosemide Confirm 08/26/25 23:32 Furosemide 40 Mg/4 Ml Vial Administered 08/26/25 23:33 Dose 40 mg .ROUTE .STK-MED ONE Furosemide 40 mg 08/27/25 02:45 08/27/25 02:47 Furosemide 40 Mg/4 Ml Vial IV 09/26/25 02:44 Not Given Q8H TERE Sodium Chloride 1,000 mls @ 100 mls/hr 08/26/25 20:00 08/26/25 19:54 Sodium Chloride 0.9% 1000 Ml IV 09/25/25 19:59 100 mls/hr .Q10H TERE Administration Diltiazem HCl 100 mls @ 5 mls/hr 08/26/25 20:03 08/27/25 18:23 Cardizem Drip 100 Mg/100 Ml D5w IV 09/25/25 20:02 0 mg/hr .Q20H PRN 0 mls/hr HEART RATE/ A-FIB Titration Protocol 5 MG/HR Magnesium Sulfate/Dextrose 100 mls @ 200 mls/hr 08/26/25 20:32 08/26/25 21:41 Magnesium 1 Gm / 100 Ml D5w IV 08/26/25 21:01 Infused STAT ONE Infusion Magnesium Sulfate/Dextrose Confirm 08/26/25 20:55 Magnesium 1 Gm / 100 Ml D5w Administered 08/26/25 20:56 Dose 100 mls @ ud IV .STK-MED ONE Ceftriaxone Sodium 1 gm in 100 mls @ 200 mls/hr 08/26/25 22:24 08/26/25 23:12 Rocephin 1 Gm / 100 Ml Nacl IV 08/26/25 22:53 Infused STAT ONE Infusion Ceftriaxone Sodium Confirm 08/26/25 22:36 Rocephin 1 Gm / 100 Ml Nacl Administered 08/26/25 22:37 Dose 1 gm in 100 mls @ ud IV .STK-MED ONE Sodium Chloride Confirm 08/26/25 19:52 Sodium Chloride 0.9% 1000 Ml Administered 08/26/25 19:53 Dose 1,000 mls @ ud .ROUTE .STK-MED ONE Sodium Chloride 1,000 mls @ 50 mls/hr 08/27/25 01:39 08/27/25 02:32 Sodium Chloride 0.9% 1000 Ml IV 09/26/25 01:38 50 mls/hr .Q20H TERE Administration Magnesium Sulfate/Water 2 gm in 50 mls @ 100 mls/hr 08/29/25 08:30 08/29/25 08:25 Magnesium Sulf 2 G/50 Ml Bag IV 08/29/25 08:59 100 mls/hr ONCE ONE Administration Losartan Potassium 25 mg 08/27/25 10:00 08/28/25 09:52 Losartan Potassium 50 Mg Tablet PO 09/26/25 09:59 25 mg DAILY TERE Administration Losartan Potassium 25 mg 08/27/25 20:00 08/27/25 19:51 Losartan Potassium 50 Mg Tablet PO 08/27/25 20:01 25 mg NOW ONE Administration Magnesium Oxide 400 mg 08/27/25 12:00 08/27/25 12:22 Magnesium Oxide 400 Mg Tablet PO 08/27/25 12:01 400 mg ONCE ONE Administration Magnesium Oxide 400 mg 08/28/25 11:50 08/28/25 11:59 Magnesium Oxide 400 Mg Tablet PO 08/28/25 11:51 400 mg STAT ONE Administration Metoprolol Tartrate 5 mg 08/26/25 21:54 08/26/25 22:41 Metoprolol Tartrate 5 Mg/5 Ml Vial IV 08/26/25 21:55 5 mg STAT ONE Administration Metoprolol Tartrate Confirm 08/26/25 22:36 Metoprolol Tartrate 5 Mg/5 Ml Vial Administered 08/26/25 22:37 Dose 5 mg IV .STK-MED ONE Metoprolol Tartrate 25 mg 08/27/25 19:45 08/27/25 19:51 Metoprolol Tartrate 25 Mg Tab PO 08/27/25 19:46 25 mg NOW ONE Administration Morphine Sulfate 4 mg 08/26/25 22:56 08/26/25 23:10 Morphine Sulfate 4 Mg/Ml Injection IV 08/26/25 22:57 4 mg STAT ONE Administration Morphine Sulfate Confirm 08/26/25 23:09 Morphine Sulfate 4 Mg/Ml Injection Administered 08/26/25 23:10 Dose 4 mg .ROUTE .STK-MED ONE Ondansetron HCl 4 mg 08/26/25 22:56 08/26/25 23:10 Ondansetron Hcl 4 Mg/2 Ml Vial IV 08/26/25 22:57 4 mg STAT ONE Administration Ondansetron HCl Confirm 08/26/25 23:09 Ondansetron Hcl 4 Mg/2 Ml Vial Administered 08/26/25 23:10 Dose 4 mg .ROUTE .STK-MED ONE Sodium Bicarbonate 50 meq 08/27/25 06:26 08/27/25 06:30 Sodium Bicarbonate 1 Meq/Ml 50ml Syringe IV 08/27/25 06:27 50 meq ONCE ONE Administration Sodium Bicarbonate 650 mg 08/27/25 10:00 08/27/25 12:02 Sodium Bicarbonate 650 Mg Tablet PO 09/26/25 09:59 650 mg DAILY TERE Administration Sodium Chloride Confirm 08/27/25 07:15 Sodium Cl For Inhalation 3 Ml Ud Nebule Administered 08/27/25 07:16 Dose 3 ml IH .STK-MED ONE Assessment/Plan (1) Atrial fibrillation with RVR Current Visit: Yes Status: Acute Code(s): I48.91 - UNSPECIFIED ATRIAL FIBRILLATION (2) Transaminitis Current Visit: Yes Status: Acute Code(s): R74.01 - ELEVATION OF LEVELS OF LIVER TRANSAMINASE LEVELS (3) D-dimer, elevated Current Visit: Yes Status: Acute Code(s): R79.89 - OTHER SPECIFIED ABNORMAL FINDINGS OF BLOOD CHEMISTRY (4) Metabolic acidosis Current Visit: Yes Status: Acute Code(s): E87.20 - ACIDOSIS, UNSPECIFIED (5) Non-compliance Current Visit: Yes Status: Acute Code(s): Z91.199 - PT NONCOMPL WITH OTHER MED TRTMT AND REGIMEN D/T UNSP REASON (6) Hypothyroidism Current Visit: Yes Status: Acute Code(s): E03.9 - HYPOTHYROIDISM, UNSPECIFIED (7) Anxiety Current Visit: Yes Status: Acute Code(s): F41.9 - ANXIETY DISORDER, UNSPECIFIED (8) Elevated fasting glucose Current Visit: Yes Status: Acute Code(s): R73.01 - IMPAIRED FASTING GLUCOSE (9) Bilateral pleural effusion Current Visit: Yes Status: Acute Code(s): J90 - PLEURAL EFFUSION, NOT ELSEWHERE CLASSIFIED (10) CHF (congestive heart failure) Current Visit: Yes Status: Acute Code(s): I50.9 - HEART FAILURE, UNSPECIFIED (11) Chronic anemia Current Visit: Yes Status: Acute Code(s): D64.9 - ANEMIA, UNSPECIFIED (12) Hypomagnesemia Current Visit: Yes Status: Acute Code(s): E83.42 - HYPOMAGNESEMIA (13) Hypoxia Current Visit: Yes Status: Acute Code(s): R09.02 - HYPOXEMIA (14) UTI (urinary tract infection) Current Visit: Yes Status: Acute Code(s): N39.0 - URINARY TRACT INFECTION, SITE NOT SPECIFIED (15) Alcohol withdrawal delirium Current Visit: No Status: Acute Code(s): F10.231 - ALCOHOL DEPENDENCE WITH WITHDRAWAL DELIRIUM (16) Hepatitis C Current Visit: No Status: Chronic Qualifiers: Viral hepatitis chronicity: chronic Hepatic coma status: without hepatic coma Qualified Code(s): B18.2 - Chronic viral hepatitis C (17) Cirrhosis of liver with ascites Current Visit: No Status: Chronic Qualifiers: Hepatic cirrhosis type: alcoholic cirrhosis Qualified Code(s): K70.31 - Alcoholic cirrhosis of liver with ascites Code(s): K74.60 - UNSPECIFIED CIRRHOSIS OF LIVER; R18.8 - OTHER ASCITES (18) HTN (hypertension) Current Visit: No Status: Chronic Qualifiers: Hypertension type: primary hypertension Qualified Code(s): I10 - Essential (primary) hypertension Code(s): I10 - ESSENTIAL (PRIMARY) HYPERTENSION (19) Methamphetamine abuse Current Visit: No Status: Chronic Code(s): F15.10 - OTHER STIMULANT ABUSE, UNCOMPLICATED (20) Alcohol abuse Current Visit: Yes Status: Chronic Code(s): F10.10 - ALCOHOL ABUSE, UNCOMPLICATED (21) NAKUL (acute kidney injury) Current Visit: Yes Status: Resolved Code(s): N17.9 - ACUTE KIDNEY FAILURE, UNSPECIFIED (22) Hallucinations Current Visit: Yes Status: Acute Code(s): R44.3 - HALLUCINATIONS, UNSPECIFIED (23) Chronic right shoulder pain Current Visit: Yes Status: Chronic Code(s): M25.511 - PAIN IN RIGHT SHOULDER; G89.29 - OTHER CHRONIC PAIN (24) Chronic neck pain Current Visit: Yes Status: Chronic Code(s): M54.2 - CERVICALGIA; G89.29 - OTHER CHRONIC PAIN (25) Iron deficiency anemia Current Visit: Yes Status: Chronic Code(s): D50.9 - IRON DEFICIENCY ANEMIA, UNSPECIFIED (26) Opiate abuse, episodic Current Visit: Yes Status: Acute Code(s): F11.10 - OPIOID ABUSE, UNCOMPLICATED (27) Depression Current Visit: Yes Status: Acute Qualifiers: Depression Type: major depressive disorder Active/Remission status: currently active Assessment & Plan: (1) Atrial fibrillation with RVR Current Visit: Yes Status: Acute Assessment & Plan: - Cardizem gtt - Cardiology consult - ICU - Tele - CBC, CMP reviewed - Keep K+ > 4 and Mg+ > 2 - Replaced Mg+ today - EKG - Lovenox held for now for thoracentesis, SCD's - Will start xarelto when able 08/28 - Hold anticoagulation Hgb 7.3 and to have left thoracentesis in AM - Cardiology note reviewed and agree with plan of care - Echo reviewed- EF 20-25 % - Mg+ 1.6- replaced - Metoprolol Succinate 25mg daily - ICU-Tele - Cardizem gtt stopped last night - HR controlled A-fib - CBC, CMP reviewed - [id number] Score = 5 - F/U with Dr. Frazier OP 08/29 - Left thoracentesis today - 3lNC 97% - Decreased lung sounds BLLL - Mg+ and K+ replaced today - ICU tele - Continued A-fib RVR today with HR 99-117 - Losartan stopped by cardiology last night Code(s): I48.91 - UNSPECIFIED ATRIAL FIBRILLATION (2) Transaminitis Current Visit: Yes Status: Acute Assessment & Plan: - AST 227, ALT 185- trend- improving - Pt reports hx liver cirrhosis - Hepatitis panel - Will need OP f/u with specialist 08/28 - AST 122, ALT 150- improving - US abd reviewed 08/29 - AST 82/ ALT 118- improving Code(s): R74.01 - ELEVATION OF LEVELS OF LIVER TRANSAMINASE LEVELS (3) D-dimer, elevated Current Visit: Yes Status: Acute Assessment & Plan: - D-Dimer 4.94 - CTA negative for PE Code(s): R79.89 - OTHER SPECIFIED ABNORMAL FINDINGS OF BLOOD CHEMISTRY (4) Metabolic acidosis Current Visit: Yes Status: Acute Assessment & Plan: - Co2 15- trend - PO sodium bicarb BID - 1 amp bolus gave of sodium bicarb last night 08/28 - Cardiology stopped Sodium bicarb last night - Co2 21- improved- trend 08/29 - Trend Code(s): E87.20 - ACIDOSIS, UNSPECIFIED (5) Non-compliance Current Visit: Yes Status: Acute Assessment & Plan: - Patient states that she has not been taking her medications for over 2 months now and states that she does not know how to take them appropriately and needs assistance as to when to take them. She states that she knows that she has hepatitis C however she has not followed up for any treatment as she does not know where to go and would like treatment if someone can lead her in the right direction. - Drug and alcohol abuse may be contributing to her noncompliance. - Case management to assist with support OP - Consider rehab at d/c- pt refused - Pt wants Hospice Code(s): Z91.199 - PT NONCOMPL WITH OTHER MED TRTMT AND REGIMEN D/T UNSP REASON (6) Hypothyroidism Current Visit: Yes Status: Acute Assessment & Plan: - TSH 8.674 - Restarted Synthroid - Will need OP f/u Code(s): E03.9 - HYPOTHYROIDISM, UNSPECIFIED (7) Anxiety Current Visit: Yes Status: Acute Assessment & Plan: - About health concerns - Alcohol withdrawal sx- follow protocol for medication 08/28 - Started Paxil Code(s): F41.9 - ANXIETY DISORDER, UNSPECIFIED (8) Elevated fasting glucose Current Visit: Yes Status: Acute Assessment & Plan: - A1C 4.95- non-concerning - Fasting glucose 142 08/27 Code(s): R73.01 - IMPAIRED FASTING GLUCOSE (9) Bilateral pleural effusion Current Visit: Yes Status: Acute Assessment & Plan: - As seen on Chest CTA - Right sided thoracentesis ordered today however cannot be done as Lovenox was given in the ER yesterday. This will be held today and thoracentesis to be done with labs in the morning. - Left side to be completed on - LASIX Q 8 hours 08/28 - PT/INR today - Right thoracentesis with 1 Liter output- labs pending - Post op CXR: Portable chest moderately diminished right effusion/atelectasis consistent with recent thoracentesis. No pneumothorax. Remaining chest again demonstrates cardiomegaly and moderate left lung base effusion/atelectasis grossly unchanged. - Left side thorcentesis to be completed on - PT/INR in AM 08/29 - Left thoracentesis with 600 ml out- labs pending - Right thora labs reviewed - On 3LNC 96% Code(s): J90 - PLEURAL EFFUSION, NOT ELSEWHERE CLASSIFIED (10) CHF (congestive heart failure) Current Visit: Yes Status: Acute Assessment & Plan: - Echo - Lasix 40mg IV Q8 hr - I&O's, daily weight - Tele - BNP 5340 - Cardiology consult - 8L Oxymask 95% - Keep HOB > 30-45 degrees - 2 L fluid restriction - Heart healthy diet when not NPO - Chest CTA shows: IMPRESSION: 1. No convincing evidence of pulmonary embolism on current examination. 2. Mildly dilated pulmonary trunk measuring 35 mm in diameter, suggestive of pulmonary arterial hypertension. New finding. 3. Moderate cardiomegaly with interval increase in cardiac size. 4. Interval evidence of severe right-sided and moderate left-sided pleural effusion with underlying consolidation/collapse. Appearances are likely secondary to congestive changes with possibility of superadded pulmonary infection. Clinical and laboratory correlation is advised. 5. Generalized body wall edema. New finding. 6. The rest of the findings are as stated above. 08/28 - Combined systolic (congestive) and diastolic (congestive) heart failure - Echo EF 20-25%- TRANSTHORACIC ECHOCARDIOGRAM 08/27/2025: 1. Moderately dilated left atrium. Mildly dilated left ventricle and right atrium. Normal right ventricular chamber size. 2. Mild to moderate concentric left ventricular hypertrophy. 3. Severely depressed left ventricular systolic function due to severe global hypokinesis. Estimated EF 20-25%. 4. Unable to access grade of diastolic dysfunction due to the patient's underlying atrial fibrillation. 5. Normal right ventricular systolic function. 6. Structurally normal valves. 7. Doppler: Mild to moderate mitral regurgitation, mild tricuspid and pulmonic regurgitation. 8. Normal estimated PA systolic pressure (29 mmHg). 9. Mildly elevated right atrial pressure (8 mmHg). 10. No pericardial effusion. - 3lNC 95% - Daily weight reviewed and no weight loss - Continue lasix - Purewick in place - Losartan 25 mg daily - Replace carvedilol with metoprolol succinate 25 mg daily due to her underlying COPD. 08/29 - Cardiology changed meds last night, Losartan stopped and Entresto and Jardiance started. - Entrestro held d/t BP low last night- provider made aware by nurse. - Weight pending - Pt wants hospice for CHF dx - Hold lasix d/t NAKUL Code(s): I50.9 - HEART FAILURE, UNSPECIFIED (11) Chronic anemia Current Visit: Yes Status: Acute Assessment & Plan: - Hgb 8.1- trend- appears to be at baseline per old labs reviewed - Iron profile ordered - Occult stool 08/28 - Iron profile reviewed- + Fe+ def. anemia - Started Venofer IV - Occult stool pending - Hgb 7.3- Recheck H& H at 1400 7.6 08/29 - Hgb 7.7 Code(s): D64.9 - ANEMIA, UNSPECIFIED (12) Hypomagnesemia Current Visit: Yes Status: Acute Assessment & Plan: - MG+ 1.5 on admission, 1.6 today- replace to keep > 2 d/t A-fib RVR 08/28 - Mg+ 1.6- replaced- trend Code(s): E83.42 - HYPOMAGNESEMIA (13) Hypoxia Current Visit: Yes Status: Acute Assessment & Plan: - 8L oxymask-95%- wean as tolerated- BL 1-2 Liters - BL 1-2 liters but will not wear at home and noncompliant. - CTA chest reviewed - 2:2 BL pleural effusions- see plan above 08/28 - 3L NC 95% - Right thoracentesis with 1 Liter out, labs ordered 08/29 - Left thoracentesis with 600 ml out, labs ordered Code(s): R09.02 - HYPOXEMIA (14) UTI (urinary tract infection) Current Visit: Yes Status: Acute Assessment & Plan: - UA gram negative - Ceftriaxone IV - CBC, CMP reviewed - BC x2 pending - LA negative 08/28 - BC x2 negative - CBC, CMP reviewed 08/29 - UC gram negative Code(s): N39.0 - URINARY TRACT INFECTION, SITE NOT SPECIFIED (15) Alcohol withdrawal delirium Current Visit: No Status: Acute Assessment & Plan: - Alcohol withdrawal protocol - Alcohol level <10 Code(s): F10.231 - ALCOHOL DEPENDENCE WITH WITHDRAWAL DELIRIUM (16) Hepatitis C Current Visit: No Status: Chronic Qualifiers: Viral hepatitis chronicity: chronic Hepatic coma status: without hepatic coma Qualified Code(s): B18.2 - Chronic viral hepatitis C Assessment & Plan: - Chronic per patient. Patient states that she has not got any treatment for this as she does not know how to follow-up or receive treatment for this will need referral outpatient at D/C. - Hepatitis profile ordered- pending - Liver enzymes AST 227/ALT 185 - US abd for eval of ascites 08/28 - AST 122, ALT 150- improved - No ascites per US results 08/29 - AST 82/ ALT 118- improving- trend - Hepatitis labs pending (17) Cirrhosis of liver with ascites Current Visit: No Status: Chronic Qualifiers: Hepatic cirrhosis type: alcoholic cirrhosis Qualified Code(s): K70.31 - Alcoholic cirrhosis of liver with ascites Assessment & Plan: - US of abd today for further eval - Amylase/Lipase WNL 08/28 - US abd: Pancreas not well seen due to overlying bowel gas. Visualized liver mildly fatty and homogeneous in echogenicity without hepatomegaly or ascites. Partially contracted gallbladder negative for cholelithiasis. Gallbladder wall thickening 3.7 mm presumed from partial contraction. No pericholecystic fluid. Common bile duct measures 5 mm. No intrahepatic biliary distention. Right kidney measures 9.4 x 4.2 x 4.9 cm and sonographically unremarkable. Impression: Nonvisualization pancreas. Gallbladder wall thickening presumed from partial contraction. Fatty liver. Remaining right upper quadrant sonogram negative. - No ascities Code(s): K74.60 - UNSPECIFIED CIRRHOSIS OF LIVER; R18.8 - OTHER ASCITES (18) HTN (hypertension) Current Visit: No Status: Chronic Qualifiers: Hypertension type: primary hypertension Qualified Code(s): I10 - Essential (primary) hypertension Assessment & Plan: - BP stable - Hold bp meds while on cardizem gtt- Discussed with nursing 08/28 - Cardiology started metoprolol, Losartan - Coreg stopped last night by cardiology - BP stable 08/29 - Cardiology stopped Losartan last night - BP stable Code(s): I10 - ESSENTIAL (PRIMARY) HYPERTENSION (19) Methamphetamine abuse Current Visit: No Status: Chronic Assessment & Plan: - UDS + for meth and opiates - Advised cessation Code(s): F15.10 - OTHER STIMULANT ABUSE, UNCOMPLICATED (20) Alcohol abuse Current Visit: Yes Status: Chronic Assessment & Plan: - Alcohol level pending - Advised cessation - CM to discuss rehab - Admits to drinking 4 glasses of vodka daily - Alcohol withdrawal protocol in place 08/28 - + Alcohol withdrawals with hallucinations 08/29 - Continued sxs overnight Code(s): F10.10 - ALCOHOL ABUSE, UNCOMPLICATED (21) NAKUL (acute kidney injury) Current Visit: Yes Status: Resolved Assessment & Plan: - Resolved - Stop IVF 08/28 - Creat. 1.19- trend - Likely 2:2 Lasix 08/29 - Hold lasix today - Creat 1.21 Code(s): N17.9 - ACUTE KIDNEY FAILURE, UNSPECIFIED (22) Hallucinations Current Visit: Yes Status: Acute Assessment & Plan: - From alcohol withdrawl - Continue alcohol withdrawl protocol Code(s): R44.3 - HALLUCINATIONS, UNSPECIFIED (23) Chronic right shoulder pain Current Visit: Yes Status: Chronic Assessment & Plan: - T-Pump heating pad - Tylenol for pain PRN - Right shoulder XR: 3 view right shoulder demonstrates osteopenia, mild AC degenerative changes, 1.5 cm humeral head bone cyst, mild lower cervical degenerative spondylosis, and mild left carotid calcifications. No other bony, articular, or soft tissue abnormalities. - F/U OP with ortho Code(s): M25.511 - PAIN IN RIGHT SHOULDER; G89.29 - OTHER CHRONIC PAIN (24) Chronic neck pain Current Visit: Yes Status: Chronic Assessment & Plan: - T-Pump heating pad - Tylenol for pain PRN - Cervical spine CT 07/05/22: Impression: 1. Cervical lordotic reversal, positional versus paraspinal spasm. 2. Osteopenia and multilevel degenerative changes greatest at C6-C7 level. 3. Extensive bilateral carotid calcifications - Cervical spine MRI: Impression: 1. Multilevel degenerative disc disease detailed level by level including T2-T3 level. Greatest extent is C3-C4 where there is spinal canal narrowing and bilateral foraminal stenosis compounded by minimal grade 1 anterolisthesis. 2. Cervical lordotic straightening, positional versus paraspinal spasm. Code(s): M54.2 - CERVICALGIA; G89.29 - OTHER CHRONIC PAIN (25) Iron deficiency anemia Current Visit: Yes Status: Chronic Assessment & Plan: - Iron panel reviewed - Iron sat 6, Ferritin 7 - Venofer IV started - Hgb 7.3- trend - Pt reports OP EGD and colonosocpy OP with no abnormal findings. 08/29 - Hgb 7.7 Code(s): D50.9 - IRON DEFICIENCY ANEMIA, UNSPECIFIED (26) Opiate abuse, episodic Current Visit: Yes Status: Acute Assessment & Plan: - UDS + for opiates - She did not receive opiates while hospitalized - Per [facility] report she last received opiates 10/06/24- no recent RX filled - Will need to d/c with narcan Code(s): F11.10 - OPIOID ABUSE, UNCOMPLICATED (27) Depression Current Visit: Yes Status: Acute Qualifiers: Depression Type: major depressive disorder Active/Remission status: currently active Assessment & Plan: - PHQ9 score elevated for depression per community health worker - Started Paxil daily for anxiety and depression - Will need OP f/u Code(s): F32.A - DEPRESSION, UNSPECIFIED Code(s): F32.A - DEPRESSION, UNSPECIFIED (28) Hypokalemia Current Visit: Yes Status: Acute Assessment & Plan: - K+ 3.4- Replaced- trend - ICU-Tele Code(s): E87.6 - HYPOKALEMIA (29) Hypomagnesemia Current Visit: Yes Status: Acute Assessment & Plan: - Mg+ 1.5- replaced- trend - ICU-Tele VTE: SCD's PPI: Protonix Next of KIN: Daughter D/C plan: 3-4 days Code status: SCO/DNR on hospice Plan of care/ Critical care time > 60 minutes Code(s): E83.42 - HYPOMAGNESEMIA
--- NOTE | 2025-08-29 10:36 | XRAY ---
Indication: Left effusion. Informed consent obtained. Initial ultrasound of the left lower back performed for localization. The back was prepped and draped in sterile fashion. 1% lidocaine plain was used for local anesthesia. Tiny skin incision made. 5 [employer] paracentesis needle/catheter was then percutaneously inserted. Once fluid was aspirating, the outer catheter was then advanced with the inner needle removed. Catheter was connected to a Vacutainer. Approximately 600 cc of clear idania colored fluid aspirated and was disposed of properly. Approximately 50 cc was collected and sent to laboratory for analysis as ordered by the clinician. Repeat sonogram demonstrates improvement without obvious residual. Catheter removed. Hemostasis achieved using digital pressure over the puncture site. Band-Aid applied over the puncture site. Postthoracentesis chest radiograph pending. Impression: Technically successful ultrasound guided left thoracentesis for both diagnostic and therapeutic purpose. No immediate complications or blood loss.
--- NOTE | 2025-08-29 10:48 | XRAY ---
Indication: Status post left thoracentesis. Comparison: 1 day earlier. Portable chest obtained in expiration demonstrates moderate improvement left effusion/atelectasis consistent with recent thoracentesis. No pneumothorax. Previous right base effusion/atelectasis also improved. Heart remains enlarged. No new cardiopulmonary abnormalities.
[2025-08-29 10:51] LABS: BODY FLUID CLARITY CLEAR (CLEAR); BODY FLUID COLOR XANTHROCHORMIC (COLORLESS)
[2025-08-29] MEDS: JARDIANCE PO SCH (10:59)
[2025-08-29] MEDS: FLAGYL 500 MG IVPB 500 MG/100 ML BAG IV SCH (12:05)
[2025-08-29 14:12] LABS: LD, Body Fluid 100.0 IU/L (.)
[2025-08-29 15:35] LABS: Potassium 4.3 mmol/L (3.5-5.1)
[2025-08-29] MEDS: MAG-OX 400 PO ONE (21:08)
[2025-08-30 05:14] LABS: Hematocrit 28.4 % (34.1-44.9); Hemoglobin 7.4 g/dL (11.2-15.7); Mean Corpuscular Hemoglobin 19.2 pg (25.6-32.2); Mean Corpuscular Hgb Concent. 26.1 g/dL (32.2-35.5); Platelet Count 179 x10^3/uL (182-369); Red Blood Count 3.85 x10^6/uL (3.93-5.22); White Blood Count 9.4 x10^3/uL (3.98-10.04)
[2025-08-30 06:28] LABS: Calcium 7.8 mg/dL (8.4-10.2); Carbon Dioxide 29.0 mmol/L (22-30); Creatinine 1 0.85 mg/dL (0.52-1.04); EST GLOMERULAR FILTRATION RATE 74.1 ML/MIN; Glucose 109.0 mg/dL (74-106); Potassium 4.0 mmol/L (3.5-5.1); SGOT/AST 47.0 U/L (14-36); SGPT/ALT 78.0 U/L (0-35); Total Protein 5.9 g/dL (6.3-8.2)
[2025-08-30] MEDS: MAG-OX 400 PO ONE (08:25)
[2025-08-30 08:31] LABS: Slide Review YES
[2025-08-30] MEDS: Cozaar 50 MG PO SCH (10:03)
[2025-08-30] MEDS: Lasix 40 MG/4 ML IV SCH (10:04)
--- NOTE | 2025-08-30 11:49 | PCM.DS ---
Discharge Summary Date of Admission: 08/27/25 01:29 Date of Discharge: 08/30/25 Admitting Physician: EDDIE GARNICA MD Consults: Consults on Case 08/27/25 08:03 Consult Cardiology ROUTINE Primary Care Provider: SKY MATTHEW DARCI Allergies Allergies Penicillins Allergy (Intermediate, Verified 02/28/25 08:17) Hives adhesive tape Allergy (Mild, Verified 02/28/25 08:17) Rash lorazepam [From Ativan] Adverse Reaction (Intermediate, Verified 02/28/25 08:17) "goes [facility]" Hospital Summary - Hospital Course Hospital Course: is a 70 yearold female with a complex medical history including COPD previously on home oxygen, atrial fibrillation on Xarelto, hypertension, hyperlipidemia, neuropathy, hypothyroidism, chronic anemia, hepatitis C, methamphetamine abuse, and alcohol dependence with prior withdrawals, who presented on 08/26/25 with dyspnea, dry cough, wheezing, and chest discomfort after discontinuing all home medications and oxygen for approximately two months. She was found to be in atrial fibrillation with RVR and was treated with IV diltiazem, later transitioned to a continuous infusion. Workup revealed volume overload with bilateral pleural effusions, elevated liver enzymes, and a urinary tract infection; CTA was negative for pulmonary embolism. She received IV Lasix, IV ceftriaxone, and initially required BiPAP before being weaned to nasal cannula. On 08/27, she remained short of breath on high-flow oxygen, and abdominal ultrasound showed no ascites. LFTs remained elevated but improved, Synthroid was initiated for elevated TSH, and electrolytes were replaced as needed. Alcohol withdrawal symptoms emerged, requiring protocol management. On 08/28, she underwent right-sided thoracentesis with 1 L removed, continued to improve clinically, and was started on Paxil for depression and anxiety. Iron studies revealed severe deficiency, and IV Venofer was initiated. Her atrial fibrillation with RVR resolved, and she was weaned to 3 L oxygen. On 08/29, she remained clinically improved, underwent left-sided thoracentesis, and cardiology adjusted her medications, discontinuing losartan and trialing Entresto, which was later held due to hypotension. She continued to experience intermittent withdrawal symptoms, and electrolytes were again replaced. On 08/30, she was stable on room air with oxygen saturation of 98% following bilateral thoracenteses. Hemoglobin remained low at 7.4, and she will require continued iron infusions as an outpatient if transportation is available; otherwise, she will begin oral iron therapy. Due to chronic anemia and recurrent transfusion history, she is not a candidate for anticoagulation per cardiology. Entresto was discontinued, and losartan, Jardiance, and metoprolol will be continued. Her NAKUL has resolved, magnesium was replaced, and she denies chest pain, dyspnea, abdominal pain, nausea, vomiting, or diarrhea. After declining hospice despite being an appropriate candidate, she elected discharge home with home health services. She is stable for discharge with outpatient follow-up arranged, including cardiology early next week. - Vitals & Intake/Output Vital Signs: Vital Signs Temperature 97.9 F 08/30/25 07:00 Pulse Rate 90 08/30/25 10:30 Respiratory Rate 15 08/30/25 10:30 Blood Pressure 92/62 08/30/25 10:30 O2 Sat by Pulse Oximetry 98 08/30/25 09:38 Intake & Output: Intake & Output 08/27/25 08/28/25 08/29/25 08/30/25 11:59 11:59 11:59 11:59 Intake Total 1242 1497 806 910 Output Total 300 1550 2550 1050 Balance -140 Weight 63.2 kg 63.1 kg 62 kg - Lab Result Diagrams: 08/30/25 04:22 08/30/25 04:22 Lab Results-Last 24 Hrs: Lab Results-Last 24 Hours 08/28/25 08/28/25 08/29/25 Range/Units 09:44 09:44 15:19 WBC (3.98-10.04) x10^3/uL RBC (3.93-5.22) x10^6/uL Hgb (11.2-15.7) g/dL Hct (34.1-44.9) % MCV (79.4-94.8) fL MCH (25.6-32.2) pg MCHC (32.2-35.5) g/dL RDW (11.7-14.4) % Plt Count (182-369) x10^3/uL MPV (9.4-12.3) fL Sodium (135-145) mmol/L Potassium 4.3 D (3.5-5.1) mmol/L Chloride (98-107) mmol/L Carbon Dioxide (22-30) mmol/L Anion Gap (5-15) MEQ/L BUN (7-17) mg/dL Creatinine (0.52-1.04) mg/dL Estimated GFR ML/MIN Glucose (74-106) mg/dL Calcium (8.4-10.2) mg/dL Magnesium 1.7 (1.6-2.3) mg/dL Total Bilirubin (0.2-1.3) mg/dL AST (14-36) U/L ALT (0-35) U/L Alkaline Phosphatase (38-126) U/L Serum Total Protein (6.3-8.2) g/dL Albumin (3.5-5.0) g/dL Fluid pH Pending Fluid Glucose 109 (.) mg/dL Fluid Total Protein 1.9 (.) g/dL Fluid LDH 100 (.) IU/L Slides for Path Review 08/30/25 08/30/25 08/30/25 Range/Units 04:22 04:22 04:22 WBC 9.4 (3.98-10.04) x10^3/uL RBC 3.85 L (3.93-5.22) x10^6/uL Hgb 7.4 L (11.2-15.7) g/dL Hct 28.4 L (34.1-44.9) % MCV 73.8 L (79.4-94.8) fL MCH 19.2 L (25.6-32.2) pg MCHC 26.1 L (32.2-35.5) g/dL RDW 21.1 H (11.7-14.4) % Plt Count 179 L (182-369) x10^3/uL MPV 10.6 (9.4-12.3) fL Sodium 136 (135-145) mmol/L Potassium 4.0 (3.5-5.1) mmol/L Chloride 99 (98-107) mmol/L Carbon Dioxide 29 (22-30) mmol/L Anion Gap 12.0 (5-15) MEQ/L BUN 27 H (7-17) mg/dL Creatinine 0.85 (0.52-1.04) mg/dL Estimated GFR 74.1 ML/MIN Glucose 109 H (74-106) mg/dL Calcium 7.8 L (8.4-10.2) mg/dL Magnesium 1.9 (1.6-2.3) mg/dL Total Bilirubin 0.20 (0.2-1.3) mg/dL AST 47 H (14-36) U/L ALT 78 H (0-35) U/L Alkaline Phosphatase 73 (38-126) U/L Serum Total Protein 5.9 L (6.3-8.2) g/dL Albumin 3.1 L (3.5-5.0) g/dL Fluid pH Fluid Glucose (.) mg/dL Fluid Total Protein (.) g/dL Fluid LDH (.) IU/L Slides for Path Review YES Micro Results-Entire Visit: Microbiology 08/28/25 09:44 Gram Stain - Final Pleural Fluid 08/26/25 20:00 Urine Culture - Final Catherized Escherichia Coli 08/26/25 20:04 Blood Culture - Preliminary Blood 08/26/25 20:11 Blood Culture - Preliminary Blood - Radiology Exams Ordered Rad Exams-Entire Visit: Radiology Procedures Category Date Time Status CHEST 1 VIEW (PORTABLE) Stat Exams 08/28/25 11:19 Completed CHEST 1 VIEW (PORTABLE) Urgent Exams 08/29/25 10:25 Completed SHOULDER Routine Exams 08/28/25 11:36 Completed THORACENTESIS [US] Routine Exams 08/29/25 07:28 Completed - Procedures and Test Procedures and Tests throughout Hospitalization: Therapy Orders & Screens 08/27/25 00:30 Respiratory Therapy Assessment DAILY Comment: 08/27/25 01:39 EKG REPEAT IN AM Comment: Oxygen Nasal Cannula 2 lpm Comment: Respiratory Therapy Consult ONCE Comment: Reason For Exam: 08/27/25 07:18 Respiratory Therapy Assessment DAILY Comment: Diagnosis: afib RVR, bilateral pleural effusion, UTI 08/27/25 09:00 Smoking Cessation Education ONCE Comment: Diagnosis: afib RVR, bilateral pleural effusion, UTI Smoking Status: Current some day smoker How long have you smoked: 50+ Have you smoked in the past 12 months: Yes Approximately how many cigarettes per day: 6 Do you dip or chew tobacco: No Discharge Exam General Appearance: no apparent distress, alert, thin Neurologic Exam: alert, oriented x 3, cooperative, normal mood/affect, nml cerebellar function, sensation nml, No motor deficits Eye Exam: PERRL, EOMI, eyes nml inspection Ears, Nose, Throat Exam: normal ENT inspection, pharynx normal, moist mucous membranes Neck Exam: normal inspection, non-tender, supple, full range of motion Respiratory Exam: normal breath sounds, lungs clear, No respiratory distress Cardiovascular Exam: normal heart sounds, irregular (a-fib controlled) Gastrointestinal/Abdomen Exam: soft, No tenderness, No mass Pelvic Exam: deferred Rectal Exam: deferred Back Exam: normal inspection, normal range of motion, No CVA tenderness, No vertebral tenderness Extremity Exam: normal inspection, normal range of motion Skin Exam: normal color, warm, dry Final Diagnosis/Problem List - Final Discharge Diagnosis/Problem (1) Atrial fibrillation with RVR Current Visit: Yes Status: Acute Code(s): I48.91 - UNSPECIFIED ATRIAL FIBRILLATION (2) Transaminitis Current Visit: Yes Status: Acute Code(s): R74.01 - ELEVATION OF LEVELS OF LIVER TRANSAMINASE LEVELS (3) D-dimer, elevated Current Visit: Yes Status: Acute Code(s): R79.89 - OTHER SPECIFIED ABNORMAL FINDINGS OF BLOOD CHEMISTRY (4) Metabolic acidosis Current Visit: Yes Status: Acute Code(s): E87.20 - ACIDOSIS, UNSPECIFIED (5) Non-compliance Current Visit: Yes Status: Acute Code(s): Z91.199 - PT NONCOMPL WITH OTHER MED TRTMT AND REGIMEN D/T UNSP REASON (6) Hypothyroidism Current Visit: Yes Status: Acute Code(s): E03.9 - HYPOTHYROIDISM, UNSPECIFIED (7) Anxiety Current Visit: Yes Status: Acute Code(s): F41.9 - ANXIETY DISORDER, UNSPECIFIED (8) Elevated fasting glucose Current Visit: Yes Status: Acute Code(s): R73.01 - IMPAIRED FASTING GLUCOSE (9) Bilateral pleural effusion Current Visit: Yes Status: Acute Code(s): J90 - PLEURAL EFFUSION, NOT ELSEWHERE CLASSIFIED (10) CHF (congestive heart failure) Current Visit: Yes Status: Acute Code(s): I50.9 - HEART FAILURE, UNSPECIFIED (11) Chronic anemia Current Visit: Yes Status: Acute Code(s): D64.9 - ANEMIA, UNSPECIFIED (12) Hypomagnesemia Current Visit: Yes Status: Acute Code(s): E83.42 - HYPOMAGNESEMIA (13) Hypoxia Current Visit: Yes Status: Acute Code(s): R09.02 - HYPOXEMIA (14) UTI (urinary tract infection) Current Visit: Yes Status: Acute Code(s): N39.0 - URINARY TRACT INFECTION, SITE NOT SPECIFIED (15) Alcohol withdrawal delirium Current Visit: No Status: Acute Code(s): F10.231 - ALCOHOL DEPENDENCE WITH WITHDRAWAL DELIRIUM (16) Hepatitis C Current Visit: No Status: Chronic (17) Cirrhosis of liver with ascites Current Visit: No Status: Chronic Code(s): K74.60 - UNSPECIFIED CIRRHOSIS OF LIVER; R18.8 - OTHER ASCITES (18) HTN (hypertension) Current Visit: No Status: Chronic Code(s): I10 - ESSENTIAL (PRIMARY) HYPERTENSION (19) Methamphetamine abuse Current Visit: No Status: Chronic Code(s): F15.10 - OTHER STIMULANT ABUSE, UNCOMPLICATED (20) Alcohol abuse Current Visit: Yes Status: Chronic Code(s): F10.10 - ALCOHOL ABUSE, UNCOMPLICATED (21) NAKUL (acute kidney injury) Current Visit: Yes Status: Resolved Code(s): N17.9 - ACUTE KIDNEY FAILURE, UNSPECIFIED (22) Hallucinations Current Visit: Yes Status: Acute Code(s): R44.3 - HALLUCINATIONS, UNSPECIFIED (23) Chronic right shoulder pain Current Visit: Yes Status: Chronic Code(s): M25.511 - PAIN IN RIGHT SHOULDER; G89.29 - OTHER CHRONIC PAIN (24) Chronic neck pain Current Visit: Yes Status: Chronic Code(s): M54.2 - CERVICALGIA; G89.29 - OTHER CHRONIC PAIN (25) Iron deficiency anemia Current Visit: Yes Status: Chronic Code(s): D50.9 - IRON DEFICIENCY ANEMIA, UNSPECIFIED (26) Opiate abuse, episodic Current Visit: Yes Status: Acute Code(s): F11.10 - OPIOID ABUSE, UNCOMPLICATED (27) Depression Current Visit: Yes Status: Acute Code(s): F32.A - DEPRESSION, UNSPECIFIED (28) Hypokalemia Current Visit: Yes Status: Acute Code(s): E87.6 - HYPOKALEMIA (29) Hypomagnesemia Current Visit: Yes Status: Acute Assessment & Plan: (1) Atrial fibrillation with RVR Current Visit: Yes Status: Acute Assessment & Plan: - Cardizem gtt - Cardiology consult - ICU - Tele - CBC, CMP reviewed - Keep K+ > 4 and Mg+ > 2 - Replaced Mg+ today - EKG - Lovenox held for now for thoracentesis, SCD's - Will start xarelto when able 08/28 - Hold anticoagulation Hgb 7.3 and to have left thoracentesis in AM - Cardiology note reviewed and agree with plan of care - Echo reviewed- EF 20-25 % - Mg+ 1.6- replaced - Metoprolol Succinate 25mg daily - ICU-Tele - Cardizem gtt stopped last night - HR controlled A-fib - CBC, CMP reviewed - [id number] Score = 5 - F/U with Dr. Brumfeild OP 08/29 - Left thoracentesis today - 3lNC 97% - Decreased lung sounds BLLL - Mg+ and K+ replaced today - ICU tele - Continued A-fib RVR today with HR 99-117 - Losartan stopped by cardiology last night 08/30 - Entresto stopped by cardiology and Losartan restarted - Continue Mg+ today - RA 98% - Controlled A-fib - Not a canadate for anticoagulation d/t anemia - F/U with Cardiology - DNR/SCO Code(s): I48.91 - UNSPECIFIED ATRIAL FIBRILLATION (2) Transaminitis Current Visit: Yes Status: Acute Assessment & Plan: - AST 227, ALT 185- trend- improving - Pt reports hx liver cirrhosis - Hepatitis panel - Will need OP f/u with specialist 08/28 - AST 122, ALT 150- improving - US abd reviewed 08/29 - AST 82/ ALT 118- improving 08/30 - AST 47/ ALT 78-improving Code(s): R74.01 - ELEVATION OF LEVELS OF LIVER TRANSAMINASE LEVELS (3) D-dimer, elevated Current Visit: Yes Status: Acute Assessment & Plan: - D-Dimer 4.94 - CTA negative for PE Code(s): R79.89 - OTHER SPECIFIED ABNORMAL FINDINGS OF BLOOD CHEMISTRY (4) Metabolic acidosis Current Visit: Yes Status: Acute Assessment & Plan: - Co2 15- trend - PO sodium bicarb BID - 1 amp bolus gave of sodium bicarb last night 08/28 - Cardiology stopped Sodium bicarb last night - Co2 21- improved- trend 08/29 - Resolved Code(s): E87.20 - ACIDOSIS, UNSPECIFIED (5) Non-compliance Current Visit: Yes Status: Acute Assessment & Plan: - Patient states that she has not been taking her medications for over 2 months now and states that she does not know how to take them appropriately and needs assistance as to when to take them. She states that she knows that she has hepatitis C however she has not followed up for any treatment as she does not know where to go and would like treatment if someone can lead her in the right direction. - Drug and alcohol abuse may be contributing to her noncompliance. - Case management to assist with support OP - Consider rehab at d/c- pt refused - Pt wants Hospice 08/30 - Hospice came to speak with pt and family- she has changed her mind and wants to go home today with [facility] - Discussed compliance of meds and office f/u appointments OP to prevent readmission Code(s): Z91.199 - PT NONCOMPL WITH OTHER MED TRTMT AND REGIMEN D/T UNSP REASON (6) Hypothyroidism Current Visit: Yes Status: Acute Assessment & Plan: - TSH 8.674 - Restarted Synthroid - Will need OP f/u with PCP Code(s): E03.9 - HYPOTHYROIDISM, UNSPECIFIED (7) Anxiety Current Visit: Yes Status: Acute Assessment & Plan: - About health concerns - Alcohol withdrawal sx- follow protocol for medication 08/28 - Started Paxil- F/U with PCP Code(s): F41.9 - ANXIETY DISORDER, UNSPECIFIED (8) Elevated fasting glucose Current Visit: Yes Status: Acute Assessment & Plan: - A1C 4.95- non-concerning - Fasting glucose 142 08/27 Code(s): R73.01 - IMPAIRED FASTING GLUCOSE (9) Bilateral pleural effusion Current Visit: Yes Status: Acute Assessment & Plan: - As seen on Chest CTA - Right sided thoracentesis ordered today however cannot be done as Lovenox was given in the ER yesterday. This will be held today and thoracentesis to be done with labs in the morning. - Left side to be completed on - LASIX Q 8 hours 08/28 - PT/INR today - Right thoracentesis with 1 Liter output- labs pending - Post op CXR: Portable chest moderately diminished right effusion/atelectasis consistent with recent thoracentesis. No pneumothorax. Remaining chest again demonstrates cardiomegaly and moderate left lung base effusion/atelectasis grossly unchanged. - Left side thorcentesis to be completed on - PT/INR in AM 08/29 - Left thoracentesis with 600 ml out- labs pending - Right thora labs reviewed - On 3LNC 96% 08/30 - CXR: Portable chest obtained in expiration demonstrates moderate improvement left effusion/atelectasis consistent with recent thoracentesis. No pneumothorax. Previous right base effusion/atelectasis also improved. Heart remains enlarged. No new cardiopulmonary abnormalities. - RA 98% - Clear lung sounds throughout Code(s): J90 - PLEURAL EFFUSION, NOT ELSEWHERE CLASSIFIED (10) CHF (congestive heart failure) Current Visit: Yes Status: Acute Assessment & Plan: - Echo - Lasix 40mg IV Q8 hr - I&O's, daily weight - Tele - BNP 5340 - Cardiology consult - 8L Oxymask 95% - Keep HOB > 30-45 degrees - 2 L fluid restriction - Heart healthy diet when not NPO - Chest CTA shows: IMPRESSION: 1. No convincing evidence of pulmonary embolism on current examination. 2. Mildly dilated pulmonary trunk measuring 35 mm in diameter, suggestive of pulmonary arterial hypertension. New finding. 3. Moderate cardiomegaly with interval increase in cardiac size. 4. Interval evidence of severe right-sided and moderate left-sided pleural effusion with underlying consolidation/collapse. Appearances are likely secondary to congestive changes with possibility of superadded pulmonary infection. Clinical and laboratory correlation is advised. 5. Generalized body wall edema. New finding. 6. The rest of the findings are as stated above. 08/28 - Combined systolic (congestive) and diastolic (congestive) heart failure - Echo EF 20-25%- TRANSTHORACIC ECHOCARDIOGRAM 08/27/2025: 1. Moderately dilated left atrium. Mildly dilated left ventricle and right atrium. Normal right ventricular chamber size. 2. Mild to moderate concentric left ventricular hypertrophy. 3. Severely depressed left ventricular systolic function due to severe global hypokinesis. Estimated EF 20-25%. 4. Unable to access grade of diastolic dysfunction due to the patient's underlying atrial fibrillation. 5. Normal right ventricular systolic function. 6. Structurally normal valves. 7. Doppler: Mild to moderate mitral regurgitation, mild tricuspid and pulmonic regurgitation. 8. Normal estimated PA systolic pressure (29 mmHg). 9. Mildly elevated right atrial pressure (8 mmHg). 10. No pericardial effusion. - 3lNC 95% - Daily weight reviewed and no weight loss - Continue lasix - Purewick in place - Losartan 25 mg daily - Replace carvedilol with metoprolol succinate 25 mg daily due to her underlying COPD. 08/29 - Cardiology changed meds last night, Losartan stopped and Entresto and Jardiance started. - Entrestro held d/t BP low last night- provider made aware by nurse. - Weight pending - Pt wants hospice for CHF dx - Hold lasix d/t NAKUL 08/30 - Entresto stopped by cardiology d/t hypotension and losartan restarted - Restart lasix 40mg daily PO- NAKUL resolved - Pt decided on C - Pt to weight daily and keep log to take to PCP - F/U with Cardiology OP Code(s): I50.9 - HEART FAILURE, UNSPECIFIED (11) Chronic anemia Current Visit: Yes Status: Acute Assessment & Plan: - Hgb 8.1- trend- appears to be at baseline per old labs reviewed - Pt reports recent EGD colonoscopy w/o concern and unable to find cause of anemia - Iron profile ordered - Occult stool 08/28 - Iron profile reviewed- + Fe+ def. anemia - Started Venofer IV - Occult stool pending - Hgb 7.3- Recheck H& H at 1400 7.6 08/29 - Hgb 7.7 08/30 - Hgb 7.4 - Occult stool not obtained - PCP to consider hematology referral - Continue Venofer IV infusions OP Code(s): D64.9 - ANEMIA, UNSPECIFIED (12) Hypomagnesemia Current Visit: Yes Status: Acute Assessment & Plan: - MG+ 1.5 on admission, 1.6 today- replace to keep > 2 d/t A-fib RVR 08/28 - Mg+ 1.6- replaced- trend 08/30 - Mg+ 1.9- replaced- trend Code(s): E83.42 - HYPOMAGNESEMIA (13) Hypoxia Current Visit: Yes Status: Acute Assessment & Plan: - 8L oxymask-95%- wean as tolerated- BL 1-2 Liters - BL 1-2 liters but will not wear at home and noncompliant. - CTA chest reviewed - 2:2 BL pleural effusions- see plan above 08/28 - 3L NC 95% - Right thoracentesis with 1 Liter out, labs ordered 08/29 - Left thoracentesis with 600 ml out, labs ordered 08/30 - Labs reviewed Code(s): R09.02 - HYPOXEMIA (14) UTI (urinary tract infection) Current Visit: Yes Status: Acute Assessment & Plan: - UA gram negative - Ceftriaxone IV - CBC, CMP reviewed - BC x2 pending - LA negative 08/28 - BC x2 negative - CBC, CMP reviewed 08/29 - UC gram negative 08/30 - UC + E-coli - Continue OP oral antibiotics Code(s): N39.0 - URINARY TRACT INFECTION, SITE NOT SPECIFIED (15) Alcohol withdrawal delirium Current Visit: No Status: Acute Assessment & Plan: - Alcohol withdrawal protocol - Alcohol level <10 Code(s): F10.231 - ALCOHOL DEPENDENCE WITH WITHDRAWAL DELIRIUM (16) Hepatitis C Current Visit: No Status: Chronic Qualifiers: Viral hepatitis chronicity: chronic Hepatic coma status: without hepatic coma Qualified Code(s): B18.2 - Chronic viral hepatitis C Assessment & Plan: - Chronic per patient. Patient states that she has not got any treatment for this as she does not know how to follow-up or receive treatment for this will need referral outpatient at D/C. - Hepatitis profile ordered- pending - Liver enzymes AST 227/ALT 185 - US abd for eval of ascites 08/28 - AST 122, ALT 150- improved - No ascites per US results 08/29 - AST 82/ ALT 118- improving- trend - Hepatitis labs pending- Will continue to follow OP (17) Cirrhosis of liver with ascites Current Visit: No Status: Chronic Qualifiers: Hepatic cirrhosis type: alcoholic cirrhosis Qualified Code(s): K70.31 - Alcoholic cirrhosis of liver with ascites Assessment & Plan: - US of abd today for further eval - Amylase/Lipase WNL 08/28 - US abd: Pancreas not well seen due to overlying bowel gas. Visualized liver mildly fatty and homogeneous in echogenicity without hepatomegaly or ascites. Partially contracted gallbladder negative for cholelithiasis. Gallbladder wall thickening 3.7 mm presumed from partial contraction. No pericholecystic fluid. Common bile duct measures 5 mm. No intrahepatic biliary distention. Right kidney measures 9.4 x 4.2 x 4.9 cm and sonographically unremarkable. Impression: Nonvisualization pancreas. Gallbladder wall thickening presumed from partial contraction. Fatty liver. Remaining right upper quadrant sonogram negative. - No ascities Code(s): K74.60 - UNSPECIFIED CIRRHOSIS OF LIVER; R18.8 - OTHER ASCITES (18) HTN (hypertension) Current Visit: No Status: Chronic Qualifiers: Hypertension type: primary hypertension Qualified Code(s): I10 - Essential (primary) hypertension Assessment & Plan: - BP stable - Hold bp meds while on cardizem gtt- Discussed with nursing 08/28 - Cardiology started metoprolol, Losartan - Coreg stopped last night by cardiology - BP stable 08/29 - Cardiology stopped Losartan last night - BP stable 08/30 - Hypotension again last night and Entresto held again for the 2nd night - Cardiology made aware by nurse that entresto held x2 nights d/t BP - Entresto stopped by Cardiology and losartan restarted Code(s): I10 - ESSENTIAL (PRIMARY) HYPERTENSION (19) Methamphetamine abuse Current Visit: No Status: Chronic Assessment & Plan: - UDS + for meth and opiates - Advised cessation Code(s): F15.10 - OTHER STIMULANT ABUSE, UNCOMPLICATED (20) Alcohol abuse Current Visit: Yes Status: Chronic Assessment & Plan: - Alcohol level pending - Advised cessation - CM to discuss rehab - Admits to drinking 4 glasses of vodka daily - Alcohol withdrawal protocol in place 08/28 - + Alcohol withdrawals with hallucinations 08/29 - Continued sxs overnight 08/30 - Sxs resolved Code(s): F10.10 - ALCOHOL ABUSE, UNCOMPLICATED (21) ANKUL (acute kidney injury) Current Visit: Yes Status: Resolved Assessment & Plan: - Resolved - Stop IVF 08/28 - Creat. .- trend - Likely 2:2 Lasix 08/29 - Hold lasix today - Creat 1.21 08/30 - Resolved - Restart oral lasix daily - F/U with cardiology OP Code(s): N17.9 - ACUTE KIDNEY FAILURE, UNSPECIFIED (22) Hallucinations Current Visit: Yes Status: Acute Assessment & Plan: - From alcohol withdrawl - Continue alcohol withdrawl protocol 08/30 - No sxs last night and today Code(s): R44.3 - HALLUCINATIONS, UNSPECIFIED (23) Chronic right shoulder pain Current Visit: Yes Status: Chronic Assessment & Plan: - T-Pump heating pad - Tylenol for pain PRN - Right shoulder XR: 3 view right shoulder demonstrates osteopenia, mild AC degenerative changes, 1.5 cm humeral head bone cyst, mild lower cervical degenerative spondylosis, and mild left carotid calcifications. No other bony, articular, or soft tissue abnormalities. - F/U OP with ortho- appointment made Code(s): M25.511 - PAIN IN RIGHT SHOULDER; G89.29 - OTHER CHRONIC PAIN (24) Chronic neck pain Current Visit: Yes Status: Chronic Assessment & Plan: - T-Pump heating pad - Tylenol for pain PRN - Cervical spine CT 07/05/22: Impression: 1. Cervical lordotic reversal, positional versus paraspinal spasm. 2. Osteopenia and multilevel degenerative changes greatest at C6-C7 level. 3. Extensive bilateral carotid calcifications - Cervical spine MRI: Impression: 1. Multilevel degenerative disc disease detailed level by level including T2-T3 level. Greatest extent is C3-C4 where there is spinal canal narrowing and bilateral foraminal stenosis compounded by minimal grade 1 anterolisthesis. 2. Cervical lordotic straightening, positional versus paraspinal spasm. Code(s): M54.2 - CERVICALGIA; G89.29 - OTHER CHRONIC PAIN (25) Iron deficiency anemia Current Visit: Yes Status: Chronic Assessment & Plan: - Iron panel reviewed - Iron sat 6, Ferritin 7 - Venofer IV started - Hgb 7.3- trend - Pt reports OP EGD and colonosocpy OP with no abnormal findings. 08/29 - Hgb 7.7 08/30 - Hgb7.4- will need OP f/u with repeat labs by PCP, Consider hematology f/u if amenable - Unable to prescribed anticoagulation fro A-fib d/t chronic anemia. Code(s): D50.9 - IRON DEFICIENCY ANEMIA, UNSPECIFIED (26) Opiate abuse, episodic Current Visit: Yes Status: Acute Assessment & Plan: - UDS + for opiates - She receive Morphine in ER x1 - Per INSPECT report she last received opiates 10/06/24- no recent RX filled - Will need to d/c with narcan Code(s): F11.10 - OPIOID ABUSE, UNCOMPLICATED (27) Depression Current Visit: Yes Status: Acute Qualifiers: Depression Type: major depressive disorder Active/Remission status: c urrently active Assessment & Plan: - PHQ9 score elevated for depression per community health worker - Started Paxil daily for anxiety and depression - Will need OP f/u Code(s): F32.A - DEPRESSION, UNSPECIFIED (28) Hypokalemia Current Visit: Yes Status: Acute Assessment & Plan: - K+ 3.4- Replaced- trend - ICU-Tele 08/30 - Resolved Code(s): E87.6 - HYPOKALEMIA (29) Hypomagnesemia Current Visit: Yes Status: Acute Assessment & Plan: - Mg+ 1.5- replaced- trend - ICU-Tele 08/30 - Mg+1.9- replaced to keep > 2 D/C plan of care time: > 50 minutes Code(s): E83.42 - HYPOMAGNESEMIA - Discharge Discharge Date: 08/30/25 Disposition: HOME HEALTH SERVICE Condition: Fair Prescriptions: New Losartan Potassium 50 mg [Cozaar 50 MG] 25 mg PO DAILY 30 Days #30 tablet Iron Sucrose Complex [Iron Sucrose] 200 mg IV Q48H Empagliflozin [Jardiance] 10 mg PO DAILY 30 Days #30 tablet Gabapentin [Neurontin ] 300 mg PO TID cap Paroxetine HCl 20 mg [Paxil 20 MG] 20 mg PO DAILY 30 Days #30 tablet Levothyroxine Sodium 25 Mcg [Synthroid 25 Mcg] 25 mcg PO QAM@0700 tablet Metoprolol Succinate 25 mg Xl* [Toprol-Xl 25MG Tablets] 25 mg PO DAILY 30 Days #30 tablet Naloxone HCl [Narcan] 4 mg NS DAILY PRN PRN 1 Days #1 blist PRN Reason: Respiratory Depression Continue Albuterol Sulfate [Proair Respiclick] 1 puff IH DAILY PRN PRN PRN Reason: Shortness Of Breath/Wheezing Follow up with: GEO LIMA [ACTIVE STAFF, FAMILY PRACTICE] - 09/11/25 11:20 am MARTHA BRUMFIELD [CONSULTING PHYSICIAN, CARDIOLOGY] Referral Note: We will call Dr. Brumfield's office on Tuesday to schedule and call you back with the appointment date and time.
[2025-08-30 13:00] VITALS: BP 109/76; TEMP 98.4; O2SAT 94
[2025-08-30 14:39] VITALS: PULSE 99; RESP 20
[2025-08-30 16:36] LABS: Glucose, Body Fluid 110.0 mg/dL (.); LD, Body Fluid 106.0 IU/L (.)
[2025-09-02 16:19] LABS: pH,Body Fluid 7.4 (Not Estab.)
[2025-09-03 11:26] LABS: pH,Body Fluid 7.6 (Not Estab.)
== END 2025-08-30 14:26 | disposition home health service (06) | DRG 309 ==
LOC: ED 19:31 → OBSVTOIN 08-27 01:29 → ICU 08-27 01:29
PROVIDERS: ADMIT Internal Medicine; ATTEND Internal Medicine
DX: I48.20 Chronic atrial fibrillation, unspecified (principal); E87.20 Acidosis, unspecified; J90 Pleural effusion, not elsewhere classified; N39.0 Urinary tract infection, site not specified; F10.231 Alcohol dependence with withdrawal delirium; N17.9 Acute kidney failure, unspecified; R44.3 Hallucinations, unspecified; Z59.82 Transportation insecurity; Z59.48 Other specified lack of adequate food; Z91.199 Patient's noncompliance with other medical treatment and regimen due to unspecified reason; R79.89 Other specified abnormal findings of blood chemistry; R74.01 Elevation of levels of liver transaminase levels; E03.9 Hypothyroidism, unspecified; F41.9 Anxiety disorder, unspecified; R73.01 Impaired fasting glucose; I11.0 Hypertensive heart disease with heart failure; I50.9 Heart failure, unspecified; E83.42 Hypomagnesemia; R09.02 Hypoxemia; B96.20 Unspecified Escherichia coli [E. coli] as the cause of diseases classified elsewhere; F15.10 Other stimulant abuse, uncomplicated; B19.20 Unspecified viral hepatitis C without hepatic coma; M25.511 Pain in right shoulder; G89.29 Other chronic pain; D50.9 Iron deficiency anemia, unspecified; F11.10 Opioid abuse, uncomplicated; F32.A Depression, unspecified; K70.31 Alcoholic cirrhosis of liver with ascites; E87.6 Hypokalemia; Z79.899 Other long term (current) drug therapy